=== PATIENT | male | born 1975 | race Caucasian/White ===

== ENCOUNTER → 2020-09-11 14:30 | Outpatient (BNVA) | payer BC, OTHER, SELFPAY | PROVIDERS: PCP Nurse Practitioner Family; Visit Provider Surgery | DX: K64.5 Perianal venous thrombosis (principal) | CPT/HCPCS: 46600 ==

== ENCOUNTER → 2021-04-14 11:01 | Outpatient (BNVA) | payer BC, OTHER, SELFPAY | PROVIDERS: PCP Nurse Practitioner Family; Visit Provider Anesthesiology ==

== ENCOUNTER 2021-08-19 13:26 | Outpatient (REF) | payer OTHER, SELFPAY ==
--- NOTE | ~2021-08-19 | XR_ITS ---
EXAMINATION: XR THORACOLUMBAR SPINE CLINICAL INFORMATION: Other mechanical complication of implanted electrode COMPARISON: Chest x-ray 04/08/2020 TECHNIQUE: 3 views of the thoracic spine were obtained. FINDINGS: Normal alignment of the thoracic spine. No appreciable degenerative changes of the thoracic spine. Spinal stimulator leads appear stable in orientation. Visualized lung parenchyma is well aerated. XR/XR thoracic spine 2V IMPRESSION: Unremarkable radiographs of the thoracic spine.
== END 2021-08-19 13:27 | disposition home or self-care (01) ==
LOC: HO.XRAY 13:26
PROVIDERS: PCP Nurse Practitioner Family; Visit Provider Anesthesiology
DX: M96.1 Postlaminectomy syndrome, not elsewhere classified (principal); T85.192D Other mechanical complication of implanted electronic neurostimulator of spinal cord electrode (lead), subsequent encounter
CPT/HCPCS: 72070

== ENCOUNTER 2021-08-22 09:18 | Day surgery (SDC) | payer OTHER, SELFPAY ==
[2021-08-13 12:46] VITALS: BMI 33.1
--- NOTE | 2021-08-21 16:49 | P.CONAN_ITS ---
Documented by User: Charlette Bhatti NP 08/21/21 16:49 HPI - Anesthesia Eval Consult details Narrative: 45yo M for Remove Spinal Cord Stimulator PMFSH Active Problems Active Problems: All Active Problems (Updated 08/13/21 @ 12:45 by Johana Jerez RN) Blepharitis of eyelid of left eye (Acute) Mild intermittent asthma, uncomplicated (Acute) Acute hemorrhoid (Acute) Perianal hematoma (Acute) Spinal cord stimulator dysfunction (Acute) Postlaminectomy syndrome (Acute) Thrombosed external hemorrhoid (Acute) Past Medical History Medical History (Updated 08/13/21 @ 12:45 by Johana Jerez RN) Asthma COVID-19 vaccine series completed Positive PPD, treated Postlaminectomy syndrome Sleep apnea Spinal cord stimulator status Thrombosed external hemorrhoid Family History Family History Maternal Grandfather History of liver cancer Father History of bladder cancer Surgical History Surgical History (Updated 08/13/21 @ 12:45 by Johana Jerez RN) History of appendectomy History of lumbar fusion Hx of knee surgery Hx of repair of rotator cuff Social History Social History Are you a primary lawn care specialist to a significant other at home: No Do you presently have visiting nurse or other home services: No Alcohol intake: current Alcohol intake frequency: a few times a month Patient Tobacco Use Status: Former Tobacco user Quit Date: 2014 (smokes occasional cigar) Tobacco use type: Cigarette and Cigar Years Smoked: 20 Use of substances other than those prescribed or required for medical reasons: No Have you been hit, kicked, punched, or otherwise hurt by someone within the past year? If so, by whom?: No Are you DNR?: No Advance Directives: No Advance Directives Information Provided: Yes (informational brochure mailed) Advance Directives on File: No Recently lost weight without trying: No Eating poorly because of decreased appetite: No Nutrition Risks: No Nutritional Risk Poor oral hygiene: No Meds Allergies Allergy/AdvReac Type Severity Reaction Status Date / Time No Known Allergies Allergy Verified 04/14/21 11:25 [No Known Allergies*] Home Medications Medication Instructions Recorded Confirmed Last Taken Type esomeprazole magnesium 20 mg 20 mg PO DAILY 08/26/20 08/13/21 08/22/21 History capsule,delayed release famotidine 40 mg tablet 40 mg PO BEDTIME 08/26/20 08/13/21 Unknown History flu vac qs 2019(4 yr up)CD(PF) ml IM 08/26/20 09/11/20 Unknown History fluticasone propionate 50 1 spray INTRANASAL DAILY 08/26/20 08/13/21 Unknown History mcg/actuation nasal spray,suspension (Flonase Allergy Relief) Exam Exam Date and Time: August 21, 2021 164 Height,Weight and Vital Signs: Height 6 ft 3 in Weight 120.202 kg Assessment and Plan Assessment Anesthesia Assessment: Chart Reviewed Documented by User: Cruz Arredondo 08/22/21 10:16 HPI - Anesthesia Eval Consult details Narrative: 45yo M for Remove Spinal Cord Stimulator kilo , Cpap , asthma PMFSH Past Medical History Medical History (Updated 08/13/21 @ 12:45 by Johana Jerez RN) Asthma COVID-19 vaccine series completed Positive PPD, treated Postlaminectomy syndrome Sleep apnea Spinal cord stimulator status Thrombosed external hemorrhoid Family History Family History Maternal Grandfather History of liver cancer Father History of bladder cancer Surgical History Surgical History (Updated 08/13/21 @ 12:45 by Johana Jerez RN) History of appendectomy History of lumbar fusion Hx of knee surgery Hx of repair of rotator cuff History of Problems with Anesthesia: No Social History Social History Are you a primary lawn care specialist to a significant other at home: No Do you presently have visiting nurse or other home services: No Alcohol intake: current Alcohol intake frequency: a few times a month Patient Tobacco Use Status: Former Tobacco user Quit Date: 2014 (smokes occasi onal cigar) Tobacco use type: Cigarette and Cigar Years Smoked: 20 Use of substances other than those prescribed or required for medical reasons: No Have you been hit, kicked, punched, or otherwise hurt by someone within the past year? If so, by whom?: No Are you DNR?: No Advance Directives: No Advance Directives Information Provided: Yes (informational brochure mailed) Advance Directives on File: No Recently lost weight without trying: No Eating poorly because of decreased appetite: No Nutrition Risks: No Nutritional Risk Poor oral hygiene: No Meds Allergies Allergy/AdvReac Type Severity Reaction Status Date / Time No Known Allergies Allergy Verified 04/14/21 11:25 [No Known Allergies*] Home Medications Medication Instructions Recorded Confirmed Last Taken Type esomeprazole magnesium 20 mg 20 mg PO DAILY 08/26/20 08/13/21 08/22/21 History capsule,delayed release famotidine 40 mg tablet 40 mg PO BEDTIME 08/26/20 08/13/21 Unknown History flu vac qs 2019(4 yr up)CD(PF) ml IM 08/26/20 09/11/20 Unknown History fluticasone propionate 50 1 spray INTRANASAL DAILY 08/26/20 08/13/21 Unknown History mcg/actuation nasal spray,suspension (Flonase Allergy Relief) Exam Airway Mallampati Class: II TM Dist: >3cm Neck ROM: Full Loose/Missing/Broken Teeth: Yes Heart: rrr Lungs: bl breath sounds Assessment and Plan Final Anesthetic Review History of Problems with Anesthesia: No NPO: Yes ASA Class: III Patient Risk: Intermediate Procedure Risk: Intermediate Anesthetic Plan Anesthetic Plan: GA Disposition: Standard PACU
[2021-08-22] VITALS (9 sets, daily range): BP systolic 110–138; BP diastolic 57–85; PULSE 64–83; RESP 14–17; TEMP 36.3–36.8; O2SAT 93–97
--- NOTE | ~2021-08-22 | FL_ITS ---
EXAMINATION: XR FLUOROSCOPY WITH IMAGES CLINICAL INFORMATION: Implant removal COMPARISON: None. TECHNIQUE: Fluoroscopy performed by Dr. Christiano Valle. Fluoroscopy time: 0.1 minutes DAP: 0.8 mGycm2 Images: 2 FINDINGS: Fluoroscopy guidance was provided for implant removal. FL/FL guidance in OR IMPRESSION: Fluoroscopy guidance for implant removal.
[2021-08-22] MEDS: Lactated Ringers 1,000 ML 100 ML IVCONT (09:56)
--- NOTE | 2021-08-22 10:12 | P.HPSUR_ITS ---
Pre-Procedural Eval Section A Date of Service: 08/22/21 Changes since office visit: Yes Patient answered all questions The History & Physical has been completed within 30 days and I have reviewed it.: No Section B Chief Complaint: postlaminectomy syndrome Details of Present Illness: Postlaminectomy syndrome, presence of spinal cord stimulator. Malfunctioning spinal cord stimulator. Relevant Family History (Specify if Yes): No Relevant Social History: None Present Medications: None Medical History: No relevant PMH History of Previous Operations: Relevant previous surgery/procedure and date(s) Allergies: Allergies Allergy/AdvReac Type Severity Reaction Status Date / Time No Known Allergies Allergy Verified 04/14/21 11:25 [No Known Allergies*] Review of Systems Sugical H&P ROS: Negative: Constitution, Cardiovascular, Respiratory, Neurological, Psychiatric, Hem-Onc, Allergic/Immunologic, Gastrointestinal, Genitourinary, Musculoskeletal, Integumentary, Endocrine and Eyes/ Ears/Nose/Throat Exam Surgical H&P Exam: Normal: HEENT, Normal: Heart, Normal: Lungs, Normal: Extremities, Normal: Abdomen, Normal: Skin and Normal: Neurological Plan Diagnosis/Plan: Unchanged I have reviewed the history and physical and performed a pertinent physical examination on my patient. No changes have occurred unless specified.
--- NOTE | 2021-08-22 12:16 | PM.OP ---
Brief Operative Note Date of Service: 08/22/21 Pre-op diagnosis: presence of the spinal cord stimulator. Malfunctioning spinal cord stimulator Post-op diagnosis: same Procedure: removal of the spinal cord stimulator [employer] and epidural spinal cord Stimulator leads. Implants: None permanent Surgeon: Christiano Valle MD Anesthesia: GETA Was an Manager [employer] used for this Procedure?: No Estimated blood loss (mL): 10 Pathology: none sent Condition: stable Disposition: PACU
--- NOTE | 2021-08-22 12:18 | W.PM.OPN ---
Operative Note Operative Note Date of Service: 08/22/21 Narrative: Mr. Mejía is very pleasant 45 years old gentleman who presents in my office with complains on discomfort in the projection of the spinal cord stimulator as well as unpleasant Spinal cord stimulator sensation in bilateral lower extremities. he insisted on removal of the spinal cord stimulator. He has postlaminectomy syndrome. I offered him revision of the spinal cord stimulator and replacement of the machine with Nevro device however he adamantly refused. Therefore he is scheduled today for removal of the device [employer]. The patient after obtaining informed consent was taken to the operating room, positioned supine on the stretcher, [place] [employer] monitors were applied and patient was administered general anesthesia with Endotracheal intubation. after that patient was transferred to the operating table prone, all pressure points were protected. Time-out was performed delineating correct name and date of of the patient, correct site and side of the surgery, DVT prophylaxis knee, antibiotic knee, risk of fire. Patient received 3 g of cefazolin before the incision 30 minutes. Patient's lower back and left flank were prepped with ChloraPrep twice and draped with full body fenestrated drape. Sterilely draped C-arm was brought of the operating field and spinal cord stimulator leads as well as [employer]tron[employer] device were demonstrated on the screen. Again the position of the spinal cord stimulator was verify and found to be appropriate for stimulation. Local anesthetic mixture of lidocaine 2% and bupivacaine 0.5% was injected into the projection of the previously healed scar in the upper portion of the battery implantation site in the area of the left loin. After that 10 blade scalpel was used to make a horizontal skin incision 6 cm long. Thorough hemostasis was obtained. The incision was widened and deepened using electrocautery device. After that the capsule containing the spinal cord stimulator pump was incised using Metzenbaum scissors and spinal cord stimulator battery was detected in the pocket. After that the battery was freed from surrounding tissues in delivered to the level of the skin. Suture scissors were used to sever the epidural leads. Gentle dragging the epidural leads allowed me to remove the epidural leads from the epidural space and side of the implantation without opening the Midline back incision. One of the anchor was dislodged and removed with the epidural lead. The other anchor was left behind. After that thorough irrigation was performed and side of the entrance of the epidural leads into the pocket was closed using 0 Polysorb sutures. After that 7 mm KALEY drain was obtained and drainage was placed through the lowest Lateral corner of the wound. Sean-Stanford draining device was trimmed appropriately and inserted in the wound. After that 0 Polysorb was used to close the wound. 2- 0 polysorb was used to approximate the level of the skin. Steri-Strip an skin glue were used to close the skin. 3-0 nylon was used to attach the KALEY drainage to the skin at the entrance site. After that sterile dressing was applied using 4x4s and skin tape. Upon completion of the procedure patient was transferred to the stretcher supine, awakened, extubated, and transferred stable to PACU. He recovered in PACU uneventfully.
[2021-08-22] MEDS: oxyCODONE HCl Immed Release 5 MG TABLET PO (13:06)
[2021-08-22] MEDS: Acetaminophen 325 MG TABLET 650 MG PO (13:07)
== END 2021-08-22 14:18 | disposition home or self-care (01) ==
PROVIDERS: PCP Nurse Practitioner Family; Visit Provider Anesthesiology
PROC: (CPT 63661; principal; 2021-08-22 11:00)
DX: T85.840A Pain due to nervous system prosthetic devices, implants and grafts, initial encounter (principal); G89.18 Other acute postprocedural pain; M96.1 Postlaminectomy syndrome, not elsewhere classified; M79.605 Pain in left leg; M79.604 Pain in right leg; R20.2 Paresthesia of skin; M54.9 Dorsalgia, unspecified; G47.00 Insomnia, unspecified; Z98.1 Arthrodesis status; Y82.8 Other medical devices associated with adverse incidents; Y92.9 Unspecified place or not applicable
CPT/HCPCS: 63661; 63688; J0690; J1100; J2250; J2405; J3010; J3370

== ENCOUNTER → 2021-08-25 12:49 | Outpatient (BNVA) | payer OTHER, SELFPAY | PROVIDERS: PCP Nurse Practitioner Family; Visit Provider Anesthesiology | DX: Z48.03 Encounter for change or removal of drains (principal) | CPT/HCPCS: 99211 ==

== ENCOUNTER → 2021-08-27 15:45 | Outpatient (BNVA) | payer OTHER, SELFPAY | PROVIDERS: PCP Nurse Practitioner Family; Visit Provider Anesthesiology | DX: Z48.89 Encounter for other specified surgical aftercare (principal); M79.661 Pain in right lower leg; M96.1 Postlaminectomy syndrome, not elsewhere classified | CPT/HCPCS: 99212 ==

== ENCOUNTER 2021-08-28 14:45 | Outpatient (REF) | payer OTHER, SELFPAY ==
--- NOTE | ~2021-08-28 | US_ITS ---
EXAMINATION: US VENOUS ULTRASOUND WITH DOPPLER LOWER EXTREMITY, RIGHT CLINICAL INFORMATION: Acute embolism and thrombosis COMPARISON: None TECHNIQUE: Ultrasound of the deep veins is performed from the hip to the calf with compression sonography and color and pulse Doppler assessment. Spectral analysis with color-flow imaging is performed. FINDINGS: There is normal venous compression and respiratory variation and augmented flow. The visualized common femoral vein, superficial femoral vein, profunda femoral vein and popliteal vein. There is noncompressible clot in the right mid and proximal posterior tibial venous branch. The distal posterior tibial vein is compressible and patent. There is no significant popliteal fossa cyst. If the patient's symptoms persist, followup ultrasound in 5 days 7 days might be of value to exclude proximal propagation from a non-visualized calf vein. US/US venous duplex LE RT IMPRESSION: There is acute thrombus in right mid and proximal posterior tibial venous branch. Rest of the right lower extremity is patent. There is no calf edema or Moody's cyst. Results were called to referring physician BEE Overton by phone at 3:35 PM.
[2021-08-28 16:47] LABS: INTERNATIONAL NORM RATIO 1.1 (0.9-1.1); Prothrombin Time 12.1 SEC (9.9-13.0)
== END 2021-08-28 14:46 | disposition home or self-care (01) ==
LOC: HO.US 14:45
PROVIDERS: Absent Provider Nurse Practitioner Family; PCP Nurse Practitioner Family; Visit Provider Anesthesiology
DX: I82.409 Acute embolism and thrombosis of unspecified deep veins of unspecified lower extremity (principal)
CPT/HCPCS: 36415; 85610; 93971

== ENCOUNTER 2021-09-01 12:54 | Outpatient (REF) | payer OTHER, SELFPAY ==
[2021-09-01 14:36] LABS: INTERNATIONAL NORM RATIO 1.1 (0.9-1.1); Prothrombin Time 12.1 SEC (9.9-13.0)
== END 2021-09-01 12:55 | disposition home or self-care (01) ==
LOC: HO.LAB 12:54
PROVIDERS: Nurse Practitioner Family; PCP Nurse Practitioner Family; Visit Provider Anesthesiology
DX: I82.409 Acute embolism and thrombosis of unspecified deep veins of unspecified lower extremity (principal); M96.1 Postlaminectomy syndrome, not elsewhere classified; Z79.01 Long term (current) use of anticoagulants
CPT/HCPCS: 36415; 85610; 99212

== ENCOUNTER → 2021-09-29 14:32 | Outpatient (BNVA) | payer OTHER, SELFPAY | PROVIDERS: PCP Nurse Practitioner Family; Visit Provider Anesthesiology | DX: M96.1 Postlaminectomy syndrome, not elsewhere classified (principal) | CPT/HCPCS: 99212 ==

== ENCOUNTER 2021-11-28 11:35 | Outpatient (REF) | payer OTHER, SELFPAY ==
--- NOTE | ~2021-11-28 | US_ITS ---
EXAMINATION: RIGHT LOWER EXTREMITY DEEP VENOUS ULTRASOUND CLINICAL INFORMATION: History of right lower extremity DVT COMPARISON: Right lower extremity DVT study 11/28/2021 TECHNIQUE: Duplex Doppler imaging with compression maneuvers were performed of the right lower extremity deep venous system. FINDINGS: The visualized common femoral, femoral and popliteal veins demonstrate normal compressibility and color flow without evidence of venous thrombosis. The proximal portion of the right posterior tibial vein demonstrates internal echogenicities and incomplete color flow consistent with nonocclusive thrombus. The mid and distal portion of the right posterior tibial vein appear widely patent. Visualized portions of the peroneal vein appear patent. There is no evidence of a Moody's cyst. US/US venous duplex LE RT IMPRESSION: Persistent but improving nonocclusive thrombus within the proximal portion of the right posterior tibial vein.
== END 2021-11-28 11:36 | disposition home or self-care (01) ==
LOC: HO.US 11:35
PROVIDERS: PCP Nurse Practitioner Family; Visit Provider Internal Medicine Medical Oncology
DX: I82.401 Acute embolism and thrombosis of unspecified deep veins of right lower extremity (principal)
CPT/HCPCS: 93971

== ENCOUNTER 2022-06-02 11:25 | Outpatient (REF) | payer OTHER, SELFPAY ==
--- NOTE | ~2022-06-02 | XR_ITS ---
EXAMINATION: XR KNEE, LEFT CLINICAL INFORMATION: Fall COMPARISON: None TECHNIQUE: Four views of the left knee. FINDINGS: No fracture or subluxation. Compartmental joint spaces are maintained. No joint effusion. The soft tissues are unremarkable. XR/XR knee LT 4V IMPRESSION: Normal left knee.
== END 2022-06-02 11:26 | disposition home or self-care (01) ==
LOC: HO.HMGCX 11:25
PROVIDERS: PCP Nurse Practitioner Family; Visit Provider Emergency Medicine
DX: M25.562 Pain in left knee (principal); W19.XXXA Unspecified fall, initial encounter
CPT/HCPCS: 73564

== ENCOUNTER 2022-06-08 13:54 | Outpatient (REF) | payer OTHER, SELFPAY ==
--- NOTE | ~2022-06-08 | US_ITS ---
EXAMINATION: US VENOUS ULTRASOUND WITH DOPPLER LOWER EXTREMITY, RIGHT CLINICAL INFORMATION: Right lower extremity DVT COMPARISON: 11/28/2021 TECHNIQUE: Ultrasound of the deep veins is performed from the hip to the calf with compression sonography and color and pulse Doppler assessment. Spectral analysis with color-flow imaging is performed. FINDINGS: There is normal venous compression and respiratory variation and augmented flow. The visualized common femoral vein, superficial femoral vein, profunda femoral vein, popliteal vein, and the trifurcation region shows no evidence of deep venous thrombosis. There is no significant popliteal fossa cyst. Previously seen thrombus in the proximal right posterior tibial vein has resolved. If the patient's symptoms persist, followup ultrasound in 5 days 7 days might be of value to exclude proximal propagation from a non-visualized calf vein. US/US venous duplex LE RT IMPRESSION: No DVT demonstrated in the right lower extremity. Previously seen thrombus in the proximal right posterior tibial vein has resolved.
== END 2022-06-08 13:55 | disposition home or self-care (01) ==
LOC: HO.US 13:54
PROVIDERS: Visit Provider Internal Medicine Medical Oncology
DX: I82.401 Acute embolism and thrombosis of unspecified deep veins of right lower extremity (principal)
CPT/HCPCS: 93971

== ENCOUNTER 2022-08-11 11:11 | Outpatient (REF) | payer OTHER, SELFPAY ==
[2022-08-11 12:00] LABS: Influenza A PCR NEGATIVE (Negative); Influenza B PCR NEGATIVE (Negative); Resp Syncy Virus RNA Qual PCR NEGATIVE (Negative); SARS COV2 PCR INHOUSE POSITIVE (Negative)
== END 2022-08-11 11:12 | disposition home or self-care (01) ==
LOC: HO.LNP 11:11
PROVIDERS: Visit Provider Internal Medicine
DX: Z20.822 Contact with and (suspected) exposure to COVID-19 (principal); R43.9 Unspecified disturbances of smell and taste
CPT/HCPCS: 0241U

== ENCOUNTER 2022-10-16 06:02 | Outpatient (REF) | payer OTHER, SELFPAY ==
[2022-10-16 11:26] LABS: MANUAL DIFF FLAG NO
[2022-10-16 11:35] LABS: Basophils Absolute Auto 0.1 X10*3/uL (0.0-0.2); Basophils Percent Auto 0.7 % (0-2); Eosinophils Absolute Auto 0.3 X10*3/uL (0.0-0.4); Eosinophils Percent Auto 3.7 % (0-4); Hematocrit 45.2 % (42.0-52.0); Hemoglobin 15.1 g/dl (14.0-18.0); Imm Gran Abs Auto 0.02 X10*3/uL (0.00-0.03); Imm Gran Pct Auto 0.3 % (0.0-0.4); Lymphocytes Absolute Auto 1.8 X10*3/uL (1.2-4.9); Lymphocytes Percent Auto 26.4 % (20-40); Mean Corpuscular HGB Conc 33.4 g/dl (31.0-36.0); Mean Corpuscular Hemoglobin 30.2 pg (27.0-33.0); Mean Corpuscular Volume 90.4 fL (80.0-98.0); Mean Platelet Volume 11.1 fL (9.4-12.4); Monocytes Absolute Auto 0.6 X10*3/uL (0.1-1.2); Monocytes Percent Auto 8.2 % (2-11); Neutrophils Absolute Auto 4.1 x10*3/uL (2.0-8.3); Neutrophils Percent Auto 60.7 % (45-73); Platelet Count 292 X10*3/uL (160-400); Red Cell Distribution Width 13.4 % (11.0-16.0); White Blood Count 6.7 X10*3/uL (4.8-10.8)
[2022-10-16 11:58] LABS: Alanine Aminotransferase 31 U/L (0-40); Albumin Level 4.3 g/dL (3.5-5.0); Alkaline Phosphatase 40 U/L (39-117); Anion Gap 11 (12-20); Aspartate Amino Transferase 19 U/L (5-37); Bilirubin Total 0.7 mg/dL (0.0-1.0); Blood Urea Nitrogen 22 mg/dL (9-16); Calcium 9.1 mg/dL (8.4-10.2); Carbon Dioxide 29 mmol/L (22-29); Chloride 106 mmol/L (96-108); Cholesterol 147 mg/dL; Estimated Glomerular Filt Rate > 60; Glucose Fasting 110 mg/dL (60-99); HDL Cholesterol 51 mg/dL; LDL Cholesterol Calculated 87 mg/dl; Sodium 141 mmol/L (135-145); Total Protein 6.7 g/dL (6.5-8.0); Triglycerides 49 mg/dL
[2022-10-16 12:14] LABS: TSH reflex Free T4 1.28 uIU/mL (0.32-4.0)
== END 2022-10-16 06:03 | disposition home or self-care (01) ==
LOC: HO.HMGCLDS 06:02
PROVIDERS: PCP Nurse Practitioner Family; Visit Provider Nurse Practitioner Family
DX: Z00.00 Encounter for general adult medical examination without abnormal findings (principal)
CPT/HCPCS: 36415; 80053; 80061; 84443; 85025

== ENCOUNTER → 2022-10-20 14:51 | Outpatient (REF) | payer OTHER, SELFPAY ==
--- NOTE | 2022-10-20 14:53 | CA_ITS ---
Transthoracic Echocardiogram Patient (Last, First, Middle): Missael Mejía L Gender: Male Date of : 1975 Age: 46 Procedure Date: 10/20/2022 Procedure Type: Transthoracic Echocardiogram Location: OP Height: 190.5 cm Weight: 118.84 kg BSA: 2.46 m2 Heart Rate: bpm BP: 128 / 76 mmHg Supplier Quality Specialist: TOSHIA Referring MD: Matthew Raza [facility] Symptoms: Z82.49 - Family history of ischemic heart disease and other diseases of ... Study Quality: Adequate ECG Rhythm: Sinus Conclusions: - The left ventricular systolic function is normal. The visually estimated ejection fraction is between 65-70%. - There is mildly increased left ventricular wall thickness. - No obvious valvular pathology seen on this study. Findings Left Ventricle Normal left ventricular cavity size. There is mildly increased left ventricular wall thickness. The left ventricular systolic function is normal. The visually estimated ejection fraction is between 65-70%. There is no evidence of regional wall motion abnormalities. Diastolic function is normal for age. LV peak GLS -18.7%. Right Ventricle Normal right ventricular cavity size and systolic function. Atria Both atria are normal in size. Aortic Valve There is a normal trileaflet aortic valve. There is no aortic valve stenosis. There is no aortic valve regurgitation. Mitral Valve The mitral valve appears normal. There is trace mitral valve regurgitation. There is no mitral valve stenosis. Pulmonic Valve The pulmonic valve is likely normal. Tricuspid Valve Normal tricuspid valve structure. There is trace tricuspid valve regurgitation. There is no evidence of pulmonary hypertension. Great Vessels The asc aorta and aortic arch are normal in size. Venous The inferior vena cava is normal in size and collapses greater than 50% with inspiration. Pericardium/Pleural There is no evidence of pericardial effusion. Prior Study Comparison No significant change compared to prior study dated: 12/05/2018. Recommendations, Care & Conclusions No obvious valvular pathology seen on this study. Measurements 2D Linear Measurements IVSd: 1.25 0.6-0.9/0.6-1.0 cm LVIDd: 5.09 3.9-5.3/4.2-5.9 cm LVIDd Index: 2.07 2.4-3.2/2.2-3.1 cm/m2 LVIDs: 2.99 2.0-3.6 cm LVPWd: 1.11 0.7-1.1 cm LA Diam: 3.80 2.7-3.8/3.0-4.0 cm LAIDs Index: 1.54 1.5-2.3 cm/m2 LV Mass: 292.89 67-162/88-224 g LV Mass Index: 119.06 43-95/49-115 g/m2 LVOT Diam: 2.10 3.0+(-)1.3 cm 2D Systolic Function EF 4C: 58.30 >55% Mitral Valve MV Pk E: 0.66 MV PK A: 0.48 MV Decel Time: 218.00 E/A: 1.40 E'Lateral: 14.50 E'Medial: 10.20 E/E' Med: 6.50 E/E' Lat: 4.60 PHT: 64.00 MVA PHT: 3.44 Decel Bulloch: 3.03 Aortic Valve AoV Pk Jesus: 1.47 AoV Mn Jesus: 1.04 AoV VTI: 0.31 AoV Pk Grad: 9.00 Aov Mn Grad: 5.00 RAUL Cont.VTI: 2.50 LVOT LVOT Pk Jesus: 1.16 LVOT Mn Jesus: 0.69 LVOT VTI: 0.23 LVOT Pk Grad: 5.00 LVOT Mn Grad: 2.00 LVOT Diam: 2.10 LVOT Area: 3.46 Diastolic Function MV Pk E: 0.66 MV Pk A: 0.48 E/A: 1.40 E'Medial: 10.20 E/E' Med: 6.50 E' Laterial: 14.50 E/E' Lat: 4.60 Right Ventricle TAPSE (mm): 21.40 TVS' Jesus: 10.40 Tricuspid Valve TR Pk Jesus: 1.95 TR Pk Grad: 15.00 RA Press: 3.00 RVSP: 18.00 Great Vessels Aorta Sinus of Valsalva: 3.38 2.0-3.[address] [place]: 2.26 1.7-3.4 cm Ao Asc: 3.10 2.1-3.4 cm Ao Arch: 2.80 Updated in Other Vendor System with Status of Final Arma Barlow MD electronically signed on 10/20/2022 4:35:40 PM with status of Final
== END ==
LOC: HO.CARD 14:51
PROVIDERS: PCP Nurse Practitioner Family; Visit Provider Nurse Practitioner Family
DX: Z82.49 Family history of ischemic heart disease and other diseases of the circulatory system (principal)
CPT/HCPCS: 93306; 93356

== ENCOUNTER → 2022-11-12 14:41 | Outpatient (BNVA) | payer OTHER, SELFPAY | PROVIDERS: PCP Nurse Practitioner Family; Referring Provider Nurse Practitioner Family; Visit Provider Nurse Practitioner Family | DX: Z12.11 Encounter for screening for malignant neoplasm of colon (principal); K21.9 Gastro-esophageal reflux disease without esophagitis; F17.290 Nicotine dependence, other tobacco product, uncomplicated | CPT/HCPCS: 99202 ==

== ENCOUNTER 2023-05-10 13:55 | Day surgery (SDC) | payer OTHER, SELFPAY ==
--- NOTE | 2023-05-07 09:55 | HO.ANESPROP2 ---
Documented by User: Charlette Bhatti NP 05/07/23 09:59 HPI - Anesthesia Eval Consult details Narrative: 47yo M for Upper Endoscopy and Colonoscopy Hx DVT - no [facility]ag [facility] Active Problems Active Problems: All Active Problems (Updated 10/13/22 @ 14:36 by Matthew Raza, [facility]) Family hx of aortic aneurysm (Acute) Screening for colon cancer (Acute) Physical exam (Acute) Upper respiratory tract infection (Acute) Blepharitis of eyelid of left eye (Acute) Mild intermittent asthma, uncomplicated (Acute) Acute hemorrhoid (Acute) Perianal hematoma (Acute) Spinal cord stimulator dysfunction (Acute) Anticoagulation monitoring, INR range 2-3 (Acute) DVT (deep venous thrombosis) (Acute) DVT of leg (deep venous thrombosis) (Acute) Postlaminectomy syndrome (Acute) Thrombosed external hemorrhoid (Acute) Past Medical History Medical History GERD (gastroesophageal reflux disease) Deep vein thrombosis, lower right extremity COVID-19 vaccine series completed Positive PPD, treated Sleep apnea Asthma Spinal cord stimulator status Postlaminectomy syndrome Thrombosed external hemorrhoid Family History Family History Maternal Grandfather History of liver cancer Father History of bladder cancer Surgical History Surgical History History of back surgery Hx of knee surgery Hx of repair of rotator cuff History of lumbar fusion History of appendectomy History of Problems with Anesthesia: No Social History Social History Household Members: Spouse and Children Housing: House Are you a primary care information associate to a significant other at home: No Do you presently have visiting nurse or other home services: No Alcohol intake: current Alcohol intake frequency: a few times a month Patient Tobacco Use Status: Current everyday Tobacco user Tobacco use type: Cigar Years Smoked: 20 e-Cigarette/Vaping Use: Never Used Second Hand Smoke Exposure: No service: Yes Current occupational status: employed Cognitive needs: No Hearing needs: No Vision needs: No Meds Allergies Allergy/AdvReac Type Severity Reaction Status Date / Time No Known Allergies Allergy Verified 05/10/23 14:05 [No Known Allergies*] Home Medications Medication Instructions Recorded Confirmed Last Taken Type esomeprazole magnesium 20 mg 20 mg PO DAILY 08/26/20 05/10/23 05/10/23 06:00 History capsule,delayed release (Nexium) famotidine 40 mg tablet 40 mg PO BEDTIME 08/26/20 05/10/23 Unknown History fluticasone propionate 50 1 spray intranasal DAILY 08/26/20 05/10/23 05/10/23 06:00 History mcg/actuation nasal spray,suspension (Flonase Allergy Relief) tadalafil 5 mg tablet 5 mg PO DAILY 05/10/23 05/10/23 05/10/23 06:00 History Exam Exam Date and Time: May 07, 2023 09 Narrative Narrative: ECHO 10/2022 Conclusions: - The left ventricular systolic function is normal. The visually estimated ejection fraction is between 65-70%. - There is mildly increased left ventricular wall thickness. - No obvious valvular pathology seen on this study. Assessment and Plan Assessment Anesthesia Assessment: Chart Reviewed Final Anesthetic Review History of Problems with Anesthesia: No Documented by User: Anahi Samuel MD 05/10/23 16:48 PMFSH Past Medical History Medical History GERD (gastroesophageal reflux disease) Deep vein thrombosis, lower right extremity COVID-19 vaccine series completed Positive PPD, treated Sleep apnea Asthma Spinal cord stimulator status Postlaminectomy syndrome Thrombosed external hemorrhoid Family History Family History Maternal Grandfather History of liver cancer Father History of bladder cancer Surgical History Surgical History History of back surgery Hx of knee surgery Hx of repair of rotator cuff History of lumbar fusion History of appendectomy Social History Social History Household Members: Spouse and Children Housing: House Are you a primary care information associate to a significant other at home: No Do you presently have visiting nurse or other home services: No Alcohol intake: current Alcohol intake frequency: a few times a month Patient Tobacco Use Status: Current everyday Tobacco user Tobacco use type: Cigar Years Smoked: 20 e-Cigarette/Vaping Use: Never Used Second Hand Smoke Exposure: No service: Yes Current occupational status: employed Cognitive needs: No Hearing needs: No Vision needs: No Meds Allergies Allergy/AdvReac Type Severity Reaction Status Date / Time No Known Allergies Allergy Verified 05/10/23 14:05 [No Known Allergies*] Home Medications Medication Instructions Recorded Confirmed Last Taken Type esomeprazole magnesium 20 mg 20 mg PO DAILY 08/26/20 05/10/23 05/10/23 06:00 History capsule,delayed release (Nexium) famotidine 40 mg tablet 40 mg PO BEDTIME 08/26/20 05/10/23 Unknown History fluticasone propionate 50 1 spray intranasal DAILY 08/26/20 05/10/23 05/10/23 06:00 History mcg/actuation nasal spray,suspension (Flonase Allergy Relief) tadalafil 5 mg tablet 5 mg PO DAILY 05/10/23 05/10/23 05/10/23 06:00 History Exam Airway Mallampati Class: III TM Dist: >3cm Neck ROM: Full Loose/Missing/Broken Teeth: No Heart: RRR Lungs: CTA Assessment and Plan Assessment Anesthesia Assessment: Anesthesia Plan Discussed Final Anesthetic Review NPO: Yes ASA Class: III Final Preanesthetic Review: Meds/Allgs Chart Reviewed, Consent Obtained/Reviewed and Anes Risks/Benef Reviewed Patient Risk: Intermediate Procedure Risk: Intermediate Anesthetic Plan Anesthetic Plan: MAC: Disposition: Standard PACU
[2023-05-10 14:07] VITALS: BMI 31.5
[2023-05-10 14:17] VITALS: BP 124/79; PULSE 86; RESP 16; TEMP 36.6; O2SAT 96
[2023-05-10] MEDS: Lactated Ringers 1,000 ML 100 ML IVCONT (14:25)
--- NOTE | 2023-05-10 14:30 | MHC.SHP ---
Pre-Procedural Eval Section A Date of Service: 05/10/23 The patient is an INPATIENT: No The History & Physical has been completed within 30 days and I have reviewed it.: No Section B Chief Complaint: screening, GERD Relevant Family History (Specify if Yes): No Relevant Social History: Tobacco Use ( former smoker) Present Medications: see Short Stay Collaborative assessment Medical History: Significant History (Asthma COVID-19 vaccine series completed Deep vein thrombosis, lower right extremity DVT (deep venous thrombosis) DVT of leg (deep venous thrombosis) Positive PPD, treated Postlaminectomy syndrome Sleep apnea Spinal cord stimulator status Thrombosed external hemorrhoid) History of Previous Operations: Relevant previous surgery/procedure and date(s) (History of appendectomy History of lumbar fusion Hx of knee surgery Hx of repair of rotator cuff) Allergies: Allergies Allergy/AdvReac Type Severity Reaction Status Date / Time No Known Allergies Allergy Verified 05/10/23 14:05 [No Known Allergies*] Review of Systems Sugical H&P ROS: Negative: Constitution, Cardiovascular, Respiratory and Gastrointestinal Exam Surgical H&P Exam: Normal: Heart, Normal: Lungs, Normal: Extremities and Normal: Abdomen Plan Diagnosis/Plan: Unchanged I have reviewed the history and physical and performed a pertinent physical examination on my patient. No changes have occurred unless specified. Time Spent With Patient Time: Total time managing care of this patient today ____ minutes.
--- NOTE | 2023-05-10 16:02 | P.OP_ITS ---
Operative Note Operative Note Date of Service: 05/10/23 Narrative: FLEXIBLE TRANSORAL UPPER GASTROINTESTINAL ENDOSCOPY WITH BIOPSIES AND COLONOSCOPY TILL CECUM WITH SNARE POLYPECTOMY Pre-op diagnosis: colon cancer screening, GERD Post-op diagnosis: GERD, gastritis, colon polyp, diverticulosis, hemorrhoids? Endoscopist:? Hellen Rosa MD Anesthesia:?MAC UPPER ENDOSCOPY Consent: Indications for the procedure and potential complications of bleeding, perforation, reaction to medications and missed diagnosis were discussed with the patient and informed consent was obtained. Instrument: Olympus GIF H 190 mid size upper endoscope Monitoring: Vital signs and clinical assessment, continuous EKG monitoring, Pulse oximetry, Carbon Dioxide monitoring and blood pressure monitoring were done throughout the procedure. Procedure: The patient was placed in the left lateral decubitis position and pre-procedure medications were administered and a bite block was placed. The endoscope was inserted into the mouth and advanced under direct vision to the third part of duodenum. A careful inspection was made as the upper endoscope was withdrawn including a retroflexed examination of the proximal stomach; Findings and interventions are described below. Findings: Larynx: Normal Esophagus: GE junction at 42 cms. Irregular Z line - biopsied to check for Bush's. Stomach: Mild gastric erythema. Biopsies were obtained. Grade 2 flap valve on retroflexed examination of the cardia. Duodenum: Normal bulb and descending duodenum Intervention: Biopsies as noted above COLONOSCOPY PROCEDURE NOTE Consent: Indications for the procedure and potential complications of bleeding, perforation, reaction to medications and missed diagnosis were discussed with the patient and informed consent was obtained. Instrument: Olympus CF H 190 L variable stiffness adult colonoscope Monitoring: Vital signs and clinical assessment, intermittent blood pressure monitoring, continuous EKG monitoring, Pulse oximetry and Carbon Dioxide monitoring were done throughout the procedure. Colon withdrawl time was minutes. Procedure: The patient was placed in the left lateral decubitis position and pre-procedure medications were administered. After a digital rectal examination of the ano-rectum, the video colonoscope was inserted into the rectum and advanced through the colon to the cecum. The colonoscope was slowly withdrawn in a retrograde panoramic fashion and the colon mucosa was carefully examined including a retroflexed view of the rectum. Findings and interventions are described below. Procedure Difficulty: : Without difficulty Findings: Terminal Ileum: Not evaluated Cecum: Normal Ascending Colon: A 10 - 12 mm sessile polyp in the distal AC/hepatic flexure - removed with a cold snare. Transverse Colon: Normal Descending Colon: Normal Sigmoid Colon: Moderate diverticulosis Rectum: Normal Ano-rectum: Moderate internal hemorrhoids Colon preparation: Excellent Impression and Post Procedure Diagnosis: Endoscopy Findings: ESOPHAGUS: Irregular Z line - biopsied to check for Bush's. STOMACH: Gastritis Colonoscopy Findings: One medium sized polyp removed Moderate diverticulosis seen in the sigmoid colon Moderate hemorrhoids on retroflexed exam. Plan: Await pathology results Patient has an appointment on 06/17/23 in the GI Clinic with Adina Gomes FNP- [facility]. Repeat Colonoscopy interval based on path results - in 3 years if polyps are adenomatous and 10 years if polyps are hyperplastic. Above findings were reviewed with the patient and GERD, colon polyps and diverticulosis handouts were given in the discharge area
[2023-05-10 16:33] VITALS: BP 114/71; PULSE 76; RESP 18; TEMP 37.4; O2SAT 98
[2023-05-10 16:48] VITALS: BP 115/78; PULSE 80; RESP 18; O2SAT 95
[2023-05-10 16:50] VITALS: TEMP 36.2
== END 2023-05-10 17:11 | disposition home or self-care (01) ==
PROVIDERS: PCP Nurse Practitioner Family; Visit Provider Internal Medicine Gastroenterology
PROC: (CPT 45385; principal; 2023-05-10 15:20)
DX: Z12.11 Encounter for screening for malignant neoplasm of colon (principal); D12.2 Benign neoplasm of ascending colon; K57.30 Diverticulosis of large intestine without perforation or abscess without bleeding; K64.8 Other hemorrhoids; K21.9 Gastro-esophageal reflux disease without esophagitis; K29.50 Unspecified chronic gastritis without bleeding; K22.89 Other specified disease of esophagus; G47.33 Obstructive sleep apnea (adult) (pediatric); J45.20 Mild intermittent asthma, uncomplicated; Z86.718 Personal history of other venous thrombosis and embolism; Z79.51 Long term (current) use of inhaled steroids; Z79.899 Other long term (current) drug therapy; Z87.891 Personal history of nicotine dependence
CPT/HCPCS: 45385; 43239; 88305; 88342

== ENCOUNTER → 2023-05-10 13:55 | Outpatient (BNV) | payer OTHER, SELFPAY | PROVIDERS: PCP Nurse Practitioner Family; Visit Provider Internal Medicine Gastroenterology | DX: Z12.11 Encounter for screening for malignant neoplasm of colon (principal); K21.9 Gastro-esophageal reflux disease without esophagitis; K29.70 Gastritis, unspecified, without bleeding; K57.30 Diverticulosis of large intestine without perforation or abscess without bleeding; K64.8 Other hemorrhoids; D12.2 Benign neoplasm of ascending colon | CPT/HCPCS: 43239; 45385 ==

== ENCOUNTER 2023-06-17 09:03 | Outpatient (AMB) | payer OTHER, SELFPAY ==
--- NOTE | 2023-06-17 09:10 | MHC.OFFVIS ---
Intake Vital Signs 06/17/23 09:11 Height 6 ft 3 in Weight 265 lb 14.04 oz BMI 33.2 BP 150/85 H Blood Pressure Location Rt brachial Position Sitting Pulse 85 Pulse Source Pulse Oximeter Pulse Oximetry (%) 98 Oxygen Delivery Method Room Air Intake Visit Reasons: s/p egd/colon- Moe Intake Note: Pt presents to the office today for a s/p colonscopy/egd. Pt states he is overall feeling well. Pt denies any GI concerns at this time. Allergies No Known Allergies [No Known Allergies*] Allergy (Verified 06/28/23 08:58) HPI s/p egd/colon- Moe HPI Details LAST VISIT Screening for colon cancer Patient denies any cardiac or respiratory symptoms.? However he does reports to have history of asthma. Patient is on corticosteroid inhaler daily. Patient has a history of acid reflux and is on Nexium and famotidine. Patient reports that his symptoms of acid reflux are controlled for the most part. Denies any issues with anesthesia in the past.?History of sleep apnea using CPAP every night.? No history infectious diseases in the past or present.? Not on any anticoagulation therapy.? No family or personal history of colon cancer or polyps.? Patient denies melena, hematochezia, unintentional weight loss or ribbon like stools.? Discussed at length the pre-procedure,? prep, diet & medications as well as what to expect prior, during and after the procedure.?? Stressed the importance of good bowel prep. ?Recommended the use of Vaseline or Calmoseptine OTC & baby wipes with bowel movements to promote comfort.? ?Patient verbalizes understanding and agrees to plan of care.? He was given the opportunity to ask questions and all questions answered.? We will see his after the procedure.? GERD (gastroesophageal reflux disease) Patient is on famotidine and Nexium for acid reflux. Occasional acid reflux still depending on what he eats. Patient reports that he had upper endoscopy in the past was diagnosed with reflux. Patient was told that he needs surgery, however he is unsure of why. Discussed with patient avoiding dietary triggers and late night snacking. Staying upright for minimal 3 hours after meals discussed with patient. I will see patient after the procedure, sooner on as needed basis. Patient is agreeable to this plan and verbalizes understanding of instructions. He was given the opportunity to ask questions and all questions answered. ? Thank you for allowing me to participate in his care Plan Medications New bisacodyl (Dulcolax (bisacodyl)) take 2 tabs at noon the day before your colonoscopy 10 mg (2 x 5 mg) PO ONCE 1 day 2 tabs 0RF Z12.11 - Encounter for screening for malignant neoplasm of colon polyethylene glycol 3350 (Miralax) As directed by gastroenterology department at [facility] 238 grams PO ONCE 238 grams 0RF Z12.11 - Encounter for screening for malignant neoplasm of colon COLONOSCOPY AND UPPER ENDOSCOPY Findings: Larynx: Normal Esophagus: GE junction at 42 cms. Irregular Z line - biopsied to check for Bush's. Stomach: Mild gastric erythema. Biopsies were obtained. Grade 2 flap valve on retroflexed examination of the cardia. Duodenum: Normal bulb and descending duodenum Intervention: Biopsies as noted above Findings: Terminal Ileum: Not evaluated Cecum: Normal Ascending Colon: A 10 - 12 mm sessile polyp in the distal AC/hepatic flexure - removed with a cold snare. Transverse Colon: Normal Descending Colon: Normal Sigmoid Colon: Moderate diverticulosis Rectum: Normal Ano-rectum: Moderate internal hemorrhoids Colon preparation: Excellent Impression and Post Procedure Diagnosis: Endoscopy Findings: ESOPHAGUS: Irregular Z line - biopsied to check for Bush's. STOMACH: Gastritis Colonoscopy Findings: One medium sized polyp removed Moderate diverticulosis seen in the sigmoid colon Moderate hemorrhoids on retroflexed exam. Plan: Repeat Colonoscopy interval based on path results - in 3 years if polyps are adenomatous and 10 years if polyps are hyperplastic. Above findings were reviewed with the patient and GERD, colon polyps and diverticulosis handouts were given in the discharge area PATHOLOGY RESULTS Diagnosis A. Gastric antrum, biopsy: Gastric antral mucosa with mild reactive changes and minimal chronic inactive gastritis; negative for H pylori, intestinal metaplasia and dysplasia. B. Gastroesophageal junction, biopsy: Squamocolumnar mucosa with mild chronic inflammation and focal intestinal metaplasia; negative for dysplasia (see comment). C. Colon, ascending, polyp: Sessile serrated lesion/polyp without dysplasia. Comment: (B): These findings are consistent with Bush?s esophagus if the biopsies were taken from above the anatomic gastroesophageal junction. Clinical and endoscopic correlation is advised TODAY'S VISIT: Patient is here today for follow-up and to discuss upper endoscopy and colonoscopy results. Patient denies any ill effects from the prep, anesthesia or procedure itself. Patient states that he has been feeling well since the procedure. Denies any dyspepsia, dysphagia or odynophagia. Denies any melena, hematochezia, unintentional weight loss or ribbon like stools. Patient states that he is moving his bowels well. Denies any nausea or vomiting. Upper endoscopy and colonoscopy discussed with patient. [facility] Medical History (Updated 07/01/23 @ 20:50 by Adina Gomes, [facility]) Hemorrhoids without complication Sessile serrated polyp of colon Barretts esophagus GERD (gastroesophageal reflux disease) Deep vein thrombosis, lower right extremity COVID-19 vaccine series completed Positive PPD, treated Sleep apnea Asthma Spinal cord stimulator status Postlaminectomy syndrome Thrombosed external hemorrhoid Surgical History History of back surgery Hx of knee surgery Hx of repair of rotator cuff History of lumbar fusion History of appendectomy Family History Maternal Grandfather History of liver cancer Father History of bladder cancer Social History Household Members: Spouse and Children Housing: House Are you a primary primary care physician to a significant other at home: No Do you presently have visiting nurse or other home services: No Alcohol intake: current Alcohol intake frequency: a few times a month Patient Tobacco Use Status: Current everyday Tobacco user Tobacco use type: Cigar Years Smoked: 20 e-Cigarette/Vaping Use: Never Used Second Hand Smoke Exposure: No service: Yes Current occupational status: employed Cognitive needs: No Hearing needs: No Vision needs: No Review of Systems Const Denies weight gain and Denies weight loss ENT Reports no additional complaints, Denies dysphagia and Denies odynophagia Card Reports no additional complaints Resp Reports no additional complaints GI Denies abdominal pain, Denies belching, Denies melena, Denies bloating, Denies change in bowel habits, Denies dysphagia, Denies excessive flatus, Denies dyspepsia, Denies heartburn, Denies diarrhea, Denies loose stools, Denies nausea, Denies odynophagia and Denies vomiting Reports no additional complaints Musc Reports no additional complaints Neuro Reports no additional complaints Psych Reports no additional complaints Endo Reports no additional complaints Physical Exam Vital Signs: Last Vital Signs Pulse 85 06/17/23 09:11 BP 150/85 H 06/17/23 09:11 Pulse Ox 98 06/17/23 09:11 Oxygen Delivery Method Room Air 06/17/23 09:11 BMI result Body Mass Index 33.2 Const General: healthy appearing, no acute distress and well developed Nutritional Appearance: obese Orientation/consciousness: patient oriented x3 HEENT Head: Yes normal to inspection, Yes normocephalic and Yes atraumatic Face and sinus: Yes normal facial exam Mouth: Normal oral and palatal mucosa present Throat: Yes posterior oropharynx normal, Yes tonsils normal and Yes uvula midline Eyes General: appearance normal, both eyes and all related structures Neck Neck: Yes normal visual inspection, Yes full ROM and Yes trachea midline Thyroid: Thyroid normal Resp Effort & Inspection: normal respiratory effort, able to speak in complete sentences, no tracheal deviation and symmetric chest movement Auscultation: clear to auscultation bilaterally Cardio Rate: regular rate Heart sounds: S1 normal heart sound present and S2 normal heart sound present GI Inspection: Yes normal to inspection, No distended and Yes obesity Palpation (GI): Soft to palpation, not firm, nontender and No hepatosplenomegaly present Auscultation: normal bowel sounds General: Yes no CVA tenderness Back/Spine/Pelvis Back: no CVA tenderness Skin General skin exam: elasticity normal, turgor normal and dry skin Neuro General: patient oriented x3 Psych Appearance: grossly normal Mental Status: mental status grossly normal Assessment & Plan Assessment & Plan (1) Sessile serrated polyp of colon: Code(s): D12.6 - Benign neoplasm of colon, unspecified (2) 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: Code(s): K22.70 - Bush's esophagus without dysplasia (3) GERD (gastroesophageal reflux disease): Code(s): K21.9 - Gastro-esophageal reflux disease without esophagitis Qualifiers: Esophagitis presence: esophagitis presence not specified Qualified Code(s): K21.9 - Gastro-esophageal reflux disease without esophagitis (4) Status post colonoscopy: Code(s): Z98.890 - Other specified postprocedural states (5) Hemorrhoids without complication: Code(s): K64.9 - Unspecified hemorrhoids (6) Diverticulosis: Code(s): K57.90 - Diverticulosis of intestine, part unspecified, without perforation or abscess without bleeding Plan Upper endoscopy and colonoscopy discussed with patient. Patient was found to have gastritis and Bush's. He will start as omeprazole in the morning and he can continue taking famotidine at bedtime. Discussed with patient avoiding dietary triggers and late night snacking. Staying upright for minimum 3 hours after meals discussed with patient. Patient was found to have a 1 sessile serrated polyp. Colonoscopy will be repeated in 3 years, sooner if clinically necessary. Patient was found to have diverticulosis and hemorrhoids. Encouraged to increase fiber in his diet. List of food high in fiber given to patient. He will follow-up in our office in 1 year, sooner on as needed basis. Patient is agreeable to this plan and verbalizes understanding of instructions. He was given the opportunity to ask questions and all questions answered Thank you for allowing me to participate in his care Medications: New esomeprazole magnesium (Nexium) 40 mg PO DAILY 90 caps 4RF K21.9 - Gastro-esophageal reflux disease without esophagitis Coding Level of Care Code Est Pt Level 4 (09222) Diagnoses Sessile serrated polyp of colon D12.6 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 K22.70 Gastroesophageal reflux disease, unspecified whether esophagitis present K21.9 Esophagitis presence: esophagitis presence not specified Status post colonoscopy Z98.890 Hemorrhoids without complication K64.9 Diverticulosis K57.90 Time Spent (min) 35 Comment 20 minutes spent with patient and additional 15 minutes spent reviewing his records
[2023-06-17 09:11] VITALS: BP 150/85; PULSE 85; O2SAT 98; BMI 33.2
== END 2023-06-17 09:52 | disposition home or self-care (01) ==
PROVIDERS: PCP Nurse Practitioner Family; Visit Provider Nurse Practitioner Family
DX: D12.6 Benign neoplasm of colon, unspecified (principal); K22.70 Barrett's esophagus without dysplasia; K21.9 Gastro-esophageal reflux disease without esophagitis; Z98.890 Other specified postprocedural states; K64.9 Unspecified hemorrhoids; K57.90 Diverticulosis of intestine, part unspecified, without perforation or abscess without bleeding
CPT/HCPCS: 99214

== ENCOUNTER → 2023-06-17 09:03 | Outpatient (BNVA) | payer OTHER, SELFPAY | PROVIDERS: PCP Nurse Practitioner Family; Visit Provider Nurse Practitioner Family | DX: D12.6 Benign neoplasm of colon, unspecified (principal); K22.70 Barrett's esophagus without dysplasia; K21.9 Gastro-esophageal reflux disease without esophagitis; K64.9 Unspecified hemorrhoids; K57.90 Diverticulosis of intestine, part unspecified, without perforation or abscess without bleeding; Z98.890 Other specified postprocedural states | CPT/HCPCS: 99212 ==

== ENCOUNTER 2023-06-28 08:08 | Outpatient (AMB) | payer OTHER, SELFPAY ==
[2023-06-28 08:25] VITALS: BP 130/82; PULSE 78; TEMP 36.6; O2SAT 96; BMI 33.6
--- NOTE | 2023-06-28 08:25 | AM.OFFWIN_ITS ---
Intake Vital Signs 06/28/23 08:25 Height 6 ft 3 in Weight 269 lb BMI 33.6 BP 130/82 Blood Pressure Location Rt brachial Position Sitting Pulse 78 Pulse Source Pulse Oximeter Temp 97.8 F Temp Source Temporal Artery Scan Pulse Oximetry (%) 96 Oxygen Delivery Method Room Air Intake Visit Reasons: EST/back pain left side (lobby) Intake Note: pt is here for c/o back pain on left side Patient Tobacco Use Status: Current everyday Tobacco user Allergies No Known Allergies [No Known Allergies*] Allergy (Verified 06/28/23 08:58) Medication List - Last Reconciled 06/28/23 by Klever Luciano MD albuterol sulfate 90 mcg/actuation 2 puffs PO Q6H PRN cyclobenzaprine 10 mg PO TID PRN esomeprazole magnesium (Nexium) 40 mg PO DAILY famotidine 40 mg PO BEDTIME fluticasone propion-salmeterol 250-50 mcg/dose (Wixela Inhub) 1 ea PO BID 90 days fluticasone propionate 50 mcg/actuation (Flonase Allergy Relief) 1 spray intranasal DAILY gabapentin 300 mg PO TID tadalafil 5 mg PO DAILY Do you need a note to return to daycare/school/sports/work: Yes HPI EST/back pain left side (lobby) HPI Details Patient presents to the office for a sick visit. Complaining of lower back pain . No history of fall or trauma prior to the onset of symptoms. No urinary incontinence. No fevers or chills. Pain is worse on bending forwards or sideways. Relieve done sitting down. Pain is radiating into the gluteal area. Patient was deer hunting this weekend. Symptoms started on Wednesday after he dragged a killed deer on Wednesday. [facility] Medical History (Updated 06/17/23 @ 09:33 by Adina Gomes, HOUSING PROJECT MANAGER-) Sessile serrated polyp of colon Barretts esophagus GERD (gastroesophageal reflux disease) Deep vein thrombosis, lower right extremity COVID-19 vaccine series completed Positive PPD, treated Sleep apnea Asthma Spinal cord stimulator status Postlaminectomy syndrome Thrombosed external hemorrhoid Surgical History History of back surgery Hx of knee surgery Hx of repair of rotator cuff History of lumbar fusion History of appendectomy Family History Maternal Grandfather History of liver cancer Father History of bladder cancer Social History Household Members: Spouse and Children Housing: House Are you a primary healthcare administration intern to a significant other at home: No Do you presently have visiting nurse or other home services: No Alcohol intake: current Alcohol intake frequency: a few times a month Patient Tobacco Use Status: Current everyday Tobacco user Tobacco use type: Cigar Years Smoked: 20 e-Cigarette/Vaping Use: Never Used Second Hand Smoke Exposure: No service: Yes Current occupational status: employed Cognitive needs: No Hearing needs: No Vision needs: No Physical Exam Vital Signs: Last Vital Signs Temp 97.8 F 06/28/23 08:25 Pulse 78 06/28/23 08:25 BP 130/82 06/28/23 08:25 Pulse Ox 96 06/28/23 08:25 Oxygen Delivery Method Room Air 06/28/23 08:25 BMI result Body Mass Index 33.6 Const General: cooperative and healthy appearing Nutritional Appearance: well nourished Orientation/consciousness: patient oriented x3 Limitations: no limitations HEENT Head: Yes normal to inspection Eyes General: appearance normal, both eyes and all related structures Neck Neck: Yes normal visual inspection Chest Chest palpation & inspection: normal palpation of entire chest wall Resp Effort & Inspection: normal respiratory effort General: Yes no CVA tenderness Back/Spine/Pelvis Other: No paraspinal tenderness. Back: no CVA tenderness Neuro General: patient oriented x3 Assessment & Plan Assessment & Plan (1) Low back pain: Code(s): M54.50 - Low back pain, unspecified Plan: Meloxicam and cyclobenzaprine called in. Patient was advised rest. Note for work if necessary provided. Once pain symptoms subside, patient should start physical therapy. If symptoms worsen to follow-up here. Coding Level of Care Code Est Pt Level 3 (31349) Diagnoses Low back pain M54.50
== END 2023-06-28 09:29 | disposition home or self-care (01) ==
PROVIDERS: PCP Nurse Practitioner Family; Visit Provider Internal Medicine
DX: M54.50 Low back pain, unspecified (principal)
CPT/HCPCS: 99213

== ENCOUNTER 2023-10-14 10:47 | Outpatient (AMB) | payer OTHER, SELFPAY ==
[2023-10-14 10:57] VITALS: BP 110/78; PULSE 81; O2SAT 97; BMI 32.3
--- NOTE | 2023-10-14 10:57 | A.OFFPC_ITS ---
Vital Signs 10/14/23 10:57 Height 6 ft 3 in Weight 258 lb 2 oz BMI 32.3 BP 110/78 Blood Pressure Location Lt brachial Position Sitting Pulse 81 Pulse Source Pulse Oximeter Pulse Oximetry (%) 97 Oxygen Delivery Method Room Air Intake Visit Reasons: PE Intake Note: Pt is here for his Annual PE Allergies No Known Allergies [No Known Allergies*] Allergy (Verified 10/14/23 10:59) Medication List - Last Reconciled 10/14/23 by FLORIDA Cruz-FRANNY albuterol sulfate 90 mcg/actuation 2 puffs PO Q6H PRN cyclobenzaprine 10 mg PO BEDTIME esomeprazole magnesium (Nexium) 40 mg PO DAILY famotidine 40 mg PO BEDTIME fluticasone propion-salmeterol 250-50 mcg/dose (Wixela Inhub) 1 ea PO BID 90 days fluticasone propionate 50 mcg/actuation (Flonase Allergy Relief) 1 spray intranasal DAILY gabapentin 300 mg PO TID tadalafil 5 mg PO DAILY Tobacco use date assessed: 10/14/23 Dental Screening Dental Screen Date: 10/14/23 Did you have a dental visit in the last 12 months?: Yes Did you have a dental problem in the last 6 months where you did not have access to dental care?: No Was dental information given to patient?: Patient has dentist HPI PE HPI Details Pt is here for a PE. Will order labs. Colon screen is up to date. Pt is doing keto and losing weight. Hx of sleep apnea. Will refer for sleep study/follow up/supplies. Pt is getting testosterone replacement therapy outside of this establishment. Will check PSA. [facility] Medical History (Updated 10/14/23 @ 11:32 by FLORIDA Cruz-FRANNY) Hemorrhoids without complication Sessile serrated polyp of colon Barretts esophagus GERD (gastroesophageal reflux disease) Deep vein thrombosis, lower right extremity COVID-19 vaccine series completed Positive PPD, treated Sleep apnea Asthma Spinal cord stimulator status Postlaminectomy syndrome Thrombosed external hemorrhoid Surgical History History of back surgery Hx of knee surgery Hx of repair of rotator cuff History of lumbar fusion History of appendectomy Family History Maternal Grandfather History of liver cancer Father History of bladder cancer Social History Household Members: Spouse and Children Housing: House Are you a primary career information specialist to a significant other at home: No Do you presently have visiting nurse or other home services: No Alcohol intake: current Alcohol intake frequency: a few times a month Patient Tobacco Use Status: Current everyday Tobacco user Tobacco use type: Cigar Years Smoked: 20 e-Cigarette/Vaping Use: Never Used Second Hand Smoke Exposure: No service: Yes Current occupational status: employed Cognitive needs: No Hearing needs: No Vision needs: No Questionnaire PHQ-9 Over the last 2 weeks, how often have you been bothered by any of the following problems? 1. Little interest or pleasure in doing things: not at all 2. Feeling down, depressed, or hopeless: not at all 3. Trouble falling or staying asleep, or sleeping too much: several days 4. Feeling tired or having little energy: several days 5. Poor appetite or overeating: not at all 6. Feeling bad about yourself - or that you are a failure or have let yourself or your family down: not at all 7. Trouble concentrating on things, such as reading the newspaper or watching television: not at all 8. Moving or speaking so slowly that other people could have noticed. Or the opposite - being so fidgety or restless that you have been moving around a lot more than usual: not at all 9. Thoughts that you would be better off or of hurting yourself in some way: not at all Total score: 2 Depression Screening Interpretation: Negative Depression Screening Done: Yes 18218 - PHQ-9 Billing: Yes Source: Developed by Drs. Daniel Michele, Staci Linder, Edgar Haque and colleagues, with an educational jaquelin from [employer]. Thrive Questionnaire Date Thrive assessed: 10/13/22 I am a: Patient What is your living situation today?: I have a steady place to live Within the past 12 months, did the food you bought not last and you didn't have the money to get more?: Never true Within the past 12 months, did you worry whether your food would run out before you got money to buy more?: Never true Do you have trouble paying for medicines?: No Do you have trouble getting transportation to medical appointments?: No Do you have trouble paying your heating and electricity bill?: No Do you have trouble taking care of your child, family member or friend?: No Do you have trouble with day-to-day activities such as bathing, preparing meals, shopping, managing finances, etc.?: No Are you currently unemployed and looking for a job?: No Are you interested in more education?: No THRIVE Score: 0 AUDIT C Alcohol Use Questionnaire (AUDIT-C) 1. How often do you have a drink containing alcohol?: 2-3 times a week 2. How many drinks containing alcohol do you have on a typical day when you are drinking?: 1 or 2 3. How often do you have six or more drinks on one occasion?: Never Total Score: 3 JULIANA-7 AMB Questionnaire JULIANA-7 Date JULIANA - 7 assessed: 10/14/23 Feeling nervous, anxious, or on edge: 0 = Not at all Not being able to stop or control worryin = Not at all Worrying too much about different things: 0 = Not at all Trouble relaxin = Not at all Being so restless that it is hard to sit still: 0 = Not at all Becoming easily annoyed or irritable: 0 = Not at all Feeling afraid as if something awful might happen: 0 = Not at all Total JULIANA-7 score (0-4 normal; 5-9 mild; 10-14 moderate; 15-21 severe): 0 Source: Developed by Drs. Daniel Michele, Staci Linder, Edgar Haque and colleagues, with an educational jaquelin from [employer]. JULIANA-7 Assessment Billing JULIANA-7 Assessment Tool: JULIANA-7 Assessment 29656 Review of Systems Const Denies chills and Denies fever(s) Eyes Denies blurry vision ENT Denies vertigo, Denies dizziness and Denies sore throat Card Denies chest pain at rest, Denies chest pain with activity, Denies diaphoresis, Denies dyspnea and Denies dyspnea on exertion Resp Denies cough, Denies dyspnea, Denies dyspnea on exertion and Denies wheezing GI Denies abdominal pain, Denies melena, Denies hematochezia, Denies constipation, Denies diarrhea and Denies loose stools Denies hematuria Musc Denies numbness and Denies tingling Skin/Breast Denies lesions Neuro Denies vertigo, Denies dizziness, Denies numbness and Denies tingling Psych Denies anxiety, Denies depression, Denies homicidal ideation, Denies suicidal ideation and Denies other (substance abuse) Aller/Immun Denies wheezing Physical exam (Primary Care) Vital Signs: Last Vital Signs Pulse 81 10/14/23 10:57 BP 110/78 10/14/23 10:57 Pulse Ox 97 10/14/23 10:57 Oxygen Delivery Method Room Air 10/14/23 10:57 BMI result Body Mass Index 32.3 Tobacco/Smoking Status: Tobacco use Status Tobacco use date assessed 10/14/23 10/14/23 11:06 Patient Tobacco Use Status Current everyday Tobacco 10/14/23 11:06 Tobacco use type Cigar 10/14/23 11:06 e-Cigarette/Vaping Use Never Used 10/14/23 11:06 PHQ-9: PHQ-9 Score PHQ-9: Total score 2 10/14/23 11:14 Depression Screening Interpretation: Negative Thrive Assessment: Date of Thrive Assessment Date Thrive assessed 10/13/22 10/14/23 11:06 Const General: cooperative Nutritional Appearance: obese Orientation/consciousness: patient oriented x3 HENMT Head: Yes normal to inspection, Yes normocephalic and Yes atraumatic Ears: TM's normal bilaterally Eyes General: appearance normal, both eyes and all related structures Alignment and Position: alignment normal and position normal Neck Neck: Yes normal visual inspection and Yes no lymphadenopathy Thyroid: Thyroid normal Resp Effort & Inspection: normal respiratory effort Auscultation: clear to auscultation bilaterally Cardio Rate: regular rate Rhythm: regular rhythm Heart sounds: S1 normal heart sound present, S2 normal heart sound present and no murmurs GI Palpation (GI): Soft to palpation and nontender Auscultation: normal bowel sounds Male General Exam: Yes normal external exam Penis: normal penis Scrotum: scrotum normal, testes descended bilaterally and no inguinal hernias Testes: no testicular mass Skin Rashes: no rashes Neuro General: patient oriented x3, moves all extremities, no focal motor deficits and deep tendon reflexes 2+ bilaterally Romberg Test: Negative Psych Appearance: grossly normal Mental Status: mental status grossly normal Speech and movement: Normal speech and movement present Affect: normal affect Attitude: cooperative Thought process: Normal thought process present Thought content: Normal thought content present Insight: Good insight present (Psych) Judgement: Good judgement present (Psych) Assessment and Plan Assessment & Plan (1) Physical exam: Code(s): Z00.00 - Encounter for general adult medical examination without abnormal findings Plan: Labs ordered (2) Long-term current use of testosterone replacement therapy: Comment: [facility] of [place] Code(s): Z79.890 - Hormone replacement therapy Plan: PSA ordered (3) Sleep apnea: Comment: uses CPAP Code(s): G47.30 - Sleep apnea, unspecified Plan: Referred to sleep medicine Plan The patient agreed to the use of a medical assistant per diem for this encounter. Scribed for FREDA Hill by Kayli Martinez medical assistant per diem, on 10/14/2023 at 11:15 EST. Orders: Orders Comprehensive [place]. Panel Fast Today Z00.00 - Encounter for general adult medical examination without abnormal findings TSH reflex Free T4 Today Z00.00 - Encounter for general adult medical examination without abnormal findings UA CC w/rflx Micro + Cult Today Z00.00 - Encounter for general adult medical examination without abnormal findings Lipid Panel Today Z00.00 - Encounter for general adult medical examination without abnormal findings Complete Blood Count Auto Diff Today Z00.00 - Encounter for general adult medical examination without abnormal findings Prostate Specific Antigen Scr Today Z79.890 - Hormone replacement therapy Referrals Sleep Medicine Referral G47.30 - Sleep apnea, unspecified Coding Level of Care Code Est Pt Prev Care 40-64y(15462) Diagnoses Physical exam Z00.00 Long-term current use of testosterone replacement therapy Z79.890 Sleep apnea G47.30 Additional Codes JULIANA-7 Assessment Billing - JULIANA-7 Assessment Tool: JULIANA-7 Assessment [id number] ([id number])
== END 2023-10-14 11:38 | disposition home or self-care (01) ==
PROVIDERS: Visit Provider Nurse Practitioner Family
DX: Z00.00 Encounter for general adult medical examination without abnormal findings (principal); Z79.890 Hormone replacement therapy; G47.30 Sleep apnea, unspecified
CPT/HCPCS: 99396

== ENCOUNTER 2023-10-18 06:10 | Outpatient (REF) | payer OTHER, SELFPAY ==
[2023-10-18 11:17] LABS: MANUAL DIFF FLAG NO
[2023-10-18 11:25] LABS: Basophils Absolute Auto 0.1 X10*3/uL (0.0-0.2); Basophils Percent Auto 0.8 % (0-2); Eosinophils Absolute Auto 0.2 X10*3/uL (0.0-0.4); Eosinophils Percent Auto 3.1 % (0-4); Hematocrit 48.3 % (42.0-52.0); Imm Gran Abs Auto 0.04 X10*3/uL (0.00-0.03); Imm Gran Pct Auto 0.6 % (0.0-0.4); Lymphocytes Absolute Auto 2.1 X10*3/uL (1.2-4.9); Lymphocytes Percent Auto 29.3 % (20-40); Mean Corpuscular HGB Conc 33.1 g/dl (31.0-36.0); Mean Corpuscular Hemoglobin 29.7 pg (27.0-33.0); Mean Corpuscular Volume 89.8 fL (80.0-98.0); Mean Platelet Volume 11.3 fL (9.4-12.4); Monocytes Absolute Auto 0.6 X10*3/uL (0.1-1.2); Monocytes Percent Auto 7.7 % (2-11); Neutrophils Absolute Auto 4.2 x10*3/uL (2.0-8.3); Neutrophils Percent Auto 58.5 % (45-73); Platelet Count 271 X10*3/uL (160-400); Red Blood Count 5.38 X10*6/uL (4.60-5.80); Red Cell Distribution Width 14.7 % (11.0-16.0); White Blood Count 7.2 X10*3/uL (4.8-10.8)
[2023-10-18 12:27] LABS: Alanine Aminotransferase 17 U/L (0-40); Albumin Level 4.1 g/dL (3.5-5.0); Alkaline Phosphatase 39 U/L (39-117); Anion Gap 13 (12-20); Aspartate Amino Transferase 22 U/L (5-37); Bilirubin Total 0.6 mg/dL (0.0-1.0); Blood Urea Nitrogen 23 mg/dL (9-16); Calcium 8.7 mg/dL (8.4-10.2); Carbon Dioxide 26 mmol/L (22-29); Chloride 108 mmol/L (96-108); Cholesterol 175 mg/dL (<200); Estimated Glomerular Filt Rate > 60; Glucose Fasting 105 mg/dL (60-99); HDL Cholesterol 35 mg/dL (>40); LDL Cholesterol Calculated 98 mg/dL (<100); Potassium 4.3 mmol/L (3.3-5.1); Sodium 143 mmol/L (135-145); Triglycerides 210 mg/dL (<150)
[2023-10-18 12:42] LABS: Prostate Specific Antigen Scr 0.22 ng/mL (<0.05-4.0); TSH reflex Free T4 0.71 uIU/mL (0.32-4.0)
== END 2023-10-18 06:11 | disposition home or self-care (01) ==
LOC: HO.HMGCLDS 06:10
PROVIDERS: PCP Nurse Practitioner Family; Visit Provider Nurse Practitioner Family
DX: Z00.00 Encounter for general adult medical examination without abnormal findings (principal); Z79.890 Hormone replacement therapy; Z12.5 Encounter for screening for malignant neoplasm of prostate
CPT/HCPCS: 36415; 80053; 80061; 84153; 84443; 85025

== ENCOUNTER 2023-10-19 04:55 | Outpatient (REF) | payer OTHER, SELFPAY ==
[2023-10-19 11:53] LABS: Appearance Urine Clear; Color Urine Yellow; Glucose Urine UA Negative (Negative); Leukocyte Esterase Urine Negative (Negative); Nitrite Urine Negative (Negative); Specific Gravity - Urine 1.025 (1.005-1.025); Urine Blood Negative (Negative); Urine Ketones 15 mg/dL (Negative); Urine Protein Negative (Neg-Trace)
== END 2023-10-19 04:56 | disposition home or self-care (01) ==
LOC: HO.HMGCLDS 04:55
PROVIDERS: PCP Nurse Practitioner Family; Visit Provider Nurse Practitioner Family
DX: Z00.00 Encounter for general adult medical examination without abnormal findings (principal)
CPT/HCPCS: 81003

== ENCOUNTER 2023-11-08 14:38 | Outpatient (AMB) | payer OTHER, SELFPAY ==
--- NOTE | 2023-11-08 14:48 | A.OFFVIS_ITS ---
Intake Vital Signs 11/08/23 14:59 Height 6 ft 3 in Weight 262 lb 2 oz BMI 32.8 BP 124/80 Blood Pressure Location Lt brachial Position Sitting Pulse 85 Pulse Source Pulse Oximeter Pulse Oximetry (%) 97 Oxygen Delivery Method Room Air Intake Visit Reasons: INP-DELMA - CONF w/address Intake Note: Patient presents for DELMA. Wondering if his CPAP machine is working properly and on the right pressures. Been on CPAP therapy since 2010 started in [place] state. Feeling more fatigue and sleepy during the day. Allergies No Known Allergies [No Known Allergies*] Allergy (Verified 11/08/23 14:59) HPI HPI Comments History of Present Illness Details 47 y/o male patient presents for new in- person visit to manage sleep apnea. Pt reports he was diagnosed with DELMA 15 years ago. He has been using CPAP since then. His original CPAP has recalled and had new CPAP 5-6 months ago. The CPAP compliance and therapy response (08/10/23-11/07/23) reviewed. He is on APAP [id number]. The usage days 89 day, the average usage hours 7 hrs 30 min. The residual AHI was 2.2/hr. His CPAP is [employer]. Serial # is [id number]. Pt needs CPAP supplies. He feels better with new CPAP. He sleeps ok with CPAP, about 7 hrs, uses tapes to close his mouth. He gained about 20 lb since the last sleep study. [facility] Medical History (Updated 10/14/23 @ 11:32 by Matthew Raza, [facility]-) Hemorrhoids without complication Sessile serrated polyp of colon Barretts esophagus GERD (gastroesophageal reflux disease) Deep vein thrombosis, lower right extremity COVID-19 vaccine series completed Positive PPD, treated Sleep apnea Asthma Spinal cord stimulator status Postlaminectomy syndrome Thrombosed external hemorrhoid Surgical History History of back surgery Hx of knee surgery Hx of repair of rotator cuff History of lumbar fusion History of appendectomy Family History Maternal Grandfather History of liver cancer Father History of bladder cancer Social History Household Members: Spouse and Children Housing: House Are you a primary memory care program director to a significant other at home: No Do you presently have visiting nurse or other home services: No Alcohol intake: current Alcohol intake frequency: a few times a month Patient Tobacco Use Status: Current everyday Tobacco user Tobacco use type: Cigar Years Smoked: 20 e-Cigarette/Vaping Use: Never Used Second Hand Smoke Exposure: No service: Yes Current occupational status: employed Cognitive needs: No Hearing needs: No Vision needs: No Review of Systems Const All systems reviewed & are unremarkable except as noted in HPI and below Physical Exam Vital Signs: Last Vital Signs Pulse 85 11/08/23 14:59 BP 124/80 11/08/23 14:59 Pulse Ox 97 11/08/23 14:59 Oxygen Delivery Method Room Air 11/08/23 14:59 BMI result Body Mass Index 32.8 Const General: cooperative Nutritional Appearance: obese Orientation/consciousness: patient oriented x3 Neck Neck: Yes full ROM and Yes supple Resp Effort & Inspection: normal respiratory effort and able to speak in complete sentences Neuro General: patient oriented x3, gait normal and moves all extremities Cranial nerves: Yes CN's II-XII intact bilaterally Cognition (Neuro): normal cognition Gait exam (Neuro): Normal gait present Motor exam (neuro): 5/5 motor strength present throughout Psych Appearance: grossly normal Mental Status: mental status grossly normal Speech and movement: Normal speech and movement present Affect: normal affect Assessment & Plan Assessment & Plan (1) Sleep apnea: Comment: uses CPAP Code(s): G47.30 - Sleep apnea, unspecified Plan Advised patient to continue to use APAP at [id number] as patient experiences good clinical effects ,sleep quality and sleep apnea has improved and daytime sleepiness has resolved. New CPAP supply prescription will send to [facility]. Stressed CPAP compliance, use CPAP nightly and more than 4 hrs. Coding Level of Care Code New Pt Level 3 (95907) Diagnoses Sleep apnea G47.30
[2023-11-08 14:59] VITALS: BP 124/80; PULSE 85; O2SAT 97; BMI 32.8
== END 2023-11-08 15:21 | disposition home or self-care (01) ==
PROVIDERS: PCP Nurse Practitioner Family; Referring Provider Nurse Practitioner Family; Visit Provider Nurse Practitioner Family
DX: G47.30 Sleep apnea, unspecified (principal)
CPT/HCPCS: 99203; 99213

== ENCOUNTER → 2023-11-08 14:38 | Outpatient (BNVA) | payer OTHER, SELFPAY | PROVIDERS: PCP Nurse Practitioner Family; Visit Provider Nurse Practitioner Family | DX: G47.30 Sleep apnea, unspecified (principal) | CPT/HCPCS: 99202 ==

== ENCOUNTER 2024-01-13 08:12 | Outpatient (AMB) | payer OTHER, SELFPAY ==
[2024-01-13 08:38] VITALS: BP 126/80; PULSE 78; TEMP 36.7; O2SAT 98; BMI 33.1
--- NOTE | 2024-01-13 08:38 | MHC.OFFWIV ---
Intake Vital Signs 01/13/24 08:38 Height 6 ft 3 in Weight 265 lb BMI 33.1 BP 126/80 Blood Pressure Location Rt brachial Position Sitting Pulse 78 Pulse Source Pulse Oximeter Temp 98.0 F Temp Source Oral Pulse Oximetry (%) 98 Intake Visit Reasons: Est/ abdominal pain(uit?) (lbby) Intake Note: pt is here for abd pain, feels like uti. Patient Tobacco Use Status: Current everyday Tobacco user Allergies No Known Allergies [No Known Allergies*] Allergy (Verified 01/13/24 08:49) Do you need a note to return to daycare/school/sports/work: No HPI HPI Comments History of Present Illness Details This is a 48-year-old male with past medical history of asthma, gastroesophageal reflux disease and DVT not currently anticoagulated presenting for evaluation of abdominal pain that started last night. Patient describes an 8/10 dull and achy pain in his lower abdomen. Patient states it feels like he has a urinary tract infection. He denies having any fevers, chills, urinary frequency, dysuria, penile discharge or new sexual partners. Patient's previous abdominal surgeries include appendectomy only. Patient has not taken any medication for treatment of his discomfort. [facility] Medical History Hemorrhoids without complication Sessile serrated polyp of colon Barretts esophagus GERD (gastroesophageal reflux disease) Deep vein thrombosis, lower right extremity COVID-19 vaccine series completed Positive PPD, treated Sleep apnea Asthma Spinal cord stimulator status Postlaminectomy syndrome Thrombosed external hemorrhoid Surgical History History of back surgery Hx of knee surgery Hx of repair of rotator cuff History of lumbar fusion History of appendectomy Family History Maternal Grandfather History of liver cancer Father History of bladder cancer Social History Household Members: Spouse and Children Housing: House Are you a primary medicare insurance specialist to a significant other at home: No Do you presently have visiting nurse or other home services: No Alcohol intake: current Alcohol intake frequency: a few times a month Patient Tobacco Use Status: Current everyday Tobacco user Tobacco use type: Cigar Years Smoked: 20 e-Cigarette/Vaping Use: Never Used Second Hand Smoke Exposure: No service: Yes Current occupational status: employed Cognitive needs: No Hearing needs: No Vision needs: No Review of Systems Const All systems reviewed & are unremarkable except as noted in HPI and below Denies chills and Denies fever(s) Eyes Reports no additional complaints ENT Reports no additional complaints Card Reports no additional complaints Resp Reports no additional complaints GI Reports abdominal pain (lower), Denies melena and Denies hematochezia Details: Suprapubic pain. Denies no additional complaints, Denies difficulty urinating, Denies urinary frequency and Denies urinary urgency Musc Reports no additional complaints Skin/Breast Reports system reviewed and no additional complaints, except as documented Neuro Reports no additional complaints Psych Reports no additional complaints Aller/Immun Reports no additional complaints Physical Exam Vital Signs: Last Vital Signs Temp 98.0 F 01/13/24 08:38 Pulse 78 01/13/24 08:38 BP 126/80 01/13/24 08:38 Pulse Ox 98 01/13/24 08:38 BMI result Body Mass Index 33.1 Const General: cooperative, healthy appearing, comfortable, no acute distress, alert and awake Nutritional Appearance: average body habitus Orientation/consciousness: patient oriented x3 Limitations: no limitations GI Inspection: Yes normal to inspection and No distended Palpation (GI): Soft to palpation and Tenderness to palpation present (GI) in the LLQ, in the RLQ and suprapubicly; not in the LUQ, not in the RUQ, not at McBurney's point and with no rebound tenderness Auscultation: normal bowel sounds General: Yes Bimanual renal exam normal bilaterally, No bladder normal to palpation and Yes no CVA tenderness Back/Spine/Pelvis Back: no CVA tenderness Skin General skin exam: no rashes or lesions noted Neuro General: patient oriented x3 Psych Appearance: grossly normal Mental Status: mental status grossly normal Insight: Good insight present (Psych) Judgement: Good judgement present (Psych) Results AMB Urinalysis, Automated UA Leukoctes 0 Luis A/uL Last Edit by Long Edwards CMA on 01/13/24 08:56 UA Nitrite Negative Last Edit by Long Edwards CMA on 01/13/24 08:56 UA Urobilinogen 0.2 mg/dL Last Edit by Long Edwards CMA on 01/13/24 08:56 UA Protein 0 mg/dL Last Edit by Long Edwards CMA on 01/13/24 08:56 UA pH 6.0 Last Edit by Long Edwards CMA on 01/13/24 08:56 UA Blood 0 Tanner/uL Last Edit by Long Edwards CMA on 01/13/24 08:56 UA Specific [place] 1.015 Last Edit by Long Edwards CMA on 01/13/24 08:56 UA Ketone Negative Last Edit by Long Edwards CMA on 01/13/24 08:56 UA Bilirubin 0 mg/dL Last Edit by Long Edwards CMA on 01/13/24 08:56 UA Glucose 0 mg/dL Last Edit by Long Edwards CMA on 01/13/24 08:56 Results Reviewed Results Reviewed: Urinalysis reviewed; no evidence of acute UTI. Assessment & Plan Assessment & Plan (1) Abdominal pain: Comment: There is no evidence of an acute urinary tract infection and the patient has significant lower abdominal pain left > right. Given my suspicion of diverticulitis the patient will be referred to the emergency department. Code(s): R10.9 - Unspecified abdominal pain Qualifiers: Abdominal location: lower abdomen, unspecified Qualified Code(s): R10.30 - Lower abdominal pain, unspecified Plan: The patient will go directly to the emergency department for further evaluation and care. detacherGIANNA Ovalles notified at 9:07am. Orders: Orders AMB Urinalysis Automated Today Z13.9 - Encounter for screening, unspecified Coding Level of Care Code Est Pt Level 3 (18134) Diagnoses Lower abdominal pain R10.30 Abdominal location: lower abdomen, unspecified Time Spent (min) 20
== END 2024-01-13 09:42 | disposition home or self-care (01) ==
PROVIDERS: PCP Nurse Practitioner Family; Visit Provider Physician Assistant
DX: Z13.9 Encounter for screening, unspecified (principal); R10.30 Lower abdominal pain, unspecified
CPT/HCPCS: 81003; 99213

== ENCOUNTER 2024-01-13 09:27 | Emergency (ER) | payer OTHER, SELFPAY ==
--- NOTE | ~2024-01-13 | CT_ITS ---
EXAMINATION: CT ABDOMEN AND PELVIS WITH CONTRAST CLINICAL INFORMATION: Left lower quadrant pain COMPARISON: None available. TECHNIQUE: Multidetector volumetric images were obtained from the superior aspect of the liver through the pubic symphysis following administration 85 mL of Omnipaque 350 intravenous contrast. Sagittal and coronal reformatted images were obtained on the technologist's workstation. Oral contrast: No This CT examination was performed using dose optimization techniques as appropriate, variously including the following: *Automated exposure control *Adjustment of mA and/or kV according to patient size (this includes techniques or standardized protocols for targeted exams where dose is matched to indication/reason for exam; i.e. extremities or head) *Use of iterative reconstruction technique DLP: 881 mGy-cm FINDINGS: LUNG BASES: Minor atelectasis at the lung bases. LIVER, GALLBLADDER, AND BILIARY TREE: Mild hepatic steatosis. No focal hepatic mass. No intrahepatic biliary dilatation. The gallbladder is unremarkable with no evidence of radiopaque gallstones, gallbladder wall thickening, or obvious pericholecystic inflammatory changes. PANCREAS: Unremarkable. SPLEEN: A few tiny punctate calcified granulomas are observed. No suspicious mass, or perisplenic collection. ADRENAL GLANDS: Unremarkable. KIDNEYS AND URETERS: No solid mass or hydronephrosis or perinephric collection. 1 mm punctate stone in the central left kidney nonobstructive. BLADDER: Unremarkable. GASTROINTESTINAL TRACT: Mild to moderate sigmoid diverticular disease but no diverticulitis. No proximal obstruction, or free air. No right lower quadrant inflammation. Suture material and clips are seen at the base of the cecum. ABDOMINAL WALL: No significant hernia is appreciated. LYMPH NODES: Normal. VASCULAR: Unremarkable. PELVIC VISCERA: Unremarkable. OSSEOUS STRUCTURES: There is postsurgical change and degenerative change L4-S1. CT/CT abdomen pelvis w IV con IMPRESSION: Sigmoid diverticulosis without diverticulitis. No proximal obstruction. Fleischner guidelines were followed.
[2024-01-13 09:33] VITALS: BP 147/85; PULSE 82; RESP 18; TEMP 37.4; O2SAT 95; BMI 33.1
--- NOTE | 2024-01-13 09:51 | ED.ABDPAIN ---
HPI - Abdominal Pain General Chief Complaint: Abdominal Pain Stated Complaint: abd pain sent from urgent care Time Seen by Provider: 01/13/24 09:39 Source: patient Mode of arrival: ambulatory Limitations: no limitations History of Present Illness ED Provider: JAMES MARTINEZ narrative: 48 yo male with PMH of sleep apnea, appendectomy, remote provoked DVT, UTI in past, chronic back pain s/p multiple surgeries here with lower abdominal pain worsening since yesterday did go away to [place] this weekend and ate a different diet than usual. Had more loose stools this AM but no blood. No dysuria and went to urgent care and they said his urine was negative. He had colonoscopy about a year ago and was told he had diverticulosis. MD elicited complaint: abdominal pain Pertinent past history: past UTI Onset (ago): day(s) (yesterday) Pain Consistency: constant Location: RUQ, LLQ and suprapubic Severity: moderate Quality: aching and dull Radiation: none Migration to: no migration Exacerbating factors: movement Relieving factors: nothing Associated symptoms: denies other symptoms Related Data Home Medications ?Medication ?Instructions ?Recorded ?Confirmed famotidine 40 mg tablet 40 mg PO BEDTIME 08/26/20 10/14/23 fluticasone propionate 50 1 spray intranasal DAILY 08/26/20 10/14/23 mcg/actuation nasal spray,suspension (Flonase Allergy Relief) tadalafil 5 mg tablet 5 mg PO DAILY 05/10/23 10/14/23 Previous Rx's ?Medication ?Instructions ?Recorded gabapentin 300 mg capsule 300 mg PO TID #90 caps 01/15/23 albuterol sulfate 90 mcg/actuation 2 puff PO Q6H PRN for wheezing 04/13/23 aerosol inhaler #8.5 grams esomeprazole magnesium 40 mg 40 mg PO DAILY #90 caps 06/17/23 capsule,delayed release (Nexium) cyclobenzaprine 10 mg tablet 10 mg PO BEDTIME #14 tabs 06/28/23 fluticasone 250 mcg-salmeterol 50 1 ea PO BID 90 days #90 ea 10/13/23 mcg/dose blistr powdr for inhalation (Wixela Inhub) amoxicillin 875 mg-potassium 1 tab PO BID #14 tabs 01/13/24 clavulanate 125 mg tablet Allergies Allergy/AdvReac Type Severity Reaction Status Date / Time No Known Allergies Allergy Verified 01/13/24 09:36 [No Known Allergies*] Review of Systems Review of Systems Constitutional : No Weight loss, No Fever, No Chills ENT/Mouth : No sore throat, No Rhinorrhea Eyes: No Swelling, No Redness Cardiovascular : No Chest Pain, No SOB, NoEdema Respiratory : No Cough, No Sputum, No Wheezing Gastrointestinal : no Nausea, no Vomiting, no Diarrhea, positive abdominal Pain, No Hematochezia, No Melena Genitourinary : No Dysuria, No Urinary Frequency, No Hematuria, No Urgency Musculoskeletal : No joint pain, No Myalgias, No Joint Swelling Skin : No Skin Lesions, No rash Neuro : No Weakness, No Numbness, No Dizziness, No Headache Psych : No Anxiety/Panic, No Depression All other systems reviewed and are negative. [facility] Past Medical History Attestation statement: The following information was validated with the patient. Source: old records reviewed Medical History Hemorrhoids without complication Sessile serrated polyp of colon Barretts esophagus GERD (gastroesophageal reflux disease) Deep vein thrombosis, lower right extremity COVID-19 vaccine series completed Positive PPD, treated Sleep apnea Asthma Spinal cord stimulator status Postlaminectomy syndrome Thrombosed external hemorrhoid Surgical History History of back surgery Hx of knee surgery Hx of repair of rotator cuff History of lumbar fusion History of appendectomy Family History Family History Maternal Grandfather History of liver cancer Father History of bladder cancer Social History Social History Household Members: Spouse and Children Housing: House Are you a primary hospice spiritual care coordinator to a significant other at home: No Do you presently have visiting nurse or other home services: No Alcohol intake: current Alcohol intake frequency: a few times a month Patient Tobacco Use Status: Current everyday Tobacco user Tobacco use type: Cigar Years Smoked: 20 e-Cigarette/Vaping Use: Never Used Second Hand Smoke Exposure: No Advance Directives: No Advance Directives Information Provided: Yes service: Yes Current occupational status: employed Cognitive needs: No Hearing needs: No Vision needs: No Physical Exam ED Vital Signs: Vital Signs - 24 hr 01/13/24 09:33 01/13/24 10:00 01/13/24 12:00 Temperature 99.3 F 97.2 F Pulse Rate 82 71 79 Respiratory Rate 18 17 17 Blood Pressure 147/85 H 117/81 129/85 Pulse Oximetry 95 96 98 Oxygen Delivery Method Room Air Room Air Room Air BMI result Body Mass Index 33.1 Appearance: Alert. Oriented X3. No acute distress. Eyes: Pupils equal, round and reactive to light. ENT: Pharynx normal. Neck: Normal inspection. Neck supple. CVS: Normal heart rate and rhythm. Pulses normal. Respiratory: No respiratory distress. Breath sounds normal. Abdomen: Soft and moderate lower abominal ttp suprapubic and LLQ no rebound Skin: Skin warm and dry. Normal skin color. Normal skin turgor. Extremities: No lower extremity edema. No calf ttp Neuro: Oriented X 3. No motor deficit. No sensory deficit. Medical Decision Making Medical Decision Making [facility] Narrative: 48 yo male with PMH of sleep apnea, appendectomy, remote provoked DVT, UTI in past, chronic back pain s/p multiple surgeries here with c/o lower abdominal pain since yesterday but no associated GI or symptoms and just had negative urine test at outside facility will obtain labs, CT scan for colitis, constipation, enteritis, diverticulitis, renal colic, supportive medications ordered. Differential Diagnosis Differential Diagnoses: The differential diagnosis associated with the presentation includes UTI, colitis, constipation, enteritis, diverticulitis, renal colic Admission/Observation Consideration of admission/observation: Escalation of care including admission/observation considered labs reassuring no diverticulitis on CT scan but clinically consistent with diverticulitis will dose with augmentin and DC home Lab Data [facility] Lab Attestation statement: I reviewed the patient's lab results. 01/13/24 09:49 01/13/24 09:49 Labs: Lab Results 01/13/24 01/13/24 Range/Units 09:49 11:45 WBC 6.5 (4.8-10.8) X10*3/uL RBC 5.30 (4.60-5.80) X10*6/uL Hgb 16.2 (14.0-18.0) g/dl Hct 47.8 (42.0-52.0) % MCV 90.2 (80.0-98.0) fL MCH 30.6 (27.0-33.0) pg MCHC 33.9 (31.0-36.0) g/dl RDW 14.0 (11.0-16.0) % Plt Count 265 (160-400) X10*3/uL MPV 10.3 (9.4-12.4) fL Immature Gran % (Auto) 0.3 (0.0-0.4) % Neut % (Auto) 61.4 (45-73) % Lymph % (Auto) 27.4 (20-40) % [place] % (Auto) 7.5 (2-11) % Eos % (Auto) 2.6 (0-4) % Baso % (Auto) 0.8 (0-2) % Lymph # (Auto) 1.8 (1.2-4.9) X10*3/uL [place] # (Auto) 0.5 (0.1-1.2) X10*3/uL Eos # (Auto) 0.2 (0.0-0.4) X10*3/uL Baso # (Auto) 0.1 (0.0-0.2) X10*3/uL Abs Immat Gran (auto) 0.02 (0.00-0.03) X10*3/uL Absolute Neuts (auto) 4.0 (2.0-8.3) x10*3/uL Absolute Nucleated RBC 0.000 (0.0-0.012) X10*3/uL Nucleated RBC % (auto) 0.0 (0.0-0.2) /100WBC Sodium 142 (135-145) mmol/L Potassium 4.3 (3.3-5.1) mmol/L Chloride 109 H (96-108) mmol/L Carbon Dioxide 25 (22-29) mmol/L Anion Gap 12 (12-20) BUN 20 H (9-16) mg/dL Creatinine 1.06 (0.5-1.4) mg/dL Estim Creat Clear Calc 121.7 Estimated GFR > 60 Random Glucose 105 (60-115) mg/dL Calcium 8.5 (8.4-10.2) mg/dL Total Bilirubin 0.6 (0.0-1.0) mg/dL AST 22 (5-37) U/L ALT 24 (0-40) U/L Alkaline Phosphatase 31 L (39-117) U/L Total Protein 6.8 (6.5-8.0) g/dL Albumin 4.1 (3.5-5.0) g/dL Lipase 46 (8-78) U/L Urine Color Yellow Urine Appearance Clear Urine pH 6.5 (5.0-9.0) Ur Specific [place] >= 1.030 H (1.005-1.025) Urine Protein Negative (Neg-Trace) mg/dL Urine Glucose (UA) Negative (Negative) mg/dL Urine Ketones Negative (Negative) mg/dL Urine Blood Negative (Negative) Urine Nitrite Negative (Negative) Ur Leukocyte Esterase Negative (Negative) Independent Interpretation I performed an independent interpretation of an: CT Scan (no acute findings) Radiology Impression Discussion of test interpretation with radiology: I have reviewed the radiologist's reading. External Record Review External record reviewed: Inpatient record Prescription Management I considered prescription management with: Pain Medication, Antibiotic and Other Medications Administered Discontinued Medications Generic Name Dose Route Start Last Admin Trade Name Freq PRN Reason Stop Dose Admin Sodium Chloride 1,000 mls @ 999 mls/hr 01/13/24 09:44 01/13/24 11:00 Ns IV 01/13/24 10:44 Infused .Q1H1M ONE Infusion Sodium Chloride 1,000 mls @ 999 mls/hr 01/13/24 09:45 01/13/24 12:34 Ns IV 01/13/24 10:45 Infused .Q1H1M ONE Infusion Iohexol 100 ml 01/13/24 11:18 01/13/24 11:19 Iohexol 350 Mg/Ml 100 Ml Infus..Btl IV 01/13/24 11:19 85 ml ONCE ONE Administration Ketorolac Tromethamine 15 mg 01/13/24 09:44 01/13/24 09:57 Ketorolac Tromethamine 15 Mg/Ml Vial IVPUSH 01/13/24 09:45 15 mg ONCE ONE Administration Ondansetron HCl 4 mg 01/13/24 09:44 01/13/24 09:57 Ondansetron Hcl 4 Mg/2 Ml Vial IVPUSH 01/13/24 09:45 4 mg ONCE ONE Administration Discharge Plan Discharge Clinical Impression: Abdominal pain Patient Disposition: Home, Self-Care Instructions: Abdominal Pain (ED) Additional Instructions: labs and urine reassuring KIDNEYS AND URETERS: No solid mass or hydronephrosis or perinephric collection. 1 mm punctate stone in the central left kidney nonobstructive. BLADDER: Unremarkable. GASTROINTESTINAL TRACT: Mild to moderate sigmoid diverticular disease but no diverticulitis. No proximal obstruction, or free air. No right lower quadrant inflammation. Suture material and clips are seen at the base of the cecum. ABDOMINAL WALL: No significant hernia is appreciated. LYMPH NODES: Normal. VASCULAR: Unremarkable. PELVIC VISCERA: Unremarkable. OSSEOUS STRUCTURES: There is postsurgical change and degenerative change L4-S1. CT/CT abdomen pelvis w IV con IMPRESSION: Sigmoid diverticulosis without diverticulitis. No proximal obstruction. Fleischner guidelines were followed. Prescriptions: New amoxicillin-pot clavulanate 875-125 mg tablet 1 tab PO BID Qty: 14 0RF No Action gabapentin 300 mg capsule 300 mg PO TID Qty: 90 5RF albuterol sulfate 90 mcg/actuation HFA aerosol inhaler 2 puff PO Q6H PRN (Reason: for wheezing) Qty: 8.5 3RF fluticasone propion-salmeterol [Wixela Inhub] 250-50 mcg/dose blister with device 1 ea PO BID 90 Days Qty: 90 1RF tadalafil 5 mg Tablet 5 mg PO DAILY famotidine 40 mg tablet 40 mg PO BEDTIME fluticasone propionate [Flonase Allergy Relief] 50 mcg/actuation spray,suspension 1 spray intranasal DAILY Rx Instructions: administer into each nostril cyclobenzaprine 10 mg tablet 10 mg PO BEDTIME Qty: 14 0RF esomeprazole magnesium [Nexium] 40 mg capsule,delayed release(DR/EC) 40 mg PO DAILY Qty: 90 4RF Stand Alone Forms: Work/School Release Print Language: Ukrainian
[2024-01-13 09:54] LABS: MANUAL DIFF FLAG NO
[2024-01-13 09:55] LABS: Basophils Absolute Auto 0.1 X10*3/uL (0.0-0.2); Basophils Percent Auto 0.8 % (0-2); Eosinophils Absolute Auto 0.2 X10*3/uL (0.0-0.4); Eosinophils Percent Auto 2.6 % (0-4); Hematocrit 47.8 % (42.0-52.0); Hemoglobin 16.2 g/dl (14.0-18.0); Imm Gran Abs Auto 0.02 X10*3/uL (0.00-0.03); Imm Gran Pct Auto 0.3 % (0.0-0.4); Lymphocytes Absolute Auto 1.8 X10*3/uL (1.2-4.9); Lymphocytes Percent Auto 27.4 % (20-40); Mean Corpuscular HGB Conc 33.9 g/dl (31.0-36.0); Mean Corpuscular Hemoglobin 30.6 pg (27.0-33.0); Mean Corpuscular Volume 90.2 fL (80.0-98.0); Mean Platelet Volume 10.3 fL (9.4-12.4); Monocytes Absolute Auto 0.5 X10*3/uL (0.1-1.2); Monocytes Percent Auto 7.5 % (2-11); Neutrophils Percent Auto 61.4 % (45-73); Platelet Count 265 X10*3/uL (160-400); White Blood Count 6.5 X10*3/uL (4.8-10.8)
[2024-01-13] MEDS: ondansetron HCL 4 MG/2 ML VIAL IVPUSH (09:57)
[2024-01-13] MEDS: Ketorolac Tromethamine 15 MG/ML VIAL IVPUSH (09:57)
[2024-01-13] MEDS: 0.9 % Sodium Chloride 1,000 ML 999 ML IV ×2 (09:58→10:59)
[2024-01-13 10:00] VITALS: BP 117/81; PULSE 71; RESP 17; O2SAT 96
[2024-01-13 10:13] LABS: Alanine Aminotransferase 24 U/L (0-40); Albumin Level 4.1 g/dL (3.5-5.0); Alkaline Phosphatase 31 U/L (39-117); Anion Gap 12 (12-20); Aspartate Amino Transferase 22 U/L (5-37); Bilirubin Total 0.6 mg/dL (0.0-1.0); Blood Urea Nitrogen 20 mg/dL (9-16); Calcium 8.5 mg/dL (8.4-10.2); Carbon Dioxide 25 mmol/L (22-29); Chloride 109 mmol/L (96-108); Creatinine Clr Calc Pharmacy 121.7; Estimated Glomerular Filt Rate > 60; Glucose Random 105 mg/dL (60-115); Lipase 46 U/L (8-78); Potassium 4.3 mmol/L (3.3-5.1); Sodium 142 mmol/L (135-145); Total Protein 6.8 g/dL (6.5-8.0)
[2024-01-13] MEDS: iohexoL 350 MG/ML 100 ML INFUS..BTL IV (11:19)
[2024-01-13 12:00] VITALS: BP 129/85; PULSE 79; RESP 17; TEMP 36.2; O2SAT 98
[2024-01-13 12:02] LABS: Appearance Urine Clear; Color Urine Yellow; Glucose Urine UA Negative (Negative); Leukocyte Esterase Urine Negative (Negative); Nitrite Urine Negative (Negative); PH 6.5 (5.0-9.0); Specific Gravity - Urine >= 1.030 (1.005-1.025); Urine Blood Negative (Negative); Urine Ketones Negative (Negative); Urine Protein Negative (Neg-Trace)
[2024-01-13 13:53] VITALS: BP 127/89; PULSE 70; RESP 18; TEMP 37.1; O2SAT 96
== END 2024-01-13 13:57 | disposition home or self-care (01) ==
PROVIDERS: Emergency Provider Emergency Medicine; PCP Nurse Practitioner Family
DX: R10.30 Lower abdominal pain, unspecified (principal); Z86.718 Personal history of other venous thrombosis and embolism; Z90.49 Acquired absence of other specified parts of digestive tract
CPT/HCPCS: 36415; 74177; 80053; 81003; 83690; 85025; 96361; 96374; 96375; 99284; J1885; J2405; Q9967

== ENCOUNTER 2024-04-13 14:56 | Outpatient (AMB) | payer OTHER, SELFPAY ==
--- NOTE | 2024-04-13 15:03 | MHC.PC.OV ---
Vital Signs 04/13/24 15:04 Height 6 ft 3 in Weight 267 lb BMI 33.4 BP 118/74 Blood Pressure Location Rt brachial Position Sitting Pulse 71 Pulse Source Pulse Oximeter Pulse Oximetry (%) 97 Oxygen Delivery Method Room Air Intake Visit Reasons: 6 month follow up Intake Note: pt is here for 6 month follow up Clinical Field Specialist Required: No Allergies No Known Allergies [No Known Allergies*] Allergy (Verified 04/13/24 15:12) Medication List - Last Reconciled 04/13/24 by FREDA Cruz albuterol sulfate 90 mcg/actuation 2 puffs PO Q6H PRN cyclobenzaprine 10 mg PO BEDTIME esomeprazole magnesium (Nexium) 40 mg PO DAILY famotidine 40 mg PO BEDTIME fluticasone propion-salmeterol 250-50 mcg/dose (Wixela Inhub) 1 ea PO BID 90 days fluticasone propionate 50 mcg/actuation (Flonase Allergy Relief) 1 spray intranasal DAILY tadalafil 5 mg PO DAILY Tobacco use date assessed: 10/14/23 Dental Screening Dental Screen Date: 10/14/23 HPI 6 month follow up HPI Details Pt c/o left knee pain. He reports pain to his lateral left knee. Pt reports that the pain is worse with twisting. Previous XR in May of 2022 was negative. Will order MRI, pain is getting worse. Denies fever, chills, and dizziness. [facility] Medical History Hemorrhoids without complication Sessile serrated polyp of colon Barretts esophagus GERD (gastroesophageal reflux disease) Deep vein thrombosis, lower right extremity COVID-19 vaccine series completed Positive PPD, treated Sleep apnea Asthma Spinal cord stimulator status Postlaminectomy syndrome Thrombosed external hemorrhoid Surgical History History of back surgery Hx of knee surgery Hx of repair of rotator cuff History of lumbar fusion History of appendectomy Family History Maternal Grandfather History of liver cancer Father History of bladder cancer Social History Household Members: Spouse and Children Housing: House Are you a primary child care worker to a significant other at home: No Do you presently have visiting nurse or other home services: No Alcohol intake: current Alcohol intake frequency: a few times a month Patient Tobacco Use Status: Current everyday Tobacco user Tobacco use type: Cigar Years Smoked: 20 e-Cigarette/Vaping Use: Never Used Second Hand Smoke Exposure: No service: Yes Current occupational status: employed Cognitive needs: No Hearing needs: No Vision needs: No Questionnaire PHQ-9 Over the last 2 weeks, how often have you been bothered by any of the following problems? 1. Little interest or pleasure in doing things: not at all 2. Feeling down, depressed, or hopeless: not at all 3. Trouble falling or staying asleep, or sleeping too much: not at all 4. Feeling tired or having little energy: not at all 5. Poor appetite or overeating: not at all 6. Feeling bad about yourself - or that you are a failure or have let yourself or your family down: not at all 7. Trouble concentrating on things, such as reading the newspaper or watching television: not at all 8. Moving or speaking so slowly that other people could have noticed. Or the opposite - being so fidgety or restless that you have been moving around a lot more than usual: not at all 9. Thoughts that you would be better off or of hurting yourself in some way: not at all Total score: 0 Depression Screening Interpretation: Negative Depression Screening Done: Yes 90758 - PHQ-9 Billing: Yes Source: Developed by Drs. Daniel Michele, Staci Linder, Edgar Haque and colleagues, with an educational jaquelin from [employer]. Thrive Questionnaire Date Thrive assessed: 10/13/22 I am a: Patient What is your living situation today?: I have a steady place to live Within the past 12 months, did the food you bought not last and you didn't have the money to get more?: Never true Within the past 12 months, did you worry whether your food would run out before you got money to buy more?: Never true Do you have trouble paying for medicines?: No Do you have trouble getting transportation to medical appointments?: No Do you have trouble paying your heating and electricity bill?: No Do you have trouble taking care of your child, family member or friend?: No Do you have trouble with day-to-day activities such as bathing, preparing meals, shopping, managing finances, etc.?: No Are you currently unemployed and looking for a job?: No Are you interested in more education?: No Please select the resources that you would like help with: None Currently or been in a relationship where the following occur: No concerns reported THRIVE Score: 0 AUDIT C Alcohol Use Questionnaire (AUDIT-C) 1. How often do you have a drink containing alcohol?: 2-3 times a week 2. How many drinks containing alcohol do you have on a typical day when you are drinking?: 1 or 2 3. How often do you have six or more drinks on one occasion?: Never Total Score: 3 JULIANA-7 AMB Questionnaire JULIANA-7 Date JULIANA - 7 assessed: 10/14/23 Feeling nervous, anxious, or on edge: 0 = Not at all Not being able to stop or control worryin = Not at all Worrying too much about different things: 0 = Not at all Trouble relaxin = Not at all Being so restless that it is hard to sit still: 0 = Not at all Becoming easily annoyed or irritable: 0 = Not at all Feeling afraid as if something awful might happen: 0 = Not at all Total JULIANA-7 score (0-4 normal; 5-9 mild; 10-14 moderate; 15-21 severe): 0 Source: Developed by Drs. Daniel Michele, Staci Linder, Edgar Haque and colleagues, with an educational jaquelin from [employer]. JULIANA-7 Assessment Billing JULIANA-7 Assessment Tool: JULIANA-7 Assessment 52970 Review of Systems Const Reports as per HPI Physical exam (Primary Care) Vital Signs: Last Vital Signs Pulse 71 04/13/24 15:04 BP 118/74 04/13/24 15:04 Pulse Ox 97 04/13/24 15:04 Oxygen Delivery Method Room Air 04/13/24 15:04 BMI result Body Mass Index 33.4 Tobacco/Smoking Status: Tobacco use Status Tobacco use date assessed 10/14/23 04/13/24 15:06 Patient Tobacco Use Status Current everyday Tobacco 04/13/24 15:06 Tobacco use type Cigar 04/13/24 15:06 e-Cigarette/Vaping Use Never Used 04/13/24 15:06 PHQ-9: PHQ-9 Score PHQ-9: Total score 0 04/13/24 15:15 Depression Screening Interpretation: Negative Thrive Assessment: Date of Thrive Assessment Date Thrive assessed 10/13/22 04/13/24 15:06 Currently or been in a relationship where the following occur: No concerns reported Const General: cooperative Orientation/consciousness: patient oriented x3 Neuro General: patient oriented x3 Extrem Other: left knee: + mcmurrays, - lachmans, faint swelling to lateral left knee. able to extend and flex with minimal discomfort to lateral left knee Psych Appearance: grossly normal Mental Status: mental status grossly normal Speech and movement: Normal speech and movement present Affect: normal affect Attitude: cooperative Thought process: Normal thought process present Thought content: Normal thought content present Insight: Good insight present (Psych) Judgement: Good judgement present (Psych) Assessment and Plan Assessment & Plan (1) Left knee pain: Code(s): M25.562 - Pain in left knee Plan: MRI ordered Plan The patient agreed to the use of a phlebotomist medical lab assistant for this encounter. Scribed for FLORIDA Hill-FRANNY by Kayli Martinez phlebotomist medical lab assistant, on 04/13/2024 at 15:10 EST. Orders: Orders MR knee LT wo con Today M25.562 - Pain in left knee Coding Level of Care Code Est Pt Level 3 (82376) Diagnoses Left knee pain M25.562 Additional Codes JULIANA-7 Assessment Billing - JULIANA-7 Assessment Tool: JULIANA-7 Assessment 36101 ([id number])
[2024-04-13 15:04] VITALS: BP 118/74; PULSE 71; O2SAT 97; BMI 33.4
== END 2024-04-13 15:36 | disposition home or self-care (01) ==
PROVIDERS: PCP Nurse Practitioner Family; Visit Provider Nurse Practitioner Family
DX: M25.562 Pain in left knee (principal)
CPT/HCPCS: 99213

== ENCOUNTER 2024-04-21 10:12 | Outpatient (REF) | payer OTHER, SELFPAY ==
--- NOTE | ~2024-04-21 | XR_ITS ---
EXAMINATION: XR lumbar spine 2-3V CLINICAL INFORMATION: M54.50 - Low back pain, unspecified COMPARISON: None TECHNIQUE: 3 views of the lumbar spine FINDINGS: 5 nonrib-bearing lumbar-type vertebral bodies. Posterior fusion hardware from L4 to S1 without evidence of hardware complication. Vertebral body heights are maintained. Alignment is maintained. Minimal degenerative change and small anterior disc osteophyte complexes. Disc space heights are maintained. Paravertebral soft tissues are unremarkable. XR/XR lumbar spine 2-3V IMPRESSION: Posterior fusion hardware from L4 to S1 without evidence of hardware complication. Mild spondylosis of the lumbar spine. Electronically signed by: Nellie Wilson MD 05/09/2024 04:31 PM EDT
== END 2024-04-21 10:13 | disposition home or self-care (01) ==
LOC: HO.HMGCX 10:12
PROVIDERS: PCP Nurse Practitioner Family; Visit Provider Nurse Practitioner Family
DX: M54.50 Low back pain, unspecified (principal); G89.29 Other chronic pain
CPT/HCPCS: 72100

== ENCOUNTER 2024-05-11 14:09 | Outpatient (AMB) | payer OTHER, SELFPAY ==
--- NOTE | 2024-05-11 14:12 | MHC.OFFVIS ---
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 Patient reports he was diagnosed with DELMA 15 years ago. He has been using CPAP since then. The CPAP compliance and therapy response reviewed. He is on APAP [id number]. The usage days 90 day, 100% the average usage hours 7 hrs 30 min. The residual AHI was 2.2/hr. His CPAP is [employer]. Serial # is [id number]. Patient needs CPAP supplies. He feels better with new CPAP. He sleeps ok with CPAP, about 7 hrs, uses tapes to close his mouth. He gained about 20 lb since the last sleep study. [facility] Medical History (Updated 05/11/24 @ 14:41 by Adina Lopez MD) Obstructive sleep apnea Hemorrhoids without complication Sessile serrated polyp of colon Barretts esophagus GERD (gastroesophageal reflux disease) Deep vein thrombosis, lower right extremity COVID-19 vaccine series completed Positive PPD, treated Sleep apnea Asthma Spinal cord stimulator status Postlaminectomy syndrome Thrombosed external hemorrhoid Surgical History History of back surgery Hx of knee surgery Hx of repair of rotator cuff History of lumbar fusion History of appendectomy Family History Maternal Grandfather History of liver cancer Father History of bladder cancer Social History Household Members: Spouse and Children Housing: House Are you a primary managed care manager to a significant other at home: No Do you presently have visiting nurse or other home services: No Alcohol intake: current Alcohol intake frequency: a few times a month Patient Tobacco Use Status: Current everyday Tobacco user Tobacco use type: Cigar Years Smoked: 20 e-Cigarette/Vaping Use: Never Used Second Hand Smoke Exposure: No service: Yes Current occupational status: employed Cognitive needs: No Hearing needs: No Vision needs: No Physical Exam Vital Signs: Last Vital Signs Pulse 92 05/11/24 14:14 BP 112/60 05/11/24 14:14 Pulse Ox 95 05/11/24 14:14 Oxygen Delivery Method Room Air 05/11/24 14:14 BMI result Body Mass Index 33.4 Const General: cooperative, healthy appearing and comfortable Orientation/consciousness: patient oriented x3 Neck Neck: Yes full ROM and Yes supple Resp Effort & Inspection: normal respiratory effort and able to speak in complete sentences Neuro General: patient oriented x3, gait normal and moves all extremities Cranial nerves: Yes CN's II-XII intact bilaterally Cognition (Neuro): normal cognition Gait exam (Neuro): Normal gait present Motor exam (neuro): 5/5 motor strength present throughout Psych Appearance: grossly normal Mental Status: mental status grossly normal Speech and movement: Normal speech and movement present Affect: normal affect Assessment & Plan Assessment & Plan (1) Obstructive sleep apnea: Code(s): G47.33 - Obstructive sleep apnea (adult) (pediatric) Category: Medical Plan Advised patient to continue to use APAP at [id number] as patient experiences good clinical effects ,sleep quality and sleep apnea has improved and daytime sleepiness has resolved. Stressed CPAP compliance, use CPAP nightly and more than 4 hrs. Coding Level of Care Code Est Pt Level 3 (80669) Diagnoses Obstructive sleep apnea G47.33
[2024-05-11 14:14] VITALS: BP 112/60; PULSE 92; O2SAT 95; BMI 33.4
== END 2024-05-11 14:46 | disposition home or self-care (01) ==
PROVIDERS: PCP Nurse Practitioner Family; Visit Provider Psychiatry & Neurology Neurology
DX: G47.33 Obstructive sleep apnea (adult) (pediatric) (principal)
CPT/HCPCS: 99213

== ENCOUNTER → 2024-05-11 14:09 | Outpatient (BNVA) | payer OTHER, SELFPAY | PROVIDERS: PCP Nurse Practitioner Family; Visit Provider Psychiatry & Neurology Neurology | DX: G47.33 Obstructive sleep apnea (adult) (pediatric) (principal); Z99.89 Dependence on other enabling machines and devices | CPT/HCPCS: 99212 ==

== ENCOUNTER 2024-06-16 09:55 | Outpatient (AMB) | payer OTHER, SELFPAY ==
[2024-06-16 10:05] VITALS: BP 124/90; PULSE 76; O2SAT 98; BMI 33.0
--- NOTE | 2024-06-16 10:05 | A.OFFVIS_ITS ---
Vital Signs 06/16/24 10:05 Height 6 ft 3 in Weight 264 lb 1.82 oz BMI 33.0 BP 124/90 H Blood Pressure Location Rt brachial Position Sitting Pulse 76 Pulse Source Pulse Oximeter Pulse Oximetry (%) 98 Oxygen Delivery Method Room Air Intake Visit Reasons: 1 year to discuss EGD Intake Note: Relevant Flags or Indicators ? Requires Cd Reactor Operator? Huy Canas presents in office today for a scheduled 1 year FUV. CC; No recent labs, diagnostics, or med orders placed. ? Relevant GI Sx as reported per pt? Reflux ? Dysphagia / Painful Swallowing - Certain foods. Pt is unsure on extent of this issue. ? Hx of any recent surgeries? None. Pt is to discuss recall EGD Cd Reactor Operator Required: No Allergies No Known Allergies [No Known Allergies*] Allergy (Verified 06/16/24 10:06) HPI HPI 1 year to discuss EGD: Details: LAST VISIT: Sessile serrated polyp of colon 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 GERD (gastroesophageal reflux disease) Status post colonoscopy Hemorrhoids without complication Diverticulosis Plan Upper endoscopy and colonoscopy discussed with patient. Patient was found to have gastritis and Bush's. He will start as omeprazole in the morning and he can continue taking famotidine at bedtime. Discussed with patient avoiding dietary triggers and late night snacking. Staying upright for minimum 3 hours after meals discussed with patient. Patient was found to have a 1 sessile serrated polyp. Colonoscopy will be repeated in 3 years, sooner if clinically necessary. Patient was found to have diverticulosis and hemorrhoids. Encouraged to increase fiber in his diet. List of food high in fiber given to patient. He will follow-up in our office in 1 year, sooner on as needed basis. Patient is agreeable to this plan and verbalizes understanding of instructions. He was given the opportunity to ask questions and all questions answered ? Thank you for allowing me to participate in his care Medications New esomeprazole magnesium (Nexium) 40 mg PO DAILY 90 caps 4RF K21.9 TODAY'S VISIT Patient is here today for follow-up and to discuss going for upper endoscopy. Patient denies any trouble with anesthesia last year when he had endoscopy done. Patient is taking Nexium and famotidine at bedtime, however he states that he continues to have occasional epigastric pain. Diagnosed with Barretts and gastritis in the past. Patient denies eating heavy meal late at night, however occasionally patient will have snacks. Patient denies any nausea or vomiting. Denies melena, hematochezia, unintentional weight loss or ribbon like stools. Colonoscopy last year sessile serrated polyp and patient was recommended to repeat colonoscopy in 3 years. [facility] Medical History Obstructive sleep apnea Hemorrhoids without complication Sessile serrated polyp of colon Barretts esophagus GERD (gastroesophageal reflux disease) Deep vein thrombosis, lower right extremity COVID-19 vaccine series completed Positive PPD, treated Sleep apnea Asthma Spinal cord stimulator status Postlaminectomy syndrome Thrombosed external hemorrhoid Surgical History History of back surgery Hx of knee surgery Hx of repair of rotator cuff History of lumbar fusion History of appendectomy Family History Maternal Grandfather History of liver cancer Father History of bladder cancer Social History Household Members: Spouse and Children Housing: House Are you a primary direct care counselor to a significant other at home: No Do you presently have visiting nurse or other home services: No Alcohol intake: current Alcohol intake frequency: a few times a month Patient Tobacco Use Status: Current everyday Tobacco user Tobacco use type: Cigar Years Smoked: 20 e-Cigarette/Vaping Use: Never Used Second Hand Smoke Exposure: No service: Yes Current occupational status: employed Cognitive needs: No Hearing needs: No Vision needs: No Review of Systems Const Denies weight gain and Denies weight loss ENT Reports no additional complaints, Denies dysphagia and Denies odynophagia Card Reports no additional complaints Resp Reports no additional complaints GI Denies abdominal pain, Denies belching, Denies melena, Denies bloating, Denies change in bowel habits, Denies dysphagia, Denies excessive flatus, Denies dyspepsia, Reports heartburn, Denies diarrhea, Denies loose stools, Denies nausea, Denies odynophagia and Denies vomiting Reports no additional complaints Musc Reports no additional complaints Neuro Reports no additional complaints Psych Reports no additional complaints Endo Reports no additional complaints Physical Exam Vital Signs: Last Vital Signs Pulse 76 06/16/24 10:05 BP 124/90 H 06/16/24 10:05 Pulse Ox 98 06/16/24 10:05 Oxygen Delivery Method Room Air 06/16/24 10:05 BMI result Body Mass Index 33.0 Const General: healthy appearing and no acute distress Nutritional Appearance: obese and overweight Orientation/consciousness: patient oriented x3 Resp Effort & Inspection: normal respiratory effort, able to speak in complete sentences, no tracheal deviation and symmetric chest movement Auscultation: clear to auscultation bilaterally Cardio Rate: regular rate GI Inspection: Yes normal to inspection, No distended and Yes obesity Palpation (GI): Soft to palpation, not firm, nontender and No hepatosplenomegaly present Auscultation: normal bowel sounds General: Yes no CVA tenderness Back/Spine/Pelvis Back: no CVA tenderness Skin General skin exam: elasticity normal, turgor normal and dry skin Neuro General: patient oriented x3 Psych Appearance: grossly normal Mental Status: mental status grossly normal Judgement: Good judgement present (Psych) Assessment & Plan Assessment & Plan (1) Sessile serrated polyp of colon: Code(s): D12.6 - Benign neoplasm of colon, unspecified Category: Medical (2) Hemorrhoids without complication: Code(s): K64.9 - Unspecified hemorrhoids Category: Medical (3) 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: Code(s): K22.70 - Bush's esophagus without dysplasia (4) GERD (gastroesophageal reflux disease): Code(s): K21.9 - Gastro-esophageal reflux disease without esophagitis Qualifiers: Esophagitis presence: esophagitis presence not specified Qualified Code(s): K21.9 - Gastro-esophageal reflux disease without esophagitis (5) Diverticulosis: Code(s): K57.90 - Diverticulosis of intestine, part unspecified, without perforation or abscess without bleeding Plan Patient diagnosed with sleep apnea. No trouble with anesthesia last year when he had endoscopy and colonoscopy. Message sent to surgical schedulers to book procedure for him. Will send him for upper GI with barium swallow as he continues to have symptoms of acid reflux, occasional dysphagia depending on what he eats. Avoid eating late at night. Staying upright for minimum 3 hours after meals discussed with patient. Weight loss recommended and encouraged. Patient will continue taking Nexium and will take sucralfate at bedtime. He will follow-up in the office after the procedure. He is agreeable to plan of care and verbalizes understanding of instructions. He was given the opportunity to ask questions and all questions answered Orders: Orders [place] upper GI w Ba Swallow 06/16/24 K21.9 - Gastro-esophageal reflux disease without esophagitis Medications: New sucralfate 1 g PO BEDTIME 30 tabs 4RF R19.7 - Diarrhea, unspecified Refilled esomeprazole magnesium (Nexium) 40 mg PO DAILY 90 caps 4RF K21.9 - Gastro- esophageal reflux disease without esophagitis Coding Level of Care Code Est Pt Level 4 (73883) Complex EM visit Add On G2211 Diagnoses Sessile serrated polyp of colon D12.6 Hemorrhoids without complication K64.9 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 K22.70 Gastroesophageal reflux disease, unspecified whether esophagitis present K21.9 Esophagitis presence: esophagitis presence not specified Diverticulosis K57.90 Time Spent (min) 35 Comment 25 minutes spent with patient and additional 10 minutes spent reviewing his records
== END 2024-06-16 10:43 | disposition home or self-care (01) ==
LOC: HO.HGI 09:55
PROVIDERS: PCP Nurse Practitioner Family; Visit Provider Nurse Practitioner Family
DX: D12.6 Benign neoplasm of colon, unspecified (principal); K64.9 Unspecified hemorrhoids; K22.70 Barrett's esophagus without dysplasia; K21.9 Gastro-esophageal reflux disease without esophagitis; K57.90 Diverticulosis of intestine, part unspecified, without perforation or abscess without bleeding
CPT/HCPCS: 99214

== ENCOUNTER → 2024-06-16 09:55 | Outpatient (BNVA) | payer OTHER, SELFPAY | PROVIDERS: PCP Nurse Practitioner Family; Visit Provider Nurse Practitioner Family | DX: K21.9 Gastro-esophageal reflux disease without esophagitis (principal); K22.70 Barrett's esophagus without dysplasia; K57.90 Diverticulosis of intestine, part unspecified, without perforation or abscess without bleeding; K64.9 Unspecified hemorrhoids; D12.6 Benign neoplasm of colon, unspecified | CPT/HCPCS: 99212 ==

== ENCOUNTER 2024-07-04 10:11 | Outpatient (REF) | payer OTHER, SELFPAY ==
--- NOTE | ~2024-07-04 | MR_ITS ---
EXAMINATION: MR KNEE WITHOUT CONTRAST, LEFT CLINICAL INFORMATION: Left knee pain and instability. Dayami-Schlatter surgery in 1997. COMPARISON: Left knee radiographs dated 06/02/2022. TECHNIQUE: MRI of the knee without contrast was performed using routine sequences on a high-field scanner. FINDINGS: MENISCI: Medial Meniscus: Intact. Lateral Meniscus: Intact. LIGAMENTS: Cruciate: Intact. Collateral: Intact. EXTENSOR MECHANISM: Intact quadriceps tendon. Minimal proximal patellar tendinosis. No tendon tear or tendon retraction. No patella elizabeth. TT-TG distance within normal limits. ARTICULAR CARTILAGE/BONE: Patellofemoral Compartment: Patellar median ridge partial-thickness articular cartilage fissuring. Medial Compartment: Mild periarticular cartilage signal heterogeneity. Lateral Compartment: Lateral tibial plateau articular cartilage signal heterogeneity and fissuring with minimal subchondral cystic change. JOINT FLUID AND BURSAE: Trace joint effusion. MR/MR knee LT wo con IMPRESSION: 1. No acute meniscal or ligamentous injury. 2. Minimal proximal patellar tendinosis. No patella elizabeth. 3. Minimal tricompartmental arthrosis. Trace joint effusion. Electronically signed by: Scooter Marte MD 07/14/2024 11:42 AM EST
== END 2024-07-04 10:12 | disposition home or self-care (01) ==
LOC: HO.MRI 10:11
PROVIDERS: PCP Nurse Practitioner Family; Visit Provider Nurse Practitioner Family
DX: M25.562 Pain in left knee (principal)
CPT/HCPCS: 73721

== ENCOUNTER 2024-09-06 09:24 | Outpatient (REF) | payer OTHER, SELFPAY ==
--- NOTE | ~2024-09-06 | FL_ITS ---
EXAMINATION: XR FLUOROSCOPY UPPER GI WITH AIR CLINICAL INFORMATION: Dysphagia. COMPARISON: None TECHNIQUE: Fluoroscopic air contrast upper GI examination was performed utilizing standard techniques with thin and thick barium and effervescent granules. Numerous spot images were obtained. FINDINGS: Lateral cine images of the oropharynx and hypopharynx demonstrate normal swallow mechanism with normal epiglottic inversion and soft palate elevation. No tracheal penetration, glottic or subglottic aspiration identified. No nasopharyngeal reflux present. Hypopharyngeal structures appear normal without evidence of mass or diverticulum. There was no significant cricopharyngeal achalasia. Dual and single contrast images of the esophagus demonstrate normal caliber, contour, and mucosal pattern. No evidence of stricture, mass, or ulcerations identified. Esophageal peristalsis is mildly disorganized. A small type I hiatal hernia is present. No significant gastroesophageal reflux was seen during the course of the examination and on reflux views. Dual contrast and single contrast images of the stomach demonstrated a normal contour. Evaluation of the gastric mucosa is limited due to underdistention of stomach from poor tolerance of the effervescent granules. The gastric rugal folds have a thickened appearance, which may suggest gastritis, however, may this may also be due to underdistention of the stomach. No obvious masses or ulcerations are seen. Contrast freely passed into the gastric antrum and duodenal bulb without delay. Single and air-contrast images of the duodenal bulb demonstrate no abnormality. The duodenal sweep has a normal appearance, course, and mucosal fold appearance. The imaged proximal jejunum has a normal fold pattern and caliber. FLUOROSCOPY TIME: 3 minutes 51 seconds Number of Spot Images: 9 Number of Cine: 14 DOSE AREA PRODUCT: 2645 uGy-m2 (microgray-meter squared) FL/FL upper GI w Ba Swallow IMPRESSION: 1. Mild esophageal dysmotility. 2. Small type I hiatal hernia. 3. Limited evaluation of the gastric mucosa due to underdistention of stomach from poor tolerance of effervescent granules. The gastric rugal folds have a thickened appearance, which may suggest gastritis, however, may this may also be due to underdistention of the stomach This procedure was performed by Yakov Julian PA-C, and supervised by Dr. Mims Electronically signed by: Ramakrishna Mims MD 09/06/2024 02:02 [place] [facility] [place]
--- OUTSIDE RECORDS SUMMARY | 2024-09-06 09:56 | XMS_ITS | Continuity of Care Document ---
Author Name [facility] Organization [facility] Care Team Providers Care Claims Configuration Analyst Name Role Phone [facility] Unavailable Unavailable Problems Combined list of problems 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 It does not include entries that were removed or entered in error. 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 15 Condition [facility] Male erectile disorder Active 08/16/19 15 Condition [facility] Intervertebral disc degeneration Active 08/16/19 12 Condition [facility] Lumbar radiculopathy Active 08/16/19 12 Condition [facility] Meralgia paresthetica Active 08/16/19 12 Condition [facility] Spinal stenosis Active 08/16/19 12 Condition [facility] Tendonitis Active 08/16/19 12 Condition Dec 02, 2023 Entered By: KONG HENRIQUEZ Comment: tendonitis rotator cuff right [facility] Adjustment disorder with depressed mood Active 08/16/19 11 Condition [facility] Depression Active 08/16/19 11 Condition [facility] Obesity Active 08/16/19 11 Condition [facility] Sleep apnea Active 08/16/19 11 Condition Dec 02, 2023 Entered By: KONG HENRIQUEZ Comment: nonorganic sleep apnea [facility] Sleep pattern disturbance Active 08/16/19 11 Condition [facility] Joint pain Active 08/16/19 10 Condition Dec 02, 2023 Entered By: KONG HENRIQUEZ Comment: joint pain, localized in the right shoulder [facility] Tobacco use Active 08/16/19 10 Condition [facility] Low back pain Active 08/16/19 09 Condition [facility] Asthma Active 08/16/19 08 Condition Dec 02, 2023 Entered By: KONG HENRIQEUZ Comment: asthma moderate persistent [facility] Esophageal reflux Active 08/16/19 08 Condition [facility] Allergic arthritis Active 08/16/19 05 Condition [facility] Gilbert's syndrome Active Condition DoD chronic cough Active Condition DoD muscle spasm Inactive Condition DoD tendonitis rotator cuff right Active Condition DoD spinal stenosis Active Condition DoD meralgia paresthetica Active Condition DoD sacroiliac region sprain Inactive Condition DoD intervertebral disc degeneration Active Condition DoD visit for: services physical separation Active Condition DoD lumbar radiculopathy Active Condition DoD visit for: issue repeat prescription for medication Inactive Condition DoD Surgery Vas Deferens Vasectomy Inactive Condition DoD Inquiry And Counseling: Contraceptive Practices Active Condition DoD male erectile disorder Active Condition DoD joint pain, localized in the knee Active Condition DoD acute pain postoperative Inactive Condition DoD upper respiratory infection Inactive Condition DoD obesity Active Condition DoD depression Active Condition DoD former smoker Active Condition DoD visit for: physical medical evaluation board (MEB) Active Condition DoD adjustment disorder with depressed mood Active Condition DoD recent weight gain (___ lbs) [reported] Active Condition DoD nonorganic sleep apnea Active Condition [facility] visit for: administrative purpose Inactive Condition DoD viral syndrome Inactive Condition DoD sleep disturbances Active Condition DoD nicotine dependence in remission Active Condition DoD Aftercare Following Surgery Of Nervous System Inactive Condition DoD joint pain, localized in the right shoulder Active Condition DoD foot pain (soft tissue) Active Condition DoD leslie splint Inactive Condition DoD groin (inguinal) pain right side Inactive Condition DoD tobacco use Active Condition DoD visit for: examination of throat Inactive Condition DoD cough Inactive Condition DoD sore throat Inactive Condition DoD Laboratory Studies Inactive Condition Do D sore throat Inactive Condition DoD lower back pain Active Condition DoD esophageal reflux Active Condition Wi ll refill nexium as working well for gerd and asthma sx's.Report any BRBPR or melena. DoD allergic rhinitis Inactive Condition DoD asthma moderate persistent Active Condition RILO dictated 01/09/2008.Cont inue medications as discussed last visit 03/23/08.. DoD Aftercare Following Surgery Of Musculoskeletal System Inactive Condition DoD Outpatient Physician Consultation Active Condition DoD other specified viral disease Inactive Condition Has sx's of mono with sore throat and abdominal cramping vs early flu.Symptomati c treatment.Okay continue asa as long as no abdominal pain, melena, brbpr or hematemesis.Wi ll check mono, flu swab, cbc with diff, and cmp.Will give quarters for 48 hours.Needs to stay home, rest, push fluids and get 8 hours of sleep.Will f/u above lab results. DoD asthma Active Condition will refil l meds.Will treat for reflux as possible cause of asthma flares.RTC in one month to see if nexium helping with asthma as well as allergy like sx's as reflux can cause asthma exacerbation and mimic upper respiratory sx's of allergy. DoD abdominal pain Inactive Condition cramp ing type pain.Stop lamisil and report back next 3-4 days if cramping ceases.Will write for cesar hartpooGo to er for abdominal pain, N&V, fever or chills. DoD joint pain, localized in the shoulder Inactive Condition DoD visit for: occupational health / fitness exam Inactive Condition Audiogram reviewed - no restrictions DoD visit for: screening exam lipoid disorders Inactive Condition DoD shoulder strain Inactive Condition Jhon gn exam today, Home PT encouraged. Rest for two weeks. NSAIDs as discussed. DoD Patient Education - Injury Prevention Inactive Condition DoD visit for: ears, nose, and throat exam Inactive Condition STSRepeat audiogram after 14 hour noise free interval.If shift persists, refer to audiology.No abnls noted on exam. DoD visit for: services physical Active Condition DoD asthma mild persistent Active Condition Increased albuterol use. Will add advair. Due for RILO, gave pt a c/s to get repeat PFTs done. DoD Anticipatory Guidance: Safety Restraints Inactive Condition wearing restraints was discussed with the pt. DoD visit for: issue medical certificate fitness Inactive Condition 422 updated. DoD upper arm strain right Inactive Condition DoD pharyngitis Inactive Condition 1. Clini gwyn Strep. TC pending. DoD nicotine dependence Active Condition Encouraged to stop DoD allergic arthritis Active Condition DoD gastroenteritis Inactive Condition DoD Diagnosis: ICD-10-CM Z02.89 Encounter for other administrative examinations Active Diagnosis [facility] Allergies, Adverse Reactions, Alerts Combined list of allergies 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 It does not include entries that were removed or entered in error. Substance Category Reaction Severity Reaction type Status Date Reported Comments Source No Known Allergies Drug allergy (disorder) active 12/26/2013 [facility] [place] [address] Immunizations Combined list of available immunizations from the 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 Immunization Series Date Given Administered By Site Reaction Lot Number CVX Code Drug Aluminum Siding Applicator Status Comments Source Influenza, seasonal, injectable, preservative free 0 2011 [id number] Sanofi Pasteur ([facility]) complet ed Influenza , seasonal, injectabl e, preservat yovana free DoD Influenza, seasonal, injectable, preservative free 1 2010 [id number] Sanofi Pasteur ([facility]) complet ed Influenza , seasonal, injectabl e, preservat yovana free DoD influenza virus vaccine, live, attenuated, for intranasal use 1 2009 [id number] 111 [place]. ([facility]) complet ed influenza virus vaccine, live, attenuate d, for intranasa l use DoD TDAP 1 2009 115 complet ed tetanus toxoid, reduced diphtheri a toxoid, and acellular pertussis vaccine, adsorbed Lot#: [id number] [facility] tetanus toxoid, reduced diphtheria toxoid, and acellular pertu is vaccine, adsorbed 1 2009 [id number] 115 [employer] ([facility]) complet ed tetanus toxoid, reduced diphtheri a toxoid, and acellular pertussis vaccine, adsorbed [facility] Novel influenza-H1N 1-09, injectable 1 2008 [id number] Sanofi Pasteur ([facility]) complet ed Novel influenza -P1K4-96, injectabl e DoD influenza virus vaccine, split virus (incl. purified surface antigen)-reti red CODE 1 2008 [id number] 15 Sanofi Pasteur ([facility]) complet ed influenza virus vaccine, split virus (incl. purified surface antigen)- retired CODE DoD influenza virus vaccine, split virus (incl. purified surface antigen)-reti red CODE 1 2007 [id number] 15 [employer] (CS) complet ed influenza virus vaccine, split virus (incl. purified surface antigen)- retired CODE DoD TYPHOID, VICPS 1 2007 101 complet ed typhoid Vi capsular polysacch aride vaccine Lot#: [id number] Mfr: SANOFI PASTEUR [facility] typhoid Vi capsular polysaccharid e vaccine 1 2007 [id number] Sanofi Pasteur ([facility]) complet ed typhoid Vi capsular polysacch aride vaccine DoD influenza virus vaccine, split virus (incl. purified surface antigen)-reti red CODE 1 2006 [id number] 15 [facility] ([facility]) complet ed influenza virus vaccine, split virus (incl. purified surface antigen)- retired CODE DoD influenza virus vaccine, split virus (incl. purified surface antigen)-reti red CODE 1 2005 [id number] 15 [facility] ([facility]) complet ed influenza virus vaccine, split virus (incl. purified surface antigen)- retired CODE DoD influenza virus vaccine, whole virus 1 2005 Unknown, Provider [id number] 16 [facility] ([facility]) complet ed influenza virus vaccine, whole virus DoD varicella virus vaccine 0 2005 21 () Not Given varicella virus vaccine DoD influenza virus vaccine, split virus (incl. purified surface antigen)-reti red CODE 1 2004 [id number] 15 Sanofi Pasteur ([facility]) complet ed influenza virus vaccine, split virus (incl. purified surface antigen)- retired CODE DoD influenza virus vaccine, whole virus 1 2004 [id number] 16 Sanofi Pasteur ([facility]) complet ed influenza virus vaccine, whole virus DoD influenza virus vaccine, whole virus 0 2004 [id number] 16 Sanofi Pasteur ([facility]) complet ed influenza virus vaccine, whole virus DoD ANTHRAX VACCINE, UNSPECIFIED 5 2003 319 complet ed Lot#: [id number] [facility] anthrax [facility] 5 2003 [id number] [facility] ([facility]) complet ed anthrax vaccine DoD ANTHRAX VACCINE, UNSPECIFIED 4 2002 319 complet ed Lot#: [id number] [facility] [place] [facility] influenza virus vaccine, whole virus 0 2002 [id number] 16 Sanofi Pasteur ([facility]) complet ed influenza virus vaccine, whole virus DoD anthrax vaccine 4 2002 [id number] 24 [employer] [facility] ([facility]) complet ed anthrax vaccine DoD ANTHRAX VACCINE, UNSPECIFIED 3 2002 319 complet ed Lot#: [id number] [facility] anthrax vaccine 3 2002 [id number] [facility]) complet ed anthrax vaccine DoD VACCINIA (SMALLPOX) 2002 75 complet ed vaccinia (smallpox ) vaccine Lot#: [id number] Mfr: WYETH-AYE RST [facility] vaccinia (smallpox) vaccine 0 2002 [id number] 75 [employer] ([facility]) complet ed vaccinia (smallpox ) vaccine DoD ANTHRAX VACCINE, UNSPECIFIED 2 2002 319 complet ed Lot#: [id number] [facility] anthrax vaccine 2 2002 [id number] 24 [facility]) complet ed anthrax vaccine DoD ANTHRAX VACCINE, UNSPECIFIED 1 2002 319 complet ed anthrax vaccine Lot#: [id number] [facility] anthrax vaccine 1 2002 [id number] 24 [facility]) complet ed anthrax vaccine DoD typhoid vaccine, parenteral, other than acetone-kille d, dried 0 2002 [id number] 41 [facility] complet typhoid vaccine, parentera l, other than acetone-k illed, dried [facility] influenza virus vaccine, whole virus 0 2001 [id number] 16 Sanofi Pasteur ([facility]) complet ed influenza virus vaccine, whole virus [facility] influenza virus vaccine, whole virus 0 2000 [id number] 16 Sanofi Pasteur ([facility]) complet ed influenza virus vaccine, whole virus DoD tuberculin skin test; purified protein derivative solution, intradermal 1 2000 Unknown, Provider [id number] [place] ([facility]) complet ed tuberculi n skin test; purified protein derivativ e solution, intraderm al DoD influenza virus vaccine, whole virus 0 1999 16 () complet ed influenza virus vaccine, whole virus DoD HEP A, ADULT 2 1999 52 complet ed hepatitis A vaccine, adult dosage Lot#: [id number] Mfr: [employer] [facility] YELLOW FEVER LIVE 1999 37 complet ed yellow fever vaccine Lot#: [id number] Mfr: [facility] yellow fever vaccine 0 1999 [id number] [facility] (CON) complet ed yellow fever vaccine DoD typhoid vaccine, parenteral, other than acetone-kille d, dried 0 1999 [id number] [facility] (CON) complet ed typhoid vaccine, parentera l, other than acetone-k illed, dried DoD hepatitis A vaccine, adult dosage 2 1999 [id number] Merck (MSD) complet ed hepatitis A vaccine, adult dosage DoD HEP A, ADULT 1 1999 52 complet ed hepatitis A vaccine, adult dosage Lot#: [id number] Mfr: [employer] [facility] measles, mumps and rubella virus vaccine 0 1999 03 () Not Given measles, mumps and rubella virus vaccine DoD poliovirus vaccine, inactivated 0 1999 [id number] 10 [facility] (CON) complet ed polioviru s vaccine, inactivat ed DoD hepatitis A vaccine, adult dosage 1 1999 [id number] Merck (MSD) complet ed hepatitis A vaccine, adult dosage DoD tuberculin skin test; purified protein derivative solution, intradermal 1 1999 Unknown, Provider 96 () complet ed tuberculi n skin test; purified protein derivativ e solution, intraderm al [facility] MENINGOCOCCAL MPSV4 1999 32 complet ed meningoco ccal polysacch aride vaccine (MPSV4) Lot#: [id number] Mfr: [facility] TD(ADULT) UNSPECIFIED FORMULATION 1999 139 complet ed tetanus and diphtheri a toxoids, adsorbed, preservat yovana free, for adult use (2 Lf of tetanus toxoid and 2 Lf of diphtheri a toxoid) Lot#: [id number] [facility] tetanus and diphtheria toxoids, adsorbed, preservative free, for adult use (2 Lf of tetanus toxoid and 2 Lf of diphtheria toxoid) 0 1999 [id number] [employer] (LED) comple t ed tetanus and diphtheri a toxoids, adsorbed, preservat yovana free, for adult use (2 Lf of tetanus toxoid and 2 Lf of diphtheri a toxoid) [facility] influenza virus vaccine, whole virus 0 1999 [id number] [place] (CON) complet ed influenza virus vaccine, whole virus DoD meningococcal polysaccharid e vaccine (MPSV4) 0 1999 [id number] [place] (CON) complet ed meningoco ccal polysacch aride vaccine (MPSV4) DoD tuberculin skin test; purified protein derivative solution, intradermal 1 1999 Unknown, Provider [id number] [place] (CON) complet ed tuberculi n skin test; purified protein derivativ e solution, intraderm al DoD Results Combined list of recent chemistry, hematology and other laboratory results from Department of Defense and Veterans Affairs, ranging from 15 months to all on record, depending upon the facility. Order Name Results Value Reference Range Date Interpretation Specimen Comments Source HEPATITI S B SURFACE ANTIGEN (HBsAg)- HEPATITIS B VIRUS SURFACE AG [PRESENCE] IN SERUM OR PLASMA BY IMMUNOASSA Y Non Reactive 06/05 Specimen Type: SERUM Comment: Hep B Surf Ag: Negative for HBsAg. Other markers of Hepatitis B virus are needed to ascertain Hepatitis B infection status. A Reactive result ( Positive prior to 05/29/13) is diagnostic of acute or chronic hepatitis B infection. The presence of Hepatitis B surface antigen is frequently associated with infectivity . Ordering Provider: ROSALES OLIVARES Report Released Date/Time: Jun 05, 2024 01:17 PM Reporting Lab: [facility] [address] [facility] [address] Performing Lab: [facility] [address] [facility] [address] [facility] T-SPOT TB PANEL MYCOBACTER IUM TUBERCULOS IS STIMULATED GAMMA INTERFERON [INTERPRET ATION] IN BLOOD QUALITATIV E Negative 05/03 Specimen Type: BLOOD Comment: A negative test result does not exclude the possibility of exposure to or infection with Mycobacteri um tuberculosi s (M. tuberculosi s). Patients with recent exposure to TB infected individuals exhibiting a negative T-SPOT.TB result should be considered for retesting within 6 weeks or if other relevant clinical symptoms indicate. Results from T-SPOT.TB testing must be used in conjunction with each individual' s epidemiolog ical history, current medical status, and results of other diagnostic evaluations . The T-SPOT.TB test is qualitative and results are reported as positive, borderline, or negative, given that the test controls perform as expected. In line with the Centers for Disease Control and Prevention' s 2010 recommendat ion to report quantitativ e measurement s alongside the qualitative result, the laboratory provides spot counts for information al purposes only. The T-SPOT.TB test should not be interpreted as a quantitativ e test. For additional information , please refer to [email or web address] ation.Cenoplex .com/faq/FA Q215 (This link is being provided for information al/ educational purposes only.) Test Performed by [employer], [employer] [facility], [address] [place] [address] Diego Marroquin M.D., Ph.D., Director of Laboratorie s , [facility] [id number] TEST PERFORMED AT: , Ordering Provider: ROSALES OLIVARES Report Released Date/Time: May 03, 2024 10:26 AM Reporting Lab: [facility] [address] [facility] [address] Performing Lab: [facility] [address] [address] [facility] T-SPOT TB PANEL MYCOBACTER IUM TUBERCULOS IS STIMULATED GAMMA INTERFERON ESAT-6 AG SPOT COUNT [#] IN BLOOD 0 05/03 Specimen Type: BLOOD Comment: A negative test result does not exclude the possibility of exposure to or infection with Mycobacteri um tuberculosi s (M. tuberculosi s). Patients with recent exposure to TB infected individuals exhibiting a negative T-SPOT.TB result should be considered for retesting within 6 weeks or if other relevant clinical symptoms indicate. Results from T-SPOT.TB testing must be used in conjunction with each individual' s epidemiolog ical history, current medical status, and results of other diagnostic evaluations . The T-SPOT.TB test is qualitative and results are reported as positive, borderline, or negative, given that the test controls perform as expected. In line with the Centers for Disease Control and Prevention' s 2010 recommendat ion to report quantitativ e measurement s alongside the qualitative result, the laboratory provides spot counts for information al purposes only. The T-SPOT.TB test should not be interpreted as a quantitativ e test. For additional information , please refer to [email or web address] ation.Cenoplex .Weotta/faq/FA Q215 (This link is being provided for information al/ educational purposes only.) Test Performed by [employer], [employer] [facility], [address] [place] [address] Diego Marroquin M.D., Ph.D., Director of Laboratorie s , [place] [id number] TEST PERFORMED AT: , Ordering Provider: ROSALES OLIVARES Report Released Date/Time: May 03, 2024 10:26 AM Reporting Lab: [facility] [address] [facility] [address] Performing Lab: [facility] [address] [address] [facility] T-SPOT TB PANEL MYCOBACTER IUM TUBERCULOS IS STIMULATED GAMMA INTERFERON CFP10 AG SPOT COUNT [#] IN BLOOD 0 05/03 Specimen Type: BLOOD Comment: A negative test result does not exclude the possibility of exposure to or infection with Mycobacteri um tuberculosi s (M. tuberculosi s). Patients with recent exposure to TB infected individuals exhibiting a negative T-SPOT.TB result should be considered for retesting within 6 weeks or if other relevant clinical symptoms indicate. Results from T-SPOT.TB testing must be used in conjunction with each individual' s epidemiolog ical history, current medical status, and results of other diagnostic evaluations . The T-SPOT.TB test is qualitative and results are reported as positive, borderline, or negative, given that the test controls perform as expected. In line with the Centers for Disease Control and Prevention' s 2010 recommendat ion to report quantitativ e measurement s alongside the qualitative result, the laboratory provides spot counts for information al purposes only. The T-SPOT.TB test should not be interpreted as a quantitativ e test. For additional information , please refer to [email or web address] ation.Cenoplex .Weotta/faq/FA Q215 (This link is being provided for information al/ educational purposes only.) Test Performed by [employer], [employer] [facility], [address] [place] [address] Diego Marroquin M.D., Ph.D., Director of Laboratorie s , [place] [id number] TEST PERFORMED AT: , Ordering Provider: ROSALES OLIVARES Report Released Date/Time: May 03, 2024 10:26 AM Reporting Lab: [facility] [address] [facility] [address] Performing Lab: [facility] [address] [address] [facility] T-SPOT TB PANEL MITOGEN STIMULATED GAMMA INTERFERON POSITIVE CONTROL SPOT COUNT [#] IN BLOOD Passed 05/03 Specimen Type: BLOOD Comment: A negative test result does not exclude the possibility of exposure to or infection with Mycobacteri um tuberculosi s (M. tuberculosi s). Patients with recent exposure to TB infected individuals exhibiting a negative T-SPOT.TB result should be considered for retesting within 6 weeks or if other relevant clinical symptoms indicate. Results from T-SPOT.TB testing must be used in conjunction with each individual' s epidemiolog ical history, current medical status, and results of other diagnostic evaluations . The T-SPOT.TB test is qualitative and results are reported as positive, borderline, or negative, given that the test controls perform as expected. In line with the Centers for Disease Control and Prevention' s 2010 recommendat ion to report quantitativ e measurement s alongside the qualitative result, the laboratory provides spot counts for information al purposes only. The T-SPOT.TB test should not be interpreted as a quantitativ e test. For additional information , please refer to http://educ Scayl/faq/FA Q215 (This link is being provided for information al/ educational purposes only.) Test Performed by [employer], [address] [place] [address] Diego Marroquin M.D., Ph.D., Director of Laboratorie s , [facility] [id number] TEST PERFORMED AT: , Ordering Provider: ROSALES OLIVARES E Report Released Date/Time: May 03, 2024 10:26 AM Reporting Lab: [facility] [address] [facility] [address] Performing Lab: MD [facility]teryUN[facility]OSPITALN Bot [facility] AutomationUSE[facility]AST[facility] [place] [facility] [address] [address] [facility] T-SPOT TB PANEL GAMMA INTERFERON NEGATIVE CONTROL SPOT COUNT [#] IN BLOOD Passed 05/03 Specimen Type: BLOOD Comment: A negative test result does not exclude the possibility of exposure to or infection with Mycobacteri um tuberculosi s (M. tuberculosi s). Patients with recent exposure to TB infected individuals exhibiting a negative T-SPOT.TB result should be considered for retesting within 6 weeks or if other relevant clinical symptoms indicate. Results from T-SPOT.TB testing must be used in conjunction with each individual' s epidemiolog ical history, current medical status, and results of other diagnostic evaluations . The T-SPOT.TB test is qualitative and results are reported as positive, borderline, or negative, given that the test controls perform as expected. In line with the Centers for Disease Control and Prevention' s 2010 recommendat ion to report quantitativ e measurement s alongside the qualitative result, the laboratory provides spot counts for information al purposes only. The T-SPOT.TB test should not be interpreted as a quantitativ e test. For additional information , please refer to http://Me[employer] / [employer]/faq/FA [email or web address] (This link is being provided for information al/ educational purposes only.) Test Performed by [facility], [address] [place] [address] Diego Marroquin M.D., Ph.D., Director of Laboratorie s , [facility] [id number] TEST PERFORMED AT: , Ordering Provider: ROSALES OLIVARES Report Released Date/Time: May 03, 2024 10:26 AM Reporting Lab: [facility] [address] [facility] [address] Performing Lab: [facility] [address] [facility], [address] [place] [id number] [facility] MMRV (IGG) IMMUNE STATUS PANEL MEASLES VIRUS IGG AB [PRESENCE] IN SERUM BY IMMUNOASSA Y REACTIVE 05/03 Specimen Type: SERUM Comment: A result of 'REACTIVE' indicates presence of IgG to Measles, Mumps, Rubella or Varicella following exposure to these viruses through either infection or vaccination . If quantitativ e index values are required for clinical interpretat ion, call Virology Reference lab during weekday business hours. Ordering Provider: ROSALES OLIVARES Report Released Date/Time: May 03, 2024 10:26 AM Reporting Lab: [facility] [address] [facility] [address] Performing Lab: [facility] [address] [address] [facility] MMRV (IGG) IMMUNE STATUS PANEL MUMPS VIRUS IGG AB [PRESENCE] IN SERUM BY IMMUNOASSA Y REACTIVE 05/03 Specimen Type: SERUM Comment: A result of 'REACTIVE' indicates presence of IgG to Measles, Mumps, Rubella or Varicella following exposure to these viruses through either infection or vaccination . If quantitativ e index values are required for clinical interpretat ion, call Virology Reference lab during weekday business hours. Ordering Provider: ROSALES OLIVARES Report Released Date/Time: May 03, 2024 10:26 AM Reporting Lab: [facility] [address] [facility] [address] Performing Lab: [address] [address] [facility] MMRV (IGG) IMMUNE STATUS PANEL RUBELLA VIRUS IGG AB [PRESENCE] IN SERUM OR PLASMA BY IMMUNOASSA Y REACTIVE 05/03 Specimen Type: SERUM Comment: A result of 'REACTIVE' indicates presence of IgG to Measles, Mumps, Rubella or Varicella following exposure to these viruses through either infection or vaccination . If quantitativ e index values are required for clinical interpretat ion, call Virology Reference lab during weekday business hours. Ordering Provider: ROSALES OLIVARES Report Released Date/Time: May 03, 2024 10:26 AM Reporting Lab: [facility] [address] [facility] [address] Performing Lab: [facility] [address] [facility] [address] [facility] MMRV (IGG) IMMUNE STATUS PANEL VARICELLA ZOSTER VIRUS IGG AB [PRESENCE] IN SERUM BY IMMUNOASSA Y REACTIVE 05/03 Specimen Type: SERUM Comment: A result of 'REACTIVE' indicates presence of IgG to Measles, Mumps, Rubella or Varicella following exposure to these viruses through either infection or vaccination . If quantitativ e index values are required for clinical interpretat ion, call Virology Reference lab during weekday business hours. Ordering Provider: ROSALES OLIVARES Report Released Date/Time: May 03, 2024 10:26 AM Reporting Lab: [facility] [address] [facility] [address] Performing Lab: [facility] [address] [facility] [address] [facility] HEPATITI S B SURFACE ANTIBODY (HBsAb)- WH HEPATITIS B VIRUS SURFACE AB [PRESENCE] IN SERUM BY IMMUNOASSA Y Non Reactive 05/03 Specimen Type: SERUM No comment entered. Ordering Provider: ROSALES OLIVARES Report Released Date/Time: May 03, 2024 10:26 AM Reporting Lab: [facility] [address] [facility] [address] Performing Lab: [facility] [address] [facility] [address] [facility] [place] [facility] Encounters Combined list of: 1) Encounters from Department of Veterans Affairs facilities going back up to thelast 18 months. 2) Encounters from the Department of Defense facilities going back up to 280 months. Location Location Details Encounter Type Encounter Number Reason For Visit Attending Provider ADM Date DC Date Status Disposition Source [facility] [employer] [facility] OUTPATIENT [id number] upset stomach , diarrhe a, nausea, h/a GV_SOLOMON YAELANGELO Rico Jj 10/19 Released w/o Limitations [employer]([facility] [place] ([facility]Pulm onology Disease Cl) OUTPATIENT [id number] est$ JON SHIVA CHAMBERLAIN 03/05 Released w/o Limitations [place] [facility])(Pu lmonolo gy Disease Cl) [place] [facility] Care) OUTPATIENT [id number] sleep problem SUSHIL SINGLETON 04/28 Released w/o Limitations [place] [facility]Po pe Primary Care) [place] [facility]) OUTPATIENT [id number] F/U for sleepin g problem s SUSHIL SINGLETON 05/01 Released w/o Limitations [place] [facility]) [place] [facility]) OUTPATIENT [id number] Severe headach e, sore throat. SUSHIL SINGLETON 08/26 Released with Work/Duty Limitations [place] [facility]) [place] [facility]) OUTPATIENT [id number] Follow Up For Asthma SUSHIL SINGLETON 10/08 Released with Work/Duty Limitations [place] [facility]) [place] [facility]) OUTPATIENT [id number] Muscle pain in right arm SUSHIL SINGLETON 10/20 Released w/o Limitations [place] [facility]) [place] [facility]) OUTPATIENT [id number] Profile Update SUSHIL SINGLETON 12/16 Released with Work/Duty Limitations [place] [facility]) [place] [facility]) OUTPATIENT [id number] Profile Renewal , Post MEB LORENASUSHIL FIORE 04/08 Released w/o Limitations [place] [facility]) [place] [facility]) OUTPATIENT [id number] pha SHIVA MARROQUIN 05/05 Released w/o Limitations [place] [facility]) [place] [facility])([facility]) OUTPATIENT [id number] hearing shift DWIGHT HINKLE 05/10 Released w/o Limitations [place] [facility])(Po pe Flight Medicin e) [place] [facility] Hearing [facility]) OUTPATIENT [id number] rt high freq loss [phone] ADALBERTO DENNISON 05/18 Released w/o Limitations [place] [facility] ) [place] [facility]) OUTPATIENT [id number] Left shoulde r Myra neely/Elsa SINGLETON SUSHIL Martinez 05/20 Released with Work/Duty Limitations [place] [facility]) [place] [facility]) OUTPATIENT [id number] oh hearing CHIDI LUKE 07/13 Released w/o Limitations [place] [facility])(Po [facility] Flight Medicin e) [place] [facility]) OUTPATIENT [id number] shots ARELI SUSHIL Martinez 07/28 Released w/o Limitations [place] [facility]Po [facility] Care) [place] [facility]) OUTPATIENT [id number] 4T for asthma , pain in R leg and lower back ARELI SUSHIL Martinez 02/03 Released with Work/Duty Limitations [place] [facility]Po pe Primary Care) [place] [facility]Pulm onology Disease Cl) OUTPATIENT [id number] PFT EVELIN FRIEND Al 02/08 Released w/o Limitations [facility] ([facility])(Pu lmonolo gy Disease Cl) [facility] Cell) OUTPATIENT [id number] new comers PHA MAMI CARRION Vielka 05/03 Released w/o Limitations [facility](P BARONE Cell) [facility](Opt ometry Services) OUTPATIENT [id number] needs rx DEONTE HAMPTON 05/09 Released w/o Limitations [facility](O ptometr y Service s) [facility](FP Rok I) TELE CONSULT [id number] AD states going to run out of asthma meds soon... decline d all offered appts GENE WEISS 06/01 [facility] Group( P Rok I) Medical [facility](FP Rok I) TELE CONSULT [id number] med refill STEENSGENE MCCLENDON 06/06 Medical Group(F P Rok I) [facility](FP Rok II) OUTPATIENT [id number] Shoulde r popping /sharp pain DONTA VENCES 06/20 Released with Work/Duty Limitations [facility](F P Rok II) [facility](FP Rok II) TELE CONSULT [id number] MRI results . LEVY JAUREGUI 06/29 [facility]( P Rok II) [facility]( Rok II) OUTPATIENT [id number] Sharp pains in abdomen /back DONTA VENCES 09/08 Released w/o Limitations [facility](F P Rok II) [facility](FP Rok II) TELE CONSULT [id number] lab result RAMEZ FITZGERALD 09/09 Medical Group(F P Rok II) [facility](FP Rok II) OUTPATIENT [id number] Fever,h eadache ,stomac h pain VENCESDONTA Cantu 09/20 Sick at Home/Quarter s [facility](F P Rok II) [facility](FP Rok II) TELE CONSULT [id number] results from labs done yesterd ay RAMEZ FITZGERALD 09/21th [facility](F P Rok II) [facility](FP Rok II) OUTPATIENT [id number] DONTA Davies 09/22 Released w/o Limitations [facility](F P Rok II) [facility](FP Rok I) TELE CONSULT [id number] request from KAYLYNN Barrios 11/03 Medical Group(F P Rok I) [facility] Group(FP Rok II) TELE CONSULT [id number] CON LEAVE [id number] RAMEZ FITZGERALD D 11/13 Medical Group(F P Rok II) [facility](Phy sical Therapy) OUTPATIENT [id number] KRUPA COOK 12/06 Released w/o Limitations [facility](P hysical Therapy ) [facility](Phy sical Therapy) OUTPATIENT [id number] SPEEDY JIMENES 12/12 Released w/o Limitations [facility](P hysical Therapy ) [facility](Phy sical Therapy) OUTPATIENT [id number] SPEEDY JIMENES 12/14 Released w/o Limitations [facility](P hysical Therapy ) [facility](Phy sical Therapy) OUTPATIENT [id number] JUD WEBB 12/19 Released w/o Limitations [facility](P hysical Therapy ) [facility](Phy sical Therapy) OUTPATIENT [id number] JUD WEBB 12/21 Released w/o Limitations [facility](P hysical Therapy ) [facility](Phy sical Therapy) OUTPATIENT [id number] SPEEDY JIMENES 12/26 Released w/o Limitations [facility](P hysical Therapy ) [facility](Phy sical Therapy) OUTPATIENT [id number] JUD WEBB 12/28 Released w/o Limitations [facility](P hysical Therapy ) [facility](Phy sical Therapy) OUTPATIENT [id number] JUD WEBB 01/02 Released w/o Limitations [employer](P hysical Therapy ) [facility](Phy sical Therapy) OUTPATIENT [id number] JUD WEBB 01/04 Released w/o Limitations [facility](P hysical Therapy ) [facility](Phy sical Therapy) OUTPATIENT [id number] KRUPA COOK 01/17 Released w/o Limitations [facility](P hysical Therapy ) [facility](FP Rok I) TELE CONSULT [id number] Needing ref KAYLIE CRESPO 01/23 [facility] Group(F P Rok I) [facility](FP Rok II) OUTPATIENT [id number] profile update for asthma DONTA VENCES 02/15 Released with Work/Duty Limitations [facility](F P Rok II) [facility](Phy sical Therapy) OUTPATIENT [id number] KRUPA COOK 02/26 Released w/o Limitations [facility](P hysical Therapy ) [facility](FP Rok II) OUTPATIENT [id number] RILO for medical board DONTA VENCES 03/23 Released w/o Limitations [facility](F P Rok II) [facility](FP Rok II) OUTPATIENT [id number] DONTA Starkey 04/10 Released w/o Limitations [facility](F P Rok II) [facility](PHA Cell) OUTPATIENT [id number] Annual PHA JOVITA ROSA 06/06 Released w/o Limitations [facility](P BARONE Cell) [facility](FP Rok II) TELE CONSULT [id number] AD states went to ER today [facility] for a fall and hitting his head. Needs F/U LAURA REGAN 09/11 [facility](F P Rok II) [facility](FP Rok II) OUTPATIENT [id number] state back pain down to right leg DONTA VENCES 01/28 Released w/o Limitations [facility](F P Rok II) [facility](FP Rok II) TELE CONSULT [id number] Renewal of referra l to ARANZA Allen 01/28 [facility](F P Rok II) [facility](FP Rok I) TELE CONSULT [id number] RX is not working for back pain ..MRI results in [facility] 1530 LEVY JAUREGUI 01/31 [facility] Group(F P Rok I) [facility](FP Rok II) TELE CONSULT [id number] AD states needs refill for Vicadin . 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 ...[phone] LAURA REGANAN 05/01 [facility](F P Rok II) [facility](FP Rok II) OUTPATIENT [id number] f/u for surgery can have two more weeks conleav e per Lt Col AlamedaDONTA Dinero 05/02 Released w/o Limitations [facility]( P Rok II) [facility](Den ninfa Services) DENTAL [id number] adv pro ENEIDA VALENCIA 05/28 Released w/o Limitations [facility](D ental Service s) Medical [facility] Services) DENTAL [id number] sc/rp ENEIDA VALENCIA 05/30 Released w/o Limitations [facility](D ental Service s) [facility]( Rok I) TELE CONSULT [id number] Appt resched RASTA Woodward 06/04 [facility] Group( P Rok I) [facility] [id number] CYNDEE DENNY 06/11 Released w/o Limitations [facility]( P Rok I) [facility]( Rok I) OUTPATIENT [id number] ear pain, runny nose, cough, sneezin g, sore throat CYNDEE RIBEIRO 10/28 Released w/o Limitations [facility]( P Rok I) [facility]( Rok I) TELE CONSULT [id number] throat culure results ...[phone] RASTA WESTBROOK 10/29 [facility] Group( P Rok I) [facility]( Rok I) TELE CONSULT [id number] pt c/o of coughin g sneezin g and sore throat 1 week... .1571 RASTA WESTBROOK 12/27 [facility] Group( P Rok I) [facility]( Rok II) OUTPATIENT [id number] Throat Culture AMAURI SALDANA 12/27 Released w/o Limitations [facility]( P Rok II) Medical [facility]( Rok I) TELE CONSULT [id number] AD lower abdomen pain, poss hernia. 1571 RASTA WESTBROOK 02/04 [facility] Group( P Rok I) [facility]( Rok I) OUTPATIENT [id number] AD low abd pain/po ss hernia SANDRO KHAN 02/04 Released w/o Limitations [facility] I) TELE CONSULT [id number] rad results SANDRO KHAN 02/05[facility]) [facility] I) TELE CONSULT [id number] needs appt SANDRO KHAN 02/24[facility] I) [facility] I) TELE CONSULT [id number] AD c/o poss hernia, ultraso und neg. still in lot of pain. [phone] PIETRO, RASTA 02/27 [facility] I) [facility] I) OUTPATIENT [id number] poss hernia NORMANMEMO Nava 02/28 Released w/o Limitations [facility] I) [facility] I) OUTPATIENT [id number] SANDRO TORRES Jj 03/03 Released w/o Limitations [facility]) [facility] II) TELE CONSULT [id number] pt needs rererra l for pulmono logy... appts tomorro w..[phone] PIETRO, RASTA 04/02 [facility] II) [facility] I) TELE CONSULT [id number] pulmono logy referal for RILO PIETRO, RASTA 04/08[facility]) [facility] I) TELE CONSULT [id number] pt has questio n on profile ....... .[phone] SANDRO KHAN 04/30[facility]) [address] [place] [address]([facility] I) OUTPATIENT [id number] shootin g pain down r arm\ SANDRO KHAN 05/05 Released w/o Limitations [facility]) [facility](Phy sical Therapy) OUTPATIENT [id number] OSCAR PERRY 05/30 Released w/o Limitations [facility](P hysical Therapy ) [facility](FP Rok I) TELE CONSULT [id number] pt wants results on mri.... ....[phone] PIETROEMGY 06/04 [facility](F P Rok I) [facility](FP Rok I) OUTPATIENT [id number] arch pain MARINEMAXIMILIANO SANDRO Jj 06/11 Released w/o Limitations [facility](F P Rok I) [facility]) OUTPATIENT [id number] PHA LOUISA PUENTE 06/13 Released w/o Limitations [facility](P BARONE Cell) [facility](FP Rok II) OUTPATIENT [id number] lower back/sh oulder pain SAVANNAHRONKRYSTALPepe Melendez 07/16 Released w/o Limitations [facility](F P Rok II) [facility](FP Rok I) TELE CONSULT [id number] pt has questio n on profile ....... ....[phone] BILLSANDRO Jj 08/06 [facility] Group(F P Rok I) [facility](FP Rok I) TELE CONSULT [id number] AD inpt admissi on- schedul ed procedu [place] Carmona 10/02 [facility](F P Rok I) [facility](FP Rok I) OUTPATIENT [id number] con leave BILL SANDRO M 10/10 Released w/o Limitations [facility](F P Rok I) [facility] ROK 2) OUTPATIENT [id number] Severe problem s sleepin g SANDRO KHAN 01/02 Released w/o Limitations [facility] ROK 2) [facility] 2) TELE CONSULT [id number] RILO consult SANDRO KHAN 03/30 Medical Group([facility] 2) [address] [place] [address]([facility] Team Z) OUTPATIENT [id number] jill marcelino ed, JAMES W 04/06 Released w/o Limitations [facility] Team Z) [address] [place] [address]([facility] ROK 2) TELE CONSULT [id number] pt needs referra l for cpap machine and dr. len silver l hospita l.GENE ONEAL 04/29[facility] ROK 2) [address] [place] [address]([facility] RO 2) TELE CONSULT [id number] pt needs a call back monique webber [phone] MICHELLE LIMA 06/25[facility] ROK 2) [address] [place] [address]([facility] RO 2) OUTPATIENT [id number] meb SANDRO Granger 07/13 Released w/o Limitations [facility] ROK 2) [address] [place] [address]([facility] RO 2) TELE CONSULT [id number] pt is request ing profile change. ..[phone] JIHAN ESPINAL 07/17[facility] ROK 2) [address] [place] [address]([facility] Operation al Medicine) TELE CONSULT [id number] CARLYN Dai 07/21[facility](W arrior Operati onal Medicin e) [address] [place] [address](PHA Cell) OUTPATIENT [id number] LOUISA REDDY 07/27 Released w/o Limitations [address] [place] [address](P BARONE Cell) [address] [place] [address]([facility] ROK 3) TELE CONSULT [id number] Special ty referra l/Repla cement of ARANZA Lema 07/27[facility] ROK 3) [address] [place] [address]([facility] 2) TELE CONSULT [id number] pt needs renewed referra l for [facility], nurse faxed to [phone] GENE WEISS 08/04 Medical Group([facility] ROK 2) Medical Group([facility] ROK 2) OUTPATIENT [id number] f/u depress ion IBLL SANDRO Jj 08/04 Released w/o Limitations [facility] ROK 2) [facility] ROK 2) OUTPATIENT [id number] cough,c ongesti on,ear ache,so re throat GISELLEKlausKAYLENESANDRO M 09/21 Released w/o Limitations [facility] ROK 2) [facility] ROK 2) TELE CONSULT [id number] Notes Entered by: BEATRIZ AMIN 12 Oct 2011 1143 ------- ------- ------- ------- -- AC. Galo from [facility] is request ing more visits on pt referra GENE Rodríguez 10/12 [facility] Group([facility] ROK 2) [facility] ROK 2) OUTPATIENT [id number] R knee pain x1wk CYNDEE SHERIDAN 11/05 Released w/o Limitations [facility] ROK 2) [facility] ROK 2) TELE CONSULT [id number] Notes Entered by: Jj SHERIDAN 08 Nov [id number] ------- ------- ------- ------- -- Xray results MAMI FLOREZ 11/08 Medical Group([facility] ROK 2) [facility] ROK 2) OUTPATIENT [id number] initial VAS consult BILL SANDRO M 11/15 Released w/o Limitations [facility] ROK 2) [facility] ROK 2) TELE CONSULT [id number] Notes Entered by: DWIGHT TUTTLE 19 Nov 2011 1008 ------- ------- ------- ------- -- AC. Pt is wanting to know if he can get somethi ng semaj r then vicodin 10mg GENE WEISS 11/18 Medical Group([facility] 2) Medical Group([facility] 2) OUTPATIENT [id number] SANDRO Harvey 12/08 Released w/o Limitations [facility] 2) Medical Group([facility] [facility] 2) TELE CONSULT [id number] Notes Entered by: BEATRIZ AMIN 15 Dec 2011 0811 ------- ------- ------- ------- -- AC. Pt needing to discuss profile ...[phone] GENE WEISS 12/14 Medical Group([facility] 2) Medical Group([facility]) TELE CONSULT [id number] Notes Entered by: SANDRO SOLITARIO 18 Dec 2011 1706 ------- ------- ------- ------- -- Path results TRINA NEGRON 12/17 Medical Group([facility]) Medical Group([facility] 2) TELE CONSULT [id number] Notes Entered by: DWIGHT TUTTLE 22 Dec 2011 0842 ------- ------- ------- ------- -- AC. Pt c/o flu symptom s x1day.. .[phone] CYNDEE SHERIDAN 12/21 Medical Group([facility] 2) Medical [facility] 2) OUTPATIENT [id number] swollen gland in throat, cough, diarrhe a CYNDEE SHERIDAN 12/21 Released w/o Limitations Medical Group([facility] 2) Medical Group([facility] 2) TELE CONSULT [id number] Notes Entered by: BEATRIZ AMIN 12 Jan 2012 1150 ------- ------- ------- ------- -- AC. Pt needing refill on Lortab. ..[phone] GENE WEISS 01/11 Medical Group([facility] 2) Medical Group([facility] 2) TELE CONSULT [id number] Notes Entered by: SELWYN CHAVARRIA 25 Jan 2012 0925 ------- ------- ------- ------- -- AC. Pt needs updated referra l to has appt 19June. ..[phone] RAMEZ FITZGERALD 01/24 Medical Group([facility] 2) Medical Group([facility] 2) TELE CONSULT [id number] Notes Entered by: FAYE RIVER 05 Feb 2012 0829 ------- ------- ------- ------- -- Post CLEMENCIA Riley 02/04 Medical Group([facility] 2) [facility] Medical Group([facility]) TELE CONSULT [id number] Notes Entered by: SANDRO SOLITARIO 08 Feb 2012 1130 ------- ------- ------- ------- -- Lab results KRUPA FRIEND 02/07 Referred for Appointment Medical Group([facility]) Medical [facility] 2) TELE CONSULT [id number] Notes Entered by: DWIGHT TUTTLE 09 Feb 2012 0818 ------- ------- ------- ------- -- AC. Needs new 469 for MEB. Also needs refill for Loratab and Flexeri l...[phone] REYGENE HODGES 02/08 Medical Group([facility] 2) Medical Group([facility] 2) TELE CONSULT [id number] Notes Entered by: KATE SMALLWOOD 19 Feb 2012 0755 ------- ------- ------- ------- -- AC. Pt wants to discuss Lortab/ pt doesn't want to be on it anymore & pt states SONAM GARCIA 02/18 Medical Group([facility] 2) [facility] Medical [facility] 2) OUTPATIENT [id number] stu hip pain x3wks CYNDEE SHERIDAN 02/28 Released w/o Limitations [facility] Medical Group([facility] 2) [facility] Medical Group([facility] 3) TELE CONSULT [id number] Notes Entered by: KATE SMALLWOOD 05 Apr 2012 0752 ------- ------- ------- ------- -- AC. Pt needs retirem ent physica l by 5sept, no appt avail in time... KAPIL TRIPP 04/[address] [facility] Medical Group([facility] 3) [facility] Medical [facility] 2) OUTPATIENT [id number] retirem ent physica l final out apr.20 YEYO ARIAS 04/07 Released w/o Limitations [facility] Medical Group([facility] 2) [facility] Medical [facility] 2) TELE CONSULT [id number] Notes Entered by: DESTIN ACUNA 03 May 2012 1449 ------- ------- ------- ------- -- Network Results -Physic al Therapy 04/27 CYNDEE SHERIDAN Slade 05/03 Medical Group([facility] 2) Medical Group([facility] 2) OUTPATIENT [id number] cough/s ore throat x4days CYNDEE SHERIDAN 06/15 Released w/o Limitations Medical Group([facility] 2) Medical Group([employer] [facility] [facility]) TELE CONSULT [id number] Notes Entered by: MELL SILVESTRE 22 Aug 2012 1018 ------- ------- ------- ------- -- Network Results -Urgent Care 08/28 MEGAN COX 08/22 Medical Group([facility]) Medical Group(Non -Active [employer]) OUTPATIENT [id number] back spasms and pain down leg getting worse VANE TONY 11/23 Released w/o Limitations Medical Group(N on-Acti ve [employer]) [facility] Medical Group(Non -Active Duty [employer]) OUTPATIENT [id number] deep cough, hurts chest SHIVA HARLEY 01/18 Released w/o Limitations Medical Group(N on-[employer]i ve [employer]) [facility] Medical Group(Non -Active Duty [employer]) TELE CONSULT [id number] Notes Entered by: ENEIDA HENNING 30 Jan 2014 1702 ------- ------- ------- ------- -- Xray results --DIPIKA Alamo 01/30 Medical Group(N on-Acti ve [employer]) [employer] [facility](Non -Active [employer]) OUTPATIENT [id number] fol-up/ cough-n ow so bad-tricia es almost vomiti SHIVA HARLEY 02/06 Released w/o Limitations Medical Group(N on-[employer]i ve [employer]) [facility] Medical Group(Non -Active Duty [employer]) TELE CONSULT [id number] Notes Entered by: PETEY COLON 20 Feb 2014 1301 ------- ------- ------- ------- -- Medicat ion request x 3-DIPIKA Alamo 02/20 [facility] Medical Group(N on-Acti ve Duty [employer]) [facility] Medical Group(Non -Active Duty [employer]) TELE CONSULT [id number] Notes Entered by: HARSHIL HAMILTON 08 Mar 2014 0715 ------- ------- ------- ------- -- Triage DIPIKA VAUGHN 03/08 Medical Group(N on-Acti ve [employer]) [facility] Medical Group(Non -Active Duty [employer]) OUTPATIENT [id number] cough, congest ion ALEX ATKINS 03/08 Released w/o Limitations [facility] Medical Group(N on-Acti ve [employer]) [facility] Medical Group(Non -Active Duty [employer]) OUTPATIENT [id number] back pain SHIVA HARLEY 03/12 Released w/o Limitations [facility] Medical Group(N on-Acti ve [employer]) [facility] Medical Group(Non -Active Duty [employer]) TELE CONSULT [id number] Notes Entered by: ALEKSANDRA BAILEY 20 Mar 2014 0944 ------- ------- ------- ------- -- Network Results - Allergy Results 03/19/14 SHIVA HARLEY 03/20 Medical Group([employer]i ve [employer]) [facility] Medical Group([facility] Otol[facility]) OUTPATIENT [id number] ASTHMA FARHEEN PARRISH 03/20 Released w/o Limitations [facility] Medical Group([facility] Otolary ngology Clinic) [facility] Medical Group(Non -Active Duty [employer]) TELE CONSULT [id number] Notes Entered by: ALEKSANDRA BAILEY 04 Apr 2014 0657 ------- ------- ------- ------- -- Network Results - MRI Results 04/03/14 DIPIKA VAUGHN 04/04 Medical Group(N on-[employer]i ve [employer]) [employer] [facility](Non -Active [employer]) TELE CONSULT [id number] Notes Entered by: ELMER LIRIANO 09 Apr 2014 1551 ------- ------- ------- ------- -- Notes Receive SHIVA Gray 04/09 Medical Group(N on-[employer]i ve [employer]) [employer] [facility](Non -Active [employer]) TELE CONSULT [id number] Notes Entered by: ADA OSWALD 15 May 2014 1317 ------- ------- ------- ------- -- Network Results - Allergy F/U 05/15/20 14 SHIVA HARLEY 05/15 Medical Group(N on-[employer]i ve [employer]) [facility] Medical Group(Non -Active Duty [employer]) TELE CONSULT [id number] Notes Entered by: DERECK MESSER 22 May 2014 0710 ------- ------- ------- ------- -- DIPIKA TATE 05/22 Medical Group(N on-[employer]i ve [employer]) [facility] Medical Group(Non -Active Duty [employer]) TELE CONSULT [id number] Notes Entered by: ADA OSWALD 15 Jun 2014 1359 ------- ------- ------- ------- -- Network Results - Allergy F/U 014 ALEX ATKINS 06/15 Medical Group(N on-[employer]i ve [employer]) [facility] Medical Group(Non -Active Duty [employer]) TELE CONSULT [id number] Notes Entered by: Al ANDERSON 06 Sep 2014 1013 ------- ------- ------- ------- -- REF-upd ate needed DIPIKA VAUGHN 09/06 Medical Group(N on-[employer]i ve [employer]) [facility] Medical Group(Non -Active [employer]) TELE CONSULT [id number] Notes Entered by: Martinez VILLEDA 12 Sep 2014 0711 ------- ------- ------- ------- -- Network results - lab 015 ANGELA WELLER 09/12 Medical Group(N on-[employer]i ve [employer]) [facility] Medical Group(Non -Active [employer]) TELE CONSULT [id number] Notes Entered by: WILTON SHANE 14 Sep 2014 1341 ------- ------- ------- ------- -- Network Results - Allergy - 015 ALEX ATKINS 09/14 Medical Group(N on-Acti ve [employer]) [facility] Medical Group(Non -Active Duty [employer]) OUTPATIENT [id number] sore throat, congest ion, sinus pressur e BHAVIN HERNÁNDEZ 09/24 Released w/o Limitations Medical Group(N on-[employer]i ve [employer]) [facility] Medical Group(Non -Active Duty [employer]) TELE CONSULT [id number] Notes Entered by: Martinez VALLE 15 Jan 2015 0812 ------- ------- ------- ------- -- NETWORK RESULTS - ALLERGY F/U 01/14/15 ANGELA WELLER 01/15 Medical Group(N on-[employer]i ve [employer]) [facility] Medical Group(Non -Active Duty [employer]) TELE CONSULT [id number] Notes Entered by: PETEY COLON 04 Feb 2015 1045 ------- ------- ------- ------- -- Micare- med refill DIPIKA VAUGHN 02/04 Medical Group(N on-[employer]i ve [employer]) [employer] [facility](Non -Active [employer]) TELE CONSULT [id number] Notes Entered by: PETEY COLON 07 Mar 2015 1340 ------- ------- ------- ------- -- DIPIKA Su 03/07 [facility] Medical Group(N on-Acti ve [employer]) [facility] Medical Group(Non -Active Duty [employer]) OUTPATIENT [id number] Severe sinus and abdomin al pain. ANGELA WELLER 04/18 Released w/o Limitations [facility] Medical Group(N on-[employer]i ve [employer]) [facility] Medical Group(Non -Active Duty [employer]) TELE CONSULT [id number] Notes Entered by: ANGELA WELLER 25 Apr 2015 1659 ------- ------- ------- ------- -- APPLE Fernandez 04/25 [facility] Medical Group(N on-Acti ve [employer]) [facility] Medical Group(Non -Active Duty [employer]) TELE CONSULT [id number] Notes Entered by: ANGELA WELLER 09 May 2015 1622 ------- ------- ------- ------- -- DIPIKA Qiu 05/09 Medical Group(N on-[employer]i ve [employer]) [facility] Medical Group([facility] e) TELE CONSULT [id number] Notes Entered by: WILTON SHANE 05 Jul 2015 1039 ------- ------- ------- ------- -- Network Results - Allergy F/U - 5 CYNDEE TMA 07/05 [facility] Medical Group([facility] [place]) [facility] Medical Group([facility] e) OUTPATIENT [id number] Notes Entered by: ELMER LIRIANO 17 Oct 2015 0845 ------- ------- ------- ------- -- Sore throat Walk in DIOR BLUNT 10/16 Released w/o Limitations [facility] Medical Group(B lue) [facility] Medical Group([facility] e) OUTPATIENT [id number] Severe lower back/pe lvic pain CYNDEE TAM Graciela 12/17 Released w/o Limitations [facility] Medical Group(B lue) [facility] Medical Group([facility] e) OUTPATIENT [id number] back f/u CYNDEE TAM W 01/19 Released w/o Limitations [facility] Medical Group(B lue) [facility] Medical Group([facility] e) OUTPATIENT [id number] Severe abdomin al pain/di arrhea for the past three days. VANE TONY 02/06 Released w/o Limitations [facility] Medical Group(B lue) [facility] Medical Group([facility] e) OUTPATIENT [id number] CYNDEE TAM Graciela 03/05 Released w/o Limitations [facility] Medical Group(B lue) [facility] Medical Group([facility] e) OUTPATIENT [id number] f/u shoulde r CYNDEE TAM W 03/26 Released w/o Limitations [facility] Medical Group(B lue) [facility] Medical Group([facility] ) TELE CONSULT [id number] JUAN MANUEL COON R 06/16 [facility] Medical Group(E [facility] Asher [place]) [facility] Medical Group([facility]) TELE CONSULT [id number] Notes Entered by: JUAN WEBB 05 Aug 2016 0758 ------- ------- ------- ------- -- Micare: LONNIE Elizabeth R 08/05 [facility] Medical Group(B lue) [facility] Medical Group([facility] e) TELE CONSULT [id number] Notes Entered by: DWIGHT NGUYEN 26 Aug 2016 0817 ------- ------- ------- ------- -- LONNIE Perez R 08/26 [facility] Medical [facility](B lue) [facility] Medical Group([facility]) TELE CONSULT [id number] Notes Entered by: AURELIO ALVAREZ 26 Aug 2016 1629 ------- ------- ------- ------- -- CLOSED MRI ( ) LONNIE HIRSCH 08/26 [facility] Medical Group(B lue) [facility] Medical Group(Jasbir e) OUTPATIENT [id number] Headach e/Neck Pain for 4 days VANE TONY 09/22 Released w/o Limitations [facility] Medical Group(B lue) [facility] Medical Group(Jasbir e) OUTPATIENT [id number] Migrain es, earache ROEL VILLEDA 09/25 Released w/o Limitations [facility] Medical Group(B lue) [facility] Medical Group([facility] e) OUTPATIENT [id number] f/u migrain es LONNIE HIRSCH 09/28 Released w/o Limitations [facility] Medical Group(B lue) [facility] Medical Group(Jasbir e) OUTPATIENT [id number] Sinus pressur e, headach e, cold sweats, fever VANE TONY 10/22 Released w/o Limitations [facility] Medical Group(B lue) [facility] Medical Group([facility]asbir e) TELE CONSULT [id number] Notes Entered by: DWIGHT NGUYEN 09 Dec 2016 0819 ------- ------- ------- ------- -- med refill - micaHARSHIL Henderson 12/09 Referred for Appointment [facility] Medical Group(B lue) [facility] Medical Group(Jasbir e) TELE CONSULT [id number] Notes Entered by: DWIGHT NGUYEN 23 Dec 2016 0800 ------- ------- ------- ------- -- Med refill - JUD Valencia 12/23 Other Not Elsewhere Classified [facility] Medical Group(B lue) [facility] Medical Group(Non -Active Duty [place]) TELE CONSULT [id number] Notes Entered by: CAN CAR 03 Feb 2017 0832 ------- ------- ------- ------- -- NETWORK RESULTS [facility] 10/16/16 YESENIA MARIE 02/03 Medical Group(N on-Acti ve [employer]) Medical Group(Non -Active Duty [employer]) TELE CONSULT [id number] Notes Entered by: ZACHERY REED 03 Feb 2017 0900 ------- ------- ------- ------- -- NETWORK RESULTS - ANESTHE SIOLOGY 09/28/16 YESENIA MARIE 02/03 Medical Group(N on-Acti ve Duty [employer]) Medical Group(Fli ght Medicine [employer]) OUTPATIENT [id number] pre-rafa cement ANGELA COLLIER 04/21 Released w/o Limitations Medical Group(F light Medicin e [employer]) Medical Group([employer] [facility] [employer] ) TELE CONSULT [id number] JUAN MANUEL COON 10/07 Other Not Elsewhere Classified [facility] Medical Group(E [employer] Medical Clearan ce) [facility] Outpatient Encounter [id number] 11/22 [facility] Outpatient Encounter [id number] 12/01 [facility] OFF[facility] O/P NEW LOW 30 MIN [id number] Diagnos is: ICD-10- CM Z02.89 Encount er for other adminis trative examina tions<b r/> BLADIMIR OLIVARES 05/03 [facility] O/P EST MOD 30 MIN [id number] Diagnos is: ICD-10- CM Z02.89 Encount er for other adminis trative examina tions<b r/> BLADIMIR OLIVARES CE 06/05 [facility] Outpatient Encounter [id number] 08/30 [facility] Procedures Combined list of: 1) Procedures from Department of Veterans Affairs facilities going back up to thelast 18 months, not all MD non-surgical procedures are included; 2) All procedures from the Department of Defense facilities. Procedure Procedure Type Code Date Perfomer Comments Sour e HEALTH AND BEHAVIOR ASSESS (EG, HEALTH-FOC CLIN INTERVIEW, BEHAVIORAL OBSERVATIONS, PSYCHOPHYSICOLOGICAL MON, HEALTH-ORIENTED QUESTIONNAIRES), EACH 15 MIN [id number] WITH THE PATIENT; RE-ASSESS 2018 [facility] PURE TONE AUDIOMETRY (THRESHOLD), AUTOMATED; AIR ONLY 2017 [facility] THERAPEUTIC, PROPHYLACTIC, OR DIAGNOSTIC INJECTION (SPECIFY SUBSTANCE OR DRUG); SUBCUTANEOUS OR INTRAMUSCULAR 2016 [facility] LARYNGOSCOPY, FLEXIBLE; DIAGNOSTIC 2013 [facility] RESPIRATORY FLOW VOLUME LOOP 2006 [facility] INFLUENZA VIRUS VACCINE, TRIVALENT (IIV3), SPLIT VIRUS, PRESERVATIVE FREE, 0.5 ML DOSAGE, FOR INTRAMUSCULAR USE 2005 [facility] PURE TONE AUDIOMETRY (THRESHOLD); AIR ONLY 2005 [facility] AUDITORY EVOKED POTENTIALS FOR EVOKED RESPONSE AUDIOMETRY AND/OR TESTING OF THE CENTRAL NERVOUS SYSTEM; COMPREHENSIVE 2005 [facility] SCREENING TEST OF VISUAL ACUITY, QUANTITATIVE, BILATERAL 2005 [facility] NONINVASIVE EAR OR PULSE OXIMETRY FOR OXYGEN SATURATION; SINGLE DETERMINATION 2005 [facility] TOBACCO USE CESSATION INTERVENTION, COUNSELING (COPD, CAP, CAD, ASTHMA) (DM) (PV) 2004 [facility] SIMPLE REPAIR OF SUPERFICIAL WOUNDS OF SCALP, NECK, AXILLAE, EXTERNAL GENITALIA, TRUNK AND/OR EXTREMITIES (INCLUDING HANDS AND FEET); 2.5 CM OR LESS 2004 [facility] BRONCHOSPASM PROVOCATION EVALUATION, [place] [address], WITH ADMINISTERED AGENTS (EG, ANTIGEN[S], COLD AIR, METHACHOLINE) 2004 [facility] NONINVASIVE EAR OR PULSE OXIMETRY FOR OXYGEN SATURATION; SINGLE DETERMINATION 2004 [facility] PATIENT-INITIATED SPIROMETRIC RECORDING PER 30-DAY PERIOD OF TIME; REVIEW AND INTERPRETATION ONLY BY A PHYSICIAN OR OTHER QUALIFIED HEALTH RADIOISOTOPE TECHNICIAN 2004 [facility] SCREENING TEST OF VISUAL ACUITY, QUANTITATIVE, BILATERAL 2003 [facility] ACOUSTIC REFLEX TESTING; DECAY 2001 [facility] SIMPLE REPAIR OF SUPERFICIAL WOUNDS OF SCALP, NECK, AXILLAE, EXTERNAL GENITALIA, TRUNK AND/OR EXTREMITIES (INCLUDING HANDS AND FEET); 2.5 CM OR LESS 2000 [facility] LAPAROSCOPIC APPENDECTOMY 2000 [facility] INTRAVENOUS INFUSION, THERAPY/DIAGNOSIS, ADMINISTERED PHYSICIAN/UNDER DIRECT SUPERVISION, PHYSICIAN; EA ADDITIONAL HOUR, UP TO EIGHT (8) HOURS (LIST SEPARATELY ADDITION TO CODE, PRIMARY PROCEDURE) 2000 [facility] STERILE SALINE IRRIGATION SOLUTION, 1000 ML 2000 [facility] VASECTOMY, UNILATERAL OR BILATERAL (SEPARATE PROCEDURE), INCLUDING POSTOPERATIVE SEMEN EXAM(S) 2011 [facility] TELE ASSESS & MGT SRV PROV QUAL NONPHYS HLTH CARE PRO TO EST PAT,PARENT,GUARD NOT ORIG REL ASSESS & MGT SRV PROV W/IN PREV 7 DAYS NOR LEAD ASSESS & MGT SRV/PX W/IN NXT 24 HR/SOON APT;5-10 MIN MED DIS 2009 [facility] FOOT, ARCH SUPPORT, REMOVABLE, PREMOLDED, LONGITUDINAL, EACH 2009 [facility] TELE ASSESS & MGT SRV PROV QUAL NONPHYS HLTH CARE PRO TO EST PAT,PARENT,GUARD NOT ORIG REL ASSESS & MGT SRV PROV W/IN PREV 7 DAYS NOR LEAD ASSESS & MGT SRV/PX W/IN NXT 24H/SOON APT; 11-20 MIN MED DIS 2009 [facility] TELE ASSESS & MGT SRV PROV QUAL NONPHYS HLTH CARE PRO TO EST PAT,PARENT,GUARD NOT ORIG REL ASSESS & MGT SRV PROV W/IN PREV 7 DAYS NOR LEAD ASSESS & MGT SRV/PX W/IN NXT 24 HR/SOON APT;5-10 MIN MED DIS 2009 [facility] FITTING OF SPECTACLES, EXCEPT FOR APHAKIA; MONOFOCAL 2008 [facility] PHYSICAL THERAPY RE-EVALUATION 2007 [facility] NONINVASIVE EAR OR PULSE OXIMETRY FOR OXYGEN SATURATION; SINGLE DETERMINATION 2007 [facility] PHYSICAL THERAPY RE-EVALUATION 2007 [facility] THERAPEUTIC PROCEDURE, 1 OR MORE AREAS, EACH 15 MINUTES; THERAPEUTIC EXERCISES TO DEVELOP STRENGTH AND ENDURANCE, RANGE OF MOTION AND FLEXIBILITY 2007 [facility] THERAPEUTIC PROCEDURE, 1 OR MORE AREAS, EACH 15 MINUTES; THERAPEUTIC EXERCISES TO DEVELOP STRENGTH AND ENDURANCE, RANGE OF MOTION AND FLEXIBILITY 2007 [facility] THERAPEUTIC PROCEDURE, 1 OR MORE AREAS, EACH 15 MINUTES; THERAPEUTIC EXERCISES TO DEVELOP STRENGTH AND ENDURANCE, RANGE OF MOTION AND FLEXIBILITY 2007 [facility] THERAPEUTIC PROCEDURE, 1 OR MORE AREAS, EACH 15 MINUTES; THERAPEUTIC EXERCISES TO DEVELOP STRENGTH AND ENDURANCE, RANGE OF MOTION AND FLEXIBILITY 2007 [facility] THERAPEUTIC PROCEDURE, 1 OR MORE AREAS, EACH 15 MINUTES; THERAPEUTIC EXERCISES TO DEVELOP STRENGTH AND ENDURANCE, RANGE OF MOTION AND FLEXIBILITY 2007 [facility] THERAPEUTIC PROCEDURE, 1 OR MORE AREAS, EACH 15 MINUTES; THERAPEUTIC EXERCISES TO DEVELOP STRENGTH AND ENDURANCE, RANGE OF MOTION AND FLEXIBILITY 2007 [facility] THERAPEUTIC PROCEDURE, 1 OR MORE AREAS, EACH 15 MINUTES; THERAPEUTIC EXERCISES TO DEVELOP STRENGTH AND ENDURANCE, RANGE OF MOTION AND FLEXIBILITY 2007 [facility] THERAPEUTIC PROCEDURE, 1 OR MORE AREAS, EACH 15 MINUTES; THERAPEUTIC EXERCISES TO DEVELOP STRENGTH AND ENDURANCE, RANGE OF MOTION AND FLEXIBILITY 2007 [facility] PHYSICAL THERAPY EVALUATION 2007 [facility] ELECTROCARDIOGRAM, ROUTINE ECG WITH AT LEAST 12 LEADS; WITH INTERPRETATION AND REPORT 2007 [facility] FITTING OF SPECTACLES, EXCEPT FOR APHAKIA; MONOFOCAL 2006 [facility] SCREENING TEST OF VISUAL ACUITY, QUANTITATIVE, BILATERAL 2006 [facility] Health And Behav A e mt Each Additional 15 Min [place] e ment Health And Behav Assessmt Each Additional 15 Min Reassessment [id number] JUAN MANUEL COON [facility] [facility] Threshold Audiogram (Pure Tone) Automated Threshold Audiogram (Pure Tone) Automated 0208T 2017 ANGELA COLLIER [facility] Physician Supervised Injection Intramuscular Physician Supervised Injection Intramuscular 75672 2016 ROEL VILLEDA [facility] Injection, ketorolac tromethamine, per 15 mg 2016 ROEL VILLEDA [facility] Laryngoscopy Diagnostic Flexible Laryngoscopy Diagnostic Flexible 69131 2013 FARHEEN PARRISH [facility] Surgery Vas Deferens Vasectomy Surgery Vas Deferens Vasectomy [id number] 2011 SANDRO KHAN [facility] Non-Physician Phone Call To Patient/Provider Brief (5-10min) Non-Physician Phone Call To Patient/Provider Brief (5-10min) [id number] 2009 RASTA WESTBROOK [facility] Foot, arch support, removable, premolded, longitudinal, each 2009 OSCAR PERRY [facility] Care Transport Nurse Educ Orthotics Training Each Additional 15 Minutes 2009 OSCAR PERRY [facility] Physical Therapy Service Evaluation Physical Therapy Service Evaluation [id number] 2009 OSCAR PERRY [facility] Non-Physician Phone Call To Pt/Provider Intermed (11-20 min) Non-Physician Phone Call To Pt/Provider Intermed (11-20 min) [id number] 2009 RASTA WESTBROOK [facility] Non-Physician Phone Call To Patient/Provider Brief (5-10min) Non-Physician Phone Call To Patient/Provider Brief (5-10min) [id number] 2009 RASTA WESTBROOK [facility] Physical Therapy Service Re-Evaluation Physical Therapy Service Re-Evaluation 44907 2007 KRUPA COOK [facility] Pulmonary Function Tests Pulmonary Function Tests 48731 2007 DONTA VENCES [facility] Physical Therapy Service Re-Evaluation Physical Therapy Service Re-Evaluation 80640 2007 KRUPA COOK [facility] Physical Therapy: ___ Se ion Segments, 15 Minutes Each Physical Therapy: ___ Session Segments, 15 Minutes Each [id number] 2007 JUD WEBB ONE ON ONE SUPERVISION OF SHOULDER EX'S BY WEARING APPAREL FOLDER x18MIN [facility] Physical Therapy: ___ Se ion Segments, 15 Minutes Each Physical Therapy: ___ Session Segments, 15 Minutes Each [id number] 2007 JUD WEBB ONE ON ONE SUPERVISION OF SHOULDER EX'S BY [facility] x20MIN [facility] Physical Therapy: ___ Se ion Segments, 15 Minutes Each Physical Therapy: ___ Session Segments, 15 Minutes Each [id number] 2007 JUD WEBB ONE ON ONE SUPERVISION OF SHOULDER EX'S BY [facility] x20MIN [facility] Physical Therapy: ___ Se ion Segments, 15 Minutes Each Physical Therapy: ___ Session Segments, 15 Minutes Each [id number] 2007 SPEEDY JIMENES ONE ON ONE SUPERVISION OF SHOULDER EX'S BY [facility] X20MIN [facility] Physical Therapy: ___ Se ion Segments, 15 Minutes Each Physical Therapy: ___ Session Segments, 15 Minutes Each [id number] 2007 JUD WEBB ONE ON ONE SUPERVISION OF SHOULDER EX'S BY WEARING APPAREL FOLDER x20MIN [facility] Physical Therapy: ___ Se ion Segments, 15 Minutes Each Physical Therapy: ___ Session Segments, 15 Minutes Each [id number] 2007 JUD WEBB ONE ON ONE SUPERVISION OF SHOULDER EX'S BY [facility] x20MIN [facility] Physical Therapy: ___ Se ion Segments, 15 Minutes Each Physical Therapy: ___ Session Segments, 15 Minutes Each [id number] 2007 SPEEDY JIMENES ONE ON ONE SUPERVISION OF SHOULDER EX'S BY TECH X20MIN [facility] Physical Therapy: ___ Se ion Segments, 15 Minutes Each Physical Therapy: ___ Session Segments, 15 Minutes Each [id number] 2007 SPEEDY JIMENES ONE ON ONE SUPERVISION OF SHOULDER EX'S BY TECH X20MIN [facility] Physical Therapy Service Evaluation Physical Therapy Service Evaluation 89588 2007 KRUPA COOK ECG 12-Lead ECG 12-Lead 19905 2007 DONTA VENCES [facility] Fitting Monofocal Except For Aphakia Spectacles Services Fitting Monofocal Except For Aphakia 10010 2006 DOENTE HAMPTON Determination Of Refractive State Determination Of Refractive State 21869 2006 DEONTE HAMPTON Ophthalmological New Patient Start Comprehensive Care Ophthalmological New Patient Start Comprehensive Care 04713 2006 DEONTE HAMPTON Screening Test Of Visual Acuity, Quantitative, Bilateral Screening Test Of Visual Acuity, Quantitative, Bilateral 00261 2006 MAMI CARRION Audiogram (Screening) Audiogram (Screening) 12096 2006 MAMI CARRION Pulmonary Function Tests Flow Volume Loop Pulmonary Function Tests Flow Volume Loop 74076 2006 EVELIN FRIEND Spirometry Post-bronchodilator Spirometry Post-bronchodilator 86278 2006 EVELIN FRIEND Spirometric Recording Patient Initiated Per 30 Days Physician Review And Interpretation Only Spirometric Recording Patient Initiated Per 30 Days Physician Review And Interpretation Only 17087 2006 EVELIN FRIEND Influenza Split Virus Vaccine 0.5mL Dosage Intramuscular Preservative Free 2005 KARL VELASQUEZ Immunization Administration By Injection, One Vaccine Immunization Administration By Injection, One Vaccine 78164 2005 KARL VELASQUEZ Threshold Audiogram (Pure Tone) Threshold Audiogram (Pure Tone) 66565 2005 CHIDI LUKE Evoked Response Audiometry Comprehensive Evoked Response Audiometry Comprehensive 10249 2005 ADALBERTO DENNISON Comprehensive Audiometry Comprehensive Audiometry 85131 2005 ADALBERTO DENNISON [facility] Audiologic Impedance Testing Audiologic Impedance Testing 54280 2005 ADALBERTO DENNISON [facility] Acoustic Reflex Testing 2005 ADALBERTO DENNISON [facility] Pulse Oximetry Pulse Oximetry 51713 2005 JACQUELINE PRUETT DoD Social History Combined list of available smoking, tobacco, and other social history 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 Social History Type Response Date Comment [facility] e This section is an empty social history section. DoD
--- OUTSIDE RECORDS SUMMARY | 2024-09-06 09:56 | XMS_ITS | Encounter Summary ---
Author Name [facility] [place] [facility] [place] Address [address] [place] [address] Support Name Relationship Address Phone JANE RAMSEY Next of Kin [address] [phone] JANE RAMSEY Emergency Contact [address] [place] [address] Insurance Providers: All historical and current Section Date Range: From patient's date of to the date document was created. This section includes the names of all active insurance providers for the patient. Insurance Provider Type of Coverage Plan Name Start of Policy Coverage End of Policy Coverage Group Number Member ID Insurance Provider's Telephone Number Policy Cross's Name Patient's Relationship to Policy Cross ANTHEM FEP PREFERRED PROVIDER ORGANIZAT ION (PPO) FEP BASIC FAMIL Y Jun 26, 2018 [id number] JENI RAMSEY PATIENT [employer] ([id number]) PRESCRIPT ION FEP RX Jun 26, 2018 [id number] JENI RAMSEY PATIENT Selected Encounter This section includes the information on record at [place] for the Encounter. Date/Time Encounter Type Encounter Description Reason Pro vider Source Aug 30, 2024 10:57 AM Outpatient Encounter OCCUPATIONAL HEALTH [facility] Encounter Template Text not used by [facility] Encounter Notes: All associated encounter notes This section contains the clinical notes associated to the Encounter. Date/Time Encounter Note(s) Provider Source Aug 30, 2024 10:57 AM TELEPHONE ENCOUNTE R NOTE: LOCAL TITLE: TELEPHONE NOTE/EMPLOYEE HEALTH STANDARD TITLE: TELEPHONE ENCOUNTER NOTE DATE OF NOTE: AUG 30, 2024@10:57 ENTRY DATE: AUG 30, 2024@10:57:29 AUTHOR: SUSANA BROWN [facility] COSIGNER: URGENCY: STATUS: COMPLETED You may not VIEW this COMPLETED TELEPHONE NOTE/EMPLOYEE HEALTH. [facility]
== END 2024-09-06 09:25 | disposition home or self-care (01) ==
LOC: HO.XRAY 09:24
PROVIDERS: PCP Nurse Practitioner Family; Visit Provider Nurse Practitioner Family
DX: K21.9 Gastro-esophageal reflux disease without esophagitis (principal)
CPT/HCPCS: 74240

== ENCOUNTER → 2024-09-06 09:28 | Outpatient (BNV) | payer OTHER, SELFPAY | PROVIDERS: PCP Nurse Practitioner Family; Visit Provider Physician Assistant Surgical | DX: K29.70 Gastritis, unspecified, without bleeding (principal); K22.4 Dyskinesia of esophagus | CPT/HCPCS: 74246 ==

== ENCOUNTER 2024-10-26 10:12 | Day surgery (SDC) | payer OTHER, SELFPAY ==
[2024-10-24 15:11] VITALS: BMI 33.0
--- NOTE | 2024-10-25 11:03 | HO.ANESPROP2 ---
Documented by User: Charlette Bhatti NP 10/25/24 11:03 HPI - Anesthesia Eval Consult details Narrative: 48yo M for Upper Endoscopy PMFSH Active Problems Active Problems: All Active Problems Chronic lower back pain (Acute) Left knee pain (Acute) Abdominal pain (Acute) Long-term current use of testosterone replacement therapy (Acute) Family hx of aortic aneurysm (Acute) Screening for colon cancer (Acute) Physical exam (Acute) Upper respiratory tract infection (Acute) DVT (deep venous thrombosis) (Acute) Anticoagulation monitoring, INR range 2-3 (Acute) DVT of leg (deep venous thrombosis) (Acute) Spinal cord stimulator dysfunction (Acute) Perianal hematoma (Acute) Acute hemorrhoid (Acute) Mild intermittent asthma, uncomplicated (Acute) Blepharitis of eyelid of left eye (Acute) Obstructive sleep apnea (Acute) Sleep apnea (Acute) Hemorrhoids without complication (Acute) Sessile serrated polyp of colon (Acute) Postlaminectomy syndrome (Acute) Thrombosed external hemorrhoid (Acute) Past Medical History Medical History Kidney stones Obstructive sleep apnea Hemorrhoids without complication Sessile serrated polyp of colon Barretts esophagus GERD (gastroesophageal reflux disease) Deep vein thrombosis, lower right extremity COVID-19 vaccine series completed Positive PPD, treated Sleep apnea Asthma Spinal cord stimulator status Postlaminectomy syndrome Thrombosed external hemorrhoid Family History Family History Maternal Grandfather History of liver cancer Father History of bladder cancer Surgical History Surgical History History of esophagogastroduodenoscopy (EGD) (04/2023) Hx of colonoscopy (04/2023) History of back surgery Hx of knee surgery Hx of repair of rotator cuff History of lumbar fusion History of appendectomy History of Problems with Anesthesia: No Social History Social History Household Members: Spouse and Children Housing: House Are you a primary director of health care marketing to a significant other at home: No Do you presently have visiting nurse or other home services: No Alcohol intake: current Alcohol intake frequency: a few times a month Patient Tobacco Use Status: Current everyday Tobacco user Tobacco use type: Cigar Years Smoked: 20 Smoked in Last 30 Days: Yes e-Cigarette/Vaping Use: Never Used Patient Interested in Nicotine Replacement: No Second Hand Smoke Exposure: No Have you been hit, kicked, punched, or otherwise hurt by someone within the past year? If so, by whom?: No Are you DNR?: No Advance Directives: No Advance Directives Information Provided: Yes Recently lost weight without trying: No Nutrition Risks: No Nutritional Risk service: Yes Current occupational status: employed Cognitive needs: No Hearing needs: No Vision needs: No Meds Allergies Allergy/AdvReac Type Severity Reaction Status Date / Time No Known Allergies Allergy Verified 10/26/24 11:32 [No Known Allergies*] Home Medications ?Medication ?Instructions ?Recorded ?Confirmed ?Last Taken ?Type fluticasone propionate 50 1 spray intranasal DAILY 08/26/20 10/26/24 05/10/23 06:00 History mcg/actuation nasal spray,suspension (Flonase Allergy Relief) tadalafil 5 mg tablet 5 mg PO DAILY 05/10/23 10/26/24 05/10/23 06:00 History tamsulosin 0.4 mg capsule 0.4 mg PO DAILY 10/26/24 10/26/24 Unknown History Exam Height,Weight and Vital Signs: Height 6 ft 3 in Weight 119.748 kg Assessment and Plan Assessment Anesthesia Assessment: Chart Reviewed Final Anesthetic Review History of Problems with Anesthesia: No Documented by User: Teddy Fuentes MD 10/26/24 12:48 PMFSH Past Medical History Medical History Kidney stones Obstructive sleep apnea Hemorrhoids without complication Sessile serrated polyp of colon Barretts esophagus GERD (gastroesophageal reflux disease) Deep vein thrombosis, lower right extremity COVID-19 vaccine series completed Positive PPD, treated Sleep apnea Asthma Spinal cord stimulator status Postlaminectomy syndrome Thrombosed external hemorrhoid Family History Family History Maternal Grandfather History of liver cancer Father History of bladder cancer Family history of problems with anesthesia: No Surgical History Surgical History History of esophagogastroduodenoscopy (EGD) (04/2023) Hx of colonoscopy (04/2023) History of back surgery Hx of knee surgery Hx of repair of rotator cuff History of lumbar fusion History of appendectomy Social History Social History Household Members: Spouse and Children Housing: House Are you a primary director of health care marketing to a significant other at home: No Do you presently have visiting nurse or other home services: No Alcohol intake: current Alcohol intake frequency: a few times a month Patient Tobacco Use Status: Current everyday Tobacco user Tobacco use type: Cigar Years Smoked: 20 Smoked in Last 30 Days: Yes e-Cigarette/Vaping Use: Never Used Patient Interested in Nicotine Replacement: No Second Hand Smoke Exposure: No Have you been hit, kicked, punched, or otherwise hurt by someone within the past year? If so, by whom?: No Are you DNR?: No Advance Directives: No Advance Directives Information Provided: Yes Recently lost weight without trying: No Nutrition Risks: No Nutritional Risk service: Yes Current occupational status: employed Cognitive needs: No Hearing needs: No Vision needs: No Meds Allergies Allergy/AdvReac Type Severity Reaction Status Date / Time No Known Allergies Allergy Verified 10/26/24 11:32 [No Known Allergies*] Home Medications ?Medication ?Instructions ?Recorded ?Confirmed ?Last Taken ?Type fluticasone propionate 50 1 spray intranasal DAILY 08/26/20 10/26/24 05/10/23 06:00 History mcg/actuation nasal spray,suspension (Flonase Allergy Relief) tadalafil 5 mg tablet 5 mg PO DAILY 05/10/23 10/26/24 05/10/23 06:00 History tamsulosin 0.4 mg capsule 0.4 mg PO DAILY 10/26/24 10/26/24 Unknown History Exam Airway Mallampati Class: II TM Dist: <=3cm Neck ROM: Full Loose/Missing/Broken Teeth: No Heart: ok Lungs: ok Assessment and Plan Assessment Anesthesia Assessment: Anesthesia Plan Discussed Final Anesthetic Review Family History of Problems with Anesthesia: No NPO: Yes ASA Class: III Final Preanesthetic Review: No Changes in Pt Med Stat, Meds/Allgs Chart Reviewed, Consent Obtained/Reviewed and Anes Risks/Benef Reviewed Patient Risk: High Procedure Risk: Intermediate Anesthetic Plan Anesthetic Plan: Agree w/ Assess. and Plan and TIVA Disposition: Standard PACU
[2024-10-26 10:39] VITALS: BMI 31.1
[2024-10-26] MEDS: Lactated Ringers 1,000 ML 100 ML IVCONT (10:54)
[2024-10-26 10:58] VITALS: BP 114/88; PULSE 75; RESP 18; TEMP 36.8; O2SAT 97
--- NOTE | 2024-10-26 11:25 | PC.NURSE ---
Dr. Fuentes aware that patient was chewing gum this a.m. - ok to proceed no interventions at this time.
--- NOTE | 2024-10-26 11:39 | MHC.SHP ---
Pre-Procedural Eval Section A - 24 Hr Update-Section A only Date of Service: 10/26/24 Section B - Complete if H&P > 30 days Chief Complaint: Bartter's syndrome Relevant Family History (Specify if Yes): No Relevant Social History: Tobacco Use Present Medications: see Short Stay Collaborative assessment Medical History: Significant History (Kidney stones Obstructive sleep apnea Hemorrhoids without complication Sessile serrated polyp of colon Barretts esophagus GERD (gastroesophageal reflux disease) Deep vein thrombosis, lower right extremity COVID-19 vaccine series completed Positive PPD, treated Sleep apnea Asthma Spinal cord stimulat) History of Previous Operations: Relevant previous surgery/procedure and date(s) (History of esophagogastroduodenoscopy (EGD) (04/2023) Hx of colonoscopy (04/2023) History of back surgery Hx of knee surgery Hx of repair of rotator cuff History of lumbar fusion History of appendectomy) Allergies: Allergies Allergy/AdvReac Type Severity Reaction Status Date / Time No Known Allergies Allergy Verified 10/26/24 11:32 [No Known Allergies*] Review of Systems Sugical H&P ROS: Negative: Constitution, Cardiovascular, Respiratory, Neurological, Psychiatric, Hem-Onc, Allergic/Immunologic, Gastrointestinal, Genitourinary, Musculoskeletal, Integumentary, Endocrine and Eyes/Ears/Nose/Throat Exam Surgical H&P Exam: Normal: HEENT, Normal: Heart, Normal: Lungs, Normal: Extremities, Normal: Abdomen, Normal: Skin and Normal: Neurological Plan Diagnosis/Plan: Unchanged I have reviewed the history and physical and performed a pertinent physical examination on my patient. No changes have occurred unless specified. Time Spent With Patient Time: Total time managing care of this patient today ____ minutes.
--- NOTE | 2024-10-26 13:04 | W.PM.OPN ---
Operative Note Operative Note Date of Service: 10/26/24 Narrative: Procedure Description: EGD Indication: Barretts esophagus Anesthesia: MAC FLEXIBLE TRANSORAL UPPER GASTROINTESTINAL ENDOSCOPY UPPER ENDOSCOPY Consent: Indications for the procedure and potential complications of bleeding, perforation, reaction to medications and missed diagnosis were discussed with the patient and informed consent was obtained. Instrument: Olympus GIF H 190 J mid size upper endoscope Monitoring: Vital signs and clinical assessment, continuous EKG monitoring, Pulse oximetry, Carbon Dioxide monitoring and blood pressure monitoring were done throughout the procedure. Procedure: The patient was placed in the left lateral decubitis position and pre-procedure medications were administered and a bite block was placed. The endoscope was inserted into the mouth and advanced under direct vision to the third part of duodenum. A careful inspection was made as the upper endoscope was withdrawn including a retroflexed examination of the proximal stomach; Findings and interventions are described below. Findings: Larynx:normal Esophagus: GE junction at 44 cm, diaphragm hiatus at 44 cm, irregular z line with possible short segment tongues of barretts esophagus noted, bx taken and also brushings for WATS Stomach: mild erythema . Biopsies were obtained. Grade 2 flap valve on retroflexed examination of the cardia. Duodenum: Normal bulb and descending duodenum, Intervention: Biopsies as noted above, brushings Impression/Findings: barretts gastritis PLAN: cont with PPI GERD precautions repeat EGd pending results of path, if low risk on tissue cypher then repeat in 3 yrs, recommended on smoking cessation
[2024-10-26 13:12] VITALS: BP 128/78; PULSE 82; RESP 18; TEMP 36.9; O2SAT 95
[2024-10-26 13:27] VITALS: BP 124/91; PULSE 80; RESP 20; TEMP 36.7; O2SAT 96
== END 2024-10-26 13:48 | disposition home or self-care (01) ==
PROVIDERS: PCP Nurse Practitioner Family; Visit Provider Internal Medicine Gastroenterology
PROC: 0DJ08ZZ Inspection of Upper Intestinal Tract, Via Natural or Artificial Opening Endoscopic (ICD-10-PCS; CPT 43235; principal; 2024-10-26 14:50)
DX: K22.70 Barrett's esophagus without dysplasia (principal); K29.50 Unspecified chronic gastritis without bleeding; K22.89 Other specified disease of esophagus; K21.9 Gastro-esophageal reflux disease without esophagitis; J45.909 Unspecified asthma, uncomplicated; I82.4Z1 Acute embolism and thrombosis of unspecified deep veins of right distal lower extremity; G47.33 Obstructive sleep apnea (adult) (pediatric); Z79.51 Long term (current) use of inhaled steroids; Z79.899 Other long term (current) drug therapy; R76.11 Nonspecific reaction to tuberculin skin test without active tuberculosis; M96.1 Postlaminectomy syndrome, not elsewhere classified; Z98.890 Other specified postprocedural states; F17.290 Nicotine dependence, other tobacco product, uncomplicated
CPT/HCPCS: 43239; 88305; 88313; 88342; J2003; J2704; J3010

== ENCOUNTER → 2024-10-26 10:12 | Outpatient (BNV) | payer OTHER, SELFPAY | PROVIDERS: PCP Nurse Practitioner Family; Visit Provider Internal Medicine Gastroenterology | DX: K22.70 Barrett's esophagus without dysplasia (principal); K29.70 Gastritis, unspecified, without bleeding | CPT/HCPCS: 43239 ==

== ENCOUNTER 2024-11-07 15:40 | Outpatient (REF) | payer OTHER, SELFPAY ==
--- NOTE | ~2024-11-07 | XR_ITS ---
EXAMINATION: XR CHEST CLINICAL INFORMATION: R06.2 - Wheezing COMPARISON: April 08, 2020. TECHNIQUE: 2 views of the chest were obtained. FINDINGS: No hyperinflation. No consolidation, pleural effusion or pneumothorax. Cardiomediastinal silhouette size is normal. Mild multilevel thoracic and upper lumbar spondylosis. The electrode leads overlapping the mid to lower thoracic spine are not present. XR/XR chest 2V IMPRESSION: No acute airspace disease. Electronically signed by: Yfn Bañuelos MD 11/08/2024 02:26 PM EDT
== END 2024-11-07 15:41 | disposition home or self-care (01) ==
LOC: HO.LAB 15:40
PROVIDERS: PCP Nurse Practitioner Family; Visit Provider Nurse Practitioner Family
DX: Z00.00 Encounter for general adult medical examination without abnormal findings (principal); R06.2 Wheezing; J02.9 Acute pharyngitis, unspecified
CPT/HCPCS: 71046; 96127

== ENCOUNTER 2024-11-07 15:40 | Outpatient (AMB) | payer OTHER, SELFPAY ==
[2024-11-07 15:41] VITALS: BP 126/80; PULSE 92; TEMP 37.3; O2SAT 95; BMI 32.0
--- NOTE | 2024-11-07 15:41 | A.OFFPC_ITS ---
Vital Signs 11/07/24 15:41 Height 6 ft 3 in Weight 256 lb BMI 32.0 BP 126/80 Blood Pressure Location Lt brachial Position Sitting Pulse 92 Pulse Source Pulse Oximeter Temp 99.2 F Temp Source Oral Pulse Oximetry (%) 95 Oxygen Delivery Method Room Air Intake Visit Reasons: PE Intake Note: Pt is here today for PE. Allergies No Known Allergies [No Known Allergies*] Allergy (Verified 11/07/24 16:37) Medication List - Last Reconciled 11/07/24 by CAMI CruzP- albuterol sulfate 90 mcg/actuation 2 puffs PO Q6H PRN esomeprazole magnesium 40 mg PO DAILY fluticasone propion-salmeterol 250-50 mcg/dose (Wixela Inhub) 1 ea PO BID fluticasone propionate 50 mcg/actuation (Flonase Allergy Relief) 1 spray intranasal DAILY sucralfate 1 g PO BEDTIME tadalafil 5 mg PO DAILY tamsulosin 0.4 mg PO DAILY Tobacco use date assessed: 11/07/24 Dental Screening Dental Screen Date: 11/07/24 Did you have a dental visit in the last 12 months?: Yes Did you have a dental problem in the last 6 months where you did not have access to dental care?: No Was dental information given to patient?: Patient has dentist HPI PE HPI Details History of Present Illness The patient is a 48-year-old male presenting with a low grade fever and swollen left tonsil, which he describes as mild. He reports associated wheezing, but no shortness of breath. The patient is a regular cigar smoker, which may aggravate his symptoms. He denies nausea, vomiting, diarrhea, and any recent changes in bowel habits, with a recent satisfactory colonoscopy. The patient has a history of passing most of his recent kidney stones without any associated CVA tenderness observed on exam. Presently, he is also experiencing a sore throat. Health Maintenance - Colonoscopy up to date Social History - Smokes cigars regularly Review of Systems - Respiratory: Reports wheezing, Denies shortness of breath - Gastrointestinal: Denies nausea, vomit ing, diarrhea, blood and stool abnormalities -denies any chills, CP, si or hi Physical Exam General: Cooperative, healthy appearing, comfortable, no acute distress and well developed Orientation: Patient oriented x3 Limitations: No limitations Head: Normal to inspection Ears: Hearing grossly normal bilaterally Nose: Normal external nose present Face and sinus: Normal facial exam Eyes: Appearance normal, both eyes and all related structures Neck: Normal visual inspection and Yes full ROM. left tonsil is swollen, very faintly erythematous Respiratory: Wheezing noted, able to speak in complete sentences. Clear to auscultation bilaterally Cardiovascular: Regular rate and rhythm. Normal S1 and S2 GI: Normal to inspection. Soft to palpation and nontender Skin: No rashes or lesions noted Neuro: Patient oriented x3 Extremities: Normal to inspection Results Plan I plan to swab the patient for viral illnesses, and an extra chest X-ray will be ordered to evaluate any bronchitis secondary to regular cigar smoking. To treat the tonsillitis and address wheezing, I will start the patient on a course of Augmentin and prescribe prednisone. This plan should help manage the symptoms and improve the patient's respiratory function. Discussion Notes During our discussion, I informed the patient of the possibility of bronchitis likely due to his regular smoking habit, which contributed to his symptoms of wheezing and sore throat. I explained the need to swab for viral illnesses to identify any infections and planned to initiate an extra chest X-ray. We discussed commencing treatment with Augmentin and prednisone, highlighting their roles in addressing the inflammation and potential bacterial causes. I outlined the associated risks and benefits and secured patient consent to proceed. Follow-up instructions and the importance of observing any exacerbating symptoms were also covered adequately. Patient Instructions - Begin Augmentin and prednisone as pres cribed. - Undergo swab testing for viral illness es as instructed. - Complete scheduling for a chest X-ray. - Increase fluid intake and rest adequat steven. - Avoid smoking cigars to reduce wheezin g symptoms. - Return for further evaluation if sympt oms persist or worsen. -labs ordered [facility] Medical History Kidney stones Obstructive sleep apnea Hemorrhoids without complication Sessile serrated polyp of colon Barretts esophagus GERD (gastroesophageal reflux disease) Deep vein thrombosis, lower right extremity COVID-19 vaccine series completed Positive PPD, treated Sleep apnea Asthma Spinal cord stimulator status Postlaminectomy syndrome Thrombosed external hemorrhoid Surgical History History of esophagogastroduodenoscopy (EGD) (04/2023) Hx of colonoscopy (04/2023) History of back surgery Hx of knee surgery Hx of repair of rotator cuff History of lumbar fusion History of appendectomy Family History Maternal Grandfather History of liver cancer Father History of bladder cancer Social History Household Members: Spouse and Children Housing: House Are you a primary healthcare specialist to a significant other at home: No Do you presently have visiting nurse or other home services: No Alcohol intake: current Alcohol intake frequency: a few times a month Patient Tobacco Use Status: Current everyday Tobacco user Tobacco use type: Cigar Years Smoked: 20 e-Cigarette/Vaping Use: Never Used Second Hand Smoke Exposure: No service: Yes Current occupational status: employed Cognitive needs: No Hearing needs: No Vision needs: No Questionnaire PHQ-9 Over the last 2 weeks, how often have you been bothered by any of the following problems? 1. Little interest or pleasure in doing things: not at all 2. Feeling down, depressed, or hopeless: not at all 3. Trouble falling or staying asleep, or sleeping too much: not at all 4. Feeling tired or having little energy: not at all 5. Poor appetite or overeating: not at all 6. Feeling bad about yourself - or that you are a failure or have let yourself or your family down: not at all 7. Trouble concentrating on things, such as reading the newspaper or watching television: not at all 8. Moving or speaking so slowly that other people could have noticed. Or the opposite - being so fidgety or restless that you have been moving around a lot more than usual: not at all 9. Thoughts that you would be better off or of hurting yourself in some way: not at all Total score: 0 Depression Screening Interpretation: Negative Depression Screening Done: Yes 14045 - PHQ-9 Billing: Yes Source: Developed by Drs. Daniel Michele, Staci Linder, Edgar Haque and colleagues, with an educational jaquelin from [employer]. Thrive Questionnaire Date Thrive assessed: 11/07/24 I am a: Patient What is your living situation today?: I have a steady place to live Within the past 12 months, did the food you bought not last and you didn't have the money to get more?: Never true Within the past 12 months, did you worry whether your food would run out before you got money to buy more?: Never true Do you have trouble paying for medicines?: No Do you have trouble getting transportation to medical appointments?: No Do you have trouble paying your heating and electricity bill?: No Do you have trouble taking care of your child, family member or friend?: No Do you have trouble with day-to-day activities such as bathing, preparing meals, shopping, managing finances, etc.?: No Are you currently unemployed and looking for a job?: No Are you interested in more education?: No Please select the resources that you would like help with: None Currently or been in a relationship where the following occur: No concerns reported THRIVE Score: 0 AUDIT C Alcohol Use Questionnaire (AUDIT-C) 1. How often do you have a drink containing alcohol?: 4 or more times a week 2. How many drinks containing alcohol do you have on a typical day when you are drinking?: 1 or 2 3. How often do you have six or more drinks on one occasion?: Never Total Score: 4 JULIANA-7 AMB Questionnaire JULIANA-7 Date JULIANA - 7 assessed: 11/07/24 Feeling nervous, anxious, or on edge: 0 = Not at all Not being able to stop or control worryin = Not at all Worrying too much about different things: 0 = Not at all Trouble relaxin = Not at all Being so restless that it is hard to sit still: 0 = Not at all Becoming easily annoyed or irritable: 0 = Not at all Feeling afraid as if something awful might happen: 0 = Not at all Total JULIANA-7 score (0-4 normal; 5-9 mild; 10-14 moderate; 15-21 severe): 0 Source: Developed by Drs. Daniel Michele, Staci Linder, Edgar Haque and colleagues, with an educational jaquelin from [employer]. JULIANA-7 Assessment Billing JULIANA-7 Assessment Tool: JULIANA-7 Assessment 81013 Physical exam (Primary Care) Vital Signs: Last Vital Signs Temp 99.2 F 11/07/24 15:41 Pulse 92 11/07/24 15:41 BP 126/80 11/07/24 15:41 Pulse Ox 95 11/07/24 15:41 Oxygen Delivery Method Room Air 11/07/24 15:41 BMI result Body Mass Index 32.0 Tobacco/Smoking Status: Tobacco use Status Tobacco use date assessed 11/07/24 11/07/24 15:44 Patient Tobacco Use Status Current everyday Tobacco 11/07/24 15:44 Tobacco use type Cigar 11/07/24 15:44 e-Cigarette/Vaping Use Never Used 11/07/24 15:44 PHQ-9: PHQ-9 Score PHQ-9: Total score 0 11/07/24 15:44 Depression Screening Interpretation: Negative Thrive Assessment: Date of Thrive Assessment Date Thrive assessed 11/07/24 11/07/24 15:44 Currently or been in a relationship where the following occur: No concerns reported Coding Level of Care Code Est Pt Prev Care 40-64y(42327) Diagnoses Physical exam Z00.00 Screening for prostate cancer Z12.5 Wheezing R06.2 Additional Codes JULIANA-7 Assessment Billing - JULIANA-7 Assessment Tool: JULIANA-7 Assessment 61913 ([id number]) PHQ-9 - 62060 - PHQ-9 Billing: Yes ([id number]) Assessment & Plan Assessment & Plan (1) Physical exam: Code(s): Z00.00 - Encounter for general adult medical examination without abnormal findings Category: Medical (2) Screening for prostate cancer: Code(s): Z12.5 - Encounter for screening for malignant neoplasm of prostate Category: Medical (3) Wheezing: Code(s): R06.2 - Wheezing Category: Medical Plan . Orders: Orders TSH reflex Free T4 Today Z00.00 - Encounter for general adult medical examination without abnormal findings Prostate Specific Antigen Scr Today Z12.5 - Encounter for screening for malignant neoplasm of prostate Complete Blood Count Auto Diff Today Z00.00 - Encounter for general adult medical examination without abnormal findings Comprehensive [place]. Panel Fast Today Z00.00 - Encounter for general adult medical examination without abnormal findings UA CC w/rflx Micro + Cult Today Z00.00 - Encounter for general adult medical examination without abnormal findings Lipid Panel Today Z00.00 - Encounter for general adult medical examination without abnormal findings XR chest 2V Today R06.2 - Wheezing Resp Pathogen Panel - [facility] Today J39.9 - Disease of upper respiratory tract, unspecified, R06.2 - Wheezing Medications: New tamsulosin 0.4 mg PO DAILY 90 caps 0RF amoxicillin-pot clavulanate 875-125 mg 1 tab PO BID 10 days 20 tabs 0RF prednisone 50 mg PO DAILY 6 days 6 tabs 0RF Refilled sucralfate 1 g PO BEDTIME 90 tabs 0RF R19.7 - Diarrhea, unspecified
--- OUTSIDE RECORDS SUMMARY | 2024-11-07 19:25 | XMS_ITS | Continuity of Care Document ---
Author Name [facility] Organization [facility] Care Team Providers Care Roll Repairer Name Role Phone [facility] Unavailable Unavailable Problems Combined list of problems [...] 02, 2023 Entered By: KONG HENRIQUEZ Comment: asthma moderate persistent [facility] Esophageal reflux Active 08/16/19 08 Condition [facility] Allergic arthritis Active 08/16/19 05 Condition [facility] Diagnosis: ICD-10-CM Z02.89 Encounter for other administrative examinations Active Diagnosis [facility] [place] [facility] Immunizations Combined list of available immunizations from the 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 Comments Source TDAP 1 2009 115 complet ed tetanus toxoid, reduced diphtheri a toxoid, and acellular pertussis vaccine, adsorbed Lot#: [id number] B [facility] TYPHOID, VICPS 1 2007 101 complet ed typhoid Vi capsular polysacch aride vaccine Lot#: [id number] Mfr: SANOFI PASTEUR [facility] ANTHRAX VACCINE, UNSPECIFIED 5 2003 319 complet ed Lot#: [id number] [facility] ANTHRAX VACCINE, UNSPECIFIED 4 2002 319 complet ed Lot#: [id number] [facility] ANTHRAX VACCINE, UNSPECIFIED 3 2002 319 complet ed Lot#: [id number] [facility] VACCINIA (SMALLPOX) 2002 75 complet ed vaccinia (smallpox ) vaccine Lot#: [id number] Mfr: WYETH-AYE RST [facility] ANTHRAX VACCINE, UNSPECIFIED 2 2002 319 complet ed Lot#: [id number] [facility] ANTHRAX VACCINE, UNSPECIFIED 1 2002 319 complet ed anthrax vaccine Lot#: [id number] [facility] [place] [facility] HEP A, ADULT 2 1999 52 complet ed hepatitis A vaccine, adult dosage Lot#: [id number] Mfr: [employer] [facility] YELLOW FEVER LIVE 1999 37 complet ed yellow fever vaccine Lot#: [id number] Mfr: [facility] HEP A, ADULT 1 1999 52 complet ed hepatitis A vaccine, adult dosage Lot#: [id number] Mfr: [employer] [facility] MENINGOCOCCAL MPSV4 1999 32 complet ed meningoco ccal polysacch aride vaccine (MPSV4) Lot#: [id number] Mfr: [facility] TD(ADULT) UNSPECIFIED FORMULATION 1999 139 complet ed tetanus and diphtheri a toxoids, adsorbed, preservat yovana free, for adult use (2 Lf of tetanus toxoid and 2 Lf of diphtheri a toxoid) Lot#: [id number] M[facility]: [facility] Results Combined list of recent chemistry, hematology [...] Jun 05, 2024 01:17 PM Reporting Lab: [facility] [address] [facility] [address] Performing Lab: [facility]EMA[facility] [address] [address] [facility] T-SPOT TB PANEL [employer] IUM TUBERCULOS IS [...] additional information , please refer to http://educ ation.TeleFlip .com/faq/FA Q215 (This link is being provided for information al/ educational purposes only.) Test Performed by [employer], [employer] [facility], [address] [place] [address] Diego Contreras M.D., Ph.D., Director of Laboratorie s , [place] [id number] TEST PERFORMED AT: , Ordering Provider: ROSALES OLIVARES Report Released Date/Time: May 03, 2024 10:26 AM Reporting Lab: [facility] [address] [facility] [address] Performing Lab: [facility] [address] [address] [facility] T-SPOT TB PANEL [employer] IUM TUBERCULOS IS [...] additional information , please refer to http://educ ation.TeleFlip .com/faq/FA Q215 (This link is being provided for information al/ educational purposes only.) Test Performed by [employer], [employer] [facility], [address] [place] [address] Diego Contreras M.D., Ph.D., Director of Laboratorie s , [place] [id number] TEST PERFORMED AT: , Ordering Provider: ROSALES OLIVARES Report Released Date/Time: May 03, 2024 10:26 AM Reporting Lab: [facility] [address] [facility] [address] Performing Lab: [facility] [address] [address] [facility] T-SPOT TB PANEL [employer] IUM TUBERCULOS IS [...] additional information , please refer to http://educ ation.TeleFlip .Flatter World/faq/FA Q215 (This link is being provided for information al/ educational purposes only.) Test Performed by [employer], [employer] [facility], [address] [place] [address] Diego Contreras M.D., Ph.D., Director of Laboratorie s , [place] [id number] TEST PERFORMED AT: , Ordering Provider: ROSALES OLIVARES Report Released Date/Time: May 03, 2024 10:26 AM Reporting Lab: [facility] [address] [facility] [address] Performing Lab: [facility] [address] [address] [facility] T-SPOT TB PANEL MITOGEN STIMULATED GAMMA INTERFERON [...] For additional information , please refer to http://Zayante/faq/FA Q215 (This link is being provided for information al/ educational purposes only.) Test Performed by [employer] [place], [employer] [facility], [address] [place] [address] Diego Contreras M.D., Ph.D., Director of Laboratorie s , CLIA [id number] TEST PERFORMED AT: , Ordering Provider: ROSALES OLIVARES Report Released Date/Time: May 03, 2024 10:26 AM Reporting Lab: [facility] [address] [facility] [address] Performing Lab: [facility] [address] [address] [facility] T-SPOT TB PANEL GAMMA INTERFERON NEGATIVE CONTROL [...] additional information , please refer to http://educ The African Store .Flatter World/faq/FA Q215 (This link is being provided for information al/ educational purposes only.) Test Performed by [facility], [employer] [facility], [address] [place] [address] Diego Contreras M.D., Ph.D., Director of Laboratorie s , CLIA [id number] TEST PERFORMED AT: , Ordering Provider: ROSALES OLIVARES Report Released Date/Time: May 03, 2024 10:26 AM Reporting Lab: [facility] [address] [facility] [address] Performing Lab: [facility] [address] MMRV (IGG) IMMUNE STATUS PANEL MEASLES VIRUS [...] May 03, 2024 10:26 AM Reporting Lab: [facility] [address] [facility] [address] Performing Lab: [address] [address] [facility] MMRV (IGG) IMMUNE STATUS PANEL MUMPS VIRUS [...] May 03, 2024 10:26 AM Reporting Lab: [address] [place] [address] Performing Lab: [facility] [address] [facility] [address] [facility] MMRV (IGG) IMMUNE STATUS PANEL RUBELLA VIRUS [...] May 03, 2024 10:26 AM Reporting Lab: [address] [address] Performing Lab: [address] [address] [facility] MMRV (IGG) IMMUNE STATUS PANEL VARICELLA ZOSTER [...] May 03, 2024 10:26 AM Reporting Lab: [address] [address] Performing Lab: [address] [address] [facility] HEPATITI S B SURFACE ANTIBODY (HBsAb)- WH HEPATITIS B VIRUS SURFACE AB [PRESENCE] IN SERUM BY IMMUNOASSA Y Non Reactive 05/03 Specimen Type: SERUM No comment entered. Ordering Provider: ROSALES OLIVARES Report Released Date/Time: May 03, 2024 10:26 AM Reporting Lab: [place] [address] [facility] [address] Performing Lab: [facility] [place] [facility] [address] [facility] [address] [facility] Encounters Combined list of: 1) Encounters from Department of Veterans Affairs facilities going backup to the last 18 months, not all VA inpatient encounters are included; 2) Encounters from the Department of Defense facilities going backup to 280 months. Location Location Details Encounter Type Encounter Number Reason For Visit Attending Provider ADM Date DC Date Status Disposition Source [facility] [place] [facility] Outpatient Encounter [id number] 11/22 [facility] [place] [facility] [place] [facility] Outpatient [facility]counter [id number] 12/01 [facility] [place] [facility] [place] [facility] OFFICE O/P NEW LOW 30 MIN [id number] Diagnos is: ICD-10- CM Z02.89 Encount er for other adminis trative examina tions BLADIMIR OLIVARES CE 05/03 [facility] [place] [facility] [place] [facility] OFFICE O/P EST MOD 30 MIN [id number] Diagnos is: ICD-10- CM Z02.89 Encount er for other adminis trative examina tions BLADIMIR OLIVARES CE 06/05 [facility] [place] [facility] [place] [facility] Outpatient Encounter [id number] 08/30 [facility] [place] [facility]
--- OUTSIDE RECORDS SUMMARY | 2024-11-07 19:25 | XMS_ITS | Data Portability ---
Author Organization [place] - [email or web address] [place], [employer] - [facility] Address [address] [place] [address] Assessment No assessment recorded. Plan of Treatment Reminders Order Date Submit Date Provider Last Modified By Organization Details Last Modified Time Details Appointments None recorded. 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, [address] [facility], [place], [address], 8 14:18:57 Procedures None recorded. Surgeries None recorded. Imaging None recorded. Medication Orders sildenafi l 100 mg tablet 2017 018 INTERFACE [facility], [address], [place], [address], 8 16:12:45 gabapenti n 300 mg capsule 2017 018 INTERFACE [facility], [address], [place], [address], 8 16:12:45 Nexium 40 mg capsule,d elayed release 2016 017 [email or web address] [facility], [address], [place], [address], 8 09:27:25 famotidin e 40 mg tablet 2016 017 INTERFACE [facility], [address], [place], [address], 7 15:48:32 prednison e 20 mg tablet 2016 017 [email or web address] [facility], [address], [place], [address], 8 16:01:28 Dexilant 60 mg capsule, delayed release 2016 017 [facility], [address], [place], [address], 7 15:45:59 Patient Targets Encounter Date Encounter Id Patient Goals Patient Target Last Modified By Organization Details Last Modified Time resolution of GERD s/sx Not available 06/11/2017 16:03:20 resolution of reflux & allergy s/sx Not available 11/30/2017 16:13:04 Patient Instructions Encounter Date Encounter Id Patient Instructions Last Modified By Organization Details Last Modified Time 06/11/2017 [id number] lab today try dexilant instead of nexium Anticipate improvement soon, but patient instructed to call or return to clinic for worsening condition or declaration of other signs or symptoms. Not available 06/11/2017 16:03:46 exam today nonfocal suspect undertreated GERD, but will check for h pylori gastritis reviewed and discussed issues; answered questions. Benefits/risks of therapy including medication side effects and cautions with use reviewed and discussed. Patient counseled on benefits of lifestyle modifications/the rapy. Not available 06/11/2017 16:04:16 07/05/2017 [id number] continue with th e current tx plan and med regimen for mmc including gerd; refill rx today patient instructed to call or return to clinic for worsening condition or declaration of other signs or symptoms. Not available 07/05/2017 15:49:22 reviewed and discussed lab results which were negative for h pylori, significance, prognosis, health risks; answered questions. reviewed and discussed issues; answered questions. Benefits/risks of therapy including medication side effects and cautions with use reviewed and discussed. Patient counseled on benefits of lifestyle modifications/the rapy. 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 reviewed and discussed issues; answered questions. Benefits/risks of therapy including medication side effects and cautions with use reviewed and discussed. Patient counseled on benefits of lifestyle modifications/the rapy. Not available 11/30/2017 16:16:34 03/01/2018 [id number] f/u prn and as scheduled with GI specialist Not available 03/01/2018 16:30:11 reviewed and discussed GI note and pathologies identified; answered questions. Benefits/risks of therapy including medication side effects and cautions with use reviewed and discussed. Patient counseled on benefits of lifestyle modifications/the rapy. 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 pylori, IgG abs <0.9 U/mL 0.0-0. 8 Negat yovana <0.9 Indet ermin ate 0.9 - 1.0 Posit yovana >1.0 Not Available [facility] ([facility]) [address] [place], [address], 06/15/2017 06:12:32 06/11/2006/14/2017 H pylor i igm+i gg+ig a Ab, serum H. pylori, IgA abs <9.0 units 0.0-8. 9 Negat yovana <9.0 Equiv ocal 9.0 - 11.0 Posit yovana >11.0 Not Available [facility] ([facility]) [address] [place], [address], 06/15/2017 06:12:32 06/11/2006/14/2017 H pylor i igm+i gg+ig a Ab, serum H pylori, IgM abs <9.0 units 0.0-8. 9 Negat yovana <9.0 Equiv ocal 9.0 - 11.0 Posit yovana >11.0 This test was devel oped and its perfo rmanc e maritza cteri stics deter mined by [facility]. It has not been clear ed or appro kimberlee by the Food and Drug Admin istra tion. Not Available [facility] ([facility]) [address] [place], [address], 06/15/2017 06:12:32 Result Notes None recorded. Problems Name Problem SNOMED Code Status Onset Date Resolution Date Notes Provider Name and Address Organization Details Recorded Time Allergic rhinitis 29082607 Active 2016 Brennen Mccabe MD [address] [facility] [place], [address] , [facility] [email or web address] [place] 7 15:21:25 Neuropathy 420057492 Active 2016 Brennen Mccbae MD [address] [place], [address] , [facility] [employer] [facility] [place] 7 15:21:26 Complaining of erectile dysfunction Active 2016 Brennen Mccabe MD [address] [facility] [place], [address] , [facility] [employer] [facility] [place] 7 15:21:27 Mild intermittent asthma 855064834 Active 2016 Juli Murray LPN [facility] [employer] [facility] [place] 7 14:37:39 Gastroesophag eal reflux disease 156821019 Active 2017 Brennen Mccabe MD [address] [facility] [place], [address] , [facility] [employer] [facility] [place] 8 16:32:09 Acute erosive gastritis 864258413 Active 2017 Brennen Mccabe MD [address] [facility] [place], [address] , [facility] [employer] [facility] [place] 8 16:32:09 Hiatal hernia 72570113 Active 2017 Brennen Mccabe MD [address] [facility] [place], [address] , [facility] [employer] [facility] [place] 8 16:32:10 Problem Notes None recorded. Procedures Surgical History Date Name Laterality Status Provider Name and Address Organization Details Recorded Time Knee Surgery completed Juli Murray LPN [facility] [employer] [facility] [place] 01/14/2017 13:21:09 Appendectomy completed Juli Murray LPN [facility] [employer] [facility] [place] 01/14/2017 13:21:22 Orthopedic Surgery completed Juli Murray LPN [facility] [employer] [facility] [place] 01/14/2017 13:22:35 Imaging Results None recorded. Procedure Notes None recorded. Medical Equipment None Reported. Allergies No known drug allergies Medications Name Sig Start Date Stop Date Status Note LastModified by Organization Details LastModified Time sumatriptan 25 mg tablet 01/14 completed Not Available Not Available Not Available famotidine 40 mg tablet Take 1 tablet every day by oral route. active Not Available Not Available No t Available prednisone 20 mg tablet Take 2 tablets every day by oral route for 5 days. 11/30 completed Not Available Not Available Not Available Nexium 40 mg capsule,del ayed release Take 1 capsule every day by oral route. 10/28 completed Not Available Not Available Not Available pseudoephed rine ER 120 mg tablet,exte nded release 01/14 completed Not Available Not Available Not Available fexofenadin e 180 mg tablet Take 1 tablet every day by oral route. active Not Available Not Available No t Available tramadol 50 mg tablet Take 1 tablet every 6 hours by oral route as needed. 11/30 completed Not Available Not Available Not Available butalbital- acetaminoph en-caffeine 50 mg-325 mg-40 mg tablet 01/14 completed Not Available Not Available Not Available Deep Sea Nasal 0.65 % spray aerosol 01/14 completed Not Available Not Available Not Available hydrocodone 7.5 mg-acetamin ophen 325 mg tablet 01/14 completed Not Available Not Available Not Available pantoprazol e 40 mg tablet,[place] yed release Take 1 tablet every day by oral route. active Not Available Not Available No t Available olopatadine 0.1 % eye drops active Not Available Not Available Not Available Mapap (acetaminop hen) 325 mg tablet 01/14 completed Not Available Not Available Not Available gabapentin 300 mg capsule Take 1 capsule 3 times a day by oral route. active Not Available Not Available No t Available montelukast 10 mg tablet Take 1 tablet every day by oral route. active Not Available Not Available No t Available Viagra 100 mg tablet 1 tab po qday prn active Not Available Not Available No t Available fluticasone propionate 50 mcg/actuati on nasal spray,suspe nsion active Not Available Not Available Not Available naproxen 500 mg tablet 01/14 completed Not Available Not Available Not Available amoxicillin 875 mg-potassiu m clavulanate 125 mg tablet 01/14 completed Not Available Not Available Not Available Flexeril 10 mg tablet Take 1 tablet 3 times a day by oral route. active Not Available Not Available No t Available Flonase 50 mcg/Actuati on nasl susp [place] 1 spray every day by intranasa l route. active Not Available Not Available No t Available Cough Suppressant -Expectoran t 10 mg-100 mg/5 mL oral syrup 01/14 completed Not Available Not Available Not Available ProAir HFA 90 mcg/actuati on aerosol inhaler Inhale 2 puffs every 4 hours by inhalatio n route. active Not Available Not Available No t Available Advair HFA 115 mcg-21 mcg/actuati on aerosol inhaler Inhale 2 puffs twice a day by inhalatio n route. active Not Available Not Available No t Available Cialis 2.5 mg tablet active Not Available Not Available No t Available Dexilant 60 mg capsule, delayed release Take 1 capsule every day by oral route. 07/05 completed Not Available Not Available Not Available Fluvirin (PF) 45 mcg(15 mcg x3)/0.5 mL intramuscul ar syringe active Not Available Not Available N ot Available Vitals Date Recorded Body height Body mass index (BMI) Body weight Heart rate Respiratory rate Systolic blood pressure Diastolic blood pressure Provider Name and Address Organization Details Last Updated DateTime 7 190.5 cm 34 kg/m2 203435. 12 g 80 /min 20 /min 120 mm[Hg] 78 mm[Hg] Juli Murray LPN [facility] 7 15:45:41 Date Recorded Body height Body mass index (BMI) Body weight Body temperature Heart rate Respiratory rate Oxygen saturation Oxygen saturation in Arterial blood by Pulse oximetry Systolic blood pressure Diastolic blood pressure Provider Name and Address Organization Details Last Updated DateTime 7 190.5 cm 33.5 kg/m2 631871. 04 g 99.3 [degF] 75 /min 20 /min 94 % 94 % 110 mm[Hg] 88 mm[Hg] Lynda Ochoa RN [facility] 7 10:51:57 Date Recorded Body height Body mass index (BMI) Body weight Heart rate Respiratory rate Systolic blood pressure Diastolic blood pressure Provider Name and Address Organization Details Last Updated DateTime 7 190.5 cm 33.6 kg/m2 586485. 35 g 74 /min 20 /min 118 mm[Hg] 86 mm[Hg] Juli Murray LPN [facility] 7 15:34:49 Date Recorded Body height Body mass index (BMI) Body weight Heart rate Systolic blood pressure Diastolic blood pressure Provider Name and Address Organization Details Last Updated DateTime 8 190.5 cm 34 kg/m2 716190. 12 g 76 /min 128 mm[Hg] 94 mm[Hg] Ricarda Tao [facility] 8 16:06:45 Date Recorded Body height Body mass index (BMI) Body weight Heart rate Respiratory rate Systolic blood pressure Diastolic blood pressure Provider Name and Address Organization Details Last Updated DateTime 8 190.5 cm 34.4 kg/m2 704825. 9 g 76 /min 20 /min 120 mm[Hg] 82 mm[Hg] Juli Murray LPN [facility] [email or web address] [place] 8 16:12:55 Social History Question Answer Notes LastModified by Organizat ion Details LastModified Time Tobacco Smoking Status Former Smoker Juli Murray LPN null, [facility] [employer] [facility] [place] 01/14/2017 13:19:40 Do You Have An Advance Directive? Yes Information n ot available 01/14/2017 What Is Your Level Of Alcohol Consumption? Occasional Information not available 01/14/2017 What Is Your Level Of Caffeine Consumption? Heavy Information not available 01/14/2017 What Type Of Diet Are You Following? 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 No Information not available 01/14/2017 Legally Blind In One Or Both Eyes? No Information no t available 01/14/2017 Live Alone Or With Others? With Others Information not available 01/14/2017 Do You Feel Safe In Your Current Environment? Yes Information not available 01/14/2017 Sexual Identification Heterosexual Information not available 01/14/2017 What Type Of Transportation Do You Use To Get To Your Appointment ? Personal Vehicle Information not available 01/14/2017 Do You Have Access To The Internet ? Yes Information no t available 01/14/2017 What Was The Date Of Your Most Recent Tobacco Screening? 03/01/2018 Information not available 03/09/2019 Difficulty Reading? No Information not available 01/14/2017 Seat Belts Used Routinely Yes Information not available 01/14/2017 General Stress Level Medium Information not available 01/14/2017 How Many Years Have You Smoked Tobacco? 18 Information not available 01/14/2017 Have You Recently (within The Last 12 Weeks, Or During A Current ) Traveled To Or Lived In A Zika-affected Area? No Information not available 01/14/2017 Sex: Male Functional Status Question Answer Note LastModified by Organization D etails LastModified Time Are you able to care for yourself? Yes Information n ot available 01/14/2017 What is your exercise level? None Information not available 01/14/2017 Mental Status None recorded. Family History Relationship Description Onset Age of this Age Resolved Age Notes LastModified by Organization Details LastModified Time Father Family history of malignant neoplasm sjoos Not available 2016 13:18:34 Father Kidney stone sjoos Not availab le 01/14/2017 13:19:09 Maternal Grandfather Family history of malignant neoplasm sjoos Not available 2016 13:18:34 Paternal Grandfather Heart disease sjoos Not available 2016 13:18:54 Paternal Grandfather Myocardial infarction sjoos Not available 01/14 13:19:20 Medical History Condition Response Other Asthma Y Past Encounters Encounter ID Performer Location Encounter Start Date Encounter Closed Date Diagnosis/Indication Diagnosis SNOMED-CT Code Diagnosis ICD10 Code Diagnosis Note [id number] Brennen Mccabe MD Adult Medicine [address] [place] [id number] 4 01/14/2017 12:49:02 01/14/2017 13:44:16 Asthma 913677328 J45.909 Complainin g of erectile dysfunction 021854664 N52.9 Adult [facility] th examination 345664252 Z00.00 Gastroesop hageal reflux disease 869806323 K21.9 [id number] Brennen Mccabe MD Adult Medicine [address] [place] [address] [id number] 4 03/05/2017 14:45:43 03/05/2017 15:23:31 Allergic rhinitis 05989546 J30.9 Neuropathy 309565917 G62 .9 Complainin g of erectile dysfunction 882582671 N52.9 [id number] Brennen Mccabe MD Adult Medicine [address] [place] [address] [id number] 4 06/11/2017 15:03:40 06/11/2017 16:12:28 Gastroesophageal reflux disease 811338172 K21.9 [id number] Ibrahima Carty MD Adult Medicine [address] [place] [address] [id number] 4 06/21/2017 10:38:24 06/21/2017 11:36:32 Acute bronchitis 42426545 J20.9 Symptoms most c/w viral bronchitis ; no wheezing on exam, but he has been using his inhaler. Start short course of prednisone and use otc cough/cold medication prn. If no improvemen t, worsening, or new symptoms he will notify me. [id number] Brennen Mccabe MD Adult Medicine [address] [place] [address] [id number] 4 07/05/2017 15:06:30 07/05/2017 15:50:09 Gastroesophageal reflux disease without esophagitis 118251078 K21.9 [id number] Brennen Mccabe MD Adult Medicine [address] [place] [address] [id number] 4 11/30/2017 15:51:36 11/30/2017 16:39:22 Neuropathy 984315200 G62.9 Allergic rhinitis 678955 04 J30.9 Gastroesop hageal reflux disease 612646007 K21.9 Complainin g of erectile dysfunction 427755630 N52.9 [id number] Brennen Mccabe MD Adult Medicine [address] [place] [address] [id number] 4 03/01/2018 15:27:38 03/01/2018 16:39:02 Gastroesophageal reflux disease 519839508 K21.9 Acute eros yovana gastritis 863714949 K29.00 Hiatal hernia 42921490 K 44.9 Health Concerns Section Related Observation LastModified by Organization Detai ls LastModified Time None Recorded Concern Status LastModified by Organization Details LastModified Time None Recorded Advance Directives Directive Y: Payers Encounter Date Sequence Insurance Name Policy Number Policy Cross Covered Member ID Cross Member ID Guarantor Name 06/11/2017 1 [facility] Missael Mejía [id number] Missael Mejía 06/21/2017 1 [facility] Missael Mejía [id number] Missael Mejía 07/05/2017 1 [facility] Missael Mejía [id number] Missael Mejía 11/30/2017 1 *SELF PAY* Karlene Mejía 03/01/2018 1 [facility] Missael Monroy Kym [id number] Missael Monroy Kym Notes Date Note Type Note Provider Name and Address Organization Details Recorded Time 06/11/2017 text/html pt c/o worsening heartburn, now associated with sour burps . x weeks. improved a little with otc nexium. pmh similar condition; s/p EGD 2014 w/o dx of tx. w/o further problem today. Brennen Mccabe MD [address] [place], [address], [facility] [email or web address] [place] 06/11/2017 16:08:41 06/21/2017 text/html Upper Respirator y SymptomsReported bypatient.Quality:pro ductive cough;sharp throat pain;colored phlegm Severity:the cough has been severe Onset/Timin-5 days ago Context:no sick contacts; no foreign travel Modifying Factors:albuterol inhaler (2-3 times a day), otc cold medication Associated Symptoms:yellow-green , thick sputum;wheezing;sweat s; [place] [address] [place] [address], [phone], [facility] [place] [employer] [place] 06/21/2017 12:31:18 07/05/2017 text/html pmh gerd. pt pre sents today for f/u and to review lab results. states dexilant was too expensive; doing well on nexium + pepcid; wants refills. w/o complaint today. Brennen Mccabe MD [address] [place], [address], [facility] [email or web address] [place] 07/05/2017 15:52:43 11/30/2017 text/html pt c/o reflux an d allergy s/sx refractory to the current med regimen and tx plan. also needs refills. otw doing well and w/o complaint today. Brennen Mccabe MD [address] [place], [address], [facility] [email or web address] [place] 11/30/2017 16:18:39 03/01/2018 text/html pmh gerd. pt pre sents today for f/u and to review GI note. s/p EGD that showed erosive esophagitis and hiatal hernia. recently finished pH probe. thinks he will need surgery, but waiting to hear from dr schneider. doing better symptomatically now that he is back on his meds. w/o new complaint today. Brennen Mccabe MD [address] [place], [address], [facility] [place] [email or web address] [place] 03/01/2018 16:34:50
--- OUTSIDE RECORDS SUMMARY | 2024-11-07 19:25 | XMS_ITS | Continuity of Care Document ---
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 Refills 0, Maintenance, 10/11/24 8:18:00 AM EST, Route to Pharmacy Electronically, [facility]/pharmacy #[id number], Partial fill upon patient request if the prescription is for a schedule II opioid drug., 191, cm, 10/11/24 2:38:00 EST, Height, 119, kg, 10/11/24 2:38:00 EST, Dry Weight Start Date: 10/11/24 Stop Date: 10/25/24 Status: Ordered Quantity: 14.0 Unit: capsule Repeat number: 1 ibuprofen 600 mg oral tablet 600 mg, 1, tablet, By Mouth, 3 times a day, PRN, for 30 days, # 60 tablet, Refills 0, Tot. Refills 0, Acute 11/10/24 8:18:00 AM EDT, Pain , Moderate, 10/11/24 8:18:00 AM EST, Route to Pharmacy Electronically, [facility]/pharmacy #[id number], Partial fill upon patient request if the prescription is for a schedule II opioid drug., 191, cm, 10/11/24 2:38:00 EST, Height, 119, kg, 10/11/24 2:38:00 EST, Dry Weight Start Date: 10/11/24 Stop Date: 11/10/24 Status: Ordered Quantity: 60.0 Unit: tablet Repeat number: 1 ondansetron 4 mg oral tablet, disintegrating 1 tablet = 4 mg, By Mouth, Every 8 hours, PRN Nausea & Vomiting, for 7 days, # 20 tablet, 0 Refills, Acute 10/18/24 8:18:00 AM EST, 10/11/24 8:18:00 AM EST, Tablet, [facility]/pharmacy #[id number], Partial fill upon patient request if the prescription is for a schedule II opioid drug., 191, cm, 10/11/24 2:38:00 EST, Height, 119, kg, 10/11/24 2:38:00 EST, Dry Weight Start Date: 10/11/24 Stop Date: 10/18/24 Status: Ordered Quantity: 20.0 Unit: tablet Repeat number: 1 oxyCODONE 5 mg oral tablet 5 mg, 1, tablet, By Mouth, Every 6 hours, PRN, for 5 days, # 16 tablet, Refills 0, Tot. Refills 0, Acute 10/16/24 8:18:00 AM EST, Pain , Severe, 10/11/24 8:18:00 AM EST, Route to Pharmacy Electronically, [facility]/pharmacy #[id number], Partial fill upon patient request if the prescription is for a schedule II opioid drug., 191, cm, 10/11/24 2:38:00 EST, Height, 119, kg, 10/11/24 2:38:00 EST, Dry Weight Start Date: 10/11/24 Stop Date: 10/16/24 Status: Ordered Quantity: 16.0 Unit: tablet Repeat number: 1 Results Radiology Reports * Exam Date Time Procedure Performing Provider Status 10/11/24 6:[address] Abdomen and Pelvi s W/O Contrast Pravin Trujillo (Verified) Notes: (CT Abdomen and Pelvis W/O Contrast) Reason For Exam: L flank pain;Pain RESULT: CT Abdomen and Pelvis W/O Contrast CT Abdomen and Pelvis W/O Contrast Hx of Present Illness: Stat L flank pain; Clinical Question(s): Calculus TECHNIQUE: Spiral CT through the abdomen and pelvis without IV contrast formatted in 3 planes. Thisstudy was performed without oral contrast. Weight- based protocol using automatic tube modulation was used to optimize exposure parameters. CTDIvol Body: 24.98 mGy, DLP Body: 1506 mGy*cm. COMPARISON: None FINDINGS: Feeder Tender View Findings, Lines and Tubes: None. Visualized Chest: Mild bibasilar atelectasis. Punctate right basilar granulomas. 2 mm nodule series2 image 21 in the left lower lobe can also represent a granuloma. No pleural effusion. The heart isnormal in size. No pericardial effusion. Diaphragm: Normal. Liver: Diffuse low-attenuation throughout the liver parenchyma consistent with hepatic steatosis. No evidence of mass. Gallbladder: Decompressed. No CT evidence of gallbladder pathology. Bile ducts: No biliary ductal dilation. Spleen: Normal. Granuloma noted in the spleen. Pancreas: Normal. Adrenal glands: Normal. Kidneys and ureters: Obstructing calculus at the left ureterovesicular junction measuring up to 0.4cm. There is mild left hydroureteronephrosis. Several few millimeter nonobstructing left renal calculi. No right renal or ureteric calculi. No right hydronephrosis. No noncontrast evidence of suspicious masses. Bladder: Normal. There is a 5 mm calculus in the region of the penile urethra (image 186 series 2). Reproductive organs: Unremarkable. Stomach, small bowel, and large bowel: Pancolonic diverticulosis without diverticulitis. The stomach, small bowel and large bowel are normal in caliber. No evidence of bowel obstruction. No abnormal bowel wall thickening or surrounding fat stranding to suggest acute inflammatory process of the bowel. Appendix: Not seen, likely surgically absent. Peritoneum and retroperitoneum: No ascites or pneumoperitoneum. No omental or mesenteric lesions. Lymph nodes: No enlarged lymph nodes. Blood vessels: Normal. No aneurysm. Abdominal and pelvic wall: Small bilateral fat-containing inguinal hernias, left greater than right. Tiny fat-containing umbilical hernia. Metallic density in the subcutaneous fat of the left flank region (image 76 series 2). Bones: Status post posterior fusion of L4-S1. No acute osseous abnormality. IMPRESSION: Obstructing calculus at the left ureterovesicular junction measuring up to 4 mm with mild left hydroureteronephrosis. 5 mm calculus in the region of the penile urethra. Additional punctate nonobstructing left renal calculi are also present. Pancolonic diverticulosis without diverticulitis. I have personally reviewed the images and I agree with this report. WSN: [id number] Ordering Physician: Fernanda Gibson Dictated By: Mica Sanford MD Dictated Date/Time: 10/11/24 7:52 am Reviewed By: Ambar Bowen MD Signed By: Ambar Bowen MD Signed Date/Time: 10/11/24 7:57 am Transcribed By: ALEXANDER Transcribed Date/Time: 10/11/24 7:12 am Vital Signs Most recent to oldest [Reference Range]: 1 2 Height 191 cm (10/11/24 8:33 AM) 191 cm (10/11/24 2:30 AM) Weight 119 kg (10/11/24 2:30 AM) Oxygen Saturation [94-100 %] 93 % *L* (10/11/24 8:33 AM) 99 % (10/11/24 2:30 AM) Pulse Rate [55-90 bpm] 84 bpm (10/11/24 8:33 AM) 93 bpm *H* (10/11/24 2:30 AM) Blood Pressure [90-138/55-84 mm Hg] 128/ 74mm Hg (10/11/24 8:33 AM) 103/83mm Hg (10/11/24 2:30 AM) Respiratory Rate [16-30 br/min] 22 br/mi n (10/11/24 2:30 AM) Temperature [96.8-100.4 DegF] 99.2 DegF (10/11/24 8:33 AM) 98.2 DegF (10/11/24 2:30 AM) Mode of Delivery (Oxygen) Room air (10/11/24 8:33 AM) Room air (10/11/24 2:30 AM) Blood pressure sites Arm, right (10/11/24 8:33 AM) Arm, left (10/11/24 2:30 AM) Temperature Route Oral (10/11/24 8:33 AM) Oral (10/11/24 2:30 AM) Dry Weight 119 kg (10/11/24 2:30 AM) Weight Obtained Via Standing scale (10/11/24 2:30 AM) Dry Weight Obtained Via Standing scale (2/26/25 2:30 AM) Note * Hession MD, Marin Vick: PERFORM Event Display: Patient Education Leaflets Authored Date: [id number] Kidney Stone with Pain ?? [id number] Kidney Stone with Pain The sharp cramping pain on either side of your lower back and nausea or vomiting that you have are because of??a small stone that has formed in the kidney. It's now passing down a narrow tube (ureter) on its way to your bladder. Once the stone reaches your bladder, the pain will often decrease. Butit may come back as the stone continues to pass out of the bladder and through the urethra. The ston e may pass in your urine stream in 1 piece. The size may be 1/16 inch to 1/4 inch (1 mm to 6 mm). Or the stone may break up into geeta-like fragments that you may not even notice. Once you have had a kidney stone, you may be at risk of getting another one in the future. There are 4 types of kidney stones. Eighty percent are calcium stones???mostly calcium oxalate but also somewith calcium phosphate. The other 3 types include uric acid stones, struvite stones (from a preceding infection) and, rarely, cystine stones. Most stones will pass on their own. But they may take from a few hours to a few days. Sometimes thestone is too large to pass by itself. In that case, the healthcare provider will need to use??otherways to remove the stone. These methods include: ??? Shock Wave Lithotripsy. This??noninvasive procedure uses high energy sound waves to break up the stone and allow it to easily pass. ??? Ureteroscopy. This??procedure inserts a tool through the urethra and bladder and into the ureter to pull out the stone. This procedure is done under anesthesia. ??? Surgery. You may need surgery to remove the stone. Home care The following are general care guidelines: ??? Drink plenty of fluids. This means at least 12, 8-ounce glasses of fluid???mostly water???a day. ??? Each time you pee (urinate), do so in a jar. Pour the urine from the jar through the strainer and into the toilet. Continue doing this until 24 hours after your pain stops. By then, if there was a kidney stone, it should pass from your bladder. Some stones dissolve into sand-like particles and pass right through the strainer. In that case, you won???t ever see a stone. ??? Save any stone that you find in the strainer and bring it to your healthcare provider for a detailed exam. It may be possible to stop certain types of stones from forming. Forthis reason, it's important to know what kind of stone you have. ??? Try to stay as active as possible. This will help the stone pass. Don't stay in bed unless your pain keeps you from getting up. You may notice a red, pink, or brown color to your urine. This is normal while passing a kidney stone.??? If you develop pain, you may take ibuprofen or naproxen for pain, unless another medicine was pr escribed.??Talk with your healthcare provider before using these medicines if you have chronic liver or kidney disease. Or if you've??had a stomach ulcer or digestive bleeding. ?? Preventing??stones Each year for the next 5 to??7 years,??you are at risk that??a??new stone will form. Your risk is a50% chance over this time period.??The risk is higher??if you have a family history of kidney stones or have certain chronic illnesses like high blood pressure, obesity, or??diabetes.?Making changes to your lifestyle and diet may lower your??risk for another stone. Most kidney stones are made of calcium. The following is advice for preventing another??calcium stone.??If you don???t know the type of stone you have, follow this advice until the cause of your stone is found. Things that help: ??? The most important thing you can do is to drink plenty of fluids each day. See home care above.? Eat foods that contain phytates. These include??wheat, rice, rye, barley, and beans. Phytates are substances that may lower your risk for??any type of stone to form. ??? Eat more fruits and vegetables.??Choose those that are??high in potassium. ??? Eat foods high in natural citrate, such as??fruit and low-sugar fruit juices, such as lemon juice. Citrate can protect againstkidney stones because it stops crystals from turning into stones ??? Having too little calcium in your diet can put you at risk for??calcium??kidney stones. Eat a normal amount of calcium in your diet and talk??with your healthcare provider??if you are taking calcium supplements. Cutting back on your calcium intake may raise your risk.??New research shows that eating calcium-rich and oxalate-richfoods together lowers your risk for stones by binding the minerals in the stomach and intestines before they can reach the kidneys. ? Limit salt intake to 2??grams (1??teaspoon) per day. High sodium in your diet will increase the amount of calcium sent into your urine. This can increase your chances of developing another stone. Use limited amounts when cooking, and don???t add salt at the table.??Processed and canned foods are usually high in salt.? Spinach, rhubarb, peanuts, cashews, almonds, grapefruit, and grapefruit juice are all high oxalate foods. You should limit how much of these you eat or??eat them with??calcium-rich foods. These include dairy products, dark leafy greens, soy products, and calcium-enriched foods. ??? Reducing the amount of animal meat, shellfish, and high protein foods in your diet may lower your risk for uric acid stones. These foods have high amounts of a natural chemical compound called purines. Eating a lot of food with purines can make your body produce more uric acid. Limiting alcohol is also recommended to decrease uric acid production. ??? Limit the amount of sugar (sucrose) and soft drinks with fructose in??your??diet.? If you take vitamin C as a supplement, don't take more than 1,000 mg a day. ??? A dietitian or your healthcareprovider can give you??information about??changes in your diet that will help prevent more??kidney stones from forming. ?? Follow-up care Follow up with your??healthcare provider, or as advised,??if the pain lasts more than 48 hours. Talk with your provider about urine and blood tests to find out the cause of your stone. If you had an X-ray, CT scan, or other diagnostic test, you will be told of any new findings that may affect your care. ?? Call 911 Call 911 if you have: ??? Weakness, dizziness, or fainting ?? When to get medical care Call your healthcare provider right away if any of these occur: ??? Pain that is not controlled by the medicine given ??? Repeated vomiting or unable to keep down fluids ??? Fever of 100.4??F (38??C)or higher, or as advised by your provider ??? Passage of solid red or brown urine (can't see through it) or urine with lots of blood clots ??? Foul-smelling or cloudy urine ??? Unable to pee for 8 hours and increasing bladder pressure ?? Last Reviewed Date: 2022 ?? 5162-0255 The [employer]. All rights reserved. This information is not intended as a substitute for professional medical care. Always follow your healthcare professional's instructions. ?? Patient Care team information Care Team Personnel Name: Matthew Raza NP Position: Reference Physician Member Role: PCP Address: [address] [place] [address] Telecom: Insurance Providers Guarantor name: ANLAY Health Plan Information #: 1 Payer: NA Member Number: [id number] Policy Number: ANALY Group Number: [id number] Health Plan Information #: 2 Payer: NA Member Number: [id number] Policy Number: ANALY Group Number: [id number]
--- OUTSIDE RECORDS SUMMARY | 2024-11-07 19:25 | XMS_ITS | Encounter Summary ---
Author Name [facility] Organization [facility] [place] Address [address] [place] [address] Support Name Relationship Address Phone JANE RAMSEY Next of Kin [address] [address] JANE RAMSEY Emergency Contact [address] [place] [address] Insurance Providers: All historical and current [...] BASIC FAMIL Y Jun 26, 2018 [id number] [phone] JENI RAMSEY PATIENT [employer] FEP ([id number]) PRESCRIPT ION FEP RX Jun 26, 2018 [id number] [phone] JENI RAMSEY PATIENT Selected Encounter This section includes the information on record at [place] for the Encounter. Date/Time Encounter Type Encounter [...] DATE: AUG 30, 2024@10:57:29 AUTHOR: SUSANA BROWN [facility] COSIGNER: URGENCY: STATUS: COMPLETED You may not VIEW this COMPLETED TELEPHONE NOTE/EMPLOYEE HEALTH. [facility]OWN [facility]
== END 2024-11-07 16:34 | disposition home or self-care (01) ==
LOC: HO.HMCC 15:40
PROVIDERS: PCP Nurse Practitioner Family; Visit Provider Nurse Practitioner Family
DX: Z00.00 Encounter for general adult medical examination without abnormal findings (principal); Z12.5 Encounter for screening for malignant neoplasm of prostate; R06.2 Wheezing

== ENCOUNTER 2024-11-07 16:35 | Outpatient (REF) | payer OTHER, SELFPAY ==
[2024-11-08 14:08] LABS: Adenovirus PCR Not Detected (Not Detect.); Bordetella parapertussis PCR Not Detected (Not Detect.); Bordetella pertussis PCR Not Detected (Not Detect.); Chlamydia pneumoniae PCR Not Detected (Not Detect.); Coronavirus 229E PCR Not Detected (Not Detect.); Coronavirus HKU1 PCR Not Detected (Not Detect.); Coronavirus NL63 PCR Not Detected (Not Detect.); Coronavirus OC43 PCR Not Detected (Not Detect.); Human metapneumovirus PCR Not Detected (Not Detect.); Influenza A PCR Not Detected (Not Detect.); Influenza B PCR Not Detected (Not Detect.); Mycoplasma pneumoniae PCR Not Detected (Not Detect.); Parainfluenza 1 PCR Not Detected (Not Detect.); Parainfluenza 2 PCR Not Detected (Not Detect.); Parainfluenza 3 PCR Not Detected (Not Detect.); Parainfluenza 4 PCR Not Detected (Not Detect.); RSV PCR Not Detected (Not Detect.); Rhino/Enterovirus PCR Not Detected (Not Detect.)
[2024-11-08 14:38] LABS: Influenza A H1 PCR Not Detected (Not Detect.); Influenza A H1-2009 PCR Not Detected (Not Detect.); Influenza A H3 PCR Not Detected (Not Detect.); SARS-CoV-2 PCR Not Detected (Not Detect.)
== END 2024-11-07 16:36 | disposition home or self-care (01) ==
LOC: HO.HMGCX 16:35
PROVIDERS: PCP Nurse Practitioner Family; Visit Provider Nurse Practitioner Family
DX: R06.2 Wheezing (principal); J39.9 Disease of upper respiratory tract, unspecified
CPT/HCPCS: 87633

== ENCOUNTER → 2024-11-07 16:43 | Outpatient (BNV) | payer OTHER, SELFPAY | PROVIDERS: PCP Nurse Practitioner Family; Visit Provider Radiology Diagnostic Radiology | DX: R06.2 Wheezing (principal) | CPT/HCPCS: 71046 ==

== ENCOUNTER → 2024-11-14 13:33 | Outpatient (BNVA) | payer OTHER, SELFPAY | PROVIDERS: PCP Nurse Practitioner Family; Visit Provider Nurse Practitioner Family ==

== ENCOUNTER 2024-12-21 09:02 | Outpatient (AMB) | payer OTHER, SELFPAY ==
--- OUTSIDE RECORDS SUMMARY | 2024-12-21 09:30 | XMS_ITS | Encounter Summary ---
Author Name [facility] [place] Organization [facility] [place] [facility] [place] Address [address] [place] [address] Support Name Relationship Address Phone JANE RAMSEY Next of Kin [address] [phone] JANE RAMSEY Emergency Contact [address] [address] Insurance Providers: All historical and current [...] BASIC FAMIL Y Jun 26, 2018 [id number] [phone] JENI RAMSEY PATIENT [employer]EMARK FEP ([id number]) PRESCRIPT ION FEP RX Jun 26, 2018 [id number] [phone] JENI RAMSEY PATIENT Selected Encounter This section includes the information on record at [place] for the Encounter. Date/Time Encounter Type Encounter [...] DATE: AUG 30, 2024@10:57:29 AUTHOR: SUSANA BROWN [facility] COSIGNER: URGENCY: STATUS: COMPLETED You may not VIEW this COMPLETED TELEPHONE NOTE/EMPLOYEE HEALTH. [facility]
--- OUTSIDE RECORDS SUMMARY | 2024-12-21 09:30 | XMS_ITS | Data Portability ---
Author Organization MD - [employer] [employer] - [facility] Address [address] [place] [address] Assessment No assessment recorded. Plan of Treatment Reminders Order Date Submit Date Provider Last Modified By Organization Details Last Modified Time Details Appointments None recorded. Lab H pylori igm+igg+i ga Ab, serum 2016 017 MANTI [facility] (Centralized Electronic Ordering - All Locations), Patient Can Go To The Location Of Their Choice, [facility] 7 06:12:32 Referral accounts payable specialist referral 2017 018 [place] [address] [facility], [address] [facility], [address], [place], [address], 8 10:11:54 gastroent erologist referral 2017 018 [facility], [address] [facility], [place], [address], 8 14:18:57 Procedures None recorded. Surgeries None recorded. Imaging None recorded. Medication Orders sildenafi l 100 mg tablet [address] [facility], [address] [facility], [place], [address], 8 16:12:45 gabapenti n 300 mg capsule [address] [facility], [address], [place], [address], 8 16:12:45 Nexium 40 mg capsule,d elayed release [email or web address] [facility], [address], [place], [address], 8 09:27:25 famotidin e 40 mg tablet [address] [facility], [address], [place], [address], 7 15:48:32 prednison e 20 mg tablet [email or web address] [facility], [address], [place], [address], 8 16:01:28 Dexilant 60 mg capsule, delayed release [address] [facility], [address], [place], [address], 7 15:45:59 Patient Targets Encounter Date Encounter Id Patient Goals Patient Target Last Modified By Organization Details Last Modified Time resolution of GERD s/sx Not available 06/11/2017 16:03:20 resolution of reflux & allergy s/sx Not available 11/30/2017 16:13:04 Patient Instructions Encounter Date Encounter Id Patient Instructions Last Modified By Organization Details Last Modified Time 06/11/2017 [id number] lab today try dexilant instead of nexium [...] modifications/the rapy. Not available 06/11/2017 16:04:16 07/05/2017 [id number] continue with th e current tx plan [...] modifications/the rapy. Not available 07/05/2017 15:50:03 11/30/2017 [id number] establish with G I and accounts payable specialist when scheduled Not available 11/30/2017 16:13:24 pt experiencing breakthrough reflux despite ppi + h2 betzaida therapy; negative h pylori; PUD on ddx; pt agreeable for referral -> GI for EGD/further evaluation and tx pt also experiencing allergy s/sx despite singulair and antihistamine/dec ongestant therapy. agreeable with referral -> accounts payable specialist for testing/further treatment. reviewed and discussed issues; answered questions. Benefits/risks of therapy including medication side effects and cautions with use reviewed and discussed. Patient counseled on benefits of lifestyle modifications/the rapy. Not available 11/30/2017 16:16:34 03/01/2018 [id number] f/u prn and as scheduled with GI specialist Not available 03/01/2018 16:30:11 reviewed and discussed GI note and pathologies identified; answered questions. Benefits/risks of therapy including medication side effects and cautions with use reviewed and discussed. Patient counseled on benefits of lifestyle modifications/the rapy. 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 pylori, IgG abs <0.9 U/mL 0.0-0. 8 Negat yovana <0.9 Indet ermin ate 0.9 - 1.0 Posit yovana >1.0 Not Available [facility] ([facility]) [address] [place], [address], 06/15/2017 06:12:32 06/11/2006/14/2017 H pylor i igm+i gg+ig a Ab, serum H. pylori, IgA abs <9.0 units 0.0-8. 9 Negat yovana <9.0 Equiv ocal 9.0 - 11.0 Posit yovana >11.0 Not Available [facility] ([facility]) [address] [place], [address], 06/15/2017 06:12:32 06/11/2006/14/2017 H pylor i igm+i [...] Drug Admin istra tion. Not Available [facility] ([facility]) [address] [place], [address], 06/15/2017 06:12:32 Result Notes None recorded. Problems Name Problem SNOMED Code Status Onset Date Resolution Date Notes Provider Name and Address Organization Details Recorded Time Allergic rhinitis 85852279 Active 2016 Brennen Mccabe [facility] [address] [facility] [place], [address] , [facility] [employer] MD 7 15:21:25 Neuropathy 638187307 Active 2016 Brennen Mccabe MD [address] [employer] [facility] [place], [address] , [facility] [employer] [facility] 7 15:21:26 Complaining of erectile dysfunction Active 2016 Brennen Mccabe MD [address] [facility] [place], [address] , [facility] [employer] [facility] 7 15:21:27 Mild intermittent asthma 779367435 Active 2016 Juli Murray LPN [facility] [employer] [facility] 7 14:37:39 Gastroesophag eal reflux disease 729105960 Active 2017 Brennen Mccabe MD [address] [facility] [place], [address] , [facility] [employer] [facility] 8 16:32:09 Acute erosive gastritis 836514829 Active 2017 Brennen Mccabe MD [address] [facility] [place], [address] , [facility] [employer] [facility] 8 16:32:09 Hiatal hernia 53662430 Active 2017 Brennen Mccabe MD [address] [facility] [place], [address] , [facility] [employer] [facility] 8 16:32:10 Problem Notes None recorded. Procedures Surgical History Date Name Laterality Status Provider Name and Address Organization Details Recorded Time Knee Surgery completed Juli Murray LPN [facility] [employer] [facility] 01/14/2017 13:21:09 Appendectomy completed Juli Murray LPN [facility] [employer] [facility] 01/14/2017 13:21:22 Orthopedic Surgery completed Juli Murray LPN [facility] [employer] [facility] 01/14/2017 13:22:35 Imaging Results None recorded. Procedure [...] Available Flonase 50 mcg/Actuati on nasl susp [place] 1 spray every day by intranasa l [...] Updated DateTime 7 190.5 cm 34 kg/m2 507185. 12 g 80 /min 20 /min 120 mm[Hg] 78 mm[Hg] Juli Murray LPN [facility] 7 15:45:41 Date Recorded Body height Body mass index (BMI) Body weight Body temperature Heart rate Respiratory rate Oxygen saturation Oxygen saturation in Arterial blood by Pulse oximetry Systolic blood pressure Diastolic blood pressure Provider Name and Address Organization Details Last Updated DateTime 7 190.5 cm 33.5 kg/m2 677889. 04 g 99.3 [degF] 75 /min 20 /min 94 % 94 % 110 mm[Hg] 88 mm[Hg] Lynda Ochoa RN [facility] 7 10:51:57 Date Recorded Body height Body mass index (BMI) Body weight Heart rate Respiratory rate Systolic blood pressure Diastolic blood pressure Provider Name and Address Organization Details Last Updated DateTime 7 190.5 cm 33.6 kg/m2 755127. 35 g 74 /min 20 /min 118 mm[Hg] 86 mm[Hg] Juli Murray LPN [facility] 7 15:34:49 Date Recorded Body height Body mass index (BMI) Body weight Heart rate Systolic blood pressure Diastolic blood pressure Provider Name and Address Organization Details Last Updated DateTime 8 190.5 cm 34 kg/m2 520419. 12 g 76 /min 128 mm[Hg] 94 mm[Hg] Ricarda Tao [facility] 8 16:06:45 Date Recorded Body height Body mass index (BMI) Body weight Heart rate Respiratory rate Systolic blood pressure Diastolic blood pressure Provider Name and Address Organization Details Last Updated DateTime 8 190.5 cm 34.4 kg/m2 279235. 9 g 76 /min 20 /min 120 mm[Hg] 82 mm[Hg] Juli Murray LPN [facility] [employer] MD 8 16:12:55 Social History Question Answer Notes LastModified by Organizat ion Details LastModified Time Tobacco Smoking Status Former Smoker Juli Murray LPN null, [facility] [employer] [facility] 01/14/2017 13:19:40 Do You Have An Advance [...] SNOMED-CT Code Diagnosis ICD10 Code Diagnosis Note [id number] Brennen Mccabe MD Adult Medicine [address] [place] [address] 01/14/2017 12:49:02 01/14/2017 13:44:16 Asthma 992420477 J45.909 Complainin g of erectile dysfunction 558827205 N52.9 Adult [facility] th examination 775487668 Z00.00 Gastroesop hageal reflux disease 755644957 K21.9 [id number] Brennen Mccabe MD Adult Medicine [address] [place] [address] 4 03/05/2017 14:45:43 03/05/2017 15:23:31 Allergic rhinitis 56058647 J30.9 Neuropathy 593062535 G62 .9 Complainin g of erectile dysfunction 214081424 N52.9 [id number] Brennen Mccabe MD Adult [facility] [address] [place] [address]914-638 4 06/11/2017 15:03:40 06/11/2017 16:12:28 Gastroesophageal reflux disease 954870541 K21.9 [id number] Ibrahima Carty MD Adult Medicine [address] [place] [address]35[address] 4 06/21/2017 10:38:24 06/21/2017 11:36:32 Acute bronchitis 92794105 J20.9 Symptoms most c/w viral bronchitis ; no wheezing on exam, but he has been using his inhaler. Start short course of prednisone and use otc cough/cold medication prn. If no improvemen t, worsening, or new symptoms he will notify me. [id number] Brennen Mccabe MD Adult Medicine [address] [place] [address] 4 07/05/2017 15:06:30 07/05/2017 15:50:09 Gastroesophageal reflux disease without esophagitis 349607698 K21.9 [id number] Brennen Mccabe MD Adult [facility] [address] [place] [phone] 4 11/30/2017 15:51:36 11/30/2017 16:39:22 Neuropathy 467086600 G62.9 Allergic rhinitis 902851 04 J30.9 Gastroesop hageal reflux disease 126608356 K21.9 Complainin g of erectile dysfunction 767406997 N52.9 [id number] Brennen Mccabe MD Adult Medicine [address] [place] [address] 4 03/01/2018 15:27:38 03/01/2018 16:39:02 Gastroesophageal reflux disease 295804904 K21.9 Acute eros yovana gastritis 977376372 K29.00 Hiatal hernia 43963529 K 44.9 Health Concerns Section Related Observation LastModified by Organization Detai ls LastModified Time None Recorded Concern Status LastModified by Organization Details LastModified Time None Recorded Advance Directives Directive Y: Payers Encounter Date Sequence Insurance Name Policy Number Policy Cross Covered Member ID Cross Member ID Guarantor Name 06/11/2017 1 [facility] Missael Mejía [id number] Missael Mejía 06/21/2017 1 [facility] Missael Mejía [id number] Missael Mejía 07/05/2017 1 [facility] Missael Mejía [id number] Msisael Mejía 11/30/2017 1 *SELF PAY* Karlene Mejía 03/01/2018 1 [facility] Missael Monroy Kym [id number] Missael Monroy Kym Notes Date Note Type Note Provider Name and Address Organization Details Recorded Time 06/11/2017 text/html pt c/o worsening heartburn, now associated with sour burps . x weeks. improved a little with otc nexium. pmh similar condition; s/p EGD 2014 w/o dx of tx. w/o further problem today. Brennen Mccabe MD [address] [place], [address], [facility] [employer] MD 06/11/2017 16:08:41 06/21/2017 text/html Upper Respirator y SymptomsReported bypatient.Quality:pro ductive cough;sharp throat pain;colored phlegm Severity:the cough has been severe Onset/Timin-5 days ago Context:no sick contacts; no foreign travel Modifying Factors:albuterol inhaler (2-3 times a day), otc cold medication Associated Symptoms:yellow-green , thick sputum;wheezing;sweat s; [place] [address] [place] [address], [phone], [facility] [employer] MD 06/21/2017 12:31:18 07/05/2017 text/html pmh gerd. pt pre sents today for f/u and to review lab results. states dexilant was too expensive; doing well on nexium + pepcid; wants refills. w/o complaint today. Brennen Mccabe MD [address] [place], [address], [facility] [employer] MD 07/05/2017 15:52:43 11/30/2017 text/html pt c/o reflux an d allergy s/sx refractory to the current med regimen and tx plan. also needs refills. otw doing well and w/o complaint today. Brennen Mccabe MD [address] [place], [address], [facility] [employer] MD 11/30/2017 16:18:39 03/01/2018 text/html pmh gerd. pt pre sents today for f/u and to review GI note. s/p EGD that showed erosive esophagitis and hiatal hernia. recently finished pH probe. thinks he will need surgery, but waiting to hear from dr schneider. doing better symptomatically now that he is back on his meds. w/o new complaint today. Brennen Mccabe MD [address] [place], [address], [facility] - [employer] MD 03/01/2018 16:34:50
--- OUTSIDE RECORDS SUMMARY | 2024-12-21 09:31 | XMS_ITS | Continuity of Care Document ---
Author Name [facility] Organization [facility] Care Team Providers Care Lead Project Engineer Name Role Phone [facility] Unavailable Unavailable Problems Combined list of problems [...] 05 Condition [facility] GILBERT'S SYNDROME Active Condition DoD chronic cough Active Condition DoD MUSCLE SPASM Inactive Condition DoD TENDONITIS ROTATOR CUFF RIGHT Active Condition DoD SPINAL STENOSIS Active Condition DoD MERALGIA PARESTHETICA Active Condition DoD SACROILIAC REGION SPRAIN Inactive Condition DoD INTERVERTEBRAL DISC DEGENERATION Active Condition DoD visit for: services physical separation Active Condition DoD LUMBAR RADICULOPATHY Active Condition [facility] visit for: issue repeat prescription for medication Inactive Condition DoD Surgery Of Male Genitalia Vasectomy Inactive Condition DoD Inquiry And Counseling: Contraceptive Practices Active Condition 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 DoD joint pain, localized in the knee Active Condition DoD ACUTE PAIN POSTOPERATIVE Inactive Condition DoD UPPER RESPIRATORY INFECTION Inactive Condition DoD OBESITY Active Condition DoD DEPRESSION Active Condition DoD former smoker Active Condition [facility] visit for: physical medical evaluation board (MEB) Active Condition 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 DoD recent weight gain (___ lbs) [reported] Active Condition DoD SLEEP APNEA Active Condition [facility] visit for: administrative purpose Inactive Condition DoD VIRAL SYNDROME Inactive Condition DoD sleep disturbances Active Condition DoD NICOTINE DEPENDENCE - IN REMISSION Active Condition DoD Aftercare Following Surgery Of Nervous System Inactive Condition DoD joint pain, localized in the right shoulder Active Condition DoD foot pain (soft tissue) Active Condition DoD KEMP SPLINT Inactive Condition DoD groin (inguinal) pain right side Inactive Condition DoD tobacco use Active Condition DoD visit for: examination of throat Inactive Condition DoD cough Inactive Condition DoD SORE THROAT Inactive Condition DoD Laboratory Studies Inactive Condition Do D sore throat Inactive Condition DoD lower back pain Active Condition DoD ESOPHAGEAL REFLUX Active Condition Wi ll refill nexium as working well for gerd and asthma sx's.Report any BRBPR or melena. DoD ALLERGIC RHINITIS Inactive Condition DoD ASTHMA MODERATE PERSISTENT Active Condition RILO dictated 01/09/2008.Cont inue medications as discussed last visit 03/23/08.. DoD Aftercare Following Surgery Of Musculoskeletal System Inactive Condition DoD Outpatient Physician Consultation Active Condition DoD VIRAL DISEASE Inactive Condition Has sx 's of mono with sore throat and abdominal cramping vs early flu.Symptomati c treatment.Okay continue asa as long as no abdominal pain, melena, brbpr or hematemesis.Wi ll check mono, flu swab, cbc with diff, and cmp.Will give quarters for 48 hours.Needs to stay home, rest, push fluids and get 8 hours of sleep.Will f/u above lab results. DoD ASTHMA Active Condition will refil l meds.Will treat [...] 3-4 days if cramping ceases.Will write for nizoral shampooGo to er for abdominal pain, N&V, fever or chills. DoD joint pain, localized in the shoulder Inactive Condition DoD visit for: occupational health / fitness exam Inactive Condition Audiogram reviewed - no restrictions DoD visit for: screening exam lipoid disorders Inactive Condition DoD SHOULDER STRAIN Inactive Condition Jhon gn exam today, Home PT encouraged. Rest for two weeks. NSAIDs as discussed. DoD Patient Education - Injury Prevention Inactive Condition DoD visit for: ears, nose, and throat exam Inactive Condition STSRepeat audiogram after 14 hour noise free interval.If shift persists, refer to audiology.No abnls noted on exam. DoD visit for: services physical Active Condition DoD ASTHMA MILD PERSISTENT Active Condition Increased albuterol use. Will add advair. Due for RILO, gave pt a c/s to get repeat PFTs done. DoD Anticipatory Guidance: Safety Restraints Inactive Condition wearing restraints was discussed with the pt. DoD visit for: issue medical certificate fitness Inactive Condition 422 updated. DoD UPPER ARM STRAIN RIGHT Inactive Condition DoD PHARYNGITIS Inactive Condition 1. Clini gwyn Strep. TC pending. DoD NICOTINE DEPENDENCE Active Condition Encouraged to stop DoD ALLERGIC ARTHRITIS Active Condition DoD GASTROENTERITIS Inactive Condition DoD Diagnosis: ICD-10-CM Z02.89 Encounter [...] Known Allergies Drug allergy (disorder) active 12/26/2013 [facility] [place] [address] Immunizations Combined list of available immunizations from the 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 Immunization Series Date Given Administered By Site Reaction Lot Number CVX Code Drug Data Entry Operator Status Comments Source Influenza, seasonal, injectable, preservative free 0 2011 [id number] Sanofi Pasteur ([facility]) complet ed Influenza , seasonal, injectabl e, preservat yovana free DoD Influenza, seasonal, injectable, preservative free 1 2010 [id number] Sanofi Pasteur ([facility]) complet ed Influenza , seasonal, injectabl e, preservat yovana free [facility] influenza virus vaccine, live, attenuated, for intranasal use 1 2009 [id number] [email or web address] ([facility]) complet ed influenza virus vaccine, live, attenuate d, for intranasa l use DoD TDAP 1 2009 115 complet ed HISTORICA L INFORMATI ON - FROM OTHER REGISTRY, tetanus toxoid, reduced diphtheri a toxoid, and acellular pertussis vaccine, adsorbed Lot#: [id number] B [facility] tetanus toxoid, reduced diphtheria toxoid, and acellular pertu is vaccine, adsorbed 1 2009 [id number] 115 [employer] ([facility]) complet ed tetanus toxoid, reduced diphtheri a toxoid, and acellular pertussis vaccine, adsorbed [facility] Novel influenza-H1N 1-09, injectable 1 2008 [id number] Sanofi Pasteur ([facility]) complet ed Novel influenza -B5P4-26, injectabl e DoD influenza virus vaccine, split virus (incl. purified surface antigen)-reti red CODE 1 2008 [id number] Sanofi Pasteur ([facility]) complet ed influenza virus vaccine, split virus (incl. purified surface antigen)- retired CODE DoD influenza virus vaccine, split virus (incl. purified surface antigen)-reti red CODE 1 2007 [id number] 15 [employer] (CS) complet ed influenza virus vaccine, split virus (incl. purified surface antigen)- retired CODE DoD TYPHOID, VICPS 1 2007 101 complet ed HISTORICA L INFORMATI ON - FROM OTHER REGISTRY, typhoid Vi capsular polysacch aride vaccine Lot#: [id number] Mfr: SANOFI PASTEUR [facility] typhoid Vi capsular polysaccharid e vaccine 1 2007 [id number] 101 Sanofi Pasteur ([facility]) complet ed typhoid Vi capsular polysacch aride vaccine DoD influenza virus vaccine, split virus (incl. purified surface antigen)-reti red CODE 1 2006 [id number] 15 [facility] ([facility]) complet ed influenza virus vaccine, split virus (incl. purified surface antigen)- retired CODE DoD influenza virus vaccine, split virus (incl. purified surface antigen)-reti red CODE 1 2005 [id number] 15 [facility] ([facility]) complet ed influenza virus vaccine, split virus (incl. purified surface antigen)- retired CODE DoD influenza virus vaccine, whole virus 1 2005 Unknown, Provider [id number] 16 [facility] ([facility]) complet ed influenza virus vaccine, whole virus DoD varicella virus vaccine 0 2005 21 () Not Given varicella virus vaccine DoD influenza virus vaccine, split virus (incl. purified surface antigen)-reti red CODE 1 2004 [id number] 15 Sanofi Pasteur ([facility]) complet ed influenza virus vaccine, split virus (incl. purified surface antigen)- retired CODE DoD influenza virus vaccine, whole virus 1 2004 [id number] 16 Sanofi Pasteur ([facility]) complet ed influenza virus vaccine, whole virus DoD influenza virus vaccine, whole virus 0 2004 [id number] 16 Sanofi Pasteur ([facility]) complet ed influenza virus vaccine, whole virus DoD ANTHRAX VACCINE, UNSPECIFIED 5 2003 319 complet ed HISTORICA L INFORMATI ON - FROM OTHER REGISTRY, Lot#: [id number] [facility] anthrax vaccine 5 2003 [id number] [facility] [employer] [facility] ([facility]) complet ed anthrax vaccine DoD ANTHRAX VACCINE, UNSPECIFIED 4 2002 319 complet ed HISTORICA L INFORMATI ON - FROM OTHER REGISTRY, Lot#: [id number] [facility] influenza virus vaccine, whole virus 0 2002 [id number] 16 Sanofi Pasteur ([facility]) complet ed influenza virus vaccine, whole virus [facility] anthrax vaccine 4 2002 [id number] 24 Emergent [employer] [facility] ([facility]) complet ed anthrax vaccine DoD ANTHRAX VACCINE, UNSPECIFIED 3 2002 319 complet ed HISTORICA L INFORMATI ON - FROM OTHER REGISTRY, Lot#: [id number] [facility] anthrax vaccine 3 2002 [id number] [employer] [facility] ([facility]) complet ed anthrax vaccine DoD VACCINIA (SMALLPOX) 2002 75 complet ed HISTORICA L INFORMATI ON - FROM OTHER REGISTRY, vaccinia (smallpox ) vaccine Lot#: [id number] Mfr: ANA LILIA-DALTON RST [facility] vaccinia (smallpox) vaccine 0 2002 [id number] 75 [employer] ([facility]) complet ed vaccinia (smallpox ) vaccine DoD ANTHRAX VACCINE, UNSPECIFIED 2 2002 319 complet ed HISTORICA L INFORMATI ON - FROM OTHER REGISTRY, Lot#: [id number] [facility] anthrax vaccine 2 2002 [id number] [facility] [employer] [facility] ([facility]) complet ed anthrax vaccine DoD ANTHRAX VACCINE, UNSPECIFIED 1 2002 319 complet ed HISTORICA L INFORMATI ON - FROM OTHER REGISTRY, anthrax vaccine Lot#: [id number] [facility] anthrax vaccine 1 2002 [id number] 24 [employer]gent [employer] [facility] ([facility]) complet ed anthrax vaccine DoD typhoid vaccine, parenteral, other than acetone-kille d, dried 0 2002 [id number] [facility] complet ed typhoid vaccine, parentera l, other than acetone-k illed, dried [facility] influenza virus vaccine, whole virus 0 2001 [id number] 16 Sanofi Pasteur ([facility]) complet ed influenza virus vaccine, whole virus DoD influenza virus vaccine, whole virus 0 2000 [id number] 16 Sanofi Pasteur ([facility]) complet ed influenza virus vaccine, whole virus DoD tuberculin skin test; purified protein derivative solution, intradermal 1 2000 Unknown, Provider [id number] Rolylynsey (CON) complet ed tuberculi n skin test; purified protein derivativ e solution, intraderm al [facility] influenza virus vaccine, whole virus 0 1999 16 () complet ed influenza virus vaccine, whole virus DoD HEP A, ADULT 2 1999 52 complet ed HISTORICA L INFORMATI ON - FROM OTHER REGISTRY, hepatitis A vaccine, adult dosage Lot#: [id number] Mfr: [employer] [facility] YELLOW FEVER LIVE 1999 37 complet ed HISTORICA L INFORMATI ON - FROM OTHER REGISTRY, yellow fever vaccine Lot#: [id number] Mfr: [facility] yellow fever vaccine 0 1999 [id number] [place] (CON) complet ed yellow fever vaccine DoD typhoid vaccine, parenteral, other than acetone-kille d, dried 0 1999 [id number] [place] (CON) complet ed typhoid vaccine, parentera l, other than acetone-k illed, dried DoD hepatitis A vaccine, adult dosage 2 1999 [id number] Merck (MSD) complet ed hepatitis A vaccine, adult dosage DoD HEP A, ADULT 1 1999 52 complet ed HISTORICA L INFORMATI ON - FROM OTHER REGISTRY, hepatitis A vaccine, adult dosage Lot#: [id number] Mfr: [employer] [facility] measles, mumps and rubella virus vaccine 0 1999 03 () Not Given measles, mumps and rubella virus vaccine DoD poliovirus vaccine, inactivated 0 1999 [id number] [place] (CON) complet ed polioviru s vaccine, inactivat ed DoD hepatitis A vaccine, adult dosage 1 1999 [id number] Merck (MSD) complet ed hepatitis A vaccine, adult dosage DoD tuberculin skin test; purified protein derivative solution, intradermal 1 1999 Unknown, Provider 96 () complet ed tuberculi n skin test; purified protein derivativ e solution, intraderm al [facility] MENINGOCOCCAL MPSV4 1999 32 complet ed HISTORICA L INFORMATI ON - FROM OTHER REGISTRY, meningoco ccal polysacch aride vaccine (MPSV4) Lot#: [id number] Mfr: [facility] TD(ADULT) UNSPECIFIED FORMULATION 1999 139 complet ed HISTORICA L INFORMATI ON - FROM OTHER REGISTRY, tetanus and diphtheri a toxoids, adsorbed, preservat yovana free, for adult use (2 Lf of tetanus toxoid and 2 Lf of diphtheri a toxoid) Lot#: [id number] Mfr: [facility] tetanus and diphtheria toxoids, adsorbed, preservative free, for adult use (2 Lf of tetanus toxoid and 2 Lf of diphtheria toxoid) 0 1999 [id number] [facility] ([facility] comple t ed tetanus and diphtheri a toxoids, adsorbed, preservat yovana free, for adult use (2 Lf of tetanus toxoid and 2 Lf of diphtheri a toxoid) [facility] influenza virus vaccine, whole virus 0 1999 [id number] [place] (CON) complet ed influenza virus vaccine, whole virus DoD meningococcal polysaccharid e vaccine (MPSV4) 0 1999 [id number] [place] (CON) complet ed meningoco ccal polysacch aride vaccine (MPSV4) [facility] tuberculin skin test; purified protein derivative solution, intradermal 1 1999 Unknown, Provider [id number] [place] (CON) complet ed tuberculi n [...] Source HEPATITI S B SURFACE ANTIGEN (HBsAg)- WH HEPATITIS B VIRUS SURFACE AG [PRESENCE] IN [...] Jun 05, 2024 01:17 PM Reporting Lab: [address] [address] Performing Lab: [address] [address] [facility] T-SPOT TB PANEL MYCOBACTER IUM TUBERCULOS IS [...] additional information , please refer to [email or web address] Q215 (This link is being provided for information al/ educational purposes only.) Test Performed by [facility], [facility], [address] [place] [address] Diego Marroquin M.D., Ph.D., Director of Laboratorie s , CLIA [id number] TEST PERFORMED AT: , Ordering Provider: ROSALES OLIVARES Report Released Date/Time: May 03, 2024 10:26 AM Reporting Lab: [address] [address] Performing Lab: [facility] [address] [address] [facility] T-SPOT TB PANEL MYCOBACTER IUM TUBERCULOS IS [...] additional information , please refer to [email or web address] Q215 (This link is being provided for information al/ educational purposes only.) Test Performed by [facility], [facility], [address] [place] [address] Diego Marroquin M.D., Ph.D., Director of Laboratorie s , CLIA [id number] TEST PERFORMED AT: , Ordering Provider: ROSALES OLIVARES Report Released Date/Time: May 03, 2024 10:26 AM Reporting Lab: [facility] [address] [facility] [address] Performing Lab: [facility] [address] [facility], [address] [place] [address] [facility] T-SPOT TB PANEL MYCOBACTER IUM TUBERCULOS IS [...] additional information , please refer to [email or web address]/FA Q215 (This link is being provided for information al/ educational purposes only.) Test Performed by [employer] [place], [facility], [address] [place] [address] Diego Marroquin M.D., Ph.D., Director of Laboratorie s , CLIA [id number] TEST PERFORMED AT: , Ordering Provider: ROSALES OLIVARES Report Released Date/Time: May 03, 2024 10:26 AM Reporting Lab: [facility] [address] [facility] [address] Performing Lab: [facility] [address] [address] [facility] T-SPOT TB PANEL MITOGEN STIMULATED GAMMA INTERFERON [...] additional information , please refer to [email or web address] Q215 (This link is being provided for information al/ educational purposes only.) Test Performed by [employer] [place], [facility], [address] [place] [address] Diego Marroquin M.D., Ph.D., Director of Laboratorie s , [place] [id number] TEST PERFORMED AT: , Ordering Provider: ROSALES OLIVARES Report Released Date/Time: May 03, 2024 10:26 AM Reporting Lab: [facility] [address] [facility] [address] Performing Lab: [facility] [address] [address] [facility] T-SPOT TB PANEL GAMMA INTERFERON NEGATIVE CONTROL [...] additional information , please refer to [email or web address] [email or web address] Q215 (This link is being provided for information al/ educational purposes only.) Test Performed by [employer] [place], [facility], [address] [place] [address] Diego Marroquin M.D., Ph.D., Director of Laboratorie s , CLIA [id number] TEST PERFORMED AT: , Ordering Provider: ROSALES OLIVARES Report Released Date/Time: May 03, 2024 10:26 AM Reporting Lab: [facility] [address] [facility] [address] Performing Lab: [facility] [address] MMRV (IGG) IMMUNE STATUS PANEL MEASLES [...] May 03, 2024 10:26 AM Reporting Lab: [facility] [address] [facility] [address] Performing Lab: [facility] [address] [facility] [address] [facility] MMRV (IGG) IMMUNE STATUS PANEL MUMPS VIRUS [...] May 03, 2024 10:26 AM Reporting Lab: [address] [address] Performing Lab: [facility] [address] [facility] [address] [facility] MMRV (IGG) IMMUNE STATUS PANEL RUBELLA VIRUS [...] May 03, 2024 10:26 AM Reporting Lab: [address] [address] Performing Lab: [facility] [address] [address] [facility] [place] MMRV (IGG) IMMUNE STATUS PANEL VARICELLA ZOSTER [...] May 03, 2024 10:26 AM Reporting Lab: [address] [address] Performing Lab: [address] [address] [facility] HEPATITI S B SURFACE ANTIBODY (HBsAb)- WH HEPATITIS B VIRUS SURFACE AB [PRESENCE] IN SERUM BY IMMUNOASSA Y Non Reactive 05/03 Specimen Type: SERUM No comment entered. Ordering Provider: ROSALES OLIVARES Report Released Date/Time: May 03, 2024 10:26 AM Reporting Lab: [facility] [address] [facility] [address] Performing Lab: [facility] [address] [facility] [address] [facility] Encounters Combined list of: 1) Encounters from Department of Veterans Affairs facilities going backup to the last 18 months, not all ID inpatient encounters are included; 2) Encounters from the Department of Defense facilities going backup to 280 months. Location Location Details Encounter Type Encounter Number Reason For Visit Attending Provider ADM Date DC Date Status Disposition Source [facility] OUTPATIENT [id number] upset stomach , diarrhe a, nausea, h/a GV_ANGELO ENG 10/19 Released w/o Limitations [employer] [place] [facility]Pulm onology Disease Cl) OUTPATIENT [id number] est$ SHIVA WEBB 03/05 Released w/o Limitations [place]Pu lmonolo gy Disease Cl) [place]Vences Primary Care) OUTPATIENT [id number] sleep problem SUSHIL SINGLETON 04/28 Released w/o Limitations [place]Po pe Primary Care) [place]) OUTPATIENT [id number] F/U for sleepin g problem s SUSHIL SINGLETON 05/01 Released w/o Limitations [place] [facility]Po pe Primary Care) [place] [facility]) OUTPATIENT [id number] Severe headach e, sore throat. SUSHIL SINGLETON 08/26 Released with Work/Duty Limitations [place] ([facility]Po [facility]) [place] [facility] Primary Care) OUTPATIENT [id number] Follow Up For Asthma SUSHIL SINGLETON 10/08 Released with Work/Duty Limitations [place] ([facility]Po [facility]) [place] ([facility] Primary [facility]) OUTPATIENT [id number] Muscle pain in right arm SUSHIL SINGLETON 10/20 Released w/o Limitations [place] ([facility]Po pe Primary Care) [place] ([facility]) OUTPATIENT [id number] Profile Update SUSHIL SINGLETON 12/16 Released with Work/Duty Limitations [place] ([facility]Po [facility]) [place] [facility]) OUTPATIENT [id number] Profile Renewal , Post MEB SUSHIL SINGLETON 04/08 Released w/o Limitations [place] ([facility]Po pe Primary [facility]) [place] ([facility] Primary [facility]) OUTPATIENT [id number] pha SHIVA MARROQUIN 05/05 Released w/o Limitations [place] ([facility]Po pe Primary Care) [place] [facility]Vences Flight Medicine) OUTPATIENT [id number] hearing shift DWIGHT HINKLE 05/10 Released w/o Limitations [place] ([facility])(Po pe Flight Medicin e) [place] ([facility])(Army Hearing Program) OUTPATIENT [id number] rt high freq loss [id number] ADALBERTO DENNISON 05/18 Released w/o Limitations [place] ([facility])(Ar my Hearing Program ) [place] ([facility]) OUTPATIENT [id number] Left riddhi neely/Elsa gaines SUSHIL SINGLETON 05/20 Released with Work/Duty Limitations [place] ([facility])(Po pe Primary Care) [place] ([facility])(Vences Flight Medicine) OUTPATIENT [id number] oh hearing CHIDI LUKE 07/13 Released w/o Limitations [place] [facility]Po pe Flight Medicin e) [place] [facility]Vences Primary Care) OUTPATIENT [id number] shots SUSHIL SINGLETON 07/28 Released w/o Limitations [place] ([facility]Po pe Primary Care) [place] [facility]Vences Primary Care) OUTPATIENT [id number] 4T for asthma , pain in R leg and lower back SUSHIL SINGLETON 02/03 Released with Work/Duty Limitations [place] [facility]Po pe Primary Care) [place] [facility]Pulm onology Disease Cl) OUTPATIENT [id number] PFT EVELIN FRIEND Al 02/08 Released w/o Limitations [place] [facility]Pu lmonolo gy Disease Cl) [facility](PHA Cell) OUTPATIENT [id number] new comers PHA MAMI CARRION 05/03 Released w/o Limitations [facility](P BARONE Cell) [facility](Opt ometry Services) OUTPATIENT [id number] needs rx MEMO DEONTE Eliana 05/09 Released w/o Limitations [facility](O ptometr y Service s) [facility](FP Rok I) TELE CONSULT [id number] AD states going to run out of asthma meds soon... decline d all offered appts STEENSTRYGENE 06/01 [facility](F P Rok I) [facility](FP Rok I) TELE CONSULT [id number] med refill STEENSTRYGENE 06/06 [facility](F P Rok I) [facility](FP Rok II) OUTPATIENT [id number] Shoulde r popping /sharp pain DONTA VENCES 06/20 Released with Work/Duty [employer](F P Rok II) [employer](FP Rok II) TELE CONSULT [id number] MRI results . LEVY JAUREGUI 06/29 Medical Group(F P Rok II) [employer](FP Rok II) OUTPATIENT [id number] Sharp pains in abdomen /back DONTA VENCES 09/08 Released w/o [employer](F P Rok II) [employer](FP Rok II) TELE CONSULT [id number] lab result RAMEZ FITZGERALD Martinez 09/09 [employer] Group(F P Rok II) [employer](FP Rok II) OUTPATIENT [id number] Fever,h eadache ,stomac h pain VENCES DONTA Nava 09/20 Sick at Home/Quarter s [employer](F P Rok II) [employer](FP Rok II) TELE CONSULT [id number] results from labs done yesterd ay AMILCARRAMEZ 09/21 [employer] Group(F P Rok II) [employer](FP Rok II) OUTPATIENT [id number] Sharp Crampin g abdomin al pains POPE DONTA Nava 09/22 Released w/o [employer](F P Rok II) [employer](FP Rok I) TELE CONSULT [id number] request from KAYLYNN Barrios 11/03 [employer](F P Rok I) [employer](FP Rok II) TELE CONSULT [id number] CON LEAVE [id number] RAMEZ FITZGERALD Martinez 11/13 [facility] [employer](F P Rok II) [employer](Phy sical Therapy) OUTPATIENT [id number] KRUPA COOK 12/06 Released w/o [employer](P hysical Therapy ) [employer](Phy sical Therapy) OUTPATIENT [id number] SPEEDY JIMENES 12/12 Released w/o [employer](P hysical Therapy ) [employer](Phy sical Therapy) OUTPATIENT [id number] SPEEDY JIMENES 12/14 Released w/o [employer](P hysical Therapy ) [facility] [employer](Phy sical Therapy) OUTPATIENT [id number] JUD WEBB 12/19 Released w/o [employer](P hysical Therapy ) [facility] [employer](Phy sical Therapy) OUTPATIENT [id number] JUD WEBB 12/21 Released w/o [employer](P hysical Therapy ) [facility] [employer](Phy sical Therapy) OUTPATIENT [id number] SPEEDY JIMENES 12/26 Released w/o [employer](P hysical Therapy ) [facility] [employer](Phy sical Therapy) OUTPATIENT [id number] JUD WEBB 12/28 Released w/o [employer](P hysical Therapy ) [facility] [employer](Phy sical Therapy) OUTPATIENT [id number] JUD WEBB 01/02 Released w/o [employer](P hysical Therapy ) [facility] [employer](Phy sical Therapy) OUTPATIENT [id number] JUD WEBB 01/04 Released w/o [employer](P hysical Therapy ) [facility] [employer](Phy sical Therapy) OUTPATIENT [id number] KRUPA COOK 01/17 Released w/o [employer](P hysical Therapy ) [employer](FP Rok I) TELE CONSULT [id number] Needing ref KAYLIE CRESPO 01/23 [facility] Group(F P Rok I) [employer](FP Rok II) OUTPATIENT [id number] profile update for asthma DONTA VENCES 02/15 Released with [employer](F P Rok II) [employer](Phy sical Therapy) OUTPATIENT [id number] KRUPA COOK 02/26 Released w/o [employer](P hysical Therapy ) [employer](FP Rok II) OUTPATIENT [id number] RILO for medical board DONTA VENCES 03/23 Released w/o [employer](F P Rok II) [employer](FP Rok II) OUTPATIENT [id number] césaro DONTA VENCES 04/10 Released w/o [employer](F P Rok II) [employer](PHA Cell) OUTPATIENT [id number] Annual PHA JOVITA ROSA 06/06 Released w/o [employer](P BARONE Cell) [employer](FP Rok II) TELE CONSULT [id number] AD states went to ER today [facility] for a fall and hitting his head. Needs F/U LAURA REGAN 09/11 [facility] [employer](F P Rok II) [employer](FP Rok II) OUTPATIENT [id number] state back pain down to right leg DONTA VENCES 01/28 Released w/o [employer](F P Rok II) [employer](FP Rok II) TELE CONSULT [id number] Renewal of referra l to ARANZA Allen 01/28 [facility] [employer](F P Rok II) [facility] [employer](FP Rok I) TELE CONSULT [id number] RX is not working for back pain ..MRI results in [place] 1530 LEVY JAUREGUI 01/31 [facility] [employer](F P Rok I) [facility] [employer](FP Rok II) TELE CONSULT [id number] AD states needs refill for Vicadin . 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 ...[phone] LAURA REGANAN 05/01 [employer](F P Rok II) [employer](FP Rok II) OUTPATIENT [id number] f/u for surgery can have two more weeks conleav e per Lt [employer] DONTA Brothers 05/02 Released w/o [employer](F P Rok II) [employer](Den ninfa Services) DENTAL [id number] adv pro ENEIDA VALENCIA 05/28 Released w/o [employer](D ental Service s) [employer](Den ninfa Services) DENTAL [id number] sc/rp ENEIDA VALENCIA 05/30 Released w/o [employer](D ental Service s) [employer]( Rok I) TELE CONSULT [id number] Appt resched RASTA Woodward 06/04 [employer](F P Rok I) [employer](FP Rok I) OUTPATIENT [id number] CYNDEE DENNY 06/11 Released w/o [employer](F P Rok I) [employer]( Rok I) OUTPATIENT [id number] ear pain, runny nose, cough, sneezin g, sore throat CYNDEE RIBEIRO 10/28 Released w/o [employer](F P Rok I) [employer]( Rok I) TELE CONSULT [id number] throat culure results ...[phone] RASTA WESTBROOK 10/29 [employer] Group(F P Rok I) [employer](FP Rok I) TELE CONSULT [id number] pt c/o of coughin g sneezin g and sore throat 1 week... .1571 RASTA WESTBROOK 12/27[facility] II) OUTPATIENT [id number] Throat Culture AMAURI SALDANA 12/27 Released w/o Limitations [facility] I) TELE CONSULT [id number] AD lower abdomen pain, poss hernia. 1571 RASTA WESTBROOK 02/04 [facility] I) OUTPATIENT [id number] AD low abd pain/po ss hernia SANDRO KHAN 02/04 Released w/o Limitations [facility] I) [facility] I) TELE CONSULT [id number] rad results SANDRO KHAN 02/05[facility] I) [facility] I) TELE CONSULT [id number] needs appt SANDRO KHAN 02/24[facility] I) [facility] I) TELE CONSULT [id number] AD c/o poss hernia, ultraso und neg. still in lot of pain. RASTA WESTBROOK 02/27 [facility] I) OUTPATIENT [id number] poss hernia MEMO AUSTIN 02/28 Released w/o Limitations [facility] I) OUTPATIENT [id number] SANDRO TORRES 03/03 Released w/o Limitations [facility] [address] [place] [address]([facility] II) TELE CONSULT [id number] pt needs rererra l for pulmono logy... appts tomorro w..[phone] RASTA WESTBROOK 04/02[facility]( P Rok II) [facility] I) TELE CONSULT [id number] pulmono logy referal for RILO [phone] RASTA WESTBROOK 04/08 Medical Group(F P Rok I) [employer](FP Rok I) TELE CONSULT [id number] pt has questio n on profile ....... .[phone] SANDRO KHAN 04/30 [employer](F P Rok I) [employer](FP Rok I) OUTPATIENT [id number] shootin g pain down r arm\ SANDRO KHAN 05/05 Released w/o [employer](F P Rok I) [facility] [employer](Phy sical Therapy) OUTPATIENT [id number] OSCAR PERRY 05/30 Released w/o [employer](P hysical Therapy ) [employer](FP Rok I) TELE CONSULT [id number] pt wants results on mri.... ....[phone] RASTA WESTBROOK 06/04 [facility] [employer](F P Rok I) [employer](FP Rok I) OUTPATIENT [id number] arch pain SANDRO KHAN 06/11 Released w/o [employer](F P Rok I) [employer](PHA Cell) OUTPATIENT [id number] PHA LOUISA PUENTE 06/13 Released w/o [employer](P BARONE Cell) [employer](FP Rok II) OUTPATIENT [id number] lower back/sh oulder pain KEREN MAO 07/16 Released w/o [employer](F P Rok II) [employer](FP Rok I) TELE CONSULT [id number] pt has questio n on profile ....... ....[phone] SANDRO KHAN 08/06 [facility] [employer](F P Rok I) [facility] [employer](FP Rok I) TELE CONSULT [id number] AD inpt admissi on- schedul ed procedu [place] Carmona 10/02 [facility] Group(F P Rok I) [employer](FP Rok I) OUTPATIENT [id number] con leave SANDRO KHAN M 10/10 Released w/o [employer](F P Rok I) [facility] Group([facility] ROK 2) OUTPATIENT [id number] Severe problem s SANDRO Hathaway 01/02 Released w/o [employer]([facility] ROK 2) Medical Group([facility] ROK 2) TELE CONSULT [id number] RILO consult SANDRO KHAN M 03/30 Medical Group([facility] ROK 2) [facility] Group([facility] Team Z) OUTPATIENT [id number] sweatbeverley neelyjill ed, JAMES W 04/06 Released w/o [employer]([facility] Team Z) Medical Group([facility] ROK 2) TELE CONSULT [id number] pt needs referra l for cpap machine and dr. len bueno s surgica l hospita l.. GENE WEISS 04/29 Medical Group([facility] ROK 2) Medical Group([facility] ROK 2) TELE CONSULT [id number] pt needs a call back monique steiner.. [phone] MICHELLE LIMA 06/25 Medical Group([facility] ROK 2) Medical Group([facility] ROK 2) OUTPATIENT [id number] meb issues SANDRO KHAN M 07/13 Released w/o [employer]([facility] ROK 2) Medical Group([facility] ROK 2) TELE CONSULT [id number] pt is request ing profile change. ..[phone] JIHAN ESPINAL 07/17 Medical Group([facility] ROK 2) Medical Group(War rior Operation al Medicine) TELE CONSULT [id number] CARLYN Dai 07/21 Medical Group(W arrior Operati onal Medicin e) Medical Group(PHA Cell) OUTPATIENT [id number] PHA CALE PUENTEGUERO 07/27 Released w/o [employer](P BARONE Cell) [facility] ROK 3) TELE CONSULT [id number] Special ty referra l/Repla cement of ARANZA Lema 07/27 Medical Group([facility] ROK 3) [facility] ROK 2) TELE CONSULT [id number] pt needs renewed referra l for [facility], nurse faxed to [phone] GENE WEISS 08/04 Medical Group([facility] ROK 2) [facility] 2) OUTPATIENT [id number] f/u depress ion SANDRO KHAN 08/04 Released w/o Limitations [facility] ROK 2) Medical [facility] RO 2) OUTPATIENT [id number] cough,c ongesti on,ear ache,so re throat SANDRO KHAN 09/21 Released w/o Limitations [facility] ROK 2) [facility] 2) TELE CONSULT [id number] Notes Entered by: BEATRIZ AMIN 12 Oct 2011 1143 ------- ------- ------- ------- -- AC. Galo from [facility] Therapy is request ing more visits on pt referra GENE Rodríguez 10/12 Medical [facility] RO 2) Medical [facility] 2) OUTPATIENT [id number] R knee pain x1wk CYNDEE SHERIDAN 11/05 Released w/o Limitations Medical [facility] ROK 2) Medical [facility] 2) TELE CONSULT [id number] Notes Entered by: Jj SHERIDAN 08 Nov [id number] ------- ------- ------- ------- -- Xray results MAMI FLOREZ 11/08 Medical Group([facility] ROK 2) Medical [facility] 2) OUTPATIENT [id number] initial VAS consult SANDRO KHAN 11/15 Released w/o Limitations [facility] Medical Group([facility] ROK 2) [facility] Group([facility] 2) TELE CONSULT [id number] Notes Entered by: DWIGHT TUTTLE 19 Nov 2011 1008 ------- ------- ------- ------- -- AC. Pt is wanting to know if he can get somethi ng semaj martin then vicodin 10mg GENE WEISS 11/18 Medical [facility] ROK 2) [facility] Medical [facility] 2) OUTPATIENT [id number] Vasecto my SANDRO KHAN 12/08 Released w/o Limitations Medical [facility] ROK 2) [facility] Medical [facility] 2) TELE CONSULT [id number] Notes Entered by: BEATRIZ AMIN 15 Dec 2011 0811 ------- ------- ------- ------- -- AC. Pt needing to discuss profile ...[phone] GENE WEISS 12/14 Medical Group([facility] RO 2) [facility] Medical Group([facility] al [facility]) TELE CONSULT [id number] Notes Entered by: SANDRO SOLITARIO 18 Dec 2011 1706 ------- ------- ------- ------- -- Path results TRINA NEGRON 12/17 Medical Group(W arrior Operati onal Medicin e) Medical Group([facility] 2) TELE CONSULT [id number] Notes Entered by: DWIGHT TUTTLE 22 Dec 2011 0842 ------- ------- ------- ------- -- AC. Pt c/o flu symptom s x1day.. .[phone] CYNDEE SHERIDAN 12/21 Medical Group([facility] 2) Medical [facility] 2) OUTPATIENT [id number] swollen gland in throat, cough, diarrhe a CYNDEE SHERIDAN 12/21 Released w/o Limitations Medical [facility] 2) [facility] 2) TELE CONSULT [id number] Notes Entered by: BEATRIZ AMIN 12 Jan 2012 1150 ------- ------- ------- ------- -- AC. Pt needing refill on Lortab. ..[phone] GENE WEISS 01/11 Medical [facility] 2) [facility] 2) TELE CONSULT [id number] Notes Entered by: SELWYN CHAVARRIA 25 Jan 2012 09 ------- ------- ------- ------- -- AC. Pt needs updated referra l to has appt 19June. ..[phone] RAMEZ FITZGERALD 01/24[facility] 2) [address] [place] [address]([facility] 2) TELE CONSULT [id number] Notes Entered by: FAYE RIVER 05 Feb 2012 0829 ------- ------- ------- ------- -- Post CLEMENCIA Riley 02/[address] [place] [address]([facility] ROK 2) Medical Group([facility] Operation al Medicine) TELE CONSULT [id number] Notes Entered by: SANDRO SOLITARIO 08 Feb 2012 1130 ------- ------- ------- ------- -- Lab results KRUPA FRIEND 02/07 Referred for Appointment Medical Group(W arrior Operati onal Medicin e) [facility] Group([facility] RO 2) TELE CONSULT [id number] Notes Entered by: DWIGHT TUTTLE 09 Feb 2012 0818 ------- ------- ------- ------- -- AC. Needs new 469 for MEB. Also needs refill for Loratab and Flexeri l...[phone] ANDINO 02/08 Medical Group([facility] 2) [facility] 2) TELE CONSULT [id number] Notes Entered by: KATE SMALLWOOD 19 Feb 2012 0755 ------- ------- ------- ------- -- AC. Pt wants to discuss Lortab/ pt doesn't want to be on it anymore and pt states SONAM GARCIA 02/18 Medical Group([facility] 2) [facility] 2) OUTPATIENT [id number] stu hip pain x3wks CYNDEE SHERIDAN 02/28 Released w/o [employer]itations [facility] ROK 2) [facility] ROK 3) TELE CONSULT [id number] Notes Entered by: KATE SMALLWOOD 05 Apr 2012 0752 ------- ------- ------- ------- -- AC. Pt needs retirem ent physica l by 5sept, no appt avail in time... JOSEEKAPIL SOLARES Eliana 04/05 Medical Group([facility] ROK 3) Medical Group([facility] RO 2) OUTPATIENT [id number] retirem ent moon lind final out apr.20 SAJANYEYO MENENDEZ Al 04/07 Released w/o [employer]itations [facility] ROK 2) Medical Group([facility] 2) TELE CONSULT [id number] Notes Entered by: DESTIN ACUNA 03 May 2012 1449 ------- ------- ------- ------- -- Network Results -Physic al Therapy 04/27 CYNDEE SHERIDAN 05/03 Medical Group([facility] ROK 2) Medical Group([facility] RO 2) OUTPATIENT [id number] cough/s ore throat x4days CYNDEE SHERIDAN 06/15 Released w/o Limitations [facility] ROK 2) Medical Group(War rior Operation al Medicine) TELE CONSULT [id number] Notes Entered by: MELL SILVESTRE 22 Aug 2012 1018 ------- ------- ------- ------- -- Network Results -Urgent Care 08/28 MEGAN COX 08/22 Medical Group(W arrior Operati onal Medicin e) Medical Group(Non -Active Duty [employer]) OUTPATIENT [id number] back spasms and pain down leg getting worse VANE TONY 11/23 Released w/o Limitations [facility](N on-Acti ve Duty [employer]) [facility] Group(Non -Active Duty [employer]) OUTPATIENT [id number] deep cough, hurts chest SHIVA HARLEY 01/18 Released w/o Limitations [facility](N on-Acti ve Duty [employer]) [facility] Group(Non -Active [employer]) TELE CONSULT [id number] Notes Entered by: ENEIDA HENNING 30 Jan 2014 1702 ------- ------- ------- ------- -- Xray results --DIPIKA Alamo 01/30 Medical Group(N on-Acti ve Duty [employer]) [facility] Medical Group(Non -Active Duty [employer]) OUTPATIENT [id number] fol-up/ cough-n ow so bad-tricia es almost vomiti SHIVA HARLEY 02/06 Released w/o Limitations [facility] Medical Group(N on-Acti ve Duty [employer]) [facility] Medical Group(Non -Active Duty [employer]) TELE CONSULT [id number] Notes Entered by: PETEY COLON 20 Feb 2014 1301 ------- ------- ------- ------- -- Medicat ion request x 3-DIPIKA Alamo 02/20 Medical Group(N on-Acti ve Duty [employer]) [facility] Medical Group(Non -Active Duty [employer]) TELE CONSULT [id number] Notes Entered by: HARSHIL HAMILTON 08 Mar 2014 0715 ------- ------- ------- ------- -- Triage DIPIKA VAUGHN 03/08 Medical Group(N on-Acti ve Duty [employer]) [facility] Medical Group(Non -Active Duty [employer]) OUTPATIENT [id number] cough, congest ion ALEX ATKINS 03/08 Released w/o Limitations [facility](N on-Acti ve Duty [employer]) [facility] Medical Group(Non -Active Duty [employer]) OUTPATIENT [id number] back pain SHIVA HARLEY 03/12 Released w/o Limitations [facility] Medical Group(N on-Acti ve Duty [employer]) [facility] Medical Group(Non -Active Duty [employer]) TELE CONSULT [id number] Notes Entered by: ALEKSANDRA BAILEY 20 Mar 2014 0944 ------- ------- ------- ------- -- Network Results - Allergy Results 03/19/14 SHIVA HARLEY 03/20 [facility] Medical Group(N on-Acti ve Duty [employer]) [facility] Medical Group[facility] [id number] ASTHMA LISA PARRISHN 03/20 Released w/o Limitations [facility] Medical Group(Non -Active Duty [employer]) TELE CONSULT [id number] Notes Entered by: ALEKSANDRA BAILEY 04 Apr 2014 0657 ------- ------- ------- ------- -- Network Results - MRI Results 04/03/14 DIPIKA VAUGHN 04/04 Medical Group(N on-Acti ve Duty [employer]) [facility] Medical Group(Non -Active Duty [employer]) TELE CONSULT [id number] Notes Entered by: ELMER LIRIANO 09 Apr 2014 1551 ------- ------- ------- ------- -- Notes Receive d SHIVA HARLEY 04/09 Medical Group(N on-Acti ve Duty [employer]) [facility] Medical Group(Non -Active Duty [employer]) TELE CONSULT [id number] Notes Entered by: ADA OSWALD 15 May 2014 1317 ------- ------- ------- ------- -- Network Results - Allergy F/U 05/15/20 SHIVA HERCULES 05/15 Medical Group(N on-Acti ve Duty [employer]) [facility] Medical Group(Non -Active Duty [employer]) TELE CONSULT [id number] Notes Entered by: DERECK MESSER 22 May 2014 0710 ------- ------- ------- ------- -- DIPIKA TATE 05/22 Medical Group(N on-Acti ve Duty [employer]) [facility] Medical Group(Non -Active Duty [employer]) TELE CONSULT [id number] Notes Entered by: ADA OSWALD 15 Jun 2014 1359 ------- ------- ------- ------- -- Network Results - Allergy F/U 014 ALEX ATKINS 06/15 Medical Group(N on-Acti ve Duty [employer]) [employer] [facility](Non -Active Duty [employer]) TELE CONSULT [id number] Notes Entered by: Al ANDERSON 06 Sep 2014 1013 ------- ------- ------- ------- -- REF-upd DIPIKA Armstrong 09/06 [facility] Group(N on-Acti ve Duty [employer]) [facility] Medical Group(Non -Active Duty [employer]) TELE CONSULT [id number] Notes Entered by: Martinez VILLEDA 12 Sep 2014 0711 ------- ------- ------- ------- -- Network results - lab 015 ANGELA WELLER 09/12 Medical Group(N on-Acti ve Duty [employer]) [facility] Medical Group(Non -Active Duty [employer]) TELE CONSULT [id number] Notes Entered by: WILTON SHANE 14 Sep 2014 1341 ------- ------- ------- ------- -- Network Results - Allergy - 015 ALEX ATKINS 09/14 Medical Group(N on-Acti ve Duty [employer]) [employer] [facility](Non -Active Duty [employer]) OUTPATIENT [id number] sore throat, congest ion, sinus pressur BHAVIN Chou 09/24 Released w/o Limitations [employer] [facility](N on-Acti ve Duty [employer]) [employer] [facility](Non -Active Duty [employer]) TELE CONSULT [id number] Notes Entered by: Martinez VALLE 15 Jan 2015 0812 ------- ------- ------- ------- -- NETWORK RESULTS - ALLERGY F/U 01/14/15 ANGELA WELLER 01/15 Medical Group(N on-Acti ve Duty [employer]) [employer] [facility](Non -Active Duty [employer]) TELE CONSULT [id number] Notes Entered by: PETEY COLON 04 Feb 2015 1045 ------- ------- ------- ------- -- Fred- DIPIKA Cardona 02/04 Medical Group(N on-Acti ve Duty [employer]) [employer] [facility](Non -Active Duty [employer]) TELE CONSULT [id number] Notes Entered by: PETEY COLON 07 Mar 2015 1340 ------- ------- ------- ------- -- Micare- referra DIPIKA Latham 03/07 Medical Group(N on-Acti ve Duty [employer]) [employer] [facility](Non -Active [employer]) OUTPATIENT [id number] Severe sinus and abdomin al pain. ANGELA WELLER 04/18 Released w/o Limitations [facility] Group(N on-Acti ve Duty [employer]) [facility] Medical Group(Non -Active Duty [employer]) TELE CONSULT [id number] Notes Entered by: ANGELA WELLER 25 Apr 2015 1659 ------- ------- ------- ------- -- APPLE Fernandez 04/25 Medical Group(N on-Acti ve Duty [employer]) [employer] [facility](Non -Active [employer]) TELE CONSULT [id number] Notes Entered by: ANGELA WELLER 09 May 2015 1622 ------- ------- ------- ------- -- DIPIKA Qiu 05/09 [facility](N on-Acti ve Duty [employer]) [facility] e) TELE CONSULT [id number] Notes Entered by: WILTON SHANE 05 Jul 2015 1039 ------- ------- ------- ------- -- Network Results - Allergy F/U - 5 CALDERON TAMANDREEA Owens 07/05 [facility](B lue) [facility] e) OUTPATIENT [id number] Notes Entered by: ELMER LIRIANO 17 Oct 2015 0845 ------- ------- ------- ------- -- Sore throat Walk in DIOR BLUNT 10/16 Released w/o Limitations [facility](B lue) [facility] e) OUTPATIENT [id number] Severe lower back/pe lvic pain CYNDEE TAM 12/17 Released w/o Limitations [facility](B lue) [facility] e) OUTPATIENT [id number] back f/u CALDERON TAMANDREEA Owens 01/19 Released w/o Limitations [facility](B lue) [facility] e) OUTPATIENT [id number] Severe abdomin al pain/di arrhea for the past three days. VANE TONY 02/06 Released w/o Limitations [facility](B lue) [facility] e) OUTPATIENT [id number] CYNDEE TAM 03/05 Released w/o Limitations [employer](B lue) [facility] e) OUTPATIENT [id number] f/u shoulde r CYNDEE TAM 03/26 Released w/o Limitations [employer](B lue) [facility](EFM P Medical Clearance ) TELE CONSULT [id number] JUAN MANUEL COON 06/16 [facility](E [facility] Medical Yisel ce) [facility] e) TELE CONSULT [id number] Notes Entered by: JUAN WEBB 05 Aug 2016 0758 ------- ------- ------- ------- -- Micare: Medicat LONNIE Witt 08/05 [facility](B lue) [facility] e) TELE CONSULT [id number] Notes Entered by: DWIGHT NGUYEN 26 Aug 2016 0817 ------- ------- ------- ------- -- Medicat ion refill LONNIE HIRSCH R 08/26 [facility](B lue) [facility] e) TELE CONSULT [id number] Notes Entered by: AURELIO ALVAREZ 26 Aug 2016 1629 ------- ------- ------- ------- -- CLOSED MRI ( ) LONNIE HIRSCH 08/26 [facility] e) OUTPATIENT [id number] Headach e/Neck Pain for 4 days VANE TONY 09/22 Released w/o Limitations [facility](B lue) [facility] e) OUTPATIENT [id number] Migrain es, earache ROEL VILLEDA 09/25 Released w/o Limitations [facility](B lue) [facility] e) OUTPATIENT [id number] f/u migrain es LONNIE HIRSCH 09/28 Released w/o Limitations [facility](B lue) [facility] e) OUTPATIENT [id number] Sinus pressur e, headach e, cold sweats, fever VANE TONY 10/22 Released w/o Limitations [facility](B lue) [facility] e) TELE CONSULT [id number] Notes Entered by: DWIGHT NGUYEN 09 Dec [id number] ------- ------- ------- ------- -- med refill - HARSHIL Gardner 12/09 Referred for Appointment [facility](B lue) [facility] e) TELE CONSULT [id number] Notes Entered by: DWIGHT NGUYEN 23 Dec 2016 0800 ------- ------- ------- ------- -- Med refill - JUD Valencia 12/23 Other Not Elsewhere Classified [employer]([facility]) [facility](Non -Active Duty [employer]) TELE CONSULT [id number] Notes Entered by: CAN CAR 03 Feb 2017 0832 ------- ------- ------- ------- -- NETWORK RESULTS - OPHTHAL MOLOGY 10/16/16 YESENIA MARIE 02/03 [facility](N on-Acti ve Duty [employer]) [facility](Non -Active Duty [employer]) TELE CONSULT [id number] Notes Entered by: ZACHERY REED 03 Feb 2017 0900 ------- ------- ------- ------- -- NETWORK RESULTS - ANESTHE SIOLOGY 09/28/16 YESENIA MARIE 02/03 [facility](N on-Acti ve Duty [employer]) [facility](Fli ght Medicine [employer]) OUTPATIENT [id number] pre-rafa cement ANGELA COLLIER 04/21 Released w/o Limitations [facility](F light Medicin e [employer]) [facility](EFM P Medical Clearance ) TELE CONSULT [id number] JUAN MANUEL COON 10/07 Other Not Elsewhere Classified [employer](E P Medical Yisel ce) [facility] Encounter [id number] 11/22 [facility] Encounter [id number] 12/01 [facility] OFFICE O/P NEW LOW 30 MIN [id number] Diagnos is: ICD-10- CM Z02.89 Encount er for other adminis trative examBLADIMIR Vivas CE 05/03 [facility]P EST MOD 30 MIN [id number] Diagnos is: ICD-10- CM Z02.89 Encount er for other adminis trative examBLADIMIR Vivas CE 06/05 [facility] Outpatient Encounter [id number] 08/30 [facility] Procedures Combined list of: 1) Procedures from Department of Veterans Affairs facilities going back up to thelast 18 months, not all ID non-surgical procedures are included; 2) All procedures from the Department of Defense facilities. Procedure Procedure Type Code Date Perfomer Comments Sourc e Health And Behav A e mt Each 15 Min Tynan e ment Health And Behav Assessmt Each 15 Min Reassessment 73437 2018 JUAN MANUEL COON [facility] Threshold Audiogram (Pure Tone) Automated Threshold Audiogram (Pure Tone) Automated 0208T [address] Supervised Injection Intramuscular Supervised Injection Intramuscular 88225 2016 ROEL VILLEDA Injection, ketorolac tromethamine, per 15 mg 2016 ROEL VILLEDA Fiberoptic Laryngoscopy Flexible (diagnostic) Fiberoptic Laryngoscopy Flexible (diagnostic) 32988 2013 FARHEEN PARRISH [facility] Surgery Of Male Genitalia Vasectomy Surgery Of Male Genitalia Vasectomy 75076 2011 SANDRO KHAN [facility] Non-Physician Phone Call To Patient/Provider Brief (5-10min) Non-Physician Phone Call To Patient/Provider Brief (5-10min) 66156 2009 RASTA WESTBROOK [facility] Foot, arch support, removable, premolded, longitudinal, each 2009 OSCAR PERRY [employer] Coordinator Educ Orthotics Training Additional 15 Minutes 2009 OSCAR PERRY [facility] Physical Medicine Physical Therapy Evaluation Physical Medicine Physical Therapy Evaluation 66190 2009 OSCAR PERRY [facility] Non-Physician Phone Call To Pt/Provider Intermed (11-20 min) Non-Physician Phone Call To Pt/Provider Intermed (11-20 min) 90355 2009 RASTA WESTBROOK [facility] Non-Physician Phone Call To Patient/Provider Brief (5-10min) Non-Physician Phone Call To Patient/Provider Brief (5-10min) 94004 2009 RASTA WESTBROOK [facility] Physical Medicine Physical Therapy Re-Evaluation Physical Medicine Physical Therapy Re-Evaluation 73603 2007 KRUPA COOK [facility] Pulmonary Function Tests Pulmonary Function Tests 92982 2007 DONTA VENCES [facility] Physical Medicine Physical Therapy Re-Evaluation Physical Medicine Physical Therapy Re-Evaluation 58924 2007 KRUPA COOK [facility] Physical Therapy: ___ Se ion Segments, 15 Minutes Each Physical Therapy: ___ Session Segments, 15 Minutes Each 13854 2007 JUD WEBB ONE ON ONE SUPERVISION OF SHOULDER EX'S BY LOAN ASSOCIATE x18MIN [facility] Physical Therapy: ___ Se ion Segments, 15 Minutes Each Physical Therapy: ___ Session Segments, 15 Minutes Each 20381 2007 JUD WEBB ONE ON ONE SUPERVISION OF SHOULDER EX'S BY [facility] x20MIN [facility] Physical Therapy: ___ Se ion Segments, 15 Minutes Each Physical Therapy: ___ Session Segments, 15 Minutes Each 66776 2007 JUD WEBB ONE ON ONE SUPERVISION OF SHOULDER EX'S BY LOAN ASSOCIATE x20MIN [facility] Physical Therapy: ___ Se ion Segments, 15 Minutes Each Physical Therapy: ___ Session Segments, 15 Minutes Each 68440 2007 SPEEDY JIMENES ONE ON ONE SUPERVISION OF SHOULDER EX'S BY [facility] X20MIN [facility] Physical Therapy: ___ Se ion Segments, 15 Minutes Each Physical Therapy: ___ Session Segments, 15 Minutes Each 46793 2007 JUD WEBB ONE ON ONE SUPERVISION OF SHOULDER EX'S BY LOAN ASSOCIATE x20MIN [facility] Physical Therapy: ___ Se ion Segments, 15 Minutes Each Physical Therapy: ___ Session Segments, 15 Minutes Each 59446 2007 JUD WEBB ONE ON ONE SUPERVISION OF SHOULDER EX'S BY [facility] x20MIN [facility] Physical Therapy: ___ Se ion Segments, 15 Minutes Each Physical Therapy: ___ Session Segments, 15 Minutes Each 71530 2007 SPEEDY JIMENES ONE ON ONE SUPERVISION OF SHOULDER EX'S BY TECH X20MIN [facility] Physical Therapy: ___ Se ion Segments, 15 Minutes Each Physical Therapy: ___ Session Segments, 15 Minutes Each 24702 2007 SPEEDY JIMENES ONE ON ONE SUPERVISION OF SHOULDER EX'S BY TECH X20MIN [facility] Physical Medicine Physical Therapy Evaluation Physical Medicine Physical Therapy Evaluation 98253 2007 KURPA COOK ECG 12-Lead ECG 12-Lead 91436 2007 DONTA VENCES [employer] Fitting Monofocals (Not For Aphakia) [employer] Fitting Monofocals (Not For Aphakia) 58964 2006 DEONTE HAMPTON Determination Of Refractive State Determination Of Refractive State 37533 2006 DEONTE HAMPTON Ophthalmological New Patient Start Comprehensive Care Ophthalmological New Patient Start Comprehensive Care 82344 2006 DEONTE HAMPTON Screening Test Of Visual Acuity, Quantitative, Bilateral Screening Test Of Visual Acuity, Quantitative, Bilateral 91153 2006 MAMI CARRION Audiogram (Screening) Audiogram (Screening) 06981 2006 MAMI CARRION Pulmonary Function Tests Flow Volume Loop Pulmonary Function Tests Flow Volume Loop 48127 2006 EVELIN FRIEND Spirometry Post-bronchodilator Spirometry Post-bronchodilator 85912 2006 EVELIN FRIEND Spiromet Rec Pt Init Per 30 Days Physician Review Interpret Spiromet Rec Pt Init Per 30 Days Physician Review Interpret 02784 2006 EVELIN FRIEND Influenza Split Virus Vacc Age 3+ Years IM Preservative Free 2005 KARL VELASQUEZ Immunization Administration One Vaccine Immunization Administration One Vaccine 62669 2005 KARL VEALSQUEZ Threshold Audiogram (Pure Tone) Threshold Audiogram (Pure Tone) 07578 2005 CHIDI LUKE Evoked Response Audiometry Comprehensive Evoked Response Audiometry Comprehensive 62773 2005 ADALBERTO DENNISON Comprehensive Audiometry Comprehensive Audiometry 65624 2005 ADALBERTO DENNISON [facility] Audiologic Impedance Testing Audiologic Impedance Testing 57862 2005 ADALBERTO DENNISON [facility] Acoustic Reflex Testing 102005 ADALBERTO DENNISON [facility] Pulse Oximetry Pulse Oximetry 23547 2005 JACQUELINE PRUETT [facility] HEALTH AND BEHAVIOR ASSESS (EG, HEALTH-FOC CLIN INTERVIEW, BEHAVIORAL OBSERVATIONS, PSYCHOPHYSICOLOGICAL MON, HEALTH-ORIENTED QUESTIONNAIRES), EACH 15 MIN [id number] WITH THE PATIENT; RE-ASSESS 2018 [facility] PURE TONE AUDIOMETRY (THRESHOLD), AUTOMATED; AIR ONLY 2017 [facility] THERAPEUTIC, PROPHYLACTIC, OR DIAGNOSTIC INJECTION (SPECIFY SUBSTANCE OR DRUG); SUBCUTANEOUS OR INTRAMUSCULAR 2016 [facility] LARYNGOSCOPY, FLEXIBLE; DIAGNOSTIC 2013 [facility] RESPIRATORY FLOW VOLUME LOOP 2006 [facility] INFLUENZA VIRUS VACCINE, TRIVALENT (IIV3), SPLIT VIRUS, PRESERVATIVE FREE, 0.5 ML DOSAGE, FOR INTRAMUSCULAR USE 2005 [facility] PURE TONE AUDIOMETRY (THRESHOLD); AIR ONLY 2005 [facility] AUDITORY EVOKED POTENTIALS FOR EVOKED RESPONSE AUDIOMETRY AND/OR TESTING OF THE CENTRAL NERVOUS SYSTEM; COMPREHENSIVE 2005 [facility] SCREENING TEST OF VISUAL ACUITY, QUANTITATIVE, BILATERAL 2005 [facility] NONINVASIVE EAR OR PULSE OXIMETRY FOR OXYGEN SATURATION; SINGLE DETERMINATION 2005 [facility] TOBACCO USE CESSATION INTERVENTION, COUNSELING (COPD, CAP, CAD, ASTHMA) (DM) (PV) 2004 [facility] SIMPLE REPAIR OF SUPERFICIAL WOUNDS OF SCALP, NECK, AXILLAE, EXTERNAL GENITALIA, TRUNK AND/OR EXTREMITIES (INCLUDING HANDS AND FEET); 2.5 CM OR LESS 2004 [facility] BRONCHOSPASM PROVOCATION EVALUATION, [place] [address], WITH ADMINISTERED AGENTS (EG, ANTIGEN[S], COLD AIR, METHACHOLINE) 2004 [facility] NONINVASIVE EAR OR PULSE OXIMETRY FOR OXYGEN SATURATION; SINGLE DETERMINATION 2004 [facility] PATIENT-INITIATED SPIROMETRIC RECORDING PER 30-DAY PERIOD OF TIME; REVIEW AND INTERPRETATION ONLY BY A PHYSICIAN OR OTHER QUALIFIED HEALTH METAL BONDING ASSEMBLER 2004 [facility] SCREENING TEST OF VISUAL ACUITY, QUANTITATIVE, BILATERAL 2003 [facility] ACOUSTIC REFLEX TESTING; DECAY 2001 [facility] SIMPLE REPAIR OF SUPERFICIAL WOUNDS OF SCALP, NECK, AXILLAE, EXTERNAL GENITALIA, TRUNK AND/OR EXTREMITIES (INCLUDING HANDS AND FEET); 2.5 CM OR LESS 2000 [facility] LAPAROSCOPIC APPENDECTOMY 2000 [facility] INTRAVENOUS INFUSION, THERAPY/DIAGNOSIS, ADMINISTERED PHYSICIAN/UNDER DIRECT SUPERVISION, PHYSICIAN; EA ADDITIONAL HOUR, UP TO EIGHT (8) HOURS (LIST SEPARATELY ADDITION TO CODE, PRIMARY PROCEDURE) 2000 [facility] STERILE SALINE IRRIGATION SOLUTION, 1000 ML 2000 [facility] VASECTOMY, UNILATERAL OR BILATERAL (SEPARATE PROCEDURE), INCLUDING [...] DETERMINATION 2007 [facility] PHYSICAL THERAPY RE-EVALUATION 2007 [facility] THERAPEUTIC PROCEDURE, 1 OR MORE AREAS, EACH [...] ENDURANCE, RANGE OF MOTION AND FLEXIBILITY 2007 [facility] PHYSICAL THERAPY EVALUATION 2007 [facility] ELECTROCARDIOGRAM, ROUTINE ECG WITH AT LEAST 12 LEADS; WITH INTERPRETATION AND REPORT 2007 [facility] FITTING OF SPECTACLES, EXCEPT FOR APHAKIA; MONOFOCAL 2006 [facility] SCREENING TEST OF VISUAL ACUITY, QUANTITATIVE, BILATERAL 2006 [facility] Social History Combined list of available smoking, tobacco, and other social history 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 Social History Type Response Date Comment Sour e This section is an empty social history section. [facility]
--- NOTE | 2024-12-21 09:55 | MHC.OFFWIV ---
Intake Vital Signs 12/21/24 09:59 Weight 258 lb BP 124/90 H Blood Pressure Location Rt brachial Position Sitting Pulse 87 Pulse Source Pulse Oximeter Pulse Oximetry (%) 96 Oxygen Delivery Method Room Air Intake Visit Reasons: EP-lower back pain Intake Note: Patient here for lower back pain that has been present for about 1 month and is causing tingling in genitals. Patient Tobacco Use Status: Current everyday Tobacco user Allergies No Known Allergies [No Known Allergies*] Allergy (Verified 12/21/24 10:00) Do you need a note to return to daycare/school/sports/work: Yes HPI HPI Comments History of Present Illness Details 49 y/o Male patient who presents to the walk in clinic with c/o lower back pain that has been present for about 1 month and is causing tingling in genitals. Denies Bowel or urinary symptoms. Denies numbness but endorses Tingling sensation. H/o two back surgeries in the past - with Post-Laminectomy pain syndrome. He has been taking NSAIDs and Acetaminophen with no much relief. He does have Muscle relaxants at home but he has not taken them yet. He used to see Pain management, last seen 2021. He was told his pain was due to Nerves. [facility] Medical History Kidney stones Obstructive sleep apnea Hemorrhoids without complication Sessile serrated polyp of colon Barretts esophagus GERD (gastroesophageal reflux disease) Deep vein thrombosis, lower right extremity COVID-19 vaccine series completed Positive PPD, treated Sleep apnea Asthma Spinal cord stimulator status Postlaminectomy syndrome Thrombosed external hemorrhoid Surgical History History of esophagogastroduodenoscopy (EGD) (04/2023) Hx of colonoscopy (04/2023) History of back surgery Hx of knee surgery Hx of repair of rotator cuff History of lumbar fusion History of appendectomy Family History Maternal Grandfather History of liver cancer Father History of bladder cancer Social History Household Members: Spouse and Children Housing: House Are you a primary occasional caregiver to a significant other at home: No Do you presently have visiting nurse or other home services: No Alcohol intake: current Alcohol intake frequency: a few times a month Patient Tobacco Use Status: Current everyday Tobacco user Tobacco use type: Cigar Years Smoked: 20 e-Cigarette/Vaping Use: Never Used Second Hand Smoke Exposure: No service: Yes Current occupational status: employed Cognitive needs: No Hearing needs: No Vision needs: No Review of Systems Const All systems reviewed & are unremarkable except as noted in HPI and below Physical Exam Vital Signs: Last Vital Signs Pulse 87 12/21/24 09:59 BP 124/90 H 12/21/24 09:59 Pulse Ox 96 12/21/24 09:59 Oxygen Delivery Method Room Air 12/21/24 09:59 Const General: no acute distress Orientation/consciousness: patient oriented x3 Back/Spine/Pelvis Back: back tenderness Thoracic/Lumbar Spine: pain with thoraco-lumbar ROM and lumbar spinal tenderness at L5 Neuro General: patient oriented x3, gait normal and moves all extremities Psych Speech and movement: Normal speech and movement present Assessment & Plan Assessment & Plan (1) Postlaminectomy syndrome: Comment: chronic back pain Code(s): M96.1 - Postlaminectomy syndrome, not elsewhere classified Plan: Advised to f/u with PCP for possible referral to Neurology and pain management. Recent Lumbar Xray (2023) normal. Declined Physical therapy. Advised to go to ED if symptoms get worse. Coding Level of Care Code Est Pt Level 4 (97625) Diagnoses Postlaminectomy syndrome M96.1 Time Spent (min) 20
[2024-12-21 09:59] VITALS: BP 124/90; PULSE 87; O2SAT 96
== END 2024-12-21 10:50 | disposition home or self-care (01) ==
PROVIDERS: PCP Nurse Practitioner Family; Visit Provider Nurse Practitioner Family
DX: M96.1 Postlaminectomy syndrome, not elsewhere classified (principal)

== ENCOUNTER → 2024-12-21 09:02 | Outpatient (BNVA) | payer OTHER, SELFPAY | PROVIDERS: PCP Nurse Practitioner Family; Visit Provider Nurse Practitioner Family | DX: M96.1 Postlaminectomy syndrome, not elsewhere classified (principal) | CPT/HCPCS: 99212 ==

== ENCOUNTER 2025-01-02 07:05 | Outpatient (AMB) | payer OTHER, SELFPAY ==
--- OUTSIDE RECORDS SUMMARY | 2025-01-02 07:08 | XMS_ITS | Encounter Summary ---
Author Name [facility] Address [address] [place] [address] Support Name Relationship Address Phone JANE RAMSEY Next of Kin [address] [place] [address] JANE RAMSEY Emergency Contact [address] [place] [address] Insurance Providers: All historical and current [...] BASIC FAMIL Y Jun 26, 2018 112 [id number] [phone] JENI RAMSEY PATIENT CAREMARK FEP ([id number]) PRESCRIPT ION FEP RX Jun 26, 2018 [id number] [phone] JENI RAMSEY PATIENT Selected Encounter This section includes the information on record at [place] for the Encounter. Date/Time Encounter Type Encounter Description Reason Pro vider Source December 28, 2024 02:00 PM Outpatient Encounter EVENT (HISTORICAL) IHE Encounter Template Text not used by [facility] Plan of Treatment: Future Appointments (+ 6 months) and Future Tests (+/- 45 days) The Plan of Treatment section includes future care activities for the patient from all [facility] treatment[facility]ilities. This section includes future appointments and future orders which are active, pending or scheduled. Future Appointments This section includes appointments that were scheduled to occur 6 months from the date of the Encounter, up to a maximum of 20 appointments. The data comes from all [place] treatment facilities. Appointment Date/Time Appointment Type Appointme nt Facility Name Mar 28, 2025 09:00 AM AMBULATORY - MEDICINE [facility] Active, Pending, and Scheduled Orders This section includes a listing of several types of active, pending, and scheduled orders, including clinic medications orders, diagnostic test orders, procedure orders and consult orders; where the start date of the order is 45 days before the date of the Encounter or 45 days after the date of theEncounter. The data comes from all [place] treatment facilities. Test Date/Time Test Type Test Details Facility Name December 29, 2024 11:42 AM Consult Order REHAB MEDI CINE/[facility] OUTPT Cons Linux Server Engineer's Choice [facility] December 29, 2024 11:42 AM Consult Order PHYSICAL T HERAPY/[facility] OUTPT Cons Linux Server Engineer's Choice [facility] Vital Signs: All taken on the encounter date This section contains inpatient and outpatient Vital Signs collected on the date of the Encounter. Date/Time Temperature Pulse Blood Pressure Respiratory Rate SP02 Pain Height Weight Body Mass Index Source December 28, 2024 01:56 PM 144/84 [facility] December 28, 2024 10:18 AM 98 79 131/88 20 98 9 75 [phone] 33 [facility] Social History: Smoking Status (Most current) and Tobacco Use (All prior to encounter date) This section includes the most current, and the historical, smoking and tobacco- related health factors from the [place] facility where the Encounter took place. Current Smoking Status This section includes the most current smoking, or tobacco-related health factor, from the [place] facility where the Encounter took place. Date/Time Current Smoking Status Comment Facil ity December 27, 2024 09:42 AM VA-TOBACCO USE [facility] Tobacco Use History This section includes a history of the smoking, or tobacco-related health factors, that were collected on or before the date of the Encounter. The data comes from the [place] facility where the Encounter took place. Date/Time Smoking Status/Tobacco Use Comment F acility December 27, 2024 09:42 AM [facility]-TOBACCO SCREEN FOLLOW-UP [facility] December 27, 2024 09:42 AM VA-TOBACCO USE ADVICE [facility] December 27, 2024 09:42 AM VA-TOBACCO USE NUT BLANKER OPERATOR NO [facility] December 27, 2024 09:42 AM VA-TOBACCO USE [facility] December 27, 2024 09:42 AM VA-TOBACCO USE MED NO [facility] Radiology Reports: +/- 30 days of the encounter Radiology Reports For cases when an order for radiology services may have been completed prior to the date of the Encounter, the report list includes the Radiology Reports that were completed up to 30 days before dateof the Encounter. For cases when an order for radiology services may have been completed after the date of the Encounter, the report list also includes the Radiology Reports that were completed up to30 days after date of the Encounter. The data comes from all [place] treatment facilities. Date/Time Radiology Report Provider Source December 28, 2024 03:18 PM SPINE LUMBOSACRAL MIN 2 VIEWS: JENI RAMSEY [phone] -[phone] M Exm Date: DECEMBER 28, 2024@15:18 Req Phys: BARB FAITH Loc: [facility] PACT 1 PA (Req'g Loc) Img Loc: [facility] Service: [place] [address] (Case [id number] COMPLETE) SPINE LUMBOSACRAL MIN 2 VIEWS (RAD Detailed) CPT:22592 Reason for Study: lumbar radiculopathy Clinical History: Covering resident, fellow, PROFESSOR OF LEGAL STUDIES or attending: Barb SMITH Pager: [phone] Backup pager: History: acute on chronic low back pain/ lumbar radiculopathy Report Status: Verified Date Reported: DECEMBER 28, 2024 Date Verified: DECEMBER 28, 2024 Steam Fitter Helper E-Sig:/ES/AMEE GOODRICH JR Report: Study: AP and lateral views of the lumbar spine. COMPARISON: None. FINDINGS: There are 5 lumbar type vertebral bodies identified. The patient is status post posterior fusion of the L4-S1 levels. The fusion hardware appears intact. Posterior to the L2 vertebral body within the subcutaneous paraspinal tissues and to the left of midline there is a linear metal density 2.6 cm transverse by 3 mm cephalocaudad by 3 mm AP radiopaque foreign body that appears to represent a surgical device, indeterminate. No prior examinations are available for comparison. Clinical correlation is recommended. Mild degenerative disc disease changes are present at the lower thoracic spine and at the L1-L3 levels. The vertebral body heights are normal. The bony mineralization is normal. The sacroiliac joints are normal for age. The paraspinal soft tissues appear normal. Impression: Possible paraspinal foreign body or implanted device requiring clinical correlation with postoperative fusion changes of the L4-S1 levels and mild degenerative disc disease changes in the visualized thoracic and lumbar spines, as described above. Primary Diagnostic Code: No immediate attention required Primary Interpreting Staff: AMEE GOODRICH JR, Radiologist (Steam Fitter Helper) /AMEE MALAVE JR [facility]
--- OUTSIDE RECORDS SUMMARY | 2025-01-02 07:08 | XMS_ITS | Continuity of Care Document ---
Author Name [facility] Organization [facility] Care Team Providers Care Heel Stiffener Name Role Phone [facility] Unavailable Unavailable Problems Combined list of problems 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 It does not include entries that were removed or entered in error. Problem Status Onset Date Problem Type Date of Resolution Comments Source Gilbert's syndrome Active 015 Condition [facility] Male erectile disorder Active 015 Condition [facility] Intervertebral disc degeneration Active 012 Condition [facility] Lumbar radiculopathy Active 012 Condition [facility] Meralgia paresthetica Active 012 Condition [facility] Spinal stenosis Active 012 Condition [facility] Tendonitis Active 012 Condition Dec 02, 2023 Entered By: KONG HENRIQUEZ Comment: tendonitis rotator cuff right [facility] Adjustment disorder with depressed mood Active 011 Condition [facility] Obesity Active 011 Condition [facility] Sleep apnea Active 011 Condition Dec 02, 2023 Entered By: KONG HENRIQUEZ Comment: nonorganic sleep apneaMay 2024 Entered By: CLINT FAITH Comment: has CPAP [facility] Sleep Medicine [facility] Sleep pattern disturbance Active 011 Condition [facility] Depression Inactive 011 Condition 12/28/2024 [facility] Joint pain Active 010 Condition Dec 02, 2023 Entered By: KONG HENRIQUEZ Comment: joint pain, localized in the right shoulder [facility] Tobacco use Active 010 Condition December 28, 2024 Entered By: CLINT FAITH Comment: cigar daily. quit cigs 2013. former 20-30 pack yr history [facility] Low back pain Inactive 009 Condition 12/28/2024 [facility] Asthma Active 008 Condition Dec 02, 2023 Entered By: KONG HENRIQUEZ Comment: asthma moderate persistent [facility] Esophageal reflux Active 008 Condition December 28, 2024 Entered By: CLINT FAITH Comment: [facility] GI, Dr Coyne [facility] Allergic arthritis Inactive 005 Condition 12/28/2024 [facility] GILBERT'S SYNDROME Active Condition DoD chronic cough Active Condition DoD MUSCLE SPASM Inactive Condition DoD TENDONITIS ROTATOR CUFF RIGHT Active Condition DoD SPINAL STENOSIS Active Condition DoD MERALGIA PARESTHETICA Active Condition DoD SACROILIAC REGION SPRAIN Inactive Condition DoD INTERVERTEBRAL DISC DEGENERATION Active Condition DoD visit for: services physical separation Active Condition DoD LUMBAR RADICULOPATHY Active Condition DoD visit for: issue repeat [...] Active Condition DoD SLEEP APNEA Active Condition DoD visit for: administrative purpose Inactive Condition DoD [...] ASTHMA MODERATE PERSISTENT Active Condition RILO dictated 01/09/2008.Zenia nue medications as discussed last visit 03/23/08.. DoD Aftercare Following Surgery Of Musculoskeletal System Inactive Condition DoD Outpatient Physician Consultation Active Condition DoD VIRAL DISEASE Inactive Condition Has sx 's of mono with sore throat and abdominal cramping vs early flu.Symptomatic treatment.Okay continue asa as long as no abdominal pain, melena, brbpr or hematemesis.Melo l check mono, flu swab, cbc with diff, [...] a c/s to get repeat PFTs done. [facility] Anticipatory Guidance: Safety Restraints Inactive Condition wearing restraints was discussed with the pt. DoD visit for: issue medical certificate fitness Inactive Condition 422 updated. DoD UPPER ARM STRAIN RIGHT Inactive Condition DoD PHARYNGITIS Inactive Condition 1. Clini gwyn Strep. TC pending. DoD NICOTINE DEPENDENCE Active Condition Encouraged to stop DoD ALLERGIC ARTHRITIS Active Condition DoD GASTROENTERITIS Inactive Condition DoD Barretts esophagus Active Condition M ay 2024 Entered By: CLINT FAITH Comment: EGD 2024 and 2023 per [facility] GI [facility] Chronic conjunctivitis Active Condition December 28, 2024 Entered By: KONG HENRIQUEZ Comment: Chronic Conjunctivitis- Bilateral [facility] Chronic sinusitis Active Condition [facility] Exposure to potentially hazardous substance (SCT [id number]) Active Condition December 29 Entered By: ASHLY GALLEGO Comment: Entered automatically through ISMAEL Problem List documentation program [facility] Renal stone Active Condition December 28, 2024 Entered By: CLINT FAITH Comment: 10/11/2024 LEFT Renal stone/PVU Dr Frost. no surg or litho [facility] Diagnosis: ICD-10-CM M51.9 Unsp thoracic, thoracolum and lumbosacr intvrt disc disorder Active Diagnosis [facility] Diagnosis: ICD-10-CM Z71.9 Counseling, unspecified Active Diagnosis [facility] Diagnosis: ICD-10-CM Z02.89 Encounter for other administrative examinations Active Diagnosis [facility] Medications Combined list of outpatient medications 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Medications provided include 1) outpatient medications from the last 15 months, and 2) patient-reported medications. Medication Details Route Status Patient Instructions Prescription Expires Prescription Number Last Dispense Date Ordering Provider Order Date Order Qty Source ALBUTEROL 90MCG/ACTUA T (CFC-F) INHL,ORAL,8 .5GM DOSE COUNTER INHALE 2 PUFFS BY MOUTH FOUR TIMES DAILY NEEDED RESPIR ATORY (INHAL ATION) [facility] ESOMEPRAZOL E MAGNESIUM 40MG CAP,EC TAKE 1 CAPSULE BY MOUTH EVERY MORNING 30 MINUTES BEFORE BREAKFAS T ORAL [facility]IVE [facility] 2024 [facility] [place] FLUTICASONE 500MCG/SALM ETEROL 50MCG INHL,ORAL,D ISKUS,60 INHALE 1 PUFF BY MOUTH TWICE DAILY RESPIR ATORY (INHAL ATION) ACTIVE [facility],[place] 2024 [facility] SUCRALFATE 1GM TAB TAKE ONE TABLET BY MOUTH AT BEDTIME ORAL ACTIVE [facility] 2024 [facility] Allergies, Adverse Reactions, Alerts Combined list of allergies 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 It does not include entries that were removed or entered in error. Substance Category Reaction Severity Reaction type Status Date Reported Comments Source No Known Allergies Drug allergy (disorder) active 12/26/2013 [facility] [address] Immunizations Combined list of available immunizations from the 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 Immunization Series Date Given Administered By Site Reaction Lot Number CVX Code Drug Senior Stack Engineer Status Comments Source INFLUENZA, UNSPECIFIED FORMULATION 2023 88 complet ed HISTORICA L INFORMATI ON - FROM PATIENT'S RECALL, [facility] Influenza, seasonal, injectable, preservative free 0 2011 [id number] Sanofi Pasteur ([facility]) complet ed Influenza , seasonal, injectabl e, preservat yovana free [facility] Influenza, seasonal, injectable, preservative free 1 2010 [id number] Sanofi Pasteur ([facility]) complet ed Influenza , seasonal, injectabl e, preservat yovana free [facility] influenza virus vaccine, live, attenuated, for intranasal use 1 2009 [id number] [employer], [employer]. (MED) complet ed influenza virus vaccine, live, attenuate d, for intranasa l use [facility] tetanus toxoid, reduced diphtheria toxoid, and acellular pertu is vaccine, adsorbed 1 2009 [id number] 115 [facility] ([facility]) complet ed tetanus toxoid, reduced diphtheri a toxoid, and acellular pertussis vaccine, adsorbed DoD TDAP 1 2009 115 complet ed HISTORICA L INFORMATI ON - FROM OTHER REGISTRY, tetanus toxoid, reduced diphtheri a toxoid, and acellular pertussis vaccine, adsorbed Lot#: [id number] [facility] Novel influenza-H1N 1-09, injectable 1 2008 [id number] Sanofi Pasteur ([facility]) complet ed Novel influenza -[id number], injectabl e [facility] influenza virus vaccine, split virus (incl. purified surface antigen)-reti red CODE 1 2008 [id number] 15 Sanofi Pasteur ([facility]) complet ed influenza virus vaccine, split virus (incl. purified surface antigen)- retired CODE [facility] influenza virus vaccine, split virus (incl. purified surface antigen)-reti red CODE 1 2007 [id number] 15 [employer] (CS) complet ed influenza virus vaccine, split virus (incl. purified surface antigen)- retired CODE [facility] typhoid Vi capsular polysaccharid e vaccine 1 2007 [id number] 101 Sanofi Pasteur ([facility]) complet ed typhoid Vi capsular polysacch aride vaccine [facility] TYPHOID, VICPS 1 2007 101 complet ed HISTORICA L INFORMATI ON - FROM OTHER REGISTRY, typhoid Vi capsular polysacch aride vaccine Lot#: [id number] Mfr: SANOFI PASTEUR [facility] influenza virus vaccine, split virus (incl. purified surface antigen)-reti red CODE 1 2006 [id number] 15 [facility] ([facility]) complet ed influenza virus vaccine, split virus (incl. purified surface antigen)- retired CODE [facility] influenza virus vaccine, split virus (incl. purified surface antigen)-reti red CODE 1 2005 [id number] 15 [facility] ([facility]) complet ed influenza virus vaccine, split virus (incl. purified surface antigen)- retired CODE [facility] influenza virus vaccine, whole virus 1 2005 Unknown, Provider [id number] 16 [facility] (SKB) complet ed influenza virus vaccine, whole virus DoD varicella virus vaccine 0 2005 21 () Not Given varicella virus vaccine DoD influenza virus vaccine, split virus (incl. purified surface antigen)-reti red CODE 1 2004 [id number] 15 Sanofi Pasteur ([facility]) complet ed influenza virus vaccine, split virus (incl. purified surface antigen)- retired CODE DoD influenza virus vaccine, whole virus 1 2004 [id number] 16 Sanofi Pasteur ([facility]) complet ed influenza virus vaccine, whole virus DoD influenza virus vaccine, whole virus 0 2004 [id number] 16 Sanofi Pasteur ([facility]) complet ed influenza virus vaccine, whole virus DoD anthrax vaccine 5 2003 [id number] [employer] [place] ([facility]) complet ed anthrax vaccine DoD ANTHRAX VACCINE, UNSPECIFIED 5 2003 319 complet ed HISTORICA L INFORMATI ON - FROM OTHER REGISTRY, Lot#: [id number] [facility] influenza virus vaccine, whole virus 0 2002 [id number] 16 Sanofi Pasteur ([facility]) complet ed influenza virus vaccine, whole virus DoD anthrax vaccine 4 2002 [id number] 24 [employer] [place] ([facility]) complet ed anthrax vaccine DoD ANTHRAX VACCINE, UNSPECIFIED 4 2002 319 complet ed HISTORICA L INFORMATI ON - FROM OTHER REGISTRY, Lot#: [id number] [facility] anthrax vaccine 3 2002 [id number] 24 [employer] [place] ([facility]) complet ed anthrax vaccine DoD ANTHRAX VACCINE, UNSPECIFIED 3 2002 319 complet ed HISTORICA L INFORMATI ON - FROM OTHER REGISTRY, Lot#: [id number] [facility] vaccinia (smallpox) vaccine 0 2002 [id number] 75 Maria Eugenia ([facility]) complet ed vaccinia (smallpox ) vaccine DoD VACCINIA (SMALLPOX) 2002 75 complet ed HISTORICA L INFORMATI ON - FROM OTHER REGISTRY, vaccinia (smallpox ) vaccine Lot#: [id number] Mfr: MARY RST [facility] anthrax vaccine 2 2002 [id number] 24 [facility] ([facility]) complet ed anthrax vaccine DoD ANTHRAX VACCINE, UNSPECIFIED 2 2002 319 complet ed HISTORICA L INFORMATI ON - FROM OTHER REGISTRY, Lot#: [id number] [facility] anthrax vaccine 1 2002 [id number] 24 [facility] [employer] [facility] ([facility]) complet ed anthrax vaccine DoD typhoid vaccine, parenteral, other than acetone-kille d, dried 0 2002 [id number] [place] (CON) complet ed typhoid vaccine, parentera l, other than acetone-k illed, dried [facility] ANTHRAX VACCINE, UNSPECIFIED 1 2002 319 complet ed HISTORICA L INFORMATI ON - FROM OTHER REGISTRY, anthrax vaccine Lot#: [id number] [facility] influenza virus vaccine, whole virus 0 2001 [id number] 16 Sanofi Pasteur ([facility]) complet ed influenza virus vaccine, whole virus [facility] influenza virus vaccine, whole virus 0 2000 [id number] 16 Sanofi Pasteur ([facility]) complet ed influenza virus vaccine, whole virus [facility] tuberculin skin test; purified protein derivative solution, intradermal 1 2000 Unknown, Provider [id number] [place] (CON) complet ed tuberculi n skin test; purified protein derivativ e solution, intraderm al [facility] influenza virus vaccine, whole virus 0 1999 16 () complet ed influenza virus vaccine, whole virus [facility] yellow fever vaccine 0 1999 [id number] [place] (CON) complet ed yellow fever vaccine DoD typhoid vaccine, parenteral, other than acetone-kille d, dried 0 1999 [id number] [place] (CON) complet ed typhoid vaccine, parentera l, other than acetone-k illed, dried DoD hepatitis A vaccine, adult dosage 2 1999 [id number] Merck (MSD) complet ed hepatitis A vaccine, adult dosage DoD HEP A, ADULT 2 1999 52 complet ed HISTORICA L INFORMATI ON - FROM OTHER REGISTRY, hepatitis A vaccine, adult dosage Lot#: [id number] Mfr: [employer] AND [employer]., [employer] [facility] YELLOW FEVER LIVE 1999 37 complet ed HISTORICA L INFORMATI ON - FROM OTHER REGISTRY, yellow fever vaccine Lot#: [id number] Mfr: [facility] measles, mumps and rubella virus vaccine 0 1999 03 () Not Given measles, mumps and rubella virus vaccine [facility] poliovirus vaccine, inactivated 0 1999 [id number] [place] (CON) complet ed polioviru s vaccine, inactivat ed [facility] hepatitis A vaccine, adult dosage 1 1999 [id number] Merck (MSD) complet ed hepatitis A vaccine, adult dosage DoD tuberculin skin test; purified protein derivative solution, intradermal 1 1999 Unknown, Provider 96 () complet ed tuberculi n skin test; purified protein derivativ e solution, intraderm al [facility] HEP A, ADULT 1 1999 52 complet ed HISTORICA L INFORMATI ON - FROM OTHER REGISTRY, hepatitis A vaccine, adult dosage Lot#: [id number] Mfr: [employer] [facility] tetanus and diphtheria toxoids, adsorbed, preservative free, for adult use (2 Lf of tetanus toxoid and 2 Lf of diphtheria toxoid) 0 1999 [id number] [place] (LED) comple t ed tetanus and diphtheri a toxoids, adsorbed, preservat yovana free, for adult use (2 Lf of tetanus toxoid and 2 Lf of diphtheri a toxoid) [facility] influenza virus vaccine, whole virus 0 1999 [id number] [place] (CON) complet ed influenza virus vaccine, whole virus [facility] meningococcal polysaccharid e vaccine (MPSV4) 0 1999 [id number] [place] (CON) complet ed meningoco ccal polysacch aride vaccine (MPSV4) DoD tuberculin skin test; purified protein derivative solution, intradermal 1 1999 Unknown, Provider [id number] [place] (CON) complet ed tuberculi n skin test; purified protein derivativ e solution, intraderm al DoD MENINGOCOCCAL MPSV4 1999 32 complet ed HISTORICA L INFORMATI ON - FROM OTHER REGISTRY, meningoco ccal polysacch aride vaccine (MPSV4) Lot#: [id number] Mfr: ISRAEL [facility] TD(ADULT) UNSPECIFIED FORMULATION 1999 139 complet ed HISTORICA L INFORMATI ON - FROM OTHER REGISTRY, tetanus and diphtheri a toxoids, adsorbed, preservat yovana free, for adult use (2 Lf of tetanus toxoid and 2 Lf of diphtheri a toxoid) Lot#: [id number] Mfr: KRANTHI [facility] Results Combined list of recent chemistry, hematology [...] Jun 05, 2024 01:17 PM Reporting Lab: [facility] [address] [facility] [address] Performing Lab: [address] [address] [facility] T-SPOT TB PANEL [employer] IUM TUBERCULOS [...] additional information , please refer to http://educ ation.Dynadmic .Tradoria/faq/FA Q215 (This link is being provided for information al/ educational purposes only.) Test Performed by [employer], [employer] [facility], [address] [place] [address] Diego Contreras M.D., Ph.D., Director of Laboratorie s , [place] [id number] TEST PERFORMED AT: , Ordering Provider: ROSALES OLIVARES Report Released Date/Time: May 03, 2024 10:26 AM Reporting Lab: [facility] [address] [facility] [address] Performing Lab: [facility] [address] [address] [facility] T-SPOT TB PANEL MYCOBACTER IUM TUBERCULOS [...] additional information , please refer to http://educ ation.Dynadmic .Tradoria/faq/FA Q215 (This link is being provided for information al/ educational purposes only.) Test Performed by [employer], [employer] [facility], [address] [place] [address] Diego Contreras M.D., Ph.D., Director of Laboratorie s , CLIA [id number] TEST PERFORMED AT: , Ordering Provider: ROSALES OLIVARES Report Released Date/Time: May 03, 2024 10:26 AM Reporting Lab: [facility] [address] [facility] [address] Performing Lab: [facility] [address] [address] [facility] T-SPOT TB PANEL [employer] IUM TUBERCULOS [...] additional information , please refer to http://educ Foxteq Holdings/faq/FA Q215 (This link is being provided for information al/ educational purposes only.) Test Performed by [employer], [address] [place] [address] Diego Contreras M.D., Ph.D., Director of Laboratorie s , [facility] [id number] TEST PERFORMED AT: , Ordering Provider: ROSALES OLIVARES E Report Released Date/Time: May 03, 2024 10:26 AM Reporting Lab: [facility] [address] [facility] [address] Performing Lab: [facility] [address] [address] [facility] T-SPOT TB PANEL MITOGEN STIMULATED GAMMA [...] additional information , please refer to http://educ Foxteq Holdings/faq/FA Q215 (This link is being provided for information al/ educational purposes only.) Test Performed by [employer], [address] [place] [address] Diego Contreras M.D., Ph.D., Director of Laboratorie s , CLIA [id number] TEST PERFORMED AT: , Ordering Provider: ROSALES OLIVARES Report Released Date/Time: May 03, 2024 10:26 AM Reporting Lab: [facility] [address] [facility] [address] Performing Lab: [facility] [address] [address] [facility] T-SPOT TB PANEL GAMMA INTERFERON NEGATIVE CONTROL [...] additional information , please refer to http://educ ation.Dynadmic .com/faq/FA Q215 (This link is being provided for information al/ educational purposes only.) Test Performed by [employer], [employer] [facility], [address] [place] [address] Diego Contreras M.D., Ph.D., Director of Laboratorie s , CLIA [id number] TEST PERFORMED AT: , Ordering Provider: ROSALES OLIVARES Report Released Date/Time: May 03, 2024 10:26 AM Reporting Lab: [facility] [address] [facility] [address] Performing Lab: [facility] [address] [address] [facility] MMRV (IGG) IMMUNE STATUS PANEL MEASLES VIRUS [...] May 03, 2024 10:26 AM Reporting Lab: [facility] [address] [facility] [address] Performing Lab: [address] [address] [facility] MMRV (IGG) IMMUNE STATUS PANEL MUMPS [...] May 03, 2024 10:26 AM Reporting Lab: [facility] [address] [facility] [address] Performing Lab: [address] [address] [facility] MMRV (IGG) IMMUNE STATUS PANEL RUBELLA [...] May 03, 2024 10:26 AM Reporting Lab: [facility] [address] [facility] [address] Performing Lab: [facility] [address] [facility] [address] [facility] MMRV (IGG) IMMUNE STATUS PANEL VARICELLA [...] May 03, 2024 10:26 AM Reporting Lab: [facility] [address] [facility] [address] Performing Lab: [facility] [address] [facility] [address] [facility] HEPATITI S B SURFACE ANTIBODY (HBsAb)- WH HEPATITIS B VIRUS SURFACE AB [PRESENCE] IN SERUM BY IMMUNOASSA Y Non Reactive 05/03 Specimen Type: SERUM No comment entered. Ordering Provider: ROSALES OLIVARES Report Released Date/Time: May 03, 2024 10:26 AM Reporting Lab: [facility] [address] [facility] [address] Performing Lab: [facility] [address] [facility] [address] [facility] Vital Signs Combined list of inpatient and outpatient Vital Signs from Department of Defense and Veterans Affairs, ranging from 12 months to all on record, depending upon the facility. Vital Sign Value Date Comments Source SYSTOLIC BLOOD PRESSURE 144 12/28/2024 13:56:09 [facility] DIASTOLIC BLOOD PRESSURE 84 12/28/2024 13:56:09 [facility] Encounters Combined list of: 1) Encounters from Department of Veterans Affairs facilities going backup to the last 18 months, not all [place] inpatient encounters are included; 2) Encounters from the Department of Defense facilities going backup to 280 months. Location Location Details Encounter Type Encounter Number Reason For Visit Attending Provider ADM Date DC Date Status Disposition Source [facility] OUTPATIENT [id number] upset stomach , diarrhe a, nausea, h/a GV_ANGELO ENG 10/19 Released w/o Limitations [facility] [facility]Pulm [facility]ology [facility]) OUTPATIENT [id number] est$ SHIVA WEBB 03/05 Released w/o Limitations [facility] [employer] [facility])(Pu lmonolo gy Disease Cl) [facility] [facility]) OUTPATIENT [id number] sleep problem ARELI SUSHIL Juan 04/28 Released w/o Limitations [facility] [facility] [facility]Po pe [facility]) [facility] OUTPATIENT [id number] F/U for sleepin g problem s ARELI SUSHIL Juan 05/01 Released w/o Limitations [facility] [facility] [facility] OUTPATIENT [id number] Severe headach e, sore throat. ARELI SUSHIL Juan 08/26 Released with Work/Duty Limitations [facility] [facility] [facility] OUTPATIENT [id number] Follow Up For Asthma ARELI SUSHIL Juan 10/08 Released with Work/Duty Limitations [facility] [facility] [facility]) [facility] [facility] OUTPATIENT [id number] Muscle pain in right arm ARELI SUSHIL Juan 10/20 Released w/o Limitations [facility] [facility] [facility]) OUTPATIENT [id number] Profile Update LORENASUSHIL FIORE 12/16 Released with Work/Duty Limitations [facility] [facility]) [facility] [facility] OUTPATIENT [id number] Profile Renewal , Post MEB ARELISUSHIL 04/08 Released w/o Limitations [place] [facility] [facility] [place] [facility]) OUTPATIENT [id number] pha CARASHIVA 05/05 Released w/o Limitations [place] [facility]) [place] [facility])([facility] Flight [facility]) OUTPATIENT [id number] hearing shift DWIGHT HINKLE 05/10 Released w/o Limitations [place] [facility])(Po [facility] Flight Medicin e) [place] [facility]) OUTPATIENT [id number] rt high freq loss [phone] ADALBERTO DENNISON 05/18 Released w/o Limitations [place] [facility])([facility] Hearing [facility] ) [place] [facility]) OUTPATIENT [id number] Left riddhi neely/Elsa SINGLETON SUSHIL Martinez 05/20 Released with Work/Duty Limitations [place] [facility]) [place] [facility]) OUTPATIENT [id number] oh hearing CHIDI LUKE 07/13 Released w/o Limitations [place] [facility] Flight [facility]in e) [place] [facility]) OUTPATIENT [id number] shots ARELI SUSHIL Martinez 07/28 Released w/o Limitations [place] [facility]) [place] [facility]) OUTPATIENT [id number] 4T for asthma , pain in R leg and lower back SUSHIL SINGLETON 02/03 Released with Work/Duty Limitations [place] [facility]) [place] ([facility])(Pulm onology Disease Cl) OUTPATIENT [id number] PFT EVELIN FRIEND 02/08 Released w/o Limitations [place] ([facility])(Pu lmonolo gy Disease Cl) [facility](PHA Cell) OUTPATIENT [id number] new comers PHA MAMI CARRION Vielka 05/03 Released w/o Limitations [facility](P BARONE Cell) [facility](Opt ometry Services) OUTPATIENT [id number] needs rx MEMO DEONTE Diogo 05/09 Released w/o Limitations [facility](O ptometr y Service s) [facility](FP Rok I) TELE CONSULT [id number] AD states going to run out of asthma meds soon... decline d all offered appts STEENSTRYGENE 06/01 Medical Group( P Rok I) [facility] Group(FP Rok I) TELE CONSULT [id number] med refill STEENSTRYGENE 06/06 Medical Group(F P Rok I) [facility] Group(FP Rok II) OUTPATIENT [id number] Shoulde r popping /sharp pain DONTA VENCES 06/20 Released with Work/Duty Limitations [facility](F P Rok II) [facility](FP Rok II) TELE CONSULT [id number] MRI results . LEVY JAUREGUI 06/29 Medical Group( P Rok II) [facility] Group(FP Rok II) OUTPATIENT [id number] Sharp pains in abdomen /back DONTA VENCES 09/08 Released w/o Limitations [facility](F P Rok II) [facility](FP Rok II) TELE CONSULT [id number] lab result RAMEZ FITZGERALD 09/09 [facility] Group(F P Rok II) [facility] Group(FP Rok II) OUTPATIENT [id number] Fever,h eadache ,stomac h pain DONTA VENCES 09/20 Sick at Home/Quarter s [facility](F P Rok II) [facility] Group(FP Rok II) TELE CONSULT [id number] results from labs done yesterd ay AMILCARRAMEZ Martinez 09/21 Medical Group(F P Rok II) [facility] Group(FP Rok II) OUTPATIENT [id number] Sharp Crampin g abdomin al DONTA Caldwell 09/22 Released w/o Limitations [facility](F P Rok II) [facility](FP Rok I) TELE CONSULT [id number] request from KAYLYNN Barrios 11/03 Medical Group(F P Rok I) Medical Group(FP Rok II) TELE CONSULT [id number] CON LEAVE [id number] RAMEZ FITZGERALD 11/13 Medical Group(F P Rok II) [facility](Phy sical Therapy) OUTPATIENT [id number] KRUPA COOK 12/06 Released w/o Limitations th [facility](P hysical Therapy ) [facility](Phy sical Therapy) OUTPATIENT [id number] SPEEDY JIMENES 12/12 Released w/o Limitations th [facility](P hysical Therapy ) [facility](Phy sical Therapy) OUTPATIENT [id number] SPEEDY JIMENES 12/14 Released w/o Limitations [facility](P hysical Therapy ) th [facility](Phy sical Therapy) OUTPATIENT [id number] JUD WEBB 12/19 Released w/o Limitations th [facility](P hysical Therapy ) [facility] Group(Phy sical Therapy) OUTPATIENT [id number] JUD WEBB 12/21 Released w/o Limitations th [facility](P hysical Therapy ) th [facility](Phy sical Therapy) OUTPATIENT [id number] SPEEDY JIMENES 12/26 Released w/o Limitations th [facility](P hysical Therapy ) th [facility](Phy sical Therapy) OUTPATIENT [id number] JUD WEBB 12/28 Released w/o Limitations th [facility](P hysical Therapy ) th [facility](Phy sical Therapy) OUTPATIENT [id number] JUD WEBB 01/02 Released w/o Limitations [facility](P hysical Therapy ) [facility] Group(Phy sical Therapy) OUTPATIENT [id number] JUD WEBB 01/04 Released w/o Limitations [facility](P hysical Therapy ) [facility](Phy sical Therapy) OUTPATIENT [id number] KRUPA COOK 01/17 Released w/o Limitations [facility](P hysical Therapy ) [facility] Group(FP Rok I) TELE CONSULT [id number] Needing ref KAYLIE CRESPO 01/23 Medical Group(F P Rok I) [facility] Group(FP Rok II) OUTPATIENT [id number] profile update for asthma DONTA VENCES 02/15 Released with Work/Duty Limitations [facility](F P Rok II) [facility](Phy sical Therapy) OUTPATIENT [id number] KRUPA COOK 02/26 Released w/o Limitations [facility](P hysical Therapy ) [facility](FP Rok II) OUTPATIENT [id number] RILO for medical board DONTA VENCES 03/23 Released w/o Limitations [facility](F P Rok II) [facility](FP Rok II) OUTPATIENT [id number] DONTA Starkey 04/10 Released w/o Limitations [facility](F P Rok II) [facility](PHA Cell) OUTPATIENT [id number] Annual PHA JOVITA ROSA 06/06 Released w/o Limitations [facility](P BARONE Cell) [facility](FP Rok II) TELE CONSULT [id number] AD states went to ER today [facility] for a fall and hitting his head. Needs F/U LAURA REGAN 09/11 [facility] Group(F P Rok II) Medical Group(FP Rok II) OUTPATIENT [id number] state back pain down to right leg DONTA VENCES 01/28 Released w/o Limitations [facility](F P Rok II) [facility](FP Rok II) TELE CONSULT [id number] Renewal of referra l to ARANZA Allen 01/28 [facility](F P Rok II) [facility] Group(FP Rok I) TELE CONSULT [id number] RX is not working for back pain ..MRI results in [place] 1530 LEVY JAUREGUI 01/31 Medical Group(F P Rok I) Medical Group(FP Rok II) TELE CONSULT [id number] AD states needs refill for Vicadin . 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 ...[phone] LAURA REGAN ALYSON 05/01 Medical Group(F P Rok II) [facility](FP Rok II) OUTPATIENT [id number] f/u for surgery can have two more weeks conleav e per [employer] DONTA Brothers Nava 05/02 Released w/o Limitations [facility](F P Rok II) [facility](Den ninfa Services) DENTAL [id number] adv pro ENEIDA VALENCIA 05/28 Released w/o Limitations [facility](D ental Service s) [facility] Group([facility] Services) DENTAL [id number] sc/rp ENEIDA VALENCIA 05/30 Released w/o Limitations [facility](D ental Service s) [facility]( Rok I) TELE CONSULT [id number] Appt resched ulRASTA Justice 06/04 [facility] Group( P Rok I) [facility]( Rok I) OUTPATIENT [id number] CYNDEE DENNY 06/11 Released w/o Limitations [facility]( P Rok I) [facility]( Rok I) OUTPATIENT [id number] ear pain, runny nose, cough, sneezin g, sore throat CYNDEE RIBEIRO 10/28 Released w/o Limitations [facility]( P Rok I) [facility]( Rok I) TELE CONSULT [id number] throat culure results ...[phone] RASTA WESTBROOK 10/29 [facility] Group( P Rok I) [facility] Group( Rok I) TELE CONSULT [id number] pt c/o of coughin g sneezin g and sore throat 1 week... .1571 RASTA WESTBROOK 12/27 Medical Group( P Rok I) [facility] Group( Rok II) OUTPATIENT [id number] Throat Culture AMAURI SALDANA 12/27 Released w/o Limitations [facility]( P Rok II) [facility](FP Rok I) TELE CONSULT [id number] AD lower abdomen pain, poss hernia. 1571 RASTA WESTBROOK 02/04 Medical Group( P Rok I) [facility] Group( Rok I) OUTPATIENT [id number] AD low abd pain/po ss hernia SANDRO KHAN 02/04 Released w/o Limitations [facility]) TELE CONSULT [id number] rad results SANDRO KHAN 02/05 [facility] I) TELE CONSULT [id number] needs appt SANDRO KHAN 02/24 [facility] I) TELE CONSULT [id number] AD c/o poss hernia, ultraso und neg. still in lot of pain. PIETRO, RASTA 02/27 [facility]( P k I) [facility] I) OUTPATIENT [id number] poss hernia MEMO AUSTIN 02/28 Released w/o Limitations [facility] I) OUTPATIENT [id number] CORAZONO SANDRO KHAN 03/03 Released w/o Limitations [facility] II) TELE CONSULT [id number] pt needs rererra l for pulmono logy... appts tomorro w..[phone] PIETRO, RASTA 04/02 [facility]( P k II) [facility] I) TELE CONSULT [id number] pulmono logy referal for RILO [phone] PIETRO, RASTA 04/08 [facility] I) TELE CONSULT [id number] pt has questio n on profile ....... .[phone] SANDRO KHAN 04/30 [facility]( P Rok I) [facility] I) OUTPATIENT [id number] shootin g pain down r arm\ SANDRO KHAN 05/05 Released w/o Limitations [employer](F P Rok I) [facility] Group(Phy sical Therapy) OUTPATIENT [id number] OSCAR PERRY 05/30 Released w/o Limitations [facility](P hysical Therapy ) [facility] Group(FP Rok I) TELE CONSULT [id number] pt wants results on mri.... ....[phone] RASTA WESTBROOK 06/04 [facility] Group(F P Rok I) [facility](FP Rok I) OUTPATIENT [id number] arch pain MARINEMAXIMILIANO SANDRO M 06/11 Released w/o Limitations [facility](F P Rok I) [facility](PHA Cell) OUTPATIENT [id number] PHA LOUISA PUENTE 06/13 Released w/o Limitations [facility](P BARONE Cell) [facility](FP Rok II) OUTPATIENT [id number] lower back/sh oulder pain KEREN MAO 07/16 Released w/o Limitations [facility](F P Rok II) [facility](FP Rok I) TELE CONSULT [id number] pt has questio n on profile ....... 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 [place] Carmona 10/02 [facility](F P Rok I) [facility](FP Rok I) OUTPATIENT [id number] con leave SANDRO KHAN 10/10 Released w/o Limitations [facility](F P Rok I) [facility] 2) OUTPATIENT [id number] Severe problem s sleepin g SANDRO KHAN 01/02 Released w/o Limitations [facility](L rhett [facility] 2) [facility] Group([facility] 2) TELE CONSULT [id number] RILO consult SANDRO KHAN 03/30 [facility] ROK 2) [facility] Group([facility] Team Z) OUTPATIENT [id number] jill marcelino ed, JAMES W 04/06 Released w/o Limitations [facility] Team Z) [facility] ROK 2) TELE CONSULT [id number] pt needs referra l for cpap machine and dr. len [facility] surgica l hospita l.. GENE WEISS 04/29 [facility] ROK 2) [facility] ROK 2) TELE CONSULT [id number] pt needs a call back regardlior wright. [phone] MICHELLE LIMA 06/25 [facility] Group([facility] ROK 2) [facility] ROK 2) OUTPATIENT [id number] meb SANDRO Granger 07/13 Released w/o Limitations [facility] ROK 2) [facility] ROK 2) TELE CONSULT [id number] pt is request ing profile change. ..[phone] JIHAN ESPINAL 07/17 [facility] ROK 2) Medical Group(War rio Operation al Medicine) TELE CONSULT [id number] CARLYN Dai 07/21 Medical Group(W arrior Operati onal Medicin e) [facility](PHA Cell) OUTPATIENT [id number] LOUISA REDDY 07/27 Released w/o Limitations [facility](P BARONE Cell) [facility] ROK 3) TELE CONSULT [id number] Special ty referra l/Repla cement of ARANZA Lema 07/27 Medical Group([facility] ROK 3) [facility] ROK 2) TELE CONSULT [id number] pt needs renewed referra diogo Barr PT, nurse faxed to [phone] GENE WEISS 08/04 Medical Group([facility] RO 2) [facility] 2) OUTPATIENT [id number] f/u depress ion SANDRO KHAN 08/04 Released w/o Limitations [facility] ROK 2) [facility] 2) OUTPATIENT [id number] cough,c ongesti on,ear ache,so re throat SANDRO KHAN 09/21 Released w/o Limitations [facility] 2) [facility] 2) TELE CONSULT [id number] Notes Entered by: BEATRIZ AMIN 12 Oct 2011 1143 ------- ------- ------- ------- -- AC. Galo from [facility] is request ing more visits on pt referra GENE Rodríguez 10/12 [facility] 2) [facility] 2) OUTPATIENT [id number] R knee pain x1wk CYNDEE SHERIDAN 11/05 Released w/o Limitations [facility] 2) [facility] 2) TELE CONSULT [id number] Notes Entered by: Jj SHERIDAN 08 Nov [id number] ------- ------- ------- ------- -- Xray results MAMI FLOREZ 11/08[facility] RO 2) [facility] 2) OUTPATIENT [id number] initial VAS consult SANDRO KHAN 11/15 Released w/o Limitations [facility] RO 2) [address] [place] [address]([facility] RO 2) TELE CONSULT [id number] Notes Entered by: DWIGHT TUTTLE 19 Nov 2011 1008 ------- ------- ------- ------- -- AC. Pt is wanting to know if he can get somethi ng stronge r then vicodin 10mg GENE WEISS 11/18 [facility] Group([facility] 2) [facility] Group([facility] 2) OUTPATIENT [id number] SANDRO Harvey 12/08 Released w/o Limitations [facility] 2) [facility] 2) TELE CONSULT [id number] Notes Entered by: BEATRIZ AMIN 15 Dec 2011 0811 ------- ------- ------- ------- -- AC. Pt needing to discuss profile ...[phone] GENE WEISS 12/14 [facility] Group([facility] 2) Medical Group([facility]) TELE CONSULT [id number] Notes Entered by: SANDRO SOLITARIO 18 Dec 2011 1706 ------- ------- ------- ------- -- Path results TRINA NEGRON 12/17 Medical Group(W arrior Operati onal Medicin e) [facility] 2) TELE CONSULT [id number] Notes Entered by: DWIGHT TUTTLE 22 Dec 2011 0842 ------- ------- ------- ------- -- AC. Pt c/o flu symptom s x1day.. .[phone] CYNDEE SHERIDAN 12/21 [facility] Group([facility] 2) [facility] 2) OUTPATIENT [id number] swollen gland in throat, cough, diarrhe a CYNDEE SHERIDAN 12/21 Released w/o Limitations [address] [place] [address]([facility] 2) [address] [place] [address]([facility] 2) TELE CONSULT [id number] Notes Entered by: BEATRIZ AMIN 12 Jan 2012 1150 ------- ------- ------- ------- -- AC. Pt needing refill on Lortab. ..[phone] GENE WEISS 01/11[facility] 2) [address] [place] [address]([facility] 2) TELE CONSULT [id number] Notes Entered by: SELWYN CHAVARRIA 25 Jan 2012 0925 ------- ------- ------- ------- -- AC. Pt needs updated referra l to has appt 19June. ..[phone] RAMEZ FITZGERALD 01/[address] [place] [address]([facility] 2) [address] [place] [address]([facility] 2) TELE CONSULT [id number] Notes Entered by: FAYE RIVER 05 Feb 2012 0829 ------- ------- ------- ------- -- Post CLEMENCIA Riley 02/[address] [place] [address]([facility] 2) [address] [place] [address]([facility] Operation al Medicine) TELE CONSULT [id number] Notes Entered by: SANDRO SOLITARIO 08 Feb 2012 1130 ------- ------- ------- ------- -- Lab results KRUPA FRIEND 02/07 Referred for Appointment [address] [place] [address](W arrior Operati onal Medicin e) [address] [place] [address]([facility] 2) TELE CONSULT [id number] Notes Entered by: DWIGHT TUTTLE 09 Feb 2012 0818 ------- ------- ------- ------- -- AC. Needs new 469 for MEB. Also needs refill for Loratab and Flexeri l...[phone] REYGENE HODGES 02/08 [facility] Group([facility] ROK 2) [facility] ROK 2) TELE CONSULT [id number] Notes Entered by: KATE SMALLWOOD 19 Feb 2012 0755 ------- ------- ------- ------- -- AC. Pt wants to discuss Lortab/ pt doesn't want to be on it anymore and pt states SONAM GARCIA 02/18 [facility] ROK 2) [facility] ROK 2) OUTPATIENT [id number] stu hip pain x3wks CYNDEE SHERIDAN 02/28 Released w/o Limitations [facility] ROK 2) [facility] ROK 3) TELE CONSULT [id number] Notes Entered by: KATE SMALLWOOD 05 Apr 2012 075 ------- ------- ------- ------- -- AC. Pt needs retirem ent physica l by 5sept, no appt avail in time... KAPIL TRIPP 04/05 Medical Group([facility] ROK 3) [facility] ROK 2) OUTPATIENT [id number] retirem ent physica l final out apr.20 YEYO ARIAS 04/07 Released w/o Limitations [facility] ROK 2) [facility] ROK 2) TELE CONSULT [id number] Notes Entered by: DESTIN ACUNA 03 May 2012 1449 ------- ------- ------- ------- -- Network Results -Physic al Therapy 04/27 CYNDEE SHERIDAN 05/03 Medical Group([facility] 2) [facility] Group([facility] 2) OUTPATIENT [id number] cough/s ore throat x4days CYNDEE SHERIDAN 06/15 Released w/o Limitations [facility] 2) Medical Group(War rior Operation al Medicine) TELE CONSULT [id number] Notes Entered by: MELL SILVESTRE 22 Aug 2012 1018 ------- ------- ------- ------- -- Network Results -Urgent Care 08/28 MEGAN COX 08/22 Medical Group(W arrior Operati onal Medicin e) Medical Group(Non -Active Duty [employer]) OUTPATIENT [id number] back spasms and pain down leg getting worse VANE TONY 11/23 Released w/o Limitations [facility](N on-Acti ve Duty [employer]) [facility](Non -Active Duty [employer]) OUTPATIENT [id number] deep cough, hurts chest SHIVA HARLEY 01/18 Released w/o Limitations [facility](N on-Acti ve Duty [employer]) [facility] Group(Non -Active Duty [employer]) TELE CONSULT [id number] Notes Entered by: ENEIDA HENNING 30 Jan 2014 1702 ------- ------- ------- ------- -- Xray results --DIPIKA Alamo 01/30 Medical Group(N on-Acti ve Duty [employer]) [facility] Group(Non -Active Duty [employer]) OUTPATIENT [id number] fol-up/ cough-n ow so bad-tricia es almost vomiti SHIVA HARLEY 02/06 Released w/o Limitations [facility](N on-Acti ve Duty [employer]) [employer] [facility](Non -Active Duty [employer]) TELE CONSULT [id number] Notes Entered by: PETEY COLON 20 Feb 2014 1301 ------- ------- ------- ------- -- Medicat ion request x 3-carlor DIPIKA Low 02/20 Medical Group(N on-Acti ve Duty [employer]) [facility] Group(Non -Active Duty [employer]) TELE CONSULT [id number] Notes Entered by: HARSHIL HAMILTON 08 Mar 2014 0715 ------- ------- ------- ------- -- Triage DIPIKA VAUGHN 03/08 Medical Group(N on-Acti ve Duty [employer]) [facility] Group(Non -Active Duty [employer]) OUTPATIENT [id number] cough, congest ion ALEX ATKINS 03/08 Released w/o Limitations [facility](N on-Acti ve Duty [employer]) [facility] Group(Non -Active Duty [employer]) OUTPATIENT [id number] back pain SHIVA HARLEY 03/12 Released w/o Limitations [facility] Group(N on-Acti ve Duty [employer]) [facility] Group(Non -Active Duty [employer]) TELE CONSULT [id number] Notes Entered by: ALEKSANDRA BAILEY 20 Mar 2014 0944 ------- ------- ------- ------- -- Network Results - Allergy Results 03/19/14 SHIVA HARLEY 03/20 [facility] Group(N on-Acti ve Duty [employer]) [facility] Group([facility] Otolaryng ology [facility]) OUTPATIENT [id number] ASTHMA FARHEEN PARRISH 03/20 Released w/o Limitations [facility] Group([facility] Otolary ngology [facility]) [facility] Group(Non -Active Duty [employer]) TELE CONSULT [id number] Notes Entered by: ALEKSANDRA BAILEY 04 Apr 2014 0657 ------- ------- ------- ------- -- Network Results - MRI Results 04/03/14 DIPIKA VAUGHN 04/04 Medical Group(N on-Acti ve Duty [employer]) [employer] [facility] [employer](Non -Active Duty [employer]) TELE CONSULT [id number] Notes Entered by: ELMER LIRIANO 09 Apr 2014 1551 ------- ------- ------- ------- -- Notes Receive d SHIVA HARLEY 04/09 [facility] Group(N on-Acti ve Duty [employer]) [employer](Non -Active Duty [employer]) TELE CONSULT [id number] Notes Entered by: ADA OSWALD 15 May 2014 1317 ------- ------- ------- ------- -- Network Results - Allergy F/U 05/15/20 14 SHIVA HARLEY 05/15 [facility](N on-Acti ve Duty [employer]) [employer](Non -Active Duty [employer]) TELE CONSULT [id number] Notes Entered by: DERECK MESSER 22 May 2014 0710 ------- ------- ------- ------- -- DIPIKA TATE 05/22 [facility] [employer](N on-Acti ve Duty [employer]) [facility] [employer](Non -Active Duty [employer]) TELE CONSULT [id number] Notes Entered by: ADA OSWALD 15 Jun 2014 1359 ------- ------- ------- ------- -- Network Results - Allergy F/U 014 ALEX ATKINS 06/15 [facility] [employer](N on-Acti ve [employer]) [employer](Non -Active Duty [employer]) TELE CONSULT [id number] Notes Entered by: Al ANDERSON 06 Sep 2014 1013 ------- ------- ------- ------- -- REF-upd ate needed VAUGHNDIPIKA 09/06 [employer](N on-Acti ve Duty [employer]) [facility](Non -Active Duty [employer]) TELE CONSULT [id number] Notes Entered by: Martinez VILLEDA 12 Sep 2014 0711 ------- ------- ------- ------- -- Network results - lab 015 ANGELA WELLER 09/12 [facility] [employer](N on-Acti ve Duty [employer]) [facility](Non -Active Duty [employer]) TELE CONSULT [id number] Notes Entered by: WILTON SHANE 14 Sep 2014 1341 ------- ------- ------- ------- -- Network Results - Allergy - 015 ALEX ATKINS 09/14 [employer](N on-Acti ve Duty [employer]) [facility] [employer](Non -Active Duty [employer]) OUTPATIENT [id number] sore throat, congest ion, sinus pressur e BHAVIN HERNÁNDEZ 09/24 Released w/o Limitations [employer](N on-Acti ve Duty [employer]) [facility] [employer](Non -Active Duty [employer]) TELE CONSULT [id number] Notes Entered by: Martinez VALLE 15 Jan 2015 0812 ------- ------- ------- ------- -- NETWORK RESULTS - ALLERGY F/U 01/14/15 ANGELA WELLER 01/15 [employer](N on-Acti ve Duty [employer]) [facility](Non -Active Duty [employer]) TELE CONSULT [id number] Notes Entered by: PETEY COLON 04 Feb 2015 1045 ------- ------- ------- ------- -- [facility]- med refill DIPIKA VAUGHN 02/04 [facility] [employer](N on-Acti ve Duty [employer]) [facility] [employer](Non -Active Duty [employer]) TELE CONSULT [id number] Notes Entered by: PETEY COLON 07 Mar 2015 1340 ------- ------- ------- ------- -- [facility]are- referra DIPIKA Latham 03/07 [facility] [employer](N on-Acti ve Duty [employer]) [facility](Non -Active Duty [employer]) OUTPATIENT [id number] Severe sinus and abdomin al pain. ANGELA WELLER 04/18 Released w/o Limitations [facility] [employer](N on-Acti ve Duty [employer]) [facility](Non -Active Duty [employer]) TELE CONSULT [id number] Notes Entered by: ANGELA WELLER 25 Apr 2015 1659 ------- ------- ------- ------- -- labs APPLE LIM 04/25 [facility](N on-Acti ve Duty [employer]) [facility](Non -Active Duty [employer]) TELE CONSULT [id number] Notes Entered by: ANGELA WELLER 09 May 2015 1622 ------- ------- ------- ------- -- labs DIPIKA VAUGHN 05/09 [employer](N on-Acti ve Duty [employer]) [facility] e) TELE CONSULT [id number] Notes Entered by: WILTON SHANE 05 Jul 2015 1039 ------- ------- ------- ------- -- Network Results - Allergy F/U - 5 CYNDEE TAM 07/05 [facility](B miguel) [facility] e) OUTPATIENT [id number] Notes Entered by: ELMER LIRIANO 17 Oct 2015 0845 ------- ------- ------- ------- -- Sore throat Walk in DIOR BLUNT 10/16 Released w/o Limitations [facility](B lue) [facility] e) OUTPATIENT [id number] Severe lower back/pe lvic pain CYNDEE TAM W 12/17 Released w/o Limitations [facility](B lue) [facility] e) OUTPATIENT [id number] back f/u CYNDEE TAM W 01/19 Released w/o Limitations [facility](B lue) [facility] e) OUTPATIENT [id number] Severe abdomin al pain/di arrhea for the past three days. VANE TONY 02/06 Released w/o Limitations [facility](B lue) [facility] e) OUTPATIENT [id number] TAMCALDERONANDREEA Owens 03/05 Released w/o Limitations [facility](B lue) [facility] e) OUTPATIENT [id number] f/u shoulde r CYNDEE TAM W 03/26 Released w/o Limitations [facility](B lue) [facility] P Medical Clearance ) TELE CONSULT [id number] JUAN MANUEL COON R 06/16 [facility](E [facility] Medical [place]) [facility] e) TELE CONSULT [id number] Notes Entered by: JUAN WEBB 05 Aug 2016 0758 ------- ------- ------- ------- -- Micare: LONNIE Elizabeth R 08/05 [facility](B lue) [facility] e) TELE CONSULT [id number] Notes Entered by: DWIGHT NGUYEN 26 Aug 2016 0817 ------- ------- ------- ------- -- LONNIE Perez R 08/26 [facility](B lue) [facility] e) TELE CONSULT [id number] Notes Entered by: AURELIO ALVAREZ 26 Aug 2016 1629 ------- ------- ------- ------- -- CLOSED MRI ( ) LONNIE HIRSCH 08/26 [facility](B lue) [facility](Jasbir e) OUTPATIENT [id number] Headach e/Neck Pain for 4 days VANE TONY 09/22 Released w/o Limitations [facility](B lue) [facility](Jasbir e) OUTPATIENT [id number] Migrain es, earache ROEL VILLEDA Naav 09/25 Released w/o Limitations [facility](B lue) [facility](Jasbir e) OUTPATIENT [id number] f/u migrain es LONNIE HIRSCH 09/28 Released w/o Limitations [facility](B lue) [facility](Jasbir e) OUTPATIENT [id number] Sinus pressur e, headach e, cold sweats, fever VANE TONY 10/22 Released w/o Limitations [facility](B lue) [facility](Jasbir e) TELE CONSULT [id number] Notes Entered by: DWIGHT NGUYEN 09 Dec 2016 0819 ------- ------- ------- ------- -- med refill - HARSHIL Gardner 12/09 Referred for Appointment [facility](B lue) [facility](Jasbir e) TELE CONSULT [id number] Notes Entered by: DWIGHT NGUYEN 23 Dec 2016 0800 ------- ------- ------- ------- -- Med refill - JUD Valencia 12/23 Other Not Elsewhere Classified [facility](B lue) [facility](Non -Active Duty [place]) TELE CONSULT [id number] Notes Entered by: CAN CAR 03 Feb 2017 0832 ------- ------- ------- ------- -- NETWORK RESULTS - OPHTHAL MOLOGY 10/16/16 MARIE YESENIA Lind 02/03 [facility] [employer](N on-Acti ve Duty [employer]) [facility] [employer](Non -Active Duty [employer]) TELE CONSULT [id number] Notes Entered by: ZACHERY REED 03 Feb 2017 0900 ------- ------- ------- ------- -- NETWORK RESULTS - ANESTHE SIOLOGY 09/28/16 YESENIA MARIE 02/03 [facility] [employer](N on-Acti ve Duty [employer]) [facility](Fli ght Medicine [employer]) OUTPATIENT [id number] pre-rafa cement ANGELA COLLIER 04/21 Released w/o Limitations [facility] [employer](F light Medicin e [employer]) [facility]([employer] P Medical Clearance ) TELE CONSULT [id number] JUAN MANUEL COON 10/07 Other Not Elsewhere Classified [facility](E [facility] Medical Clearan ce) [facility] Outpatient Encounter [id number] 11/22 [facility] Outpatient Encounter [id number] 12/01 [facility] OFFICE O/P NEW LOW 30 MIN [id number] Diagnos is: ICD-10- CM Z02.89 Encount er for other adminis trative examina tions BLADIMIR OLIVARES CE 05/03 [facility] OFFICE O/P EST MOD 30 MIN [id number] Diagnos is: ICD-10- CM Z02.89 Encount er for other adminis trative examina tions BLADIMIR OLIVARES CE 06/05 [facility] Out[facility] Encounter [id number] 06/16 [facility] Out[facility] Encounter [id number] 08/30 [facility] Out[facility] Encounter [id number] 12/26 [facility] Outpatient Encounter [id number] 12/27 [facility] OFF/OP EST DECEMBER X REQ PHY/QHP [id number] Diagnos is: ICD-10- CM Z71.9 Cell Plasterer ing, unspeci DAPHNE Snider 12/28 [facility] Out[facility] Encounter [id number] 12/28 [facility] OFFICE O/P NEW MOD 45 MIN [id number] Diagnos is: ICD-10- CM 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 Procedure Procedure Type Code Date Perfomer Comments Sourc e HEALTH AND BEHAVIOR ASSESS (EG, HEALTH-FOC CLIN INTERVIEW, BEHAVIORAL OBSERVATIONS, PSYCHOPHYSICOLOGICAL MON, HEALTH-ORIENTED QUESTIONNAIRES), EACH 15 MIN [id number] WITH THE PATIENT; RE-ASSESS 2018 [facility] PURE TONE AUDIOMETRY (THRESHOLD), AUTOMATED; AIR ONLY 2017 [facility] THERAPEUTIC, PROPHYLACTIC, OR DIAGNOSTIC INJECTION (SPECIFY SUBSTANCE OR DRUG); SUBCUTANEOUS OR INTRAMUSCULAR 2016 [facility] LARYNGOSCOPY, FLEXIBLE; DIAGNOSTIC 2013 [facility] RESPIRATORY FLOW VOLUME LOOP 2006 [facility] INFLUENZA VIRUS VACCINE, TRIVALENT (IIV3), SPLIT VIRUS, PRESERVATIVE FREE, 0.5 ML DOSAGE, FOR INTRAMUSCULAR USE 2005 [facility] PURE TONE AUDIOMETRY (THRESHOLD); AIR ONLY 2005 [facility] AUDITORY EVOKED POTENTIALS FOR EVOKED RESPONSE AUDIOMETRY AND/OR TESTING OF THE CENTRAL NERVOUS SYSTEM; COMPREHENSIVE 2005 [facility] SCREENING TEST OF VISUAL ACUITY, QUANTITATIVE, BILATERAL 2005 [facility] NONINVASIVE EAR OR PULSE OXIMETRY FOR OXYGEN SATURATION; SINGLE DETERMINATION 2005 [facility] TOBACCO USE CESSATION INTERVENTION, COUNSELING (COPD, CAP, CAD, ASTHMA) (DM) (PV) 2004 [facility] SIMPLE REPAIR OF SUPERFICIAL WOUNDS OF SCALP, NECK, AXILLAE, EXTERNAL GENITALIA, TRUNK AND/OR EXTREMITIES (INCLUDING HANDS AND FEET); 2.5 CM OR LESS 2004 [facility] BRONCHOSPASM PROVOCATION EVALUATION, [place] [address], WITH ADMINISTERED AGENTS (EG, ANTIGEN[S], COLD AIR, METHACHOLINE) 2004 [facility] NONINVASIVE EAR OR PULSE OXIMETRY FOR OXYGEN SATURATION; SINGLE DETERMINATION 2004 [facility] PATIENT-INITIATED SPIROMETRIC RECORDING PER 30-DAY PERIOD OF TIME; REVIEW AND INTERPRETATION ONLY BY A PHYSICIAN OR OTHER QUALIFIED HEALTH CAMPAIGN MANAGER 2004 [facility] SCREENING TEST OF VISUAL ACUITY, QUANTITATIVE, BILATERAL 2003 [facility] ACOUSTIC REFLEX TESTING; DECAY 2001 [facility] SIMPLE REPAIR OF SUPERFICIAL WOUNDS OF SCALP, NECK, AXILLAE, EXTERNAL GENITALIA, TRUNK AND/OR EXTREMITIES (INCLUDING HANDS AND FEET); 2.5 CM OR LESS 2000 [facility] LAPAROSCOPIC APPENDECTOMY 2000 [facility] INTRAVENOUS INFUSION, THERAPY/DIAGNOSIS, ADMINISTERED PHYSICIAN/UNDER DIRECT SUPERVISION, PHYSICIAN; EA ADDITIONAL HOUR, UP TO EIGHT (8) HOURS (LIST SEPARATELY ADDITION TO CODE, PRIMARY PROCEDURE) 2000 [facility] STERILE SALINE IRRIGATION SOLUTION, [address] [facility] VASECTOMY, UNILATERAL OR BILATERAL (SEPARATE PROCEDURE), INCLUDING POSTOPERATIVE SEMEN EXAM(S) 2011 [facility] TELE ASSESS & MGT SRV PROV QUAL [...] ENDURANCE, RANGE OF MOTION AND FLEXIBILITY 2007 [facility] THERAPEUTIC PROCEDURE, 1 OR MORE AREAS, EACH 15 MINUTES; THERAPEUTIC EXERCISES TO DEVELOP STRENGTH AND ENDURANCE, RANGE OF MOTION AND FLEXIBILITY 2007 [facility] PHYSICAL THERAPY EVALUATION 2007 [facility] ELECTROCARDIOGRAM, ROUTINE ECG WITH AT LEAST 12 LEADS; WITH INTERPRETATION AND REPORT 2007 [facility] FITTING OF SPECTACLES, EXCEPT FOR APHAKIA; MONOFOCAL 2006 [facility] SCREENING TEST OF VISUAL ACUITY, QUANTITATIVE, BILATERAL 2006 [facility] Health And Behav A e mt Each 15 Min [place] e ment Health And Behav Assessmt Each 15 Min Reassessment [address] [facility] Threshold Audiogram (Pure Tone) Automated Threshold Audiogram (Pure Tone) Automated 0208T [address] Supervised Injection Intramuscular Supervised Injection Intramuscular 42752 2016 ROEL VILLEDA Injection, ketorolac tromethamine, per 15 mg 2016 ROEL VILLEDA Fiberoptic Laryngoscopy Flexible (diagnostic) Fiberoptic Laryngoscopy Flexible (diagnostic) 22291 2013 FARHEEN PARRISH Surgery Of Male Genitalia Vasectomy Surgery Of Male Genitalia Vasectomy 23692 2011 SANDRO KHAN Non-Physician Phone Call To Patient/Provider Brief (5-10min) Non-Physician Phone Call To Patient/Provider Brief (5-10min) 44846 2009 RASTA WESTBROOK Foot, arch support, removable, premolded, longitudinal, each 2009 OSCAR PERRY Finishing Range Feeder Educ Orthotics Training Additional 15 Minutes 2009 OSCAR PERRY Physical Medicine Physical Therapy Evaluation Physical Medicine Physical Therapy Evaluation 77638 2009 OSCAR PERRY Non-Physician Phone Call To Pt/Provider Intermed (11-20 min) Non-Physician Phone Call To Pt/Provider Intermed (11-20 min) 80692 2009 RASTA WESTBROOK Non-Physician Phone Call To Patient/Provider Brief (5-10min) Non-Physician Phone Call To Patient/Provider Brief (5-10min) 08782 2009 RASTA WESTBROOK Physical Medicine Physical Therapy Re-Evaluation Physical Medicine Physical Therapy Re-Evaluation [address] [facility] Pulmonary Function Tests Pulmonary Function Tests [address] [facility] Physical Medicine Physical Therapy Re-Evaluation Physical Medicine Physical Therapy Re-Evaluation [address] [facility] Physical Therapy: ___ Se ion Segments, 15 Minutes Each Physical Therapy: ___ Session Segments, 15 Minutes Each 86309 2007 JUD WEBB ONE ON ONE SUPERVISION OF SHOULDER EX'S BY AUTOMATIC CENTRIFUGAL STATION OPERATOR x18MIN [facility] Physical Therapy: ___ Se ion Segments, 15 Minutes Each Physical Therapy: ___ Session Segments, 15 Minutes Each 00679 2007 JUD WEBB ONE ON ONE SUPERVISION OF SHOULDER EX'S BY AUTOMATIC CENTRIFUGAL STATION OPERATOR x20MIN [facility] Physical Therapy: ___ Se ion Segments, 15 Minutes Each Physical Therapy: ___ Session Segments, 15 Minutes Each 67782 2007 JUD WEBB ONE ON ONE SUPERVISION OF SHOULDER EX'S BY [facility] x20MIN [facility] Physical Therapy: ___ Se ion Segments, 15 Minutes Each Physical Therapy: ___ Session Segments, 15 Minutes Each 69847 2007 SPEEDY JIMENES ONE ON ONE SUPERVISION OF SHOULDER EX'S BY TECH X20MIN [facility] Physical Therapy: ___ Se ion Segments, 15 Minutes Each Physical Therapy: ___ Session Segments, 15 Minutes Each 02387 2007 JUD WEBB ONE ON ONE SUPERVISION OF SHOULDER EX'S BY AUTOMATIC CENTRIFUGAL STATION OPERATOR x20MIN [facility] Physical Therapy: ___ Se ion Segments, 15 Minutes Each Physical Therapy: ___ Session Segments, 15 Minutes Each 43672 2007 JUD WEBB ONE ON ONE SUPERVISION OF SHOULDER EX'S BY AUTOMATIC CENTRIFUGAL STATION OPERATOR x20MIN [facility] Physical Therapy: ___ Se ion Segments, 15 Minutes Each Physical Therapy: ___ Session Segments, 15 Minutes Each 17858 2007 SPEEDY JIMENES ONE ON ONE SUPERVISION OF SHOULDER EX'S BY TECH X20MIN [facility] Physical Therapy: ___ Se ion Segments, 15 Minutes Each Physical Therapy: ___ Session Segments, 15 Minutes Each 03446 2007 SPEEDY JIMENES ONE ON ONE SUPERVISION OF SHOULDER EX'S BY TECH X20MIN [facility] Physical Medicine Physical Therapy Evaluation Physical Medicine Physical Therapy Evaluation [address] [facility] ECG 12-Lead ECG 12-Lead 42974 2007 DONTA VENCES [employer] Fitting Monofocals (Not For Aphakia) [employer] Fitting Monofocals (Not For Aphakia) 19384 2006 DEONTE HAMPTON Determination Of Refractive State Determination Of Refractive State 56380 2006 DEONTE HAMPTON Ophthalmological New Patient Start Comprehensive Care Ophthalmological New Patient Start Comprehensive Care 22060 2006 DEONTE HAMPTON Screening Test Of Visual Acuity, Quantitative, Bilateral Screening Test Of Visual Acuity, Quantitative, Bilateral 27659 2006 MAMI CARRION Audiogram (Screening) Audiogram (Screening) 49030 2006 MAMI CARRION Pulmonary Function Tests Flow Volume Loop Pulmonary Function Tests Flow Volume Loop 10218 2006 EVELIN FRIEND Spirometry Post-bronchodilator Spirometry Post-bronchodilator 95933 2006 EVELIN FRIEND Spiromet Rec Pt Init Per 30 Days Physician Review Interpret Spiromet Rec Pt Init Per 30 Days Physician Review Interpret 18347 2006 EVELIN FRIEND Influenza Split Virus Vacc Age 3+ Years IM Preservative Free 2005 KARL VELASQUEZ Immunization Administration One Vaccine Immunization Administration One Vaccine 39467 2005 KARL VELASQUEZ Threshold Audiogram (Pure Tone) Threshold Audiogram (Pure Tone) 07662 2005 CHIDI LUKE Evoked Response Audiometry Comprehensive Evoked Response Audiometry Comprehensive 23903 2005 ADALBERTO DENNISON Comprehensive Audiometry Comprehensive Audiometry 74931 2005 ADALBERTO DENNISON Audiologic Impedance Testing Audiologic Impedance Testing 07487 2005 ADALBERTO DENNISON Acoustic Reflex Testing 2005 ADALBERTO DENNISON Pulse Oximetry Pulse Oximetry 75448 2005 JACQUELINE PRUETT Social History Combined list of available smoking, tobacco, and other social history 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 Social History Type Response Date Comment [facility] e Tobacco smoking status NHIS MT-TOBACCO USE EVERY DAY CIGARETTES 12/27/2024 [facility] History of tobacco use MT-TOBACCO NEVER USED OTHER TYPE 12/27/2024 [facility] This section is an empty social history section. [facility] Plan of Care List of future care activities from Department of 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 Additional future care activities may be listed in the Assessment and Plan section. Date/Time Care Activity Care Activity Detail Facili ty 03/28/2025 AMBULATORY - MEDICINE AMBULATORY - MEDICI NE [facility]
--- OUTSIDE RECORDS SUMMARY | 2025-01-02 07:08 | XMS_ITS | Encounter Summary ---
Author Name [facility] [place] Organization [facility] [place] Address [address] [place] [address] Support Name Relationship Address Phone SARA RAMSEY Next of Kin [address] [place] [address] SARA RAMSEY Emergency Contact [address] [place] [address] Insurance Providers: All historical and current [...] BASIC FAMIL Y Jun 26, 2018 [id number] [phone] JENI RAMSYE PATIENT CAREMARK FEP ([id number]) PRESCRIPT ION FEP RX Jun 26, 2018 [id number] [phone] JENI RAMSEY PATIENT Selected Encounter This section includes the information on record at [place] for the Encounter. Date/Time Encounter Type Encounter Description Reason Provider Source December 28, 2024 02:00 PM OFFICE O/P NEW MOD 45 MIN PRIMARY CARE/MEDICINE ICD-10-CM M51.9 Unsp thoracic, thoracolum and lumbosacr intvrt disc disorder BARB MISTRY [place] Encounter Template Text not used by [facility] Assessments - Encounter Diagnoses This section includes the primary and secondary diagnoses documented for the Encounter. Date/Time Primary/Secondary Diagnosis Diagnosis Name Provider Source December 29, 2024 10:25 AM PRIMARY Unsp thoracic, thoracolum and lumbosacr intvrt disc disorder [facility]B MIST[facility] December 29, 2024 10:25 AM SECONDARY Tobacco use [facility]B [facility]IST[facility] Plan of Treatment: Future Appointments (+ 6 months) and Future Tests (+/- 45 days) The Plan of Treatment section includes future care activities for the patient from all [place] [facility] This section includes future appointments and future orders which are active, pending or scheduled. Future Appointments This section includes appointments that were scheduled to occur 6 months from the date of the Encounter, up to a maximum of 20 appointments. The data comes from all [facility] facilities. Appointment Date/Time Appointment Type Appointme nt Facility Name Mar 28, 2025 09:00 AM AMBULATORY - MEDICINE [facility] Active, Pending, and Scheduled Orders This section includes a listing of several types of active, pending, and scheduled orders, including clinic medications orders, diagnostic test orders, procedure orders and consult orders; where the start date of the order is 45 days before the date of the Encounter or 45 days after the date of theEncounter. The data comes from all [facility] facilities. Test Date/Time Test Type Test Details Facility Name December 29, 2024 11:42 AM Consult Order REHAB MEDI CINE/[facility] OUTPT Cons Rim Technician's Choice [facility] December 29, 2024 11:42 AM Consult Order PHYSICAL T HERAPY/[facility] OUTPT Cons Rim Technician's Choice [facility] Vital Signs: All taken on the encounter date This section contains inpatient and outpatient Vital Signs collected on the date of the Encounter. Date/Time Temperature Pulse Blood Pressure Respiratory Rate SP02 Pain Height Weight Body Mass Index Source December 28, 2024 01:56 PM 144/84 [facility] December 28, 2024 10:18 AM 98 79 131/88 20 98 9 75 [phone] 33 [facility] Social History: Smoking Status (Most current) and Tobacco Use (All prior to encounter date) This section includes the most current, and the historical, smoking and tobacco- related health factors from the [place] facility where the Encounter took place. Current Smoking Status This section includes the most current smoking, or tobacco-related health factor, from the [place] facility where the Encounter took place. Date/Time Current Smoking Status Comment Facil ity December 27, 2024 09:42 AM VA-TOBACCO USE ELAINE RY DAY CIGARETTES [facility] Tobacco Use History This section includes a history of the smoking, or tobacco-related health factors, that were collected on or before the date of the Encounter. The data comes from the [place] facility where the Encounter took place. Date/Time Smoking Status/Tobacco Use Comment F acility December 27, 2024 09:42 AM VA-TOBACCO SCREEN FOLLOW-UP [facility] December 27, 2024 09:42 AM VA-TOBACCO USE [facility] December 27, 2024 09:42 AM VA-TOBACCO USE VENTURE CAPITAL ANALYST NO [facility] December 27, 2024 09:42 AM VA-TOBACCO USE ELAINE RY DAY CIGARETTES [facility] December 27, 2024 09:42 AM VA-TOBACCO USE MED NO [facility] Radiology Reports: +/- 30 days of the [...] the Encounter. The data comes from all [place] treatment facilities. Date/Time Radiology Report Provider Source December 28, 2024 03:18 PM SPINE LUMBOSACRAL MIN 2 VIEWS: ROXYJENI [place] [id number] -[phone] M Exm Date: DECEMBER 28, 2024@15:18 Req Phys: BARB MISTRY Loc: [facility] PACT 1 PA (Req'g Loc) Img Loc: [facility]/BUILDING 1 Service: Unknown [facility] PAUL JHA [id number] (Case [id number] COMPLETE) SPINE LUMBOSACRAL MIN 2 VIEWS (RAD Detailed) CPT:11225 Reason for Study: lumbar radiculopathy Clinical History: Covering resident, fellow, JOB PLACEMENT OFFICER or attending: Barb Reinoso [place] Pager: [phone] Backup pager: History: acute on chronic low back pain/ lumbar radiculopathy Report Status: Verified Date Reported: DECEMBER 28, 2024 Date Verified: DECEMBER 28, 2024 Spot Cleaner E-Sig:/ES/AMEE GOODRICH JR Report: Study: AP and [...] Primary Interpreting Staff: AMEE GOODRICH JR, Radiologist (Spot Cleaner) /AMEE MALAVE JR [place] [facility] Encounter Notes: All associated encounter notes This section contains the clinical notes associated to the Encounter. Date/Time Encounter Note(s) Provider Source December 28, 2024 01:56 PM PREVENTIVE MEDICINE NURSING NOTE: LOCAL TITLE: CLINICAL REMINDERS/NURSING STANDARD TITLE: PREVENTIVE MEDICINE NURSING NOTE DATE OF NOTE: DECEMBER 28, 2024@13:56 ENTRY DATE: DECEMBER 28, 2024@13:56:57 AUTHOR: PAT LINDSAY COSIGNER: URGENCY: STATUS: COMPLETED Screen for Embedded Fragments: SCREEN FOR EMBEDDED FRAGMENTS The patient reports no embedded fragments. 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 [place]/caregiver believes the [place] was exposed to the following while serving in the Armed Forces: Airborne Hazards and Open Burn Pit (Occuring in [place] after 1989): [place]/caregiver was made aware of educational resources that includes information on presumptive conditions and how to file a claim. Printed information was offered and provided if desired. Other exposures: Comment: toxic chemicals [place]/caregiver was made aware of educational resources and printed information was offered and provided if desired. No questions at this time /caregiver was informed of local points of contact. Contact information for local resources: Benefits/Claim for Disability Compensation Questions:National VBA [place] Healthcare Enrollment: [facility] Eligibility direct dialed at [phone] Registry: [facility] Health Coordinator ext [phone] Toxic Exposure Screening Follow-Up reminder is needed. Name of person notified: Barb Mistry HIV Screening: HIV Testing was done outside of this facility: HIV test was negative. DATE: Month/Year June/2010 RHS Screen: RHS Screen Session Format: Face to Face Environmental Check Upon inquiry, the individual reports that the environment is safe to proceed. Informed Consent to Screen and Document The individual consents to proceed with screening. The individual consents to documentation of responses. PRIMARY SCREEN: In the past 12 months, how often did a current or former intimate partner (e.g., boyfriend, girlfriend, , , sexual partner): 1. Scream or curse at you Never 2. Insult or talk down to you Never 3. Threaten you with harm Never 4. Physically hurt you Never 5. Force or pressure you to have sexual contact against your will, or when you were unable to say no Never ?? The HITS tool (items 1-4 above) is US copyright protected by Stewart Saravia MD, and the user has full rights to use it throughout the [facility] system. PRIMARY SCREEN RESULT: The Primary Screen is NEGATIVE. The individual answered never to all forms of IPV above (i.e., answered never to all 5 items) The individual accepts education and/or resources: Other: n/a EDUCATION: Other: n/a /pily/ PAT LINDSAY LPN LPN Signed: 12/28/2024 14:08 PAT LINDSAY [place] [facility] [place] [facility] December 28, 2024 12:31 PM H & P NOTE: LOCAL TITLE: 10-10/PHYSICIAN/PA STANDARD TITLE: H & P NOTE DATE OF NOTE: DECEMBER 28, 2024@12:31 ENTRY DATE: DECEMBER 28, 2024@12:31:19 AUTHOR: CHARLOTTE MISTRY COSIGNER: URGENCY: STATUS: COMPLETED JENI RAMSEY JR is a 49 year old DECLINED TO ANSWER MALE who is being seen today in primary care for routine follow up. 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 Couldnt get appt with PCP outside. Chronic low back pain since approx 2008; has had 3 'back surgeries' Acute pain for past 2-3 m No precip event. Having pain down both of back legs. Saw Chiro who recommended a different vehicle. Pain relieved by: Laying flat with legs elevated Worse with: walking, up and down stairs. Prolonged sitting (espec car) Pain hasnt been this severe for this long before. Also having sensation of tingling and hypersensitivity in scrotum and penis; worried about pudendal nerve involvement. Having worsening ED ; meds don't help now. Has motrin, doesnt take , doesnt help much. Previously rxd gabapentin years ago, stopped taking years ago, 'made everything numb . Doesnt want viktor again. Able to walk up and down stairs, no foot drop. SLeep quality; poor. Denies: saddle numbness, weakness of LEs; urinary or fecal incont or change in Bowels. [place] denies: no signif wt change, chills, severe fatigue, difficulty swallowing, ear pain, cough, SOB/ENG, chest pain, palpiations, ENG, abdominal pain, new urinary or bowel changes, new rashes or skin lesions. ==== RELEVANT PAST MEDICAL HISTORY ==== Active problems - Computerized Problem List is the source for the followin. Chronic conjunctivitis Chronic Conjunctivitis- Bilateral 2. Chronic sinusitis 3. Renal stone 10/11/2024 LEFT Renal stone/PVU Dr Frost. no surg or litho 4. Barretts esophagus EGD 2024 and 2023 per [facility] 5. Tobacco use cigar daily. quit cigs 2013. former 20-30 pack yr history 6. Tendonitis tendonitis rotator cuff right 7. Spinal stenosis 8. Sleep pattern disturbance 9. Obesity 10. Sleep apnea nonorganic sleep apnea has CPAP [facility] 11. Meralgia paresthetica 12. Male erectile disorder 13. Lumbar radiculopathy 14. Joint pain joint pain, localized in the right shoulder 15. Intervertebral disc degeneration 16. Gilbert's syndrome 17. Esophageal reflux [facility], Dr Coyne 18. Asthma asthma moderate persistent 19. 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[employer] Alcohol Use: daily bourbon Tobacco Use: Daily cigar; Pack Year: Drug Use: none Mobility: full Exercise: none, [phone] steps/day ==== ALLERGIES ==== [facility] [place] [facility] No Known Allergies ==== MEDICATIONS ==== Active and Recently Outpatient Medications (excluding Supplies): No Medications Found ==== REVIEW OF SYMPTOMS ==== see HPI ==== PHYSICAL EXAM ==== Vitals: 98 F [36.7 C] (12/28/2024 10:18) 79 (12/28/2024 10:18) 20 (12/28/2024 10:18) 144/84 (12/28/2024 13:56) 9 (12/28/2024 10:18) 75 in [190.5 cm] (12/28/2024 10:18) 262 lb [118.84 kg] (12/28/2024 10:18) BMI: 32.8 Exam: Gen.: Alert, no acute distress, slightly uncomfortable sitting Eyes: Noninjected. No icterus. HEENT: Normocephalic, atraumatic. No nasal drainage. Hearing grossly intact CV: RRR, No Murmurs. No carotid bruits. No LE Edema Respiratory: No conversational dyspnea. No audible wheezing stridor or cough. Skin: No obvious rashes. Neuro: Cranial nerves II-XII grossly intact Psych: Normal affect, cooperative. Intact judgment and insight. A&O x3. BACK EXAM: Well healed scars in LUMBAR reg from prev surgery No obvious deformity, swelling or redness with inspection. Flexion/ext: Limited No significant Localized or midline tenderness. 4/5 strength R leg compared to LEFT DTRs: 2+ patellar, achilles reflexes bilaterally. Gross sensation normal Gait: normal but guarded SLR: + on R ==== RECENT LABS ==== Outside PCP ==== ASSESSMENT AND PLAN ==== Acute on chronic low back pain bilateral lumbar pain with radicular sxs. XRays now. MRI soon given new onset neuro sxs Refer to PT ,then PM&R given chronicity of pain and hx surgeries in past. declines Viktor Barretts esophagus: had egd spring 2024/ mild dz/stable on PPI + carafate per [facility] Rpt EGD 3 yrs2027 Tobacco user: cigar daily quit cigs 2014; was heavy smoker discussed LDCT; will d/w outside PCP Elevated BP in pain will check readings at home, has cuff Goal < 140/90 Vaccines: declines tetanus and pneumococcal vaccines ADD MEDS, PHYSICAL exam On this date of the encounter, I spent 50 minutes on some or all of the following: chart review, history, physical examination, treatment planning, education and counseling of the patient/family/healthcare translator, placing orders, communicating with other health care providers and documentation in the electronic health record. ==== HEALTH MAINTENANCE ==== Colonoscopy : not discussed today Tetanus: not discussed today Pneumonia Vaccine: Flu Vaccine: due yearly Covid Vaccine: due yearly ==== FOLLOW UP ==== VISIT TYPE: 3 m FU Back pain/ BP check/ health maint: colo/reminders Upcoming Appointments: Medication Reconciliation: Outpatient: Has the patient been taking medications as documented in the EMLR? YES: The patient has been taking medications as documented in the EMLR. Essential Medication List for Review used to complete this medication reconciliation. INCLUDED IN THIS LIST: Alphabetical list of active outpatient prescriptions dispensed from this [place] (local) and dispensed from another [place] or [facility] facility (remote) as well as inpatient orders (local, pending and active), local clinic medications, locally documented non-VA medications, and local prescriptions that have or been discontinued in the past 90 days. - All changes in medications, including all non-VA/Herbal/OTC medications were entered into CPRS. - If there were any medications the patient should no longer take, they were discontinued. - The patient/caregiver was instructed to update this list, discard old lists, and take this list to the next appointment, whether with a VA or non-VA provider. /pily/ BARB MISTRY PA-C PA-C Signed: 12/29/2024 10:25 CHARLOTTE MISTRY [place] [facility]
--- OUTSIDE RECORDS SUMMARY | 2025-01-02 07:08 | XMS_ITS | Data Portability ---
Author Organization [place] - [email or web address] [facility], [employer] - [facility] Address [address] [place] [address] Assessment No assessment recorded. Plan of Treatment Reminders Order Date Submit Date Provider Last Modified By Organization Details Last Modified Time Details Appointments None recorded. Lab H pylori igm+igg+i ga Ab, serum 2016 017 [place] [facility] (Centralized Electronic Ordering - All Locations), Patient Can Go To The Location Of Their Choice, [facility] 7 06:12:32 Referral wound/ostomy nurse referral 2017 018 [place] [address] [facility], [address], [place], [address], 8 10:11:54 gastroent erologist referral 2017 018 [facility], [address], [place], [address], 8 14:18:57 Procedures None recorded. Surgeries None recorded. Imaging None recorded. Medication Orders sildenafi l 100 mg tablet 2017 018 [facility], [address], [place], [address], 8 16:12:45 gabapenti n 300 mg capsule 2017 018 [facility], [address], [place], [address], 8 16:12:45 Nexium 40 mg capsule,d elayed release 2016 017 [email or web address] [facility], [address], [place], [address], 8 09:27:25 famotidin e 40 mg tablet 2016 017 [facility], [address], [place], [address], 7 15:48:32 prednison e 20 mg tablet 2016 017 [email or web address] [facility], [address], [place], [address], 8 16:01:28 Dexilant 60 mg capsule, delayed release 2016 017 [facility], [address], [place], [address], 7 15:45:59 Patient Targets Encounter Date Encounter Id Patient Goals Patient Target Last Modified By Organization Details Last Modified Time resolution of GERD s/sx Not available 06/11/2017 16:03:20 resolution of reflux & allergy s/sx Not available 11/30/2017 16:13:04 Patient Instructions Encounter Date Encounter Id Patient Instructions Last Modified By Organization Details Last Modified Time 06/11/2017 [id number] lab today try dexilant instead of nexium [...] modifications/the rapy. Not available 06/11/2017 16:04:16 07/05/2017 [id number] continue with th e current tx plan [...] modifications/the rapy. Not available 07/05/2017 15:50:03 11/30/2017 [id number] establish with G I and wound/ostomy nurse when scheduled Not available 11/30/2017 16:13:24 pt experiencing breakthrough reflux despite ppi + h2 betzaida therapy; negative h pylori; PUD on ddx; pt agreeable for referral -> GI for EGD/further evaluation and tx pt also experiencing allergy s/sx despite singulair and antihistamine/dec ongestant therapy. agreeable with referral -> wound/ostomy nurse for testing/further treatment. reviewed and discussed issues; answered questions. Benefits/risks of therapy including medication side effects and cautions with use reviewed and discussed. Patient counseled on benefits of lifestyle modifications/the rapy. Not available 11/30/2017 16:16:34 03/01/2018 [id number] f/u prn and as scheduled with GI specialist Not available 03/01/2018 16:30:11 reviewed and discussed GI note and pathologies identified; answered questions. Benefits/risks of therapy including medication side effects and cautions with use reviewed and discussed. Patient counseled on benefits of lifestyle modifications/the rapy. 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 pylori, IgG abs <0.9 U/mL 0.0-0. 8 Negat yovana <0.9 Indet ermin ate 0.9 - 1.0 Posit yovana >1.0 Not Available [facility] ([facility]) [address] [place], [address], 06/15/2017 06:12:32 06/11/2006/14/2017 H pylor i igm+i gg+ig a Ab, serum H. pylori, IgA abs <9.0 units 0.0-8. 9 Negat yovana <9.0 Equiv ocal 9.0 - 11.0 Posit yovana >11.0 Not Available [facility] ([facility]) [address] [place], [address], 06/15/2017 06:12:32 06/11/2006/14/2017 H pylor i igm+i [...] Drug Admin istra tion. Not Available [facility] ([facility]) [address] [place], [address], 06/15/2017 06:12:32 Result Notes None recorded. Problems Name Problem SNOMED Code Status Onset Date Resolution Date Notes Provider Name and Address Organization Details Recorded Time Allergic rhinitis 73317799 Active 2016 Brennen Mccabe MD [address] [facility], [address] , [facility] [employer] [place] 7 15:21:25 Neuropathy 334060197 Active 2016 Brennen Mccabe MD [address] [employer], [address] , [facility] 7 15:21:26 Complaining of erectile dysfunction Active 2016 Brennen Mccabe MD [address] [place], [address] , [facility] 7 15:21:27 Mild intermittent asthma 930082431 Active 2016 Juli Murray LPN [facility] 7 14:37:39 Gastroesophag eal reflux disease 629150305 Active 2017 Brennen Mccabe MD [address] [place], [address] , [facility] 8 16:32:09 Acute erosive gastritis 023437534 Active 2017 Brennen Mccabe MD [address] [place], [address] , [facility] 8 16:32:09 Hiatal hernia 55807701 Active 2017 Brennen Mccabe MD [address] [place], [address] , [facility] 8 16:32:10 Problem Notes None recorded. Procedures Surgical History Date Name Laterality Status Provider Name and Address Organization Details Recorded Time Knee Surgery completed Juli Murray LPN [facility] 01/14/2017 13:21:09 Appendectomy completed Juli Murray LPN [facility] 01/14/2017 13:21:22 Orthopedic Surgery completed Juli Murray LPN [facility] 01/14/2017 13:22:35 Imaging Results None recorded. [...] Available Flonase 50 mcg/Actuati on nasl susp [place] 1 spray every day by intranasa l [...] Updated DateTime 7 190.5 cm 34 kg/m2 508121. 12 g 80 /min 20 /min 120 mm[Hg] 78 mm[Hg] Juli Murray LPN 7 15:45:41 Date Recorded Body height Body mass index (BMI) Body weight Body temperature Heart rate Respiratory rate Oxygen saturation Oxygen saturation in Arterial blood by Pulse oximetry Systolic blood pressure Diastolic blood pressure Provider Name and Address Organization Details Last Updated DateTime 7 190.5 cm 33.5 kg/m2 020294. 04 g 99.3 [degF] 75 /min 20 /min 94 % 94 % 110 mm[Hg] 88 mm[Hg] Lynda Ochoa RN 7 10:51:57 Date Recorded Body height Body mass index (BMI) Body weight Heart rate Respiratory rate Systolic blood pressure Diastolic blood pressure Provider Name and Address Organization Details Last Updated DateTime 7 190.5 cm 33.6 kg/m2 979379. 35 g 74 /min 20 /min 118 mm[Hg] 86 mm[Hg] Juli Murray LPN 7 15:34:49 Date Recorded Body height Body mass index (BMI) Body weight Heart rate Systolic blood pressure Diastolic blood pressure Provider Name and Address Organization Details Last Updated DateTime 8 190.5 cm 34 kg/m2 429920. 12 g 76 /min 128 mm[Hg] 94 mm[Hg] Ricarda Tao 8 16:06:45 Date Recorded Body height Body mass index (BMI) Body weight Heart rate Respiratory rate Systolic blood pressure Diastolic blood pressure Provider Name and Address Organization Details Last Updated DateTime 8 190.5 cm 34.4 kg/m2 212620. 9 g 76 /min 20 /min 120 mm[Hg] 82 mm[Hg] Juli Murray LPN [place] [employer] [facility] [place] 8 16:12:55 Social History Question Answer Notes LastModified by Organizat ion Details LastModified Time Tobacco Smoking Status Former Smoker Juli Murray LPN null, [facility] 01/14/2017 13:19:40 Do You Have An Advance Directive? Yes Information n ot available 01/14/2017 What Is Your Level Of Caffeine Consumption? Heavy Information not available 01/14/2017 What Type Of Diet Are You Following? REGULAR Information n ot available 01/14/2017 Education 12 Information no t available 01/14/2017 Hard Of Hearing Or Deaf [...] Functional Status Question Answer Note LastModified by Organizat ion Details LastModified Time What is your level of alcohol consumption? Occasional Information not available 01/14/2017 Are you able to care for yourself? 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 [...] SNOMED-CT Code Diagnosis ICD10 Code Diagnosis Note [id number] Brennen Mccabe MD Adult Medicine [address] [place] [address] 01/14/2017 12:49:02 01/14/2017 13:44:16 Asthma 130989886 J45.909 Complainin g of erectile dysfunction 341318446 N52.9 Adult [facility] th examination 812558319 Z00.00 Gastroesop hageal reflux disease 326467191 K21.9 [id number] Brennen Mccabe MD Adult Medicine [address] [place] [address] 03/05/2017 14:45:43 03/05/2017 15:23:31 Allergic rhinitis 82382002 J30.9 Neuropathy 281113455 G62 .9 Complainin g of erectile dysfunction 843810931 N52.9 [id number] Brennen Mccabe MD Adult Medicine [address] [place] [address] 06/11/2017 15:03:40 06/11/2017 16:12:28 Gastroesophageal reflux disease 988014151 K21.9 [id number] Ibrahmia Carty MD Adult Medicine [address] [place] [address] 4 06/21/2017 10:38:24 06/21/2017 11:36:32 Acute bronchitis 02953202 J20.9 Symptoms most c/w viral bronchitis ; no wheezing on exam, but he has been using his inhaler. Start short course of prednisone and use otc cough/cold medication prn. If no improvemen t, worsening, or new symptoms he will notify me. [id number] Brennen Mccabe MD Adult Medicine [address] [place] [address] 07/05/2017 15:06:30 07/05/2017 15:50:09 Gastroesophageal reflux disease without esophagitis 996910972 K21.9 [id number] Brennen Mccabe MD Adult Medicine [address] [place] [address] 4 11/30/2017 15:51:36 11/30/2017 16:39:22 Neuropathy 085450346 G62.9 Allergic rhinitis 891193 04 J30.9 Gastroesop hageal reflux disease 055081706 K21.9 Complainin g of erectile dysfunction 630784897 N52.9 [id number] Brennen Mccabe MD Adult Medicine [address] [place] [address] 4 03/01/2018 15:27:38 03/01/2018 16:39:02 Gastroesophageal reflux disease 887130720 K21.9 Acute eros yovana gastritis 653210121 K29.00 Hiatal hernia 58356561 K 44.9 Health Concerns Section Related Observation LastModified by Organization Detai ls LastModified Time None Recorded Concern Status LastModified by Organization Details LastModified Time None Recorded Advance Directives Directive Y: Payers Encounter Date Sequence Insurance Name Policy Number Policy Cross Covered Member ID Cross Member ID Guarantor Name 06/11/2017 1 [facility] () Missael Mejía [id number] Missael Mejía 06/21/2017 1 [facility] () Missael Mejía [id number] Missael Mejía 07/05/2017 1 [facility] () Missael Mejía [id number] Missael Mejía 11/30/2017 1 *SELF PAY* Karlene Mejía 03/01/2018 1 [facility] Missael Mejía [id number] Missael Mejía Notes Date Note Type Note Provider Name and Address Organization Details Recorded Time 06/11/2017 text/html pt c/o worsening heartburn, now associated with sour burps . x weeks. improved a little with otc nexium. pmh similar condition; s/p EGD 2014 w/o dx of tx. w/o further problem today. Brennen Mccabe MD [address] [place], [address], [facility] [email or web address] [place] 06/11/2017 16:08:41 06/21/2017 text/html Upper Respirator y SymptomsReported bypatient.Quality:pro ductive cough;sharp throat pain;colored phlegm Severity:the cough has been severe Onset/Timin-5 days ago Context:no sick contacts; no foreign travel Modifying Factors:albuterol inhaler (2-3 times a day), otc cold medication Associated Symptoms:yellow-green , thick sputum;wheezing;sweat s; bodyaches Ibrahima Carty MD [address] [place], [address], [facility] [email or web address] [place] 06/21/2017 12:31:18 07/05/2017 text/html pmh gerd. pt pre sents today for f/u and to review lab results. states dexilant was too expensive; doing well on nexium + pepcid; wants refills. w/o complaint today. Brennen Mccabe MD [address] [place], [address], [facility] [email or web address] [place] 07/05/2017 15:52:43 11/30/2017 text/html pt c/o reflux an d allergy s/sx refractory to the current med regimen and tx plan. also needs refills. otw doing well and w/[place] [address] [place] [address], [address], [facility] [email or web address] [place] 11/30/2017 16:18:39 03/01/2018 text/html pmh gerd. pt pre sents today for f/u and to review GI note. s/p EGD that showed erosive esophagitis and hiatal hernia. recently finished pH probe. thinks he will need surgery, but waiting to hear from dr schneider. doing better symptomatically now that he is back on his meds. w/o new complaint today. Brennen Mccabe MD [address] [place], [address], [facility] - [employer] [place] 03/01/2018 16:34:50
--- NOTE | 2025-01-02 07:48 | A.OFFPC_ITS ---
Intake Visit Reasons: F/U-WI visit Allergies No Known Allergies [No Known Allergies*] Allergy (Verified 01/02/25 07:49) Medication List - Last Reconciled 01/02/25 by CAMI CruzP- albuterol sulfate 90 mcg/actuation 2 puffs PO Q6H PRN esomeprazole magnesium 40 mg PO DAILY fluticasone propion-salmeterol 250-50 mcg/dose (Wixela Inhub) 1 ea PO BID fluticasone propionate 50 mcg/actuation (Flonase Allergy Relief) 1 spray intranasal DAILY sucralfate 1 g PO BEDTIME tadalafil 5 mg PO DAILY tamsulosin 0.4 mg PO DAILY Tobacco use date assessed: 11/07/24 Dental Screening Dental Screen Date: 11/07/24 HPI F/U-WI visit HPI Details History of Present Illness The patient is a 49-year-old male presenting with symptoms consistent with Post- Laminectomy Syndrome. He reports that his lower back pain has markedly increased, with radicular pain radiating down both lower extremities. He also notes genital numbness and tingling. Previously, he attended urgent care on 12/21/2024 due to these symptoms. If pressure is applied to specific areas of his back, his legs or one leg might go numb and give out. He denies any bowel or bladder incontinence as of this visit but is aware that should these symptoms arise, an emergency evaluation is necessary. His significant surgical history includes three lumbar interventions, with the last surgery occurring in 2010 (fusion x2 and discectomy) Past interventions also included the implantation and removal of a neurostimulator, which was ineffective for his condition. The patient prefers to avoid pharmacological management at this time, holding out for further diagnostic evaluation via imaging. Review of Systems - Musculoskeletal: Reports increased low er back pain - Neurological: Reports radiculopathy of bilateral lower extremities; Reports genital numbness and tingling - Genitourinary: Denies bowel or bladder incontinence Plan In light of the patient's worsening symptoms associated with post-laminectomy syndrome, I have arranged for a stat MRI to examine his spinal condition. This diagnostic step is critical given his prior lumbar surgeries and current symptoms. The potential risks and merits of the MRI, as well as its role in better informing subsequent care decisions, have been communicated. The patient has opted against using medication for symptom management at this point. He is reminded to seek emergency evaluation upon the development of bowel or bladder incontinence or any further symptom exacerbation. The course of follow-up will depend upon the MRI results. Discussion Notes During our discussion, I emphasized the likely diagnosis of post-laminectomy syndrome and explored the potential management options with the patient. I explained that given the progression of symptoms, an MRI is crucial to assess for structural changes or complications. While we discussed potential treatments, he chose to avoid medication, including steroids, focusing instead on accurate assessment via imaging. The patient understands the importance of seeking emergency care should he experience bowel or bladder incontinence or an increase in symptom severity. Furthermore, I ensured he is fully informed about what to expect from the imaging process and the need for follow-up care based on those results. Patient Instructions - Go to the hospital if you start losing control of your bladder or bowels. - Return to the emergency room if your s ymptoms get worse. - We scheduled an MRI to understand your current spine condition better. - Avoid pushing or applying heavy pressu re on your back to prevent numbness. - You chose not to take any medications right now, including steroids. [facility] Medical History Kidney stones Obstructive sleep apnea Hemorrhoids without complication Sessile serrated polyp of colon Barretts esophagus GERD (gastroesophageal reflux disease) Deep vein thrombosis, lower right extremity COVID-19 vaccine series completed Positive PPD, treated Sleep apnea Asthma Spinal cord stimulator status Postlaminectomy syndrome Thrombosed external hemorrhoid Surgical History History of esophagogastroduodenoscopy (EGD) (04/2023) Hx of colonoscopy (04/2023) History of back surgery Hx of knee surgery Hx of repair of rotator cuff History of lumbar fusion History of appendectomy Family History Maternal Grandfather History of liver cancer Father History of bladder cancer Social History Household Members: Spouse and Children Housing: House Are you a primary healthcare facility administrator to a significant other at home: No Do you presently have visiting nurse or other home services: No Alcohol intake: current Alcohol intake frequency: a few times a month Patient Tobacco Use Status: Current everyday Tobacco user Tobacco use type: Cigar Years Smoked: 20 e-Cigarette/Vaping Use: Never Used Second Hand Smoke Exposure: No service: Yes Current occupational status: employed Cognitive needs: No Hearing needs: No Vision needs: No Questionnaire Thrive Questionnaire Date Thrive assessed: 11/07/24 I am a: Patient What is your living situation today?: I have a steady place to live Within the past 12 months, did the food you bought not last and you didn't have the money to get more?: Never true Within the past 12 months, did you worry whether your food would run out before you got money to buy more?: Never true Do you have trouble paying for medicines?: No Do you have trouble getting transportation to medical appointments?: No Do you have trouble paying your heating and electricity bill?: No Do you have trouble taking care of your child, family member or friend?: No Do you have trouble with day-to-day activities such as bathing, preparing meals, shopping, managing finances, etc.?: No Are you currently unemployed and looking for a job?: No Are you interested in more education?: No Please select the resources that you would like help with: None Currently or been in a relationship where the following occur: No concerns reported THRIVE Score: 0 JULIANA-7 AMB Questionnaire JULIANA-7 Date JULIANA - 7 assessed: 11/07/24 Source: Developed by Drs. Daniel Michele, Staci Linder, Edgar Haque and colleagues, with an educational jaquelin from [employer]. Physical exam (Primary Care) Tobacco/Smoking Status: Tobacco use Status Tobacco use date assessed 11/07/24 11/07/24 15:44 Patient Tobacco Use Status Current everyday Tobacco 12/21/24 09:57 Tobacco use type Cigar 11/07/24 15:44 e-Cigarette/Vaping Use Never Used 11/07/24 15:44 Thrive Assessment: Date of Thrive Assessment Date Thrive assessed 11/07/24 11/07/24 15:44 Currently or been in a relationship where the following occur: No concerns reported Telehealth Telehealth Telehealth Platform: [facility] Location of provider rendering services: practice address Location of patient: address on file Telehealth method: video Patient verbally consented to treatment: Yes Patient verbally consented to billing insurance company: Yes Patient informed of any privacy concerns related to visit: Yes Minutes spent on Phone/Video with Pt.: 10 Coding Level of Care Code Tele Est Pt Level 3 (30726) Diagnoses Groin discomfort R10.30 Chronic lower back pain M54.50; G89.29 Postlaminectomy syndrome M96.1 Assessment & Plan Assessment & Plan (1) Groin discomfort: Code(s): R10.30 - Lower abdominal pain, unspecified Category: Medical (2) Chronic lower back pain: Code(s): M54.50 - Low back pain, unspecified; G89.29 - Other chronic pain Category: Medical (3) Postlaminectomy syndrome: Comment: chronic back pain Code(s): M96.1 - Postlaminectomy syndrome, not elsewhere classified Category: Medical Plan . Orders: Orders MR lumbar spine wo con Today G89.29 - Other chronic pain, M54.50 - Low back pain, unspecified, M96.1 - Postlaminectomy syndrome, not elsewhere classified, R10.30 - Lower abdominal pain, unspecified
== END 2025-01-02 10:59 | disposition home or self-care (01) ==
LOC: HO.HMCC 07:05
PROVIDERS: PCP Nurse Practitioner Family; Visit Provider Nurse Practitioner Family
DX: R10.30 Lower abdominal pain, unspecified (principal); M54.50 Low back pain, unspecified; G89.29 Other chronic pain; M96.1 Postlaminectomy syndrome, not elsewhere classified

== ENCOUNTER → 2025-01-02 07:05 | Outpatient (BNVA) | payer OTHER, SELFPAY | PROVIDERS: PCP Nurse Practitioner Family; Visit Provider Nurse Practitioner Family | DX: Z13.89 Encounter for screening for other disorder (principal) ==

== ENCOUNTER 2025-05-10 14:41 | Outpatient (AMB) | payer OTHER, SELFPAY ==
[2025-05-10 14:52] VITALS: BP 132/82; PULSE 78; O2SAT 98; BMI 33.2
--- NOTE | 2025-05-10 14:52 | A.OFFVIS_ITS ---
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 Patient reports he was diagnosed with DELMA 15 years ago. He has been using CPAP since then. The CPAP compliance and therapy response reviewed. He is on APAP [id number]. The usage days 90 day, 100% the average usage hours 7 hrs 30 min. The residual AHI was 3 /hr. His CPAP is [email or web address]. He feels better with CPAP. He sleeps ok with CPAP, about 7 hrs, uses tapes to close his mouth. His daytime symptoms have improved - sleeps good at night but edmonds schronic back pain . he is scheudled to see ortho at [facility] Medical History Kidney stones Obstructive sleep apnea Hemorrhoids without complication Sessile serrated polyp of colon Barretts esophagus GERD (gastroesophageal reflux disease) Deep vein thrombosis, lower right extremity COVID-19 vaccine series completed Positive PPD, treated Sleep apnea Asthma Spinal cord stimulator status Postlaminectomy syndrome Thrombosed external hemorrhoid Surgical History History of esophagogastroduodenoscopy (EGD) (04/2023) Hx of colonoscopy (04/2023) History of back surgery Hx of knee surgery Hx of repair of rotator cuff History of lumbar fusion History of appendectomy Family History Maternal Grandfather History of liver cancer Father History of bladder cancer Social History Household Members: Spouse and Children Housing: House Are you a primary patient care assistant to a significant other at home: No Do you presently have visiting nurse or other home services: No Alcohol intake: current Alcohol intake frequency: a few times a month Patient Tobacco Use Status: Current everyday Tobacco user Tobacco use type: Cigar Years Smoked: 20 e-Cigarette/Vaping Use: Never Used Second Hand Smoke Exposure: No service: Yes Current occupational status: employed Cognitive needs: No Hearing needs: No Vision needs: No Physical Exam Vital Signs: Last Vital Signs Pulse 78 05/10/25 14:52 BP 132/82 05/10/25 14:52 Pulse Ox 98 05/10/25 14:52 Oxygen Delivery Method Room Air 05/10/25 14:52 BMI result Body Mass Index 33.2 Const General: cooperative, healthy appearing and comfortable Orientation/consciousness: patient oriented x3 Resp Effort & Inspection: normal respiratory effort and able to speak in complete sentences Neuro General: patient oriented x3, gait normal and moves all extremities Cognition (Neuro): normal cognition Gait exam (Neuro): Normal gait present Psych Appearance: grossly normal Mental Status: mental status grossly normal Speech and movement: Normal speech and movement present Affect: normal affect Assessment & Plan Assessment & Plan (1) Obstructive sleep apnea: Code(s): G47.33 - Obstructive sleep apnea (adult) (pediatric) Category: Medical Plan continue to use APAP at [id number] as patient experiences good clinical effects ,sleep quality and sleep apnea has improved and daytime sleepiness has resolved. Stressed CPAP compliance, use CPAP nightly and more than 4 hrs. Coding Level of Care Code Est Pt Level 3 (63624) Diagnoses Obstructive sleep apnea G47.33
== END 2025-05-10 15:14 | disposition home or self-care (01) ==
LOC: HO.HSMS 14:42
PROVIDERS: PCP Nurse Practitioner Family; Visit Provider Psychiatry & Neurology Neurology
DX: G47.33 Obstructive sleep apnea (adult) (pediatric) (principal)
CPT/HCPCS: 99213

== ENCOUNTER → 2025-05-10 14:41 | Outpatient (BNVA) | payer OTHER, SELFPAY | PROVIDERS: PCP Nurse Practitioner Family; Visit Provider Psychiatry & Neurology Neurology | DX: G47.33 Obstructive sleep apnea (adult) (pediatric) (principal) | CPT/HCPCS: 99212 ==